=== PATIENT | female | born 1965 | race Caucasian/White ===

== ENCOUNTER 2017-06-17 23:26 | Emergency (ER) | payer MEDICARE, OTHER ==
[~2017-06-17] VITALS: Ht 170.2 cm; Wt 64.9 kg
[~2017-06-17 23:26] MED LIST: ACETAMINOPHEN325 M1 PO; AMITRIPTYLINE H25 MG PO; ARTIFICIAL TEAR15 ML OU; ASPIR 8181 MG PO; AZO CRANBERRY1 EACH PO; B12 IM; BENADRYL25 M1 PO; COLACE100 MG PO; FOLIC ACID1 MG PO; GAS-X80 MG PO; LACTULOSE20 GM/30 M PO; METROGEL60 GM TOP; MILK OF MA2400 MG/10 PO; NYSTATIN1 EAC1 TOP; PHENERGAN25 MG/1 ML PO; TEMAZEPAM15 MG PO; TYLENOL WITH C1 EACH PO; URISPAS PO; VESICARE5 MG PO; VITAMIN C500 MG PO; WELLBUTRIN100 MG PO; ZANAFLEX4 M1 PO; [UNRECOGNIZED DRUG - OTHER]; [UNRECOGNIZED DRUG - OTHER] SC
[2017-06-18 00:32] LABS: BILIRUBIN,URINE NEGATIVE (NEGATIVE); CLARITY,URINE CLOUDY (CLEAR); COLOR,URINE YELLOW (YELLOW); KETONES,URINE NEGATIVE (NEGATIVE); LEUKOCYTE ESTERASE ,URINE 2+ (NEGATIVE); NITRITE,URINE NEGATIVE (NEGATIVE); URINE UROBILINOGEN 0.2 mg/dL (0.2 - 1)
[2017-06-18 00:42] LABS: PROTEIN,URINE DIPSTICK 2+ (NEGATIVE)
[2017-06-18 00:47] LABS: BACTERIA,URINE MODERATE /HPF; EPITHELIAL CELLS,URINE FEW /LPF; RBC,URINE >50 /HPF (0-5); WBC,URINE (MAN) >50 /HPF (0-5)
[2017-06-18] MEDS ORDERED: LEVOFLOXACIN 500 MG TAB PO ONE (01:15)
[2017-06-18 01:27] VITALS: BP 140/97
== END 2017-06-18 02:23 | disposition home or self-care (01) ==
LOC: ER 23:26
DX: Z46.6 Encounter for fitting and adjustment of urinary device (principal); N30.91 Cystitis, unspecified with hematuria; I10 Essential (primary) hypertension; G35 Multiple sclerosis; F32.9 Major depressive disorder, single episode, unspecified; F41.9 Anxiety disorder, unspecified; E78.5 Hyperlipidemia, unspecified; Z95.810 Presence of automatic (implantable) cardiac defibrillator
CPT/HCPCS: 81001; 87086; 87186; 99283

== ENCOUNTER 2018-03-07 11:29 | Emergency (ER) | payer MEDICARE, MEDICAID ==
[~2018-03-07] VITALS: Ht 170.2 cm; Wt 64.9 kg
[2018-03-07 13:42] LABS: CLARITY,URINE CLOUDY (CLEAR); COLOR,URINE YELLOW (YELLOW); LEUKOCYTE ESTERASE ,URINE 2+ (NEGATIVE)
[2018-03-07 13:43] LABS: BILIRUBIN,URINE NEGATIVE (NEGATIVE); KETONES,URINE NEGATIVE (NEGATIVE); NITRITE,URINE NEGATIVE (NEGATIVE); PROTEIN,URINE DIPSTICK TRACE (NEGATIVE); URINE UROBILINOGEN 0.2 mg/dL (0.2 - 1); WBC,URINE (MAN) >50 /HPF (0-5)
[2018-03-07 13:44] LABS: BACTERIA,URINE MODERATE /HPF; EPITHELIAL CELLS,URINE MODERATE /LPF; RBC,URINE 21-50 /HPF (0-5); TRANSITIONAL EPI CELLS,URINE RARE
[2018-03-07] MEDS ORDERED: TOBREX3.5 GM IM (14:01)
[2018-03-07 16:48] VITALS: BP 96/69
== END 2018-03-07 16:52 | disposition home or self-care (01) ==
LOC: ER 11:29
DX: R30.0 Dysuria (principal); N10 Acute pyelonephritis; N12 Tubulo-interstitial nephritis, not specified as acute or chronic
CPT/HCPCS: 81001; 87086; 87186; 99284

== ENCOUNTER → 2018-03-13 | Outpatient (CLI) | payer MEDICARE, MEDICAID ==
[~2018-03-13] MED LIST changes: +TOBREX3.5 GM IM
--- NOTE | 2018-03-13 15:50 | Diagnostic Imaging Report ---
EXAMINATION: Renal ultrasound. CLINICAL HISTORY :Urinary calculi COMPARISON: <None available.> TECHNIQUE: Grayscale and color Doppler evaluation of the kidneys and bladder was performed in transverse and longitudinal planes. DISCUSSION: RIGHT KIDNEY: The right kidney measures 9.6 cm in length and shows normal echogenicity. No hydronephrosis, shadowing calculi or solid mass lesions. 1.2 cm simple cyst with septation. LEFT KIDNEY: The left kidney measures 9 cm in length and shows normal echogenicity. No hydronephrosis, shadowing calculi or solid mass lesions. BLADDER: Kelley catheter. Bladder decompressed. IMPRESSION: 1.2 cm left renal cyst, otherwise unremarkable. Signed by: Dr. Chicho Montilla M.D. on 03/13/2018 3:47 PM
--- NOTE | 2018-03-13 16:32 | Diagnostic Imaging Report ---
Exam: Abdominal film Clinical History: Urinary calculi Comparison: None. DISCUSSION: Frontal view of the abdomen shows a nonobstructive bowel gas pattern with mild amount of retained stool. No dilated, air-filled loops of bowel. No abnormal calcifications. No acute bone abnormality. IVC filter. IMPRESSION: 1. Nonobstructive bowel gas pattern. Signed by: Dr. Chicho Montilla M.D. on 03/13/2018 4:29 PM
== END ==
LOC: US 14:52
PROVIDERS: ATTEND Urology
DX: Z87.442 Personal history of urinary calculi (principal); N28.1 Cyst of kidney, acquired
CPT/HCPCS: 74018; 76770

== ENCOUNTER 2018-04-24 16:56 | Emergency (ER) | payer MEDICARE, OTHER ==
[~2018-04-24] VITALS: Ht 170.2 cm; Wt 64.9 kg
--- OUTSIDE RECORDS SUMMARY | 2018-04-24 17:00 | XMS REPORT ---
Author Author [facility] Address Unknown Phone Unavailable Care Team Providers Care Emergency Room Rn Name Role Phone VINNY KONG Unavailable Unavailable Problems This patient has no known problems. Allergies, Adverse Reactions, Alerts This patient has no known allergies or adverse reactions. Medications This patient has no known medications. Results Test Description Test Time Test Comments Text Results Atomic Results Result Comments ABDOMEN-1VIEW ([facility]) 2018-03-13 16:28:00 [facility] [address] [place] [address] Patient Name: SHEREEN SPENCER MR #: [id number] : 1965 Age/Sex: 52/F Req #: [id number] Adm Physician: Ordered by: VINNY KONG MD Report #: [id number] Location: US Room/Bed: Procedure: [id number] DX/ABDOMEN-1VIEW ([facility]) Exam Date: 03/13/18 Exam Time: 1540 REPORT STATUS: Signed Exam: Abdominal film Clinical History: Urinary calculi Comparison: None. DISCUSSION: Frontal view of the abdomen shows a nonobstructive bowel gas pattern with mild amount of retained stool. No dilated, air-filled loops of bowel. No abnormal calcifications. No acute bone abnormality. IVC filter. IMPRESSION: 1. Nonobstructive bowel gas pattern. Signed by: Dr. Dorota Perez M.D. on 03/13/2018 4:29 PM Dictated By: DOROTA PEREZ MD Transcribed By: JUAN DAVID on 03/13/181628 COPY TO: VINNY KONG MD RENAL RETROPERITONEAL COMP 2018-03-13 15:45:00 [place] [id number] Patient Name: SHEREEN SPENCER MR #: [id number] : 1965 Age/Sex: 52/F Req #: [id number] Adm Physician: Ordered by: VINNY KONG MD Report #: [id number] Location: Room/Bed: Procedure: [id number] US/US RENAL RETROPERITONEAL COMP Exam Date: 03/13/18 Exam Time: 1509 REPORT STATUS: Signed EXAMINATION: Renal ultrasound. CLINICAL HISTORY :Urinary calculi COMPARISON: <None available.> TECHNIQUE: Grayscale and color Doppler evaluation of the kidneys and bladder was performed in transverse and longitudinal planes. DISCUSSION: RIGHT KIDNEY: The right kidney measures 9.6 cm in length and shows normal echogenicity. No hydronephrosis, shadowing calculi or solid mass lesions. 1.2 cm simple cyst with septation. LEFT KIDNEY: The left kidney measures 9 cm in length and shows normal echogenicity. No hydronephrosis, shadowing calculi or solid mass lesions. BLADDER: Kelley catheter. Bladder decompressed. IMPRESSION: 1.2 cm left renal cyst, otherwise unremarkable. Signed by: Dr. Dorota Perez M.D. on 03/13/2018 3:47 PM Dictated By: DOROTA PEREZ MD [id number] Transcribed By: JUAN DAVID on 03/13/18 [id number] COPY TO: VINNY KONG MD
[2018-04-24 20:26] LABS: BILIRUBIN,URINE NEGATIVE (NEGATIVE); CLARITY,URINE SL CLOUDY (CLEAR); COLOR,URINE STRAW (YELLOW); KETONES,URINE NEGATIVE (NEGATIVE); LEUKOCYTE ESTERASE ,URINE 2+ (NEGATIVE); NITRITE,URINE NEGATIVE (NEGATIVE); PROTEIN,URINE DIPSTICK NEGATIVE (NEGATIVE); URINE UROBILINOGEN 0.2 mg/dL (0.2 - 1)
[2018-04-24 20:31] LABS: RBC,URINE >50 /HPF (0-5)
[2018-04-24 20:32] LABS: EPITHELIAL CELLS,URINE RARE /LPF
[2018-06-22] MEDS ORDERED: MACROBID 100 M100 MG PO (19:15)
== END 2018-04-24 20:23 ==
LOC: ER 16:56
DX: R33.9 Retention of urine, unspecified (principal); I10 Essential (primary) hypertension; Z95.810 Presence of automatic (implantable) cardiac defibrillator; F41.9 Anxiety disorder, unspecified; F32.9 Major depressive disorder, single episode, unspecified; Z85.828 Personal history of other malignant neoplasm of skin
CPT/HCPCS: 81001; 87086; 87186; 99284

== ENCOUNTER → 2018-07-06 | Day surgery (SDC) | payer MEDICARE, OTHER ==
[~2018-07-06] MED LIST changes: +BACLOFEN10 MG PO; +BELLADONNA/OPIUM 30 MG SUPP RC ONE; +BETASERON0.3 MG SQ; +BOTULINUM TOXIN TYPE A 100 UNIT VIAL IM ONE; +DESFLURANE 240 ML BTL INH ONE; +DEXAMETHASONE SOD PHOS INJ 4 MG/ML VIAL ONE; +DIGOXIN125 MCG PO; +DOCUSATE SODIU100 MG PO; +DOXEPIN HCL10 MG PO; +DULCOLAX SUPP10 MG RC; +EPHEDRINE SULFATE INJ 50 MG/10 ML SYR ONE; +GABAPENTIN100 MG PO; +IOPAMIDOL 610MG/1ML 300 MG/ML VIAL IV ONE; +LEVSIN0.125 MG PO; +LIDOCAINE HCL 2% LOCAL INJ 5 ML SDV VIAL INJ ONE; +LOPID600 MG PO; +MACROBID 100 M100 MG PO; +METOPROLOL SUCC25 MG PO; +MIRALAX17 GM PO; +ONDANSETRON HCL INJ 2MG/ML 2ML 2 MG/ML VIAL ONE; +OXYBUTYNIN CHLOR5 MG PO; +PIPER-TAZ 3.375 GM 50 ML ONE; +PRIMIDONE50 MG PO; +PROPOFOL IV EMULSION 10 MG/ML 20 ML VIAL ONE; +REQUIP1 MG PO; +TYLENOL325 MG PO; +VITAMIN B-121000 MCG PO; +VITAMIN C500 M1 PO
[2018-07-06 10:13] LABS: BASOPHILS # (AUTO) 0.1 (0.0-0.1); BASOPHILS % 1.1 % (0.0-1.0); EOSINOPHILS # (AUTO) 0.3 (0.0-0.4); HEMATOCRIT 36.1 % (34.2-44.1); LYMPHOCYTES # (AUTO) 1.3 (1.0-3.2); LYMPHOCYTES % 24.6 % (18.0-39.1); MEAN CORPUSCULAR HEMOGLOBIN 33.1 pg (28-32); MEAN CORPUSCULAR HGB CONC 33.2 g/dL (31-35); MEAN CORPUSCULAR VOLUME 99.7 fL (81-99); MONOCYTES # (AUTO) 0.5 (0.2-0.8); MONOCYTES % 8.6 % (4.4-11.3); NEUTROPHILS # (AUTO) 3.2 (2.1-6.9); NEUTROPHILS % 59.5 % (38.7-80.0); PLATELET COUNT 284 x10e3/uL (140-360); RED BLOOD COUNT 3.62 x10e6/uL (3.6-5.1); RED CELL DISTRIBUTION WIDTH 14.5 % (11.7-14.4)
[2018-07-06 10:31] LABS: ANION GAP 17.7 mmol/L (8-16); BLOOD UREA NITROGEN 19 mg/dL (7-26); BUN/CREATININE RATIO 22 (6-25); CALCIUM 10.2 mg/dL (8.4-10.2); CARBON DIOXIDE 25 mmol/L (22-29); CHLORIDE 100 mmol/L (98-107); CREATININE, SERUM 0.85 mg/dL (0.57-1.11); EST GLOMERULAR FILTRATION RATE > 60 ML/MIN (60-); GLUCOSE 95 mg/dL (74-118); POTASSIUM 3.7 mmol/L (3.5-5.1); SODIUM 139 mmol/L (136-145)
[2018-07-06 15:00] VITALS: BP 101/76
--- NOTE | 2018-08-13 10:37 | Operative Report ---
DATE OF PROCEDURE: 07/06/2018 SURGEON: Prabhjot Rosas MD PREOPERATIVE DIAGNOSES: 1. Suprapubic cystostomy. 2. Urinary tract infection. 3. Urinary retention. 4. Refractory urge incontinence. POSTOPERATIVE DIAGNOSES: 1. Suprapubic cystostomy. 2. Urinary tract infection. 3. Urinary retention. 4. Refractory urge incontinence. 5. Mild cystocele. 6. Atrophic vaginitis. OPERATION PERFORMED: 1. Change of cystostomy tube (separate procedure performed prior to the cystoscopic portion). 2. Cystourethroscopy with bilateral ureteral catheterization and retrograde ureteropyelography (separate procedure performed for the urinary tract infection). 3. Interpretation of retrograde ureteropyelography. 4. Cystourethroscopy with intravascular injection of Botox (separate procedure performed for refractory urge incontinence). 5. Pelvic examination under anesthesia. ANESTHESIA: General. COMPLICATIONS: None. CLINICAL SUMMARY: Paige Myers is a 52-year-old woman with chronic urinary retention, suprapubic cystostomy. She has urinary tract infections as well. She has refractory incontinence and elected to proceed with surgery as planned. She is aware of the risks of bleeding, infection, injury to adjacent structures, and need for additional procedures and elected to proceed. OPERATIVE PROCEDURE IN DETAIL: Informed consent was verified. Paige Myers was appropriately identified, taken to the operating room, and placed on the cystoscopy table in supine position. Anesthesia was uneventfully begun. Her suprapubic cystostomy was removed and she was carefully gently repositioned in dorsal lithotomy position with all pressure points well padded. Her abdomen and genitalia were prepared and draped in the usual sterile fashion. A 24-Tongan Kelley catheter with a 10 mL balloon was inserted into the patient's cystostomy site. It was carefully guided to where the bladder should be. It was then inflated with 10 mL of sterile water. It was irrigated to and fro to ensure it worked properly. The 22.5-Tongan cystoscope sheath with the obturator in place was atraumatically inserted into the patient's urethra. Panendoscopy revealed grade 2 trabeculations and no suspicious lesions. The suprapubic cystostomy was in the appropriate position. No suspicious lesions were identified. An 8-Tongan catheter was used to cannulate each ureter and retrograde ureteropyelograms were performed. Interpretation of Retrograde Ureteropyelography: Contrast was instilled in a retrograde fashion bilaterally. There were no tumors, no stones, and no diverticula. Unobstructed drainage was observed bilaterally fluoroscopically. Botox was prepared by taking 200 units of Botox and dissolving in 20 mL of sterile saline. It was then injected in 1 mL aliquots in an even distribution throughout the supratrigonal bladder. The patient's bladder was drained. The cystoscope was withdrawn. Pelvic examination under anesthesia revealed a grade 1 cystocele with atrophic (senile) vaginitis. No abnormal palpable pelvic masses could be appreciated. There were no obvious mucosal lesions. The patient was then uneventfully reversed from anesthesia and taken to the recovery room in stable condition. There were no complications during the procedure. The patient tolerated the procedure well. Estimated blood loss was minimal. Exclusive postoperative instructions were given. We will follow the patient up in the office. Prabhjot Rosas MD OH/MODL /[id number] cc: Radha Peña MD
== END | disposition home or self-care (01) ==
LOC: OR 09:34
PROVIDERS: ATTEND Urology
DX: N39.41 Urge incontinence (principal); Z43.5 Encounter for attention to cystostomy; N31.9 Neuromuscular dysfunction of bladder, unspecified; N39.0 Urinary tract infection, site not specified; N32.89 Other specified disorders of bladder; N21.0 Calculus in bladder; N81.10 Cystocele, unspecified; N95.2 Postmenopausal atrophic vaginitis; G35 Multiple sclerosis; M19.90 Unspecified osteoarthritis, unspecified site; I69.851 Hemiplegia and hemiparesis following other cerebrovascular disease affecting right dominant side; I10 Essential (primary) hypertension; I48.91 Unspecified atrial fibrillation; F32.9 Major depressive disorder, single episode, unspecified; Z88.1 Allergy status to other antibiotic agents; Z88.0 Allergy status to penicillin; Z79.82 Long term (current) use of aspirin; Z87.442 Personal history of urinary calculi; Z95.0 Presence of cardiac pacemaker; Z85.828 Personal history of other malignant neoplasm of skin
CPT/HCPCS: 36415; 51705; 52005; 52287; 74420; 80048; 85025; 93005; C1758; J0587; J1100; J2001; J2405; J2543; J2704; Q9967

== ENCOUNTER → 2018-11-09 | Day surgery (SDC) | payer MEDICARE ==
[~2018-11-09] MED LIST changes: +B&O 60MG R/S 60 MG SUPP PR ONE; -BELLADONNA/OPIUM 30 MG SUPP RC ONE; -DESFLURANE 240 ML BTL INH ONE; +FENOFIBRATE145 MG PO; +FENTANYL CITRATE/PF 100MCG/2 ML INJ ONE; -PIPER-TAZ 3.375 GM 50 ML ONE; +SEVOFLURANE INHAL SOLN 250 ML PEN BTL ONE; +TOBRAMYCIN 40 MG/ML 2ML VIAL ONE; +VANCOMYCIN 1GM/NS 250 ML 250 ML ONE; +linzess PO
[2018-11-09 14:18] VITALS: BP 113/76
--- NOTE | 2018-12-26 06:51 | Operative Report ---
DATE OF PROCEDURE: 11/09/2018 SURGEON: Prabhjot Rosas MD PREOPERATIVE DIAGNOSES: 1. Urinary tract infections. 2. Refractory urge incontinence. POSTOPERATIVE DIAGNOSES: 1. Urinary tract infections. 2. Refractory urge incontinence. 3. Atrophic (senile) vaginitis. 4. Mild cystocele. OPERATION PERFORMED: Note: These were all procedures completely done related to the patient's prior suprapubic tube change. 1. Cystourethroscopy with bilateral ureteral catheterization and retrograde ureteropyelography (separate procedure performed for the urinary tract infections). 2. Interpretation of retrograde ureteropyelography. 3. Cystourethroscopy with intravesical injection of Botox (separate procedure performed for the refractory incontinence). 4. Pelvic examination under anesthesia. ANESTHESIA: General. COMPLICATIONS: None. CLINICAL SUMMARY: Paige Myers is a 53-year-old woman with a suprapubic cystostomy, but she still has no overactive bladder and still has urge incontinence. She is brought for the above procedures. She is aware of the risks of bleeding, infection, injury to adjacent structures, need for additional procedures, and elected to proceed. OPERATIVE PROCEDURE IN DETAIL: Informed consent was verified. Paige Myers was properly identified, taken to the operating room, and placed on the cystoscopy table in supine position. Anesthesia was uneventfully begun. The patient was then carefully and gently repositioned in dorsal lithotomy position with all pressure points well padded. Her genitalia were prepared and draped in usual sterile fashion. A 22.5-St Helenian cystoscope sheath with obturator in place was atraumatically inserted into the patient's urethra and bladder was drained. Panendoscopy of the bladder revealed no suspicious mucosal lesions, no tumors, no stones, and no diverticula. Normally positioned and configured ureteral orifices were identified. The suprapubic cystostomy was seen within the bladder. The patient has been treated with culture specific antibiotics based on her most recent culture from her last suprapubic tube change. An 8-St Helenian catheter was used to cannulate each ureter and retrograde ureteropyelograms were performed. Interpretation of retrograde ureteropyelography: Contrast was instilled in retrograde fashion bilaterally. There were no tumors, no stones, and no diverticula. Unobstructed drainage was observed bilaterally fluoroscopically. A 200 units of Botox were dissolved in 20 mL of sterile saline, they were injected in 1 mL aliquots in an even distribution of supratrigonal bladder. The patient's bladder was drained. The cystoscope was withdrawn. Pelvic examination under anesthesia revealed a mild cystocele. There is a grade 1 in nature as well as atrophic (senile) vaginitis. No abnormal palpable pelvic masses could be appreciated. There were no obvious mucosal lesions. The patient was then uneventfully reversed from anesthesia and taken to the recovery room in stable condition. There were no complications to the procedure. She tolerated the procedure well. Explicit postoperative instructions were given. We will follow the patient up in the office for suprapubic tube change in several weeks. Prabhjot MD Alison OH/MODL /[id number] cc: Radha Peña MD
== END | disposition home or self-care (01) ==
LOC: OR 09:45
PROVIDERS: ATTEND Urology
DX: N39.41 Urge incontinence (principal); N39.0 Urinary tract infection, site not specified; N95.2 Postmenopausal atrophic vaginitis; N81.10 Cystocele, unspecified; Z93.50 Unspecified cystostomy status; G35 Multiple sclerosis; G82.20 Paraplegia, unspecified; I48.91 Unspecified atrial fibrillation; R03.0 Elevated blood-pressure reading, without diagnosis of hypertension; Z88.1 Allergy status to other antibiotic agents; Z88.0 Allergy status to penicillin; Z79.82 Long term (current) use of aspirin; Z95.0 Presence of cardiac pacemaker; Z87.891 Personal history of nicotine dependence
CPT/HCPCS: 52005; 52287; 74420; 93005; C1758; J0587; J1100; J2001; J2405; J2704; J3260; J3370; Q9967; J3010

== ENCOUNTER → 2019-03-15 | Day surgery (SDC) | payer MEDICARE ==
[~2019-03-15] MED LIST changes: -EPHEDRINE SULFATE INJ 50 MG/10 ML SYR ONE; -FENTANYL CITRATE/PF 100MCG/2 ML INJ ONE; +HYDROCORTISONE30 GM TOP; +IOPAMIDOL 300MG/ML 50ML INFUS..BTL IV ONE; -IOPAMIDOL 610MG/1ML 300 MG/ML VIAL IV ONE; +MELATONIN10 M1 PO; +METRONIDAZOLE GEL TOP; +SODIUM CHLORIDE 0.9% IV ONE; -TOBRAMYCIN 40 MG/ML 2ML VIAL ONE; +TOBRAMYCIN IV ONE; -VANCOMYCIN 1GM/NS 250 ML 250 ML ONE
[2019-03-15 09:00] LABS: BASOPHILS # (AUTO) 0.1 (0.0-0.1); BASOPHILS % 1.3 % (0.0-1.0); EOSINOPHILS # (AUTO) 0.3 (0.0-0.4); EOSINOPHILS % 6.6 % (0.0-6.0); HEMATOCRIT 32.8 % (34.2-44.1); HEMOGLOBIN 11.1 g/dL (12.0-16.0); LYMPHOCYTES # (AUTO) 1.4 (1.0-3.2); LYMPHOCYTES % 29.3 % (18.0-39.1); MEAN CORPUSCULAR HEMOGLOBIN 32.4 pg (28-32); MEAN CORPUSCULAR HGB CONC 33.8 g/dL (31-35); MEAN CORPUSCULAR VOLUME 95.6 fL (81-99); MONOCYTES # (AUTO) 0.6 (0.2-0.8); MONOCYTES % 13.5 % (4.4-11.3); NEUTROPHILS # (AUTO) 2.3 (2.1-6.9); NEUTROPHILS % 49.1 % (38.7-80.0); PLATELET COUNT 214 x10e3/uL (140-360); RED BLOOD COUNT 3.43 x10e6/uL (3.6-5.1); RED CELL DISTRIBUTION WIDTH 13.3 % (11.7-14.4)
[2019-03-15 12:55] VITALS: BP 122/85
--- NOTE | 2019-04-22 00:21 | Operative Report ---
DATE OF PROCEDURE: 03/15/2019 SURGEON: Prabhjot Rosas MD PREOPERATIVE DIAGNOSES: 1. Urge incontinence. 2. Urinary tract infections. 3. Suprapubic cystostomy. POSTOPERATIVE DIAGNOSES: 1. Urge incontinence. 2. Urinary tract infections. 3. Suprapubic cystostomy. 4. Bladder stone. 5. Atrophic vaginitis. 6. Minimal rectocele. OPERATION PERFORMED: 1. Change of cystostomy tube (separate procedure performed for the cystostomy tube presence). 2. Cystourethroscopy with cystolitholapaxy (separate procedure performed for the bladder stone). 3. Cystourethroscopy with bilateral ureteral catheterization and retrograde ureteropyelography (separate procedure performed for the urinary tract infections). 4. Interpretation of retrograde ureteropyelography. 5. Cystourethroscopy with intravesical injection of Botox (separate procedure performed for the refractory urge incontinence). ANESTHESIA: General. COMPLICATIONS: None. CLINICAL SUMMARY: Paige Myers is a debilitated 53-year-old woman with neurogenic bladder, suprapubic cystostomy, and urinary tract infection. She is brought for the planned Botox procedure. She is aware of the risks of bleeding, infection, injury to adjacent structures, need for additional procedures, and elected to proceed. She also understands that Botox is a temporary solution for her incontinence. OPERATIVE PROCEDURE IN DETAIL: Informed consent verified. Paige Myers was properly identified, taken to the operating room, and placed on the cystoscopy table in supine position. Anesthesia was uneventfully begun. The patient was then carefully and gently repositioned in dorsal lithotomy position with all pressure points well padded. The suprapubic cystostomy was removed and her abdomen and genitalia were prepared and draped in usual sterile fashion. A 24-Bermudian Kelley catheter with a 10 mL balloon was advanced into the suprapubic tract. Once resistance was encountered, presumed to be the posterior bladder wall, the balloon was inflated with 10 mL of sterile water. It was irrigated to and fro to ensure it worked properly. The 22.5-Bermudian cystoscope sheath with obturator in place was atraumatically inserted into the patient's urethra and the bladder was drained. Panendoscopy revealed no suspicious lesions, but there was large bladder stone and some smaller pieces sand present. The balloon of the suprapubic cystostomy could be seen in the bladder and was in good position. Grasping forceps were then utilized to crush the stone. Once we crushed the stone and evacuated all the debris, we proceed with our procedure as planned. Ureteral catheter was used to cannulate each ureter and retrograde ureteral pyelograms were performed. Interpretation of retrograde ureteropyelography contrast was instilled in retrograde fashion bilaterally. There were no tumors, no stones, and no diverticula. There is some right-sided delay in drainage, but the drainage could be visualized down the ureters. The patient's bladder was drained and re-examined. We then proceeded with taking 200 units of Botox were dissolved in 20 mL of sterile saline. We injected Botox into the bladder and 1 mL aliquots in an even distribution supratrigonally. The patient's bladder was drained and cystoscope was withdrawn. Pelvic examination revealed atrophic vaginitis with a minimal rectocele. No abnormal palpable pelvic masses could be appreciated. There were no obvious mucosal lesions. The patient was then uneventfully reversed from anesthesia and taken to recovery room in stable condition. There were no complications to the procedure and she tolerated the procedure well. Explicit postop instructions were given and we will follow the patient up in the office in approximately 3 weeks. At which point in time, we will plan on changing her cystostomy tube. Prabhjot Rosas MD [facility]/MARLENIL /[id number]
== END | disposition home or self-care (01) ==
LOC: OR 07:54
PROVIDERS: ATTEND Urology
DX: N21.0 Calculus in bladder (principal); N39.41 Urge incontinence; N39.0 Urinary tract infection, site not specified; N95.2 Postmenopausal atrophic vaginitis; N81.6 Rectocele; N31.9 Neuromuscular dysfunction of bladder, unspecified; Z93.50 Unspecified cystostomy status
CPT/HCPCS: 36415; 52005; 52287; 52318; 74420; 85025; 88300; C1758; J0587; J1100; J2001; J2405; J2704; J3260; J7050; Q9967

== ENCOUNTER → 2019-07-17 | Day surgery (SDC) | payer MEDICARE ==
[~2019-07-17] MED LIST changes: -DEXAMETHASONE SOD PHOS INJ 4 MG/ML VIAL ONE; +FENTANYL CITRATE/PF 100MCG/2 ML INJ ONE; +MEROPENEM 1GM 0 ML IV ONE; +MERREM1 GM IV; +MORPHINE SULFATE 2 MG/ML SYR 1ML ONE; -ONDANSETRON HCL INJ 2MG/ML 2ML 2 MG/ML VIAL ONE; -SODIUM CHLORIDE 0.9% IV ONE; -TOBRAMYCIN IV ONE
[2019-07-17 14:05] VITALS: BP 135/83
--- NOTE | 2019-08-21 04:40 | Operative Report ---
DATE OF PROCEDURE: 07/17/2019 SURGEON: Prahbjot Rosas MD PREOPERATIVE DIAGNOSES: 1. Urinary retention. 2. Suprapubic cystostomy. 3. Refractory urge incontinence. 4. Urinary tract infections. POSTOPERATIVE DIAGNOSES: 1. Urinary retention. 2. Suprapubic cystostomy. 3. Refractory urge incontinence. 4. Urinary tract infections. 5. Cystolithiasis. 6. Grade 1 cystocele. 7. Atrophic (senile) vaginitis. OPERATION PERFORMED: 1. Change of cystostomy tube (separate procedure performed from separate approach). 2. Cystourethroscopy with cystolitholapaxy (separate procedure performed for the cystolithiasis). 3. Cystourethroscopy for the intravesical injection of Botox (separate procedure performed for refractory urge incontinence). 4. Cystourethroscopy with bilateral ureteral catheterization and retrograde ureteropyelography (separate procedure performed for the urinary tract infections). 5. Interpretation of retrograde ureteropyelography. 6. Pelvic examination under anesthesia. ANESTHESIA: General. COMPLICATIONS: None. CLINICAL SUMMARY: Paige Myers is a 53-year-old woman with complex urological history and neurogenic bladder. She is brought for the above procedures. She is aware of the risks of bleeding, infection, injury to adjacent structures, need for additional procedures and elected to proceed. OPERATIVE PROCEDURE IN DETAIL: Informed consent was verified. Paige Myers was properly identified, taken to the operating room, placed on the cystoscopy table in supine position. Anesthesia was uneventfully begun. The patient was then carefully and gently repositioned in dorsal lithotomy position with all pressure points well padded. Her abdomen and genitalia were prepared and draped in usual sterile fashion. The suprapubic cystostomy tube was previously removed. A 24-Uzbek Kelley catheter was advanced and suprapubic cystostomy was advanced to delineate the bladder, inflated with 10 mL of sterile water, irrigated the catheter to and fro to ensure it work properly. The cystoscope sheath with obturator in place was atraumatically inserted into the patient's urethra and the bladder was drained. Panendoscopy revealed no suspicion mucosal lesions, no tumors, and no diverticula. There were stones noted. Cystolitholapaxy was then carried out. We utilized grasping forceps to crush and remove stone debris. An 8-Uzbek catheter was used to cannulate each ureter and retrograde ureteropyelography was performed. Interpretation of retrograde ureteropyelography contrast was instilled in retrograde fashion bilaterally. There were no tumors. There were no stones. There were no diverticula. Unobstructed drainage was observed bilaterally fluoroscopically. 200 units of Botox were dissolved into 200 mL of sterile saline. We then proceeded with injecting 20 mL of saline in 1 mL of aliquots in an even distribution throughout the supratrigonal bladder. The cystoscope was withdrawn was irrigated to and fro to ensure work properly. The patient was then uneventfully reversed from anesthesia and taken to recovery room in stable condition. There were no complications to the procedure. She tolerated the procedure well. Expressive postoperative instructions were given. We will follow the patient up in the office in several weeks to change her cystostomy tube. Pelvic examination under anesthesia revealed a grade 1 cystocele with atrophic vaginitis. No abnormal palpable pelvic masses could be appreciated. There were no obvious mucosal lesions. The patient was then uneventfully reversed from anesthesia and taken to recovery room in stable condition. There were no complications to the procedure. She tolerated the procedure well. Plans will be to follow the patient up in the office and change the cystostomy tube in several weeks. MD MIKE Coyne/STACI /[id number]
== END | disposition home or self-care (01) ==
LOC: OR 09:57
PROVIDERS: ATTEND Urology
DX: N39.41 Urge incontinence (principal); N31.9 Neuromuscular dysfunction of bladder, unspecified; N39.0 Urinary tract infection, site not specified; Z93.50 Unspecified cystostomy status; N21.0 Calculus in bladder; N81.10 Cystocele, unspecified; N95.2 Postmenopausal atrophic vaginitis; G35 Multiple sclerosis; I10 Essential (primary) hypertension; Z88.1 Allergy status to other antibiotic agents; Z88.0 Allergy status to penicillin; Z79.82 Long term (current) use of aspirin; Z95.0 Presence of cardiac pacemaker
CPT/HCPCS: 52005; 52287; 52317; 74420; 88300; C1758; C1769; J0587; J2001; J2270; J2704; J3010; Q9967

== ENCOUNTER 2019-09-24 07:11 | Emergency (ER) | payer MEDICARE, OTHER ==
[~2019-09-24] VITALS: Ht 170.2 cm; Wt 60.3 kg
[~2019-09-24 07:11] MED LIST changes: -B&O 60MG R/S 60 MG SUPP PR ONE; -BOTULINUM TOXIN TYPE A 100 UNIT VIAL IM ONE; -FENTANYL CITRATE/PF 100MCG/2 ML INJ ONE; -IOPAMIDOL 300MG/ML 50ML INFUS..BTL IV ONE; -LIDOCAINE HCL 2% LOCAL INJ 5 ML SDV VIAL INJ ONE; -MEROPENEM 1GM 0 ML IV ONE; -MORPHINE SULFATE 2 MG/ML SYR 1ML ONE; -PROPOFOL IV EMULSION 10 MG/ML 20 ML VIAL ONE; -SEVOFLURANE INHAL SOLN 250 ML PEN BTL ONE
[2019-09-24 10:13] VITALS: BP 136/88
== END 2019-09-24 10:54 | disposition home or self-care (01) ==
LOC: ER 07:14
DX: Z46.6 Encounter for fitting and adjustment of urinary device (principal); R30.0 Dysuria
CPT/HCPCS: 87086; 87186; 99284

== ENCOUNTER 2019-10-09 18:25 | Emergency (ER) | payer MEDICARE, OTHER ==
[~2019-10-09] VITALS: Ht 170.2 cm; Wt 60.3 kg
--- NOTE | 2019-10-09 19:05 | NUR ---
REPORT GIVEN TO LAURIE ESPINAL
[2019-10-09 19:54] VITALS: BP 151/97
== END 2019-10-09 20:06 ==
LOC: ER 18:25
DX: Z46.6 Encounter for fitting and adjustment of urinary device (principal); G35 Multiple sclerosis; I10 Essential (primary) hypertension; E78.5 Hyperlipidemia, unspecified; F41.9 Anxiety disorder, unspecified; Z95.0 Presence of cardiac pacemaker
CPT/HCPCS: 87086; 87186; 99283

== ENCOUNTER 2019-11-02 15:07 | Emergency (ER) | payer MEDICARE, OTHER ==
[~2019-11-02] VITALS: Ht 170.2 cm; Wt 60.3 kg
--- NOTE | 2019-11-02 15:10 | NUR ---
CLIENT IN NO APPARENT DISTRSS, HISTORY OF PARKINSONS AND DEMENTIA, CLIENT SATURATING OXYGEN AT 100% ON ROOM AIR.
--- OUTSIDE RECORDS SUMMARY | 2019-11-02 15:12 | XMS REPORT ---
Author Author [facility] t Organization [facility] t Address [address] [place] [address] Phone Unavailable Care Team Providers Care Immigration Case Worker Name Role Phone KRIS CADENA PCP [phone] KRIS CADENA Attphys Unavailab le LUANN, VINNY Attphys Unavailable KRIS CADENA Admphys Unavailab le Payers Payer Name Policy Type Policy Number Effective Date Expiration Date S garry [facility] StatSheet [facility] [id number] 2011 00:00 :00 [facility] Medicare A & B [id number] 2004 00:00:[address] [facility] [id number] 2011 00:00 :00 [facility] Medicare A & B [id number] 2004 00:00:00 [facility] [id number] 2019 00:00:00 [facility] Medicare A & B [id number] 2004 00:00:00 [facility] [id number] 2018 00:00:00 [facility] [id number] 2018 00:00 :00 [facility] Medicare A & B [id number] 2004 00:00:00 [facility] [id number] 2018 00:00:00 [facility] Medicaid Hmo Other [id number] 2016 00:00:00 [facility] Medicare A & B [id number] 2004 00:00:00 [facility] Problems Condition Name Condition Details Condition Category Status Onset Date Resolution Date Last Treatment Date Treating Clinician Comments Source Complicated urinary tract infection Complicated UTI (urinary tract infection) Problem Active [facility] Presence of suprapubic catheter Suprapubic catheter Problem Active [facility] Allergies, Adverse Reactions, Alerts Allergy Name Allergy Type Status Severity Reaction(s) Onset Date Inacti ve Date Treating Clinician Comments Source Penicillin Allergy to Substance Active Moderate SWELLING 2019-07-05 00: 00:00 [facility] Cephalexin Allergy to Substance Active Severe SWELLING 2019-07-05 00:0 0:00 [facility] Penicillins DA Active [place] 2017-09-20 00:00:00 [facility] penicillin V DA Active [place] 2017-09-20 00:00:00 [facility] cephalexin DA Active [place] 2017-09-20 00:00:00 [facility] penicillin G DA Active [place] 2017-09-20 00:00:00 [facility] Medications Ordered Medication Name Filled Medication Name Start Date Stop Da te Current Medication? Ordering Clinician Indication Dosage Frequency Signature (SIG) Comments Components Source Nitrofurantoin Monohyd/M-Cryst (Macrobid 100 Mg Capsule) 100 Mg Capsule, 1 Cap Oral Nitrofurantoin Monohyd/M-Cryst (Macrobid 100 Mg Capsule) 100 Mg Capsule, 1 Cap Oral 2018-06-22 00:00:00 2018-07-03 00:00:00 Tia Jeter Md 1 Twice A Day [facility] Tobramycin (Tobrex) 3.5 Gm Oint, 160 Gm Intramusc Tobr amycin (Tobrex) 3.5 Gm Oint, 160 Gm Intramusc 2018-03-07 00:00:00 2018-07-03 00:00:00 Tia Granados Do 160 Daily [facility] Acetaminophen With Codeine (Tylenol With Codeine #3 Ta blet) 1 Each Tablet Acetaminophen With Codeine (Tylenol With Codeine #3 Tablet) 1 Each Tablet Yes 300 Q4hprn [facility] Aspirin (Aspir 81) 81 Mg Tablet. Aspirin (Aspir 81) 81 Mg Tablet. Yes 81 Daily [facility] Baclofen 10 Mg Tablet Baclofen 10 Mg Tablet Yes 10 Twice A Day [facility] Bupropion Hcl (Wellbutrin) 100 Mg Tablet Bupropion Hcl (Wellbutrin) 100 Mg Tablet Yes 75 Twice A Day [facility] Cranberry/Vit C/L. Sporogenes (Azo Cranberry Tablet) 1 Each Tablet Cranberry/Vit C/L. Sporogenes (Azo Cranberry Tablet) 1 Each Tablet Yes 1 Daily [facility] Cyanocobalamin (Vitamin B-12) 1,000 Mcg Tab Cyanocobal rios (Vitamin B-12) 1,000 Mcg Tab Yes 1000 Daily [facility] Dextran 70/Hypromellose (Artificial Tears Eye Drops) 1 5 Ml Drops Dextran 70/Hypromellose (Artificial Tears Eye Drops) 15 Ml Drops Yes 1 Daily [facility] Docusate Sodium 100 Mg Capsule Docusate Sodium 100 Mg Capsule Yes 300 Daily [facility] Doxepin Hcl 10 Mg Capsule Doxepin Hcl 10 Mg Capsule Yes 10 Bedtime [facility] Fenofibrate Nanocrystallized (Fenofibrate) 145 Mg Tabl et Fenofibrate Nanocrystallized (Fenofibrate) 145 Mg Tablet Yes 1 Bedtime [facility] Folic Acid 1 Mg Tablet Folic Acid 1 Mg Tablet Yes 1 Daily [facility] Gabapentin 100 Mg Capsule Gabapentin 100 Mg Capsule Yes 300 Bedtime [facility] Linzess 290 Linzess 290 Yes 145 Daily [facility] Melatonin 10 Mg Tablet Melatonin 10 Mg Tablet Yes 10 Bedtime [facility] Meropenem (Merrem) 1 Gm Inj Meropenem (Merrem) 1 Gm Inj Yes 1 Twice A Day [facility] Metoprolol Succinate 25 Mg Tab.er.24h Metoprolol Succinate 25 Mg Ta b.er.24h Yes 25 Twice A Day [facility] Oxybutynin Chloride 5 Mg Tablet Oxybutynin Chloride 5 Mg Tablet Yes 5 Twice A Day [facility] Primidone 50 Mg Tablet Primidone 50 Mg Tablet Yes 50 Twice A Day [facility] Ropinirole Hcl (Requip) 1 Mg Tablet Ropinirole Hcl (Requip) 1 Mg Tabl et Yes 1 Bedtime [facility] Simethicone (Gas-X) 80 Mg Tab.chew Simethicone (Gas-X) 80 Mg Tab.chew Yes 160 Twice A Day [facility] Acetaminophen (Tylenol*) 325 Mg Tablet, 650 Mg Oral Ac etaminophen (Tylenol*) 325 Mg Tablet, 650 Mg Oral 2019-03-15 00:00:00 No 650 A s Needed [facility] Bisacodyl (Dulcolax Supp*) 10 Mg Supp, 10 Mg Rectal Bi sacodyl (Dulcolax Supp*) 10 Mg Supp, 10 Mg Rectal 2019-03-15 00:00:00 No 10 As Needed [facility] Docusate Sodium (Colace) 100 Mg Cap, 300 Mg Oral Docus ate Sodium (Colace) 100 Mg Cap, 300 Mg Oral 2019-03-15 00:00:00 No 300 Daily [facility] Hydrocortisone 30 Gm Cr, 2.5 Gm Topically Hydrocortiso ne 30 Gm Cr, 2.5 Gm Topically 2019-03-15 00:00:00 No 2.5 As Needed [facility] Hyoscyamine Sulfate (Levsin) 0.125 Mg Tablet, 0.125 Mg Oral Hyoscyamine Sulfate (Levsin) 0.125 Mg Tablet, 0.125 Mg Oral 2019-03-15 00:00:00 No .125 Q6hprn [facility] Interferon Beta-1B (Betaseron) 0.3 Mg Kit, 0.3 Mg Sub- Q Interferon Beta-1B (Betaseron) 0.3 Mg Kit, 0.3 Mg Sub-Q 2019-03-15 00:00:00 No .3 Every Other Day [facility] Lactulose 20 Gm/30 Ml Solution, 30 Ml Oral Lactulose 2 0 Gm/30 Ml Solution, 30 Ml Oral 2019-03-15 00:00:00 No 30 Qdprn [facility] Magnesium Hydroxide (Milk Of Magnesia) 2,400 Mg/10 Ml Oral.susp, 30 Ml Oral Magnesium Hydroxide (Milk Of Magnesia) 2,400 Mg/10 Ml Oral.susp, 30 Ml Oral 2019-03-15 00:00:00 No 30 Qdprn [facility] Metronidazole Gel , 0.75 % Topically Metronidazole Gel , 0.75 % Topically 2019-03-15 00:00:00 No .75 Daily [facility] Polyethylene Glycol 3350 (Miralax) 17 Gm Powd.pack, 17 Gm Oral Polyethylene Glycol 3350 (Miralax) 17 Gm Powd.pack, 17 Gm Oral 2019-03-15 00:00:00 No 17 As Needed [facility] Promethazine Hcl (Phenergan) 25 Mg/1 Ml Ampul, 12.5 Mg Oral Promethazine Hcl (Phenergan) 25 Mg/1 Ml Ampul, 12.5 Mg Oral 2019-03-14 00:00:00 No 12.5 Every 6 Hours as needed for Nausea And Vomiting [facility] Ascorbic Acid (Vitamin C) 500 Mg Tablet, 500 Mg Oral A scorbic Acid (Vitamin C) 500 Mg Tablet, 500 Mg Oral 2018-11-09 00:00:00 No 500 Daily [facility] Diphenhydramine Hcl (Benadryl) 25 Mg Capsule, 25 Mg Or al Diphenhydramine Hcl (Benadryl) 25 Mg Capsule, 25 Mg Oral 2018-11-09 00:00:00 No 25 Every 6 Hours as needed for Itching [facility] Gemfibrozil (Lopid) 600 Mg Tablet, 600 Mg Oral Gemfibr ozil (Lopid) 600 Mg Tablet, 600 Mg Oral 2018-11-09 00:00:00 No 600 Muna y [facility] Digoxin 125 Mcg Tablet, 0.125 Mg Oral Digoxin 125 Mcg Tablet, 0. 125 Mg Oral 2018-11-08 00:00:00 No .125 Daily [facility] Metronidazole (Metrogel) 60 Gm Gel, Topically Metron idazole (Metrogel) 60 Gm Gel, Topically 2018-11-08 00:00:00 No As Need ed [facility] Acetaminophen With Codeine (Tylenol With Codeine #3 Tablet) 1 Each Tablet, 300 Mg Oral Acetaminophen With Codeine (Tylenol With Codeine #3 Tablet) 1 Each Tablet, 300 Mg Oral 2018-07-03 00:00:00 No 300 Ever y 12 Hours [facility] Amitriptyline Hcl 25 Mg Tablet, 25 Mg Oral Amitriptyli ne Hcl 25 Mg Tablet, 25 Mg Oral 2018-07-03 00:00:00 No 25 Bedtime [facility] Ascorbic Acid (Vitamin C) 500 Mg Capsule.er, 500 Mg Or al Ascorbic Acid (Vitamin C) 500 Mg Capsule.er, 500 Mg Oral 2018-07-03 00:00:00 No 50 0 Daily [facility] B12 , 1 Mg Intramusc B12 , 1 Mg Intramusc 2018-07-03 00:00:00 No 1 [facility] Cranberry/Vit C/L. Sporogenes (Azo Cranberry Tablet) 1 Each Tablet, 1 Tab Oral Cranberry/Vit C/L. Sporogenes (Azo Cranberry Tablet) 1 Each Tablet, 1 Tab Oral 2018-07-03 00:00:00 No 1 Daily [facility] Interferon Beta-1B (Extavia) 0.3 Mg Kit, 0.3 Mg Subcut aneously Interferon Beta- 1B (Extavia) 0.3 Mg Kit, 0.3 Mg Subcutaneously 2018-07-03 00:00:00 No .3 [facility] Interferon Beta-1B (Extavia) 0.3 Mg Kit, Interferon Be ta-1B (Extavia) 0.3 Mg Kit, 2018-07-03 00:00:00 No [facility] Nystatin 1 Each Powder.ea., 1 Ea Topically Nystatin 1 Each Powder.ea., 1 Ea Topically 2018-07-03 00:00:00 No 1 Daily [facility] Solifenacin Succinate (Vesicare) 5 Mg Tablet, 10 Mg Or al Solifenacin Succinate (Vesicare) 5 Mg Tablet, 10 Mg Oral 2018-07-03 00:00:00 No 1 0 Daily [facility] Temazepam 15 Mg Capsule, 30 Mg Oral Temazepam 15 Mg Capsule, 30 Mg Oral 2018-07-03 00:00:00 No 30 Bedtime [facility] Tizanidine Hcl (Zanaflex) 4 Mg Capsule, 4 Mg Oral Tiza nidine Hcl (Zanaflex) 4 Mg Capsule, 4 Mg Oral 2018-07-03 00:00:00 No 4 Daily [facility] Urispas , 100 Mg Oral Urispas , 100 Mg Oral 2018-07-03 00:00:00 No 100 Three Times A Day [facility] Acetaminophen 325 Mg Tablet, 325 Mg Oral Acetaminophen 325 Mg Tablet, 325 Mg Oral 2015-10-30 00:00:00 No 325 Every 4 Hours as n eeded for Pain [facility] Magnesium Hydroxide (Milk Of Magnesia) 2,400 Mg/10 Ml Oral.susp, 30 Ml Oral Magnesium Hydroxide (Milk Of Magnesia) 2,400 Mg/10 Ml Oral.susp, 30 Ml Oral 2015-10-30 00:00:00 No 30 Daily as needed for Constipation [facility] Procedures Procedure Date / Time Performed Performing Clinician [facility] e INSERT TEMP BLADDER CATH 2019-09-24 00:00:00 ATTILA GRANADOS [facility] CYSTOSCOPY & URETER CATHETER 2019-07-17 00:00:00 [facility] CYSTOSCOPY CHEMODENERVATION 2019-07-17 00:00:00 [facility] REMOVE BLADDER STONE 2019-07-17 00:00:00 [facility] INSERTION OF INFUSION DEV INTO SUP VENA CAVA, PERC APPROACH 2019-07-08 00:00:00 SHELLI GARCIA [facility] CYSTOSCOPY & URETER CATHETER 2019-03-15 00:00:00 [facility] CYSTOSCOPY CHEMODENERVATION 2019-03-15 00:00:00 [facility] REMOVE BLADDER STONE 2019-03-15 00:00:00 [facility] Encounters Start Date/Time End Date/Time Encounter Type [facility] ID Source 2019-10-09 18:25:00 2019-10-09 20:06:[address] [facility] [id number] [facility] 2019-09-24 07:14:00 2019-09-24 10:54:[address] [facility] [id number] [facility] 2019-07-17 09:57:00 2019-07-17 09:57:00 Registered Surgical Day Care [facility] [id number] [facility] 2019-07-05 12:40:00 2019-07-09 11:04:00 Discharged Inpatient [address] [facility] [id number] [facility] kes - Patients [facility] 2019-03-15 07:54:00 2019-03-15 07:54:00 Registered Surgical Day Care [facility] [id number] [facility] kes - Patients [facility] 2018-11-09 09:45:00 2018-11-09 09:45:00 Registered Surgical Day Care [facility] [id number] [facility] kes - Patients [facility] 2018-06-22 15:23:00 2018-06-22 22:29:[address] [facility] [id number] [facility] - Patients [facility] 2018-04-24 16:56:00 2018-04-24 20:23:[address] [facility] [id number] [facility] - Patients [facility] 2018-03-13 14:52:00 2018-03-13 14:52:00 Registered Clinic 3 MEJIA MPEL, VINNY [facility] [id number] [facility] St[facility] kes - Patients [facility] 2018-03-07 11:29:00 2018-03-07 16:52:[address] [facility] [id number] [facility] - Patients [facility] 2017-06-17 23:26:00 2017-06-18 02:23:[address] [facility] [id number] [facility] Results Test Description Test Time Test Comments Results Result Comments Source Blood Culture 2019-07-10 13:41:00 Test Item Blood Culture (test code = 12838464) NO GROWTH AFTER 5 DAYS, FINAL REPORT [facility] [id number] 06:07:00* Test Item Value Reference Range Interpretation Comments Sodium Level (test code = 2951-2) 140 136-145 [facility]Potassium [id number] 06:07:00* Test Item Value Reference Range Interpretation Comments Potassium Level (test code = 2823-3) 3.9 3.5-5.1 [facility] CenterChloride [id number] 06:07:00* Test Item Value Reference Range Interpretation Comments Chloride Level (test code = 2075-0) 108 98-107 [facility] CenterCarbon Dioxide [id number] 06:07:00* Test Item Value Reference Range Interpretation Comments Carbon Dioxide Level (test code = 2028-9) 24 22-29 [facility] CenterAnion [id number] 06:07:00* Test Item Value Reference Range Interpretation Comments Anion Gap (test code = 44319-1) 11.9 8-16 [facility] CenterBlood Urea Cwrkenuq2496-20-54 06:07:00* Test Item Value Reference Range Interpretation Comments Blood Urea Nitrogen (test code = 3094-0) 9 7-26 [facility] CenterCreatinine2020-01-21 06:07:00* Test Item Value Reference Range Interpretation Comments Creatinine (test code = 2160-0) 0.56 0.57-1.11 [facility] CenterBUN/Creatinine Tbhkx5848-89-68 06:07:00* Test Item Value Reference Range Interpretation Comments BUN/Creatinine Ratio (test code = 3097-3) 16 6-25 [facility] CenterEstimat Glomerular Filtration Rate 2019-07-09 06:07:00* Test Item Value Reference Range Interpretation Comments Estimat Glomerular Filtration Rate (test code = 016277266) > 60 >60 Ranges were taken from the National Kidney Disease Education Program and the [facility] literature.Reference ranges:60 or greater: Ncibsd18-99 ( for 3 consecutive months): Chronic kidney disease 15 or less: Kidney failureLake Granbury Medical CenterGlucose Fschg2289-30-15 06:07:00* Test Item Value Reference Range Interpretation Comments Glucose Level (test code = XET6675) 95 74-118 [facility] CenterCalcium Vbnyf4993-33-22 06:07:00* Test Item Value Reference Range Interpretation Comments Calcium Level (test code = 52137-9) 9.4 8.4-10.2 [facility] CenterWhite Blood Dwhms8958-89-46 05:49:00* Test Item Value Reference Range Interpretation Comments White Blood Count (test code = 6690-2) 4.57 4.8-10.8 [facility] CenterRed Blood Cgtbr3817-78-38 05:49:00* Test Item Value Reference Range Interpretation Comments Red Blood Count (test code = 789-8) 3.18 3.6-5.1 [facility] CenterHemoglobin2020-01-21 05:49:00* Test Item Value Reference Range Interpretation Comments Hemoglobin (test code = 43574-8) 10.3 12.0-16.0 [facility] CenterHematocrit2020-01-21 05:49:00* Test Item Value Reference Range Interpretation Comments Hematocrit (test code = 4544-3) 30.5 34.2-44.1 [facility] CenterMean Corpuscular Ijkqyt0980-79-17 05:49:00* Test Item Value Reference Range Interpretation Comments Mean Corpuscular Volume (test code = 787-2) 95.9 81-99 [facility] CenterMean Corpuscular Tuabnhfewe6164-62-39 05:49:00* Test Item Value Reference Range Interpretation Comments Mean Corpuscular Hemoglobin (test code = 785-6) 32.4 28-32 [facility] Concent 2019-07-09 05:49:00* Test Item Value Reference Range Interpretation Comments Mean Corpuscular Hemoglobin Concent (test code = 786-4) 33.8 31-35 [facility] CenterRed Cell Distribution Wdjzc3175-06-78 05:49:00* Test Item Value Reference Range Interpretation Comments Red Cell Distribution Width (test code = 60770-4) 13.8 11.7 -14.4 [facility] CenterPlatelet Elxor3503-13-70 05:49:00* Test Item Value Reference Range Interpretation Comments Platelet Count (test code = 777-3) 228 140-360 [facility] CenterNeutrophils (%) (Auto)2019-07-09 05:49:00 * Test Item Value Reference Range Interpretation Comments Neutrophils (%) (Auto) (test code = 96143-5) 56.0 38.7-80.0 [facility] CenterLymphocytes (%) (Auto)2019-07-09 05:49:00 * Test Item Value Reference Range Interpretation Comments Lymphocytes (%) (Auto) (test code = 736-9) 23.9 18.0-39.1 [facility] CenterMonocytes (%) (Auto)2019-07-09 05:49:00* Test Item Value Reference Range Interpretation Comments Monocytes (%) (Auto) (test code = 5905-5) 11.6 4.4-11.3 [facility] CenterEosinophils (%) (Auto)2019-07-09 05:49:00 * Test Item Value Reference Range Interpretation Comments Eosinophils (%) (Auto) (test code = 713-8) 7.2 0.0-6.0 [facility] CenterBasophils (%) (Auto)2019-07-09 05:49:00* Test Item Value Reference Range Interpretation Comments Basophils (%) (Auto) (test code = 706-2) 1.1 0.0-1.0 [facility] CenterIM GRANULOCYTES %2019-07-09 05:49:00* Test Item Value Reference Range Interpretation Comments IM GRANULOCYTES % (test code = IM GRANULOCYTES %) 0.2 0.0- 1.0 [facility] CenterNeutrophils # (Auto)2019-07-09 05:49:00* Test Item Value Reference Range Interpretation Comments Neutrophils # (Auto) (test code = 751-8) 2.6 2.1-6.9 [facility] CenterLymphocytes # (Auto)2019-07-09 05:49:00* Test Item Value Reference Range Interpretation Comments Lymphocytes # (Auto) (test code = 60349-7) 1.1 1.0-3.2 [facility] CenterMonocytes # (Auto)2019-07-09 05:49:00* Test Item Value Reference Range Interpretation Comments Monocytes # (Auto) (test code = 742-7) 0.5 0.2-0.8 [facility] CenterEosinophils # (Auto)2019-07-09 05:49:00* Test Item Value Reference Range Interpretation Comments Eosinophils # (Auto) (test code = 711-2) 0.3 0.0-0.4 [facility] CenterBasophils # (Auto)2019-07-09 05:49:00* Test Item Value Reference Range Interpretation Comments Basophils # (Auto) (test code = 704-7) 0.1 0.0-0.1 [facility] CenterAbsolute Immature Granulocyte (auto 2019-07-09 05:49:00* Test Item Value Reference Range Interpretation Comments Absolute Immature Granulocyte (auto (raúl t code = Absolute Immature Granulocyte (auto) 0.01 0-0.1 [facility] CenterCHEST XRAY LINE [id number] 14:15:00 [place] [id number] Patient Name: SHEREEN SPENCER MR #: [id number] : 1965 Age/Sex: 53/F Req #: [id number] Adm Physician: KRIS CADENA Ordered by: VINNY KONG MD Report #: [id number] Location: [facility] Room/Bed: [facility] Procedure: [id number] DX/CHEST XRAY LINE PLACEMENT Exam Date: 07/08/19 Exam Time: 1330 REPORT STATUS: Si gned EXAMINATION: CHEST XRAY LINE PLACEMENT INDICATION: Line placem ent COMPARISON: None FINDINGS: LINES/TUBES:Right PICC line t erminates in the superior vena cava. Left chest pacer. LUNGS:The lungs ar e well-inflated. No focal consolidation or pulmonary edema. PLEURA:No pleur al effusion or pneumothorax. MEDIASTINUM:The cardiomediastinal silhouette a ppears normal in size and shape. BONES/SOFT TISSUES:No acute osseous injury . ABDOMEN:No free air under the diaphragm. IMPRESSION: Right PIC C line terminates in the superior vena cava. No focal pneumonia or pulmonar y edema. Signed by: Shelli Garcia MD on 07/08/2019 2:16 PM Dictated By: SHELLI GARCIA MD 15 Transc ribed By: JUAN DAVID on 07/08/191415 COPY TO: VINNY KONG MD Total [id number] 06:20:00* Test Item Value Reference Range Interpretation Comments Total Bilirubin (test code = 1975-2) 0.2 0.2-1.2 [facility] CenterAspartate Amino Transf (AST/SGOT) 2019-07-06 06:20:00* Test Item Value Reference Range Interpretation Comments Aspartate Amino Transf (AST/SGOT) (test code = Aspartate Amino Transf (AST/SGOT)) 13 5-34 [facility] CenterAlanine Aminotransferase (ALT/SGPT) 2019-07-06 06:20:00* Test Item Value Reference Range Interpretation Comments Alanine Aminotransferase (ALT/SGPT) (test code = 1742-6) 9 0-55 [facility] CenterTotal [id number] 06:20:00* Test Item Value Reference Range Interpretation Comments Total Protein (test code = 2885-2) 5.0 6.5-8.1 [facility] CenterAlbumin2020-01-18 06:20:00* Test Item Value Reference Range Interpretation Comments Albumin (test code = 1751-7) 3.0 3.5-5.0 [facility] CenterGlobulin2020-01-18 06:20:00* Test Item Value Reference Range Interpretation Comments Globulin (test code = 10629-7) 2.0 2.3-3.5 [facility] CenterAlbumin/Globulin [id number] 06:20:00 * Test Item Value Reference Range Interpretation Comments Albumin/Globulin Ratio (test code = 1759-0) 1.5 0.8-2.0 [facility] CenterAlkaline Tqckufcqmdl4156-64-59 06:20:00* Test Item Value Reference Range Interpretation Comments Alkaline Phosphatase (test code = 6768-6) 45 40-150 [facility] CenterCR M[facility]M BILATERAL CAD DIGITAL W/WXVNSZXFXJUX6741-30-95 13:56:52 - SCR MAMM BILATERAL CAD DIGITAL W/AUGMENTATIONBILATERAL DIGITAL SCREENING MAMMOGRAM WITH CAD WITH AUGMENTATION: 01/26/2019CLINICAL: Asymptomatic. Current mammographic images were evaluated by either a Resermap M-Vu or a [facility] ImageChecker CAD (computer aided detection system). Comparison is made to exams dated 05/10/2014 mammogram, 04/10/2014 mammogram - [facility], and 07/31/2003 mammogram - [facility]. There are scattered fibroglandular tissues in both breasts. There are benign calcifications in both breasts. No suspicious mass, architectural distortion, malignant type calcification, or lymph node abnormality detected. Breast architecture is stable compared to prior exams. Stable appearing collapsed implants. IMPRESSION: BENIGNThere is no mammographic evidence of malignancy. Resume annual screening mammography in one year. Darin Culver M.D. et/:01/28/2019 13:56:52 Attending Technologist: Savannah Curtis, [facility]FWImaging Technologist: Neeta LEDEZMA, [facility] Breast Imaging-FWletter sent: BIRADS 1-2 Normal Mammogram BI-RADS: 2 BenignABDOMEN-1VIEW (KUB)2018-03-13 16:28:00 [place] [address] Patient Name: SHEREEN SPENCER MR #: [id number] : 1965 Age/Sex: 52/F Req #: [id number] Adm Physician: Ordered by: VINNY KONG MD Report #: [id number] Location: US Room/Bed: Procedure: DX/ABDOMEN-1VIEW (KUB) Exam Date: 03/13/18 Exam Time: 1540 REPORT STATUS: Signed Exam: Abdominal film Clinical History: Urinary calculi Comparis on: None. DISCUSSION: Frontal view of the abdomen shows a nonobstructive carmelo wel gas pattern with mild amount of retained stool. No dilated, air-fille d loops of bowel. No abnormal calcifications. No acute bone abnormali ty. IVC filter. IMPRESSION: 1. Nonobstructive bowel gas pattern. Signed by: Dr. Dorota Perez M.D. on 03/13/2018 4:29 PM Dictated By: DOROTA PEREZ MD 28 Transcribed By: JUAN DAVID on 03/13/181628 COPY TO: VINNY KONG MD RENAL RETROPERITONEAL [id number] 15:45:00 [place] [address] Patient Name: SHEREEN SPENCER MR #: [id number] : Age/Sex: 52/F Req #: [id number] Adm Physician: Ordered by: VINNY KONG MD Report #: [id number] Location: US Room/Bed: Procedure: US/US RENAL RETROPERITONEAL COMP E xam Date: 03/13/18 Exam Time: 1509 REPORT STATU S: Signed EXAMINATION: Renal ultrasound. CLINICAL HISTORY :Urinary calcu li COMPARISON: <None available.> TECHNIQUE: Grayscale and color [...] 1547 Transcribed By: JUAN DAVID on 03/13/18 1547 COPY TO: VINNY KONG MD
--- NOTE | 2019-11-02 15:21 | NUR ---
CLIENT IN NO APPARENT DISTRESS, SATURATING OXYGEN AT 100% ON ROOM AIR. ADVISED DR. ESTRELLA OF FINDINGS.
--- OUTSIDE RECORDS SUMMARY | 2019-11-02 15:21 | XMS REPORT ---
Author Author [facility] t Organization [facility] t Address [address] [place] [address] Phone Unavailable Care Team Providers Care Dental Laboratory Technology Teacher Name Role Phone KRIS CADENA PCP [phone] KRIS CADENA Attphys Unavailab le LUANN, VINNY Attphys Unavailable KRIS CADENA Admphys Unavailab le Payers Payer Name Policy Type Policy Number Effective Date Expiration Date S garry [facility] Area [facility] [id number] 2011 00:00 :00 [facility] Medicare A & B [id number] 2004 00:00:[address] [facility] [id number] 2011 00:00 :00 [facility] Medicare A & B [id number] 2004 00:00:00 [facility] [id number] 2019 00:00:[address] [facility] Medicare A & B [id number] 2004 00:00:00 [facility] [id number] 2018 00:00:00 [facility] [id number] 2018 00:00 :00 [facility] Medicare A & B [id number] 2004 00:00:00 [facility] [id number] 2018 00:00:[address] [facility] Medicaid Hmo Other [id number] 2016 00:00:00 [facility] Medicare A & B [id number] 2004 00:00:00 [facility] Problems Condition Name Condition Details Condition Category Status Onset Date Resolution Date Last Treatment Date Treating Clinician Comments Source Complicated urinary tract infection Complicated UTI (urinary tract infection) Problem Active [facility] Presence of suprapubic catheter Suprapubic catheter Problem Active [facility] Allergies, Adverse Reactions, Alerts Allergy Name Allergy Type Status Severity Reaction(s) Onset Date Inacti ve Date Treating Clinician Comments Source Penicillin Allergy to Substance Active Moderate SWELLING 2019-07-05 00: 00:00 [facility] Cephalexin Allergy to Substance Active Severe SWELLING 2019-07-05 00:0 0:00 [facility] Penicillins DA Active MO 2017-09-20 00:00:00 [facility] penicillin V DA Active MO 2017-09-20 00:00:00 [facility] cephalexin DA Active MO 2017-09-20 00:00:00 [facility] penicillin G DA Active MO 2017-09-20 00:00:00 [facility] Medications Ordered Medication Name Filled Medication Name Start Date Stop Da te Current Medication? Ordering Clinician Indication Dosage Frequency Signature (SIG) Comments Components Source Nitrofurantoin Monohyd/M-Cryst (Macrobid 100 Mg Capsule) 100 Mg Capsule, 1 Cap Oral Nitrofurantoin Monohyd/M-Cryst (Macrobid 100 Mg Capsule) 100 Mg Capsule, 1 Cap Oral 2018-06-22 00:00:00 2018-07-03 00:00:00 Tia Jeter Md [address] [facility] Tobramycin (Tobrex) 3.5 Gm Oint, 160 Gm Intramusc Tobr amycin (Tobrex) 3.5 Gm Oint, 160 Gm Intramusc 2018-03-07 00:00:00 2018-07-03 00:00:00 Tia Granados Do [address] [facility] Acetaminophen With Codeine (Tylenol With Codeine #3 Ta blet) 1 Each Tablet Acetaminophen With Codeine (Tylenol With Codeine #3 Tablet) 1 Each Tablet Yes 300 Q4hprn [facility] Aspirin (Aspir 81) 81 Mg Tablet. Aspirin (Aspir 81) 81 Mg Tablet. Yes 81 Daily [facility] Baclofen 10 Mg Tablet Baclofen 10 Mg Tablet Yes 10 Twice A Day [facility] Bupropion Hcl (Wellbutrin) 100 Mg Tablet Bupropion Hcl (Wellbutrin) 100 Mg Tablet Yes 75 Twice A Day [facility] Cranberry/Vit C/L. Sporogenes (Azo Cranberry Tablet) 1 Each Tablet Cranberry/Vit C/L. Sporogenes (Azo Cranberry Tablet) 1 Each Tablet Yes 1 Daily [facility] Cyanocobalamin (Vitamin B-12) 1,000 Mcg Tab Cyanocobal rios (Vitamin B-12) 1,000 Mcg Tab Yes 1000 Daily [facility] Dextran 70/Hypromellose (Artificial Tears Eye Drops) 1 5 Ml Drops Dextran 70/Hypromellose (Artificial Tears Eye Drops) 15 Ml Drops Yes 1 Daily [facility] Docusate Sodium 100 Mg Capsule Docusate Sodium 100 Mg Capsule Yes [address] [facility] Doxepin Hcl 10 Mg Capsule Doxepin Hcl 10 Mg Capsule Yes 10 Bedtime [facility] Fenofibrate Nanocrystallized (Fenofibrate) 145 Mg Tabl et Fenofibrate Nanocrystallized (Fenofibrate) 145 Mg Tablet Yes 1 Bedtime [facility] Folic Acid 1 Mg Tablet Folic Acid 1 Mg Tablet Yes 1 Daily [facility] Gabapentin 100 Mg Capsule Gabapentin 100 Mg Capsule Yes 300 Bedtime [facility] Linzess 290 Linzess 290 Yes 145 Daily [facility] Melatonin 10 Mg Tablet Melatonin 10 Mg Tablet Yes 10 Bedtime [facility] Meropenem (Merrem) 1 Gm Inj Meropenem (Merrem) 1 Gm Inj Yes [address] [facility] Metoprolol Succinate 25 Mg Tab.er.24h Metoprolol Succinate 25 Mg Ta b.er.24h Yes 25 Twice A Day [facility] Oxybutynin Chloride 5 Mg Tablet Oxybutynin Chloride 5 Mg Tablet Yes [address] [facility] Primidone 50 Mg Tablet Primidone 50 Mg Tablet Yes 50 Twice A Day [facility] Ropinirole Hcl (Requip) 1 Mg Tablet Ropinirole Hcl (Requip) 1 Mg Tabl et Yes [address] [facility] Simethicone (Gas-X) 80 Mg Tab.chew Simethicone (Gas-X) 80 Mg Tab.chew Yes 160 Twice A Day [facility] Acetaminophen (Tylenol*) 325 Mg Tablet, 650 Mg Oral Ac etaminophen (Tylenol*) 325 Mg Tablet, 650 Mg Oral 2019-03-15 00:00:00 No 650 A s Needed [facility] Bisacodyl (Dulcolax Supp*) 10 Mg Supp, 10 Mg Rectal Bi sacodyl (Dulcolax Supp*) 10 Mg Supp, 10 Mg Rectal 2019-03-15 00:00:00 No 10 As Needed [facility] Docusate Sodium (Colace) 100 Mg Cap, 300 Mg Oral Docus ate Sodium (Colace) 100 Mg Cap, 300 Mg Oral 2019-03-15 00:00:00 No 300 Daily [facility] Hydrocortisone 30 Gm Cr, 2.5 Gm Topically Hydrocortiso ne 30 Gm Cr, 2.5 Gm Topically 2019-03-15 00:00:00 No 2.5 As Needed [facility] Hyoscyamine Sulfate (Levsin) 0.125 Mg Tablet, 0.125 Mg Oral Hyoscyamine Sulfate (Levsin) 0.125 Mg Tablet, 0.125 Mg Oral 2019-03-15 00:00:[address] [facility] Interferon Beta-1B (Betaseron) 0.3 Mg Kit, 0.3 Mg Sub- Q Interferon Beta-1B (Betaseron) 0.3 Mg Kit, 0.3 Mg Sub-Q 2019-03-15 00:00:00 No .[address] [facility] Lactulose 20 Gm/30 Ml Solution, 30 Ml Oral Lactulose 2 0 Gm/30 Ml Solution, 30 Ml Oral 2019-03-15 00:00:00 No 30 Qdprn [facility] Magnesium Hydroxide (Milk Of Magnesia) 2,400 Mg/10 Ml Oral.susp, 30 Ml Oral Magnesium Hydroxide (Milk Of Magnesia) 2,400 Mg/10 Ml Oral.susp, 30 Ml Oral 2019-03-15 00:00:00 No 30 Qdprn [facility] Metronidazole Gel , 0.75 % Topically Metronidazole Gel , 0.75 % Topically 2019-03-15 00:00:00 No .75 Daily [facility] Polyethylene Glycol 3350 (Miralax) 17 Gm Powd.pack, 17 Gm Oral Polyethylene Glycol 3350 (Miralax) 17 Gm Powd.pack, 17 Gm Oral 2019-03-15 00:00:00 No 17 As Needed [facility] Promethazine Hcl (Phenergan) 25 Mg/1 Ml Ampul, 12.5 Mg Oral Promethazine Hcl (Phenergan) 25 Mg/1 Ml Ampul, 12.5 Mg Oral 2019-03-14 00:00:00 No 12.5 Every 6 Hours as needed for Nausea And Vomiting [facility] Ascorbic Acid (Vitamin C) 500 Mg Tablet, 500 Mg Oral A scorbic Acid (Vitamin C) 500 Mg Tablet, 500 Mg Oral 2018-11-09 00:00:00 No 500 Daily [facility] Diphenhydramine Hcl (Benadryl) 25 Mg Capsule, 25 Mg Or al Diphenhydramine Hcl (Benadryl) 25 Mg Capsule, 25 Mg Oral 2018-11-09 00:00:00 No 25 Every 6 Hours as needed for Itching [facility] Gemfibrozil (Lopid) 600 Mg Tablet, 600 Mg Oral Gemfibr ozil (Lopid) 600 Mg Tablet, 600 Mg Oral 2018-11-09 00:00:00 No 600 Muna y [facility] Digoxin 125 Mcg Tablet, 0.125 Mg Oral Digoxin 125 Mcg Tablet, 0. 125 Mg Oral 2018-11-08 00:00:00 No .125 Daily [facility] Metronidazole (Metrogel) 60 Gm Gel, Topically Metron idazole (Metrogel) 60 Gm Gel, Topically 2018-11-08 00:00:00 No As Need ed [facility] Acetaminophen With Codeine (Tylenol With Codeine #3 Tablet) 1 Each Tablet, 300 Mg Oral Acetaminophen With Codeine (Tylenol With Codeine #3 Tablet) 1 Each Tablet, 300 Mg Oral 2018-07-03 00:00:00 No 300 Ever y 12 Hours [facility] Amitriptyline Hcl 25 Mg Tablet, 25 Mg Oral Amitriptyli ne Hcl 25 Mg Tablet, 25 Mg Oral 2018-07-03 00:00:00 No 25 Bedtime [facility] Ascorbic Acid (Vitamin C) 500 Mg Capsule.er, 500 Mg Or al Ascorbic Acid (Vitamin C) 500 Mg Capsule.er, 500 Mg Oral 2018-07-03 00:00:00 No 50 0 Daily [facility] B12 , 1 Mg Intramusc B12 , 1 Mg Intramusc 2018-07-03 00:00:00 No 1 [facility] Cranberry/Vit C/L. Sporogenes (Azo Cranberry Tablet) 1 Each Tablet, 1 Tab Oral Cranberry/Vit C/L. Sporogenes (Azo Cranberry Tablet) 1 Each Tablet, 1 Tab Oral 2018-07-03 00:00:00 No 1 Daily [facility] Interferon Beta-1B (Extavia) 0.3 Mg Kit, 0.3 Mg Subcut aneously Interferon Beta- 1B (Extavia) 0.3 Mg Kit, 0.3 Mg Subcutaneously 2018-07-03 00:00:00 No .3 [facility] Interferon Beta-1B (Extavia) 0.3 Mg Kit, Interferon Be ta-1B (Extavia) 0.3 Mg Kit, 2018-07-03 00:00:00 No [facility] Nystatin 1 Each Powder.ea., 1 Ea Topically Nystatin 1 Each Powder.ea., 1 Ea Topically 2018-07-03 00:00:00 No 1 Daily [facility] Solifenacin Succinate (Vesicare) 5 Mg Tablet, 10 Mg Or al Solifenacin Succinate (Vesicare) 5 Mg Tablet, 10 Mg Oral 2018-07-03 00:00:00 No 1 0 Daily [facility] Temazepam 15 Mg Capsule, 30 Mg Oral Temazepam 15 Mg Capsule, 30 Mg Oral 2018-07-03 00:00:00 No 30 Bedtime [facility] Tizanidine Hcl (Zanaflex) 4 Mg Capsule, 4 Mg Oral Tiza nidine Hcl (Zanaflex) 4 Mg Capsule, 4 Mg Oral 2018-07-03 00:00:00 No 4 Daily [facility] Urispas , 100 Mg Oral Urispas , 100 Mg Oral 2018-07-03 00:00:00 No [address] [facility] Acetaminophen 325 Mg Tablet, 325 Mg Oral Acetaminophen 325 Mg Tablet, 325 Mg Oral 2015-10-30 00:00:00 No 325 Every 4 Hours as n eeded for Pain [facility] Magnesium Hydroxide (Milk Of Magnesia) 2,400 Mg/10 Ml Oral.susp, 30 Ml Oral Magnesium Hydroxide (Milk Of Magnesia) 2,400 Mg/10 Ml Oral.susp, 30 Ml Oral 2015-10-30 00:00:00 No 30 Daily as needed for Constipation [facility] Procedures Procedure Date / Time Performed Performing Clinician [facility] INSERT TEMP BLADDER CATH 2019-09-24 00:00:00 ATTILA GRANADOS [facility] CYSTOSCOPY & URETER CATHETER 2019-07-17 00:00:00 [facility] CYSTOSCOPY CHEMODENERVATION 2019-07-17 00:00:00 [facility] REMOVE BLADDER STONE 2019-07-17 00:00:00 [facility] INSERTION OF INFUSION DEV INTO SUP VENA CAVA, PERC APPROACH 2019-07-08 00:00:00 SHELLI GARCIA [facility] CYSTOSCOPY & URETER CATHETER 2019-03-15 00:00:00 [facility] CYSTOSCOPY CHEMODENERVATION 2019-03-15 00:00:00 [facility] REMOVE BLADDER STONE 2019-03-15 00:00:00 [facility] Encounters Start Date/Time End Date/Time [facility] ID Source 2019-10-09 18:25:00 2019-10-09 20:06:00 Departed Emergency Room [facility] [id number] [facility] 2019-09-24 07:14:00 2019-09-24 10:54:00 Departed Emergency Room [facility] [id number] [facility] 2019-07-17 09:57:00 2019-07-17 09:57:00 Registered Surgical Day Care [facility] [id number] [facility] 2019-07-05 12:40:00 2019-07-09 11:04:00 Discharged Inpatient 1 KRIS CADENA [facility] [id number] [facility]. kes - Patients [facility] 2019-03-15 07:54:00 2019-03-15 07:54:00 Registered Surgical Day Care [facility] [id number] [facility]. kes - Patients [facility] 2018-11-09 09:45:00 2018-11-09 09:45:00 Registered Surgical Day Care [facility] [id number] [facility] kes - Patients [facility] 2018-06-22 15:23:00 2018-06-22 22:29:00 Departed Emergency Room [facility] [id number] [facility]. [facility] - Patients [facility] 2018-04-24 16:56:00 2018-04-24 20:23:00 Departed Emergency Room [facility] [id number] [facility]. [facility] - Patients [facility] 2018-03-13 14:52:00 2018-03-13 14:52:00 Registered Clinic 3 MEJIA MPEL, VINNY [facility] [id number] [facility] St[facility] kes - Patients [facility] 2018-03-07 11:29:00 2018-03-07 16:52:00 Departed Emergency Room [facility] [id number] [facility]. [facility] - Patients [facility] 2017-06-17 23:26:00 2017-06-18 02:23:00 Departed Emergency Room [facility] [id number] [facility]. [facility] Results Test Description Test Time Test Comments Results Result Comments Source Blood Culture 2019-07-10 13:41:00 Test Item Blood Culture (test code = 29912502) NO GROWTH AFTER 5 DAYS, FINAL REPORT [facility] [id number] 06:07:00* Test Item Value Reference Range Interpretation Comments Sodium Level (test code = 2951-2) 140 136-145 [facility] [id number] 06:07:00* Test Item Value Reference Range Interpretation Comments Potassium Level (test code = 2823-3) 3.9 3.5-5.1 [facility]loride [id number] 06:07:00* Test Item Value Reference Range Interpretation Comments Chloride Level (test code = 2075-0) 108 98-107 [facility] DallasCarbon Dioxide [id number] 06:07:00* Test Item Value Reference Range Interpretation Comments Carbon Dioxide Level (test code = 2028-9) 24 22-29 [facility] DallasAnion [id number] 06:07:00* Test Item Value Reference Range Interpretation Comments Anion Gap (test code = 62742-8) 11.9 8-16 [facility] Dallas[facility] Urea [id number] 06:07:00* Test Item Value Reference Range Interpretation Comments Blood Urea Nitrogen (test code = 3094-0) 9 7-26 [facility] DallasCreatinine2020-01-21 06:07:00* Test Item Value Reference Range Interpretation Comments Creatinine (test code = 2160-0) 0.56 0.57-1.11 [facility] DallasBUN/Creatinine Djsti2076-78-50 06:07:00* Test Item Value Reference Range Interpretation Comments BUN/Creatinine Ratio (test code = 3097-3) 16 6-25 [facility] Dallas[facility]at Glomerular Filtration Rate 2019-07-09 06:07:00* Test Item Value Reference Range Interpretation Comments Estimat Glomerular Filtration Rate (test code = 536402230) > 60 >60 Ranges were taken from the National Kidney Disease Education Program and the [facility] Foundation literature.Reference ranges:60 or greater: Bkfvmf61-58 ( for 3 consecutive months): Chronic kidney disease 15 or less: Kidney failureTexas Health Presbyterian DallasGlucose Bzkvt3828-83-69 06:07:00* Test Item Value Reference Range Interpretation Comments Glucose Level (test code = NOA4641) 95 74-118 [facility] DallasCalcium Chemk5497-38-61 06:07:00* Test Item Value Reference Range Interpretation Comments Calcium Level (test code = 85076-0) 9.4 8.4-10.2 [facility] DallasWhite Blood Iefsh7216-42-09 05:49:00* Test Item Value Reference Range Interpretation Comments White Blood Count (test code = 6690-2) 4.57 4.8-10.8 [facility] DallasRed Blood Genye6306-97-89 05:49:00* Test Item Value Reference Range Interpretation Comments Red Blood Count (test code = 789-8) 3.18 3.6-5.1 [facility] DallasHemoglobin2020-01-21 05:49:00* Test Item Value Reference Range Interpretation Comments Hemoglobin (test code = 95158-1) 10.3 12.0-16.0 [facility] DallasHematocrit2020-01-21 05:49:00* Test Item Value Reference Range Interpretation Comments Hematocrit (test code = 4544-3) 30.5 34.2-44.1 [facility] DallasMean Corpuscular Arevip4923-51-02 05:49:00* Test Item Value Reference Range Interpretation Comments Mean Corpuscular Volume (test code = 787-2) 95.9 81-99 [facility] DallasMean Corpuscular Ampwjkswjh1092-65-91 05:49:00* Test Item Value Reference Range Interpretation Comments Mean Corpuscular Hemoglobin (test code = 785-6) 32.4 28-32 [facility] Concent 2019-07-09 05:49:00* Test Item Value Reference Range Interpretation Comments Mean Corpuscular Hemoglobin Concent (test code = 786-4) 33.8 31-35 [facility] DallasRed Cell Distribution Oxacu4190-98-88 05:49:00* Test Item Value Reference Range Interpretation Comments Red Cell Distribution Width (test code = 87776-3) 13.8 11.7 -14.4 [facility] DallasPlatelet Awixd8493-36-74 05:49:00* Test Item Value Reference Range Interpretation Comments Platelet Count (test code = 777-3) 228 140-360 [facility] DallasNeutrophils (%) (Auto)2019-07-09 05:49:00 * Test Item Value Reference Range Interpretation Comments Neutrophils (%) (Auto) (test code = 57789-2) 56.0 38.7-80.0 [facility] DallasLymphocytes (%) (Auto)2019-07-09 05:49:00 * Test Item Value Reference Range Interpretation Comments Lymphocytes (%) (Auto) (test code = 736-9) 23.9 18.0-39.1 [facility] Dallas[facility]ocytes (%) (Auto)2019-07-09 05:49:00* Test Item Value Reference Range Interpretation Comments Monocytes (%) (Auto) (test code = 5905-5) 11.6 4.4-11.3 [facility] DallasEosinophils (%) (Auto)2019-07-09 05:49:00 * Test Item Value Reference Range Interpretation Comments Eosinophils (%) (Auto) (test code = 713-8) 7.2 0.0-6.0 [facility] Dallas[facility]ophils (%) (Auto)2019-07-09 05:49:00* Test Item Value Reference Range Interpretation Comments Basophils (%) (Auto) (test code = 706-2) 1.1 0.0-1.0 [facility] DallasIM GRANULOCYTES %2019-07-09 05:49:00* Test Item Value Reference Range Interpretation Comments IM GRANULOCYTES % (test code = IM GRANULOCYTES %) 0.2 0.0- 1.0 [facility] DallasNeutrophils # (Auto)2019-07-09 05:49:00* Test Item Value Reference Range Interpretation Comments Neutrophils # (Auto) (test code = 751-8) 2.6 2.1-6.9 [facility] DallasLymphocytes # (Auto)2019-07-09 05:49:00* Test Item Value Reference Range Interpretation Comments Lymphocytes # (Auto) (test code = 66726-3) 1.1 1.0-3.2 [facility] DallasMonocytes # (Auto)2019-07-09 05:49:00* Test Item Value Reference Range Interpretation Comments Monocytes # (Auto) (test code = 742-7) 0.5 0.2-0.8 [facility] DallasEosinophils # (Auto)2019-07-09 05:49:00* Test Item Value Reference Range Interpretation Comments Eosinophils # (Auto) (test code = 711-2) 0.3 0.0-0.4 [facility]ophils # (Auto)2019-07-09 05:49:00* Test Item Value Reference Range Interpretation Comments Basophils # (Auto) (test code = 704-7) 0.1 0.0-0.1 [facility] DallasAbsolute Immature Granulocyte (auto 2019-07-09 05:49:00* Test Item Value Reference Range Interpretation Comments Absolute Immature Granulocyte (auto (raúl t code = Absolute Immature Granulocyte (auto) 0.01 0-0.1 [facility] DallasCHEST XRAY LINE [id number] 14:15:00 [place] [address] Patient Name: SHEREEN SPENCER MR #: [id number] : 1965 Age/Sex: 53/F Req #: [id number] Adm Physician: KRIS CADENA Ordered by: VINNY KONG MD Report #: [id number] [facility] Room/Bed: [facility] Procedure: 0120- 0047 DX/CHEST XRAY LINE [...] 07/08/191415 COPY TO: VINNY KONG MD Total [id number] 06:20:00* Test Item Value Reference Range Interpretation Comments Total Bilirubin (test code = 1975-2) 0.2 0.2-1.2 [facility] DallasAspartate Amino Transf (AST/SGOT) 2019-07-06 06:20:00* Test Item Value Reference Range Interpretation Comments Aspartate Amino Transf (AST/SGOT) (test code = Aspartate Amino Transf (AST/SGOT)) 13 5-34 [facility] DallasAlanine Aminotransferase (ALT/SGPT) 2019-07-06 06:20:00* Test Item Value Reference Range Interpretation Comments Alanine Aminotransferase (ALT/SGPT) (test code = 1742-6) 9 0-55 [facility] DallasTotal Lzaevse5856-11-63 06:20:00* Test Item Value Reference Range Interpretation Comments Total Protein (test code = 2885-2) 5.0 6.5-8.1 [facility] DallasAlbumin2020-01-18 06:20:00* Test Item Value Reference Range Interpretation Comments Albumin (test code = 1751-7) 3.0 3.5-5.0 [facility] DallasGlobulin2020-01-18 06:20:00* Test Item Value Reference Range Interpretation Comments Globulin (test code = 42161-4) 2.0 2.3-3.5 [facility] DallasAlbumin/Globulin [id number] 06:20:00 * Test Item Value Reference Range Interpretation Comments Albumin/Globulin Ratio (test code = 1759-0) 1.5 0.8-2.0 [facility] DallasAlkaline Fvvgtpghbfm6635-24-86 06:20:00* Test Item Value Reference Range Interpretation Comments Alkaline Phosphatase (test code = 6768-6) 45 40-150 [facility] DIGITAL W/RHDJNXQULABS8107-33-40 13:56:52 - SCR MAMM BILATERAL CAD DIGITAL W/AUGMENTATIONBILATERAL DIGITAL SCREENING MAMMOGRAM WITH CAD WITH AUGMENTATION: 01/26/2019CLINICAL: Asymptomatic. Current mammographic images were evaluated by either a Parsely M-Vu or a VIAP ImageChecker CAD (computer aided detection system). Comparison is made to exams dated 05/10/2014 mammogram, 04/10/2014 mammogram - [facility], and 07/31/2003 mammogram - [facility]. There are scattered fibroglandular tissues in both [...] et/:01/28/2019 13:56:52 Attending Technologist: Savannah Curtis, [facility]FWImaging Technologist: Neeta LEDEZMA, [facility]letter sent: BIRADS 1-2 Normal Mammogram BI-RADS: 2 BenignABDOMEN-1VIEW (KUB)2018-03-13 16:28:00 [place] [address] Patient Name: SHEREEN SPENCER MR #: [id number] : 1965 Age/Sex: 52/F Req #: [id number] Adm Physician: Ordered by: VINNY KONG MD Report #: [id number] Location: [place] Room/Bed: Procedure: DX/ABDOMEN-1VIEW (KUB) Exam [...] COPY TO: VINNY KONG MD RENAL RETROPERITONEAL IMRW4979-01-08 15:45:00 [place] [address] Patient Name: SHEREEN SPENCER MR #: [id number] : Age/Sex: 52/F Req #: [id number] Adm Physician: Ordered by: VINNY KONG MD Report #: [id number] Location: US Room/Bed: Procedure: US/US RENAL RETROPERITONEAL [...]
--- NOTE | 2019-11-02 15:25 | Emergency Department Note ---
History of Present Illnes History of Present Illness Chief Complaint: General Medicine Complaints History of Present Illness This is a 54 year old female . c/o urinary retention - supra pubic cath not draining Historian: Patient Arrival Mode: ems Onset (how long ago): day(s) (on set sx last night) Severity: moderate Onset quality: gradual Timing of current episode: constant Progression: worsening Context: recent illness, recent surgery, recent immobilization, recent travel, trauma/injury, new medications, hx of DVT/PE, non-compliance w/ medications, other Relieving factors: none Exacerbating factors: none Associated symptoms: denies other symptoms Treatments prior to arrival: none Past Medical/Family History Physician Review I have reviewed the patient's past medical and family history. Any updates have been documented here. Past Medical History Recent Fever: No Clinical Suspicion of Infectio: No New/Unexplained Change in Ment: No Past Medical History: Hypertension, Cancer, Anxiety, Depression, Hyperlipedemia Other Medical History: MS RESTLESS LEG SYNDROME PEPTIC ULCER PULMONARY EMBOLISM BRAIN BLEED SKIN CANCER Past Surgical History: Hysterectomy, Pacer/AICD, Tubal Ligation Other Surgery: BRAIN SURGERY X2 SUPRA PUBIC CATH PACEMAKER Social History Smoking Cessation: Never Smoker Alcohol Use: None Any Illegal Drug Use: No TB Exposure/Symptoms: No Physically hurt or threatened: No Family History Family history of heart diseas: No Other Last Tetanus: UNK Review of Systems Review of Systems Constitutional: no symptoms, as per HPI, chills, diaphoresis, fever, malaise, weakness, other EENTM: no symptoms, as per HPI, eye pain, blurred vision, tearing, double vision, ear pain, ear discharge, nose pain, nose congestion, throat pain, throat swelling, mouth pain, mouth swelling, other Cardiovascular: no symptoms, as per HPI, chest pain, edema, palpitations, syncope, other Respiratory: no symptoms, as per HPI, change in phlegm color, chest congestion, cough, hemoptysis, excessive phlegm production, pain on inspiration, pain with cough, dyspnea, dyspnea on exertion, snoring, stridor, wheezing, other Gastrointestinal: other (c/o urniary retention supra pubic cath not draining ); no symptoms, as per HPI, abdominal pain, constipation, diarrhea, nausea, vomiting Genitourinary: no symptoms, as per HPI, discharge, dysuria, frequency, hematuria, pain, other Musculoskeletal: no symptoms, as per HPI, back pain, gout, joint pain, joint swelling, muscle pain, muscle stiffness, neck pain, other Neurological: no symptoms, as per HPI, headache, numbness, paresthesia, pre- existing deficit, seizure, tingling, tremors, weakness, other Psychological: no symptoms, as per HPI, anxiety, depressed, emotional problems, other Endocrine: no symptoms, as per HPI, excessive sweating, flushing, intolerance to cold, intolerance to heat, increased hunger, increased thirst, increased urination, unexplained weight gain, unexplained weight loss, other Hematological/Lymphatic: no symptoms, as per HPI, anemia, blood clots, easy bleeding, easy bruising, swollen glands, other Review of other systems All other systems reviewed and negative. Physical Exam Related Data Allergies: Coded Allergies: cephalexin (Verified Allergy, Severe, SWELLING, 07/05/19) Penicillins (Verified Allergy, Intermediate, SWELLING, 07/05/19) Vital signs reviewed: Yes Physical Exam CONSTITUTIONAL Constitutional: well-nourished HENT HENT: normocephalic, atraumatic HENT L/R: left ext ear normal, right ext ear normal EYES Eyes: conjunctivae normal, EOM normal NECK Neck: ROM normal PULMONARY Pulmonary: effort normal, breath sounds normal CARDIOVASCULAR Cardiovascular: regular rhythm, heart sounds normal, capillary refill normal, normal rate GASTROINTESTINAL Abdominal: soft, nontender, bowel sounds normal, other (noted bladder fulness) GENITOURINARY Genitourinary: exam deferred SKIN Skin: warm, dry MUSCULOSKELETAL Musculoskeletal: ROM normal NEUROLOGICAL Neurological: alert, oriented x 3, no gross motor or sensory deficits PSYCHOLOGICAL Psychological: mood/affect normal, judgement normal Procedures Catheter Insertion Date of Insertion: November 02, 2019 Time of insertion: 15:23 Reason for placing catheter: acute urinary retention Patient has the following: other (supra pubic cath) Bladder scan/us used before ca: Yes Estimated urine amount (mLs): 450 Catheter type/location: suprapubic Catheter balloon size (mL): 30 Results: successful - immediate flow Procedure performed: without complications Additional comments pt gentry well Critical Care Time Subsequent provider I assumed direction of critical care for this patient from another provider of my specialty. Assessment & Plan Assessment & Plan Problems: (1) Acute urinary retention (2) Suprapubic catheter dysfunction Assessment & Plan 54y f presented to ed c/o bladder fullness - suprapubic cath not draining - discussed plan of care w/ Dr Granados suprapubic cath changed using aseptic tech pt toll well 450cc cl yellow ua output noted to collection bag discussed plan of care and f/u instructions 1. follow up with your doctor in 2 days without fail 2. return to ed as needed Depart Disposition: HOME, SELF-correction Meds Reported Medications Meropenem (MERREM) 1 Gm Inj, 1 GM IV BID 07/17/19 Cranberry/Vit C/L. Sporogenes (AZO CRANBERRY TABLET) 1 Each Tablet, 1 TAB PO DAILY 03/15/19 Melatonin (MELATONIN) 10 Mg Tablet, 10 MG PO HS 03/14/19 Fenofibrate Nanocrystallized (FENOFIBRATE) 145 Mg Tablet, 1 TAB PO HS 11/09/18 [linzess] 290 No Conflict Check, 145 MCG PO DAILY 11/09/18 Doxepin Hcl (DOXEPIN HCL) 10 Mg Capsule, 10 MG PO HS 07/03/18 Gabapentin (GABAPENTIN) 100 Mg Capsule, 300 MG PO HS 07/03/18 Cyanocobalamin (VITAMIN B-12) 1,000 Mcg Tab, 1000 MCG PO DAILY, #30 TAB 07/03/18 Docusate Sodium (DOCUSATE SODIUM) 100 Mg Capsule, 300 MG PO DAILY, CAP 07/03/18 Oxybutynin Chloride (OXYBUTYNIN CHLORIDE) 5 Mg Tablet, 5 MG PO BID, #30 TAB 07/03/18 Metoprolol Succinate (METOPROLOL SUCCINATE) 25 Mg Tab.er.24h, 25 MG PO BID 07/03/18 Primidone (PRIMIDONE) 50 Mg Tablet, 50 MG PO BID 07/03/18 Ropinirole Hcl (REQUIP) 1 Mg Tablet, 1 MG PO HS 07/03/18 Baclofen (BACLOFEN) 10 Mg Tablet, 10 MG PO BID, #90 TAB 07/03/18 Acetaminophen With Codeine (TYLENOL WITH CODEINE #3 TABLET) 1 Each Tablet, 300 MG PO Q4HPRN, TAB 07/03/18 Dextran 70/Hypromellose (ARTIFICIAL TEARS EYE DROPS) 15 Ml Drops, 1 DROP OU DAILY, BOTTLE 10/30/15 Folic Acid (FOLIC ACID) 1 Mg Tablet, 1 MG PO DAILY, #30 TAB 10/30/15 Simethicone (GAS-X) 80 Mg Tab.chew, 160 MG PO BID 10/30/15 Aspirin (ASPIR 81) 81 Mg Tablet.dr, 81 MG PO DAILY 10/30/15 Bupropion Hcl (WELLBUTRIN) 100 Mg Tablet, 75 MG PO BID 10/30/15 HARRIET THOMAS NP November 02, 2019 15:25
--- NOTE | 2019-11-02 16:51 | NUR ---
called [facility] again for tx; approx. 20 mins eta
== END 2019-11-02 17:34 | disposition home or self-care (01) ==
LOC: ER 15:18
DX: T83.010A Breakdown (mechanical) of cystostomy catheter, initial encounter (principal); R33.9 Retention of urine, unspecified; I10 Essential (primary) hypertension; E78.5 Hyperlipidemia, unspecified; F41.9 Anxiety disorder, unspecified; Z85.828 Personal history of other malignant neoplasm of skin
CPT/HCPCS: 99283

== ENCOUNTER 2019-11-15 16:37 | Emergency (ER) | payer MEDICARE, OTHER ==
[~2019-11-15] VITALS: Ht 170.2 cm; Wt 60.3 kg
--- NOTE | 2019-11-15 17:32 | Emergency Department Note ---
History of Present Illnes History of Present Illness Chief Complaint: Genitourinary History of Present Illness This is a 54 year old female . suprapubic cath not draining Pt arrived via EMS from [place] with c/o suprapubic cathether clogged states noticed it today. States was supposed to have it flushed today but didnt. Historian: Patient Arrival Mode: [facility] Severity: mild Onset quality: gradual Duration (how long): day(s) (today) Timing of current episode: constant Progression: unchanged Context: recent illness, recent surgery, recent immobilization, recent travel, trauma/injury, new medications, hx of DVT/PE, non-compliance w/ medications, other Relieving factors: none Exacerbating factors: none Treatments prior to arrival: none (HARRIET THOMAS NP) Past Medical/Family History Physician Review I have reviewed the patient's past medical and family history. Any updates have been documented here. (HARRIET THOMAS NP) Past Medical History Recent Fever: No Clinical Suspicion of Infectio: No New/Unexplained Change in Ment: No Past Medical History: Hypertension, Cancer, Anxiety, Depression, Hyperlipedemia Other Medical History: MS RESTLESS LEG SYNDROME PEPTIC ULCER PULMONARY EMBOLISM BRAIN BLEED SKIN CANCER Past Surgical History: Hysterectomy, Pacer/AICD, Tubal Ligation Other Surgery: BRAIN SURGERY X2 SUPRA PUBIC CATH PACEMAKER (HARRIET THOMAS NP) Social History Smoking Cessation: Never Smoker Alcohol Use: None Any Illegal Drug Use: No TB Exposure/Symptoms: No Physically hurt or threatened: No (HARRIET THOMAS NP) Family History Family history of heart diseas: No (HARRIET THOMAS NP) Other Last Tetanus: UNK Any Pre-Existing Lines (PICC,: No (HARRIET THOMAS NP) Review of Systems Review of Systems Constitutional: no symptoms EENTM: no symptoms Cardiovascular: no symptoms Respiratory: no symptoms Gastrointestinal: no symptoms Genitourinary: other (c/o bladder fullness - supra pubic cath not draining ) Musculoskeletal: no symptoms Neurological: no symptoms Psychological: no symptoms Endocrine: no symptoms Hematological/Lymphatic: no symptoms Review of other systems All other systems reviewed and negative. (HARRIET THOMAS NP) Physical Exam Related Data Allergies: Coded Allergies: cephalexin (Verified Allergy, Severe, SWELLING, 07/05/19) Penicillins (Verified Allergy, Intermediate, SWELLING, 07/05/19) Triage Vital Signs Vital Signs Date Time Temp Pulse Resp B/P (MAP) Pulse Ox O2 Delivery O2 Flow Rate FiO2 11/15/19 17:01 97.7 63 16 120/80 99 Vital signs reviewed: Yes (HARRIET THOMAS NP) Physical Exam CONSTITUTIONAL Constitutional: well-developed, well-nourished HENT HENT: normocephalic, atraumatic, oropharynx clear/moist, nose normal HENT L/R: left ext ear normal, right ext ear normal EYES Eyes: PERRL, conjunctivae normal NECK Neck: ROM normal PULMONARY Pulmonary: effort normal, breath sounds normal CARDIOVASCULAR Cardiovascular: regular rhythm, heart sounds normal, capillary refill normal, normal rate GASTROINTESTINAL Abdominal: soft, nontender, bowel sounds normal GENITOURINARY Genitourinary: exam deferred, other (c/o bladder fullness - suprapubic cath not drianing ) SKIN Skin: warm, dry MUSCULOSKELETAL Musculoskeletal: ROM normal NEUROLOGICAL Neurological: alert, oriented x 3, no gross motor or sensory deficits PSYCHOLOGICAL Psychological: mood/affect normal, judgement normal (HARRIET THOMAS NP) Procedures Catheter Insertion Date of Insertion: November 15, 2019 Time of insertion: 18:31 Reason for placing catheter: acute urinary retention Bladder scan/us used before ca: No Catheter type/location: suprapubic Catheter balloon size (mL): other (24) Catheter balloon amount: 30 Results: successful - immediate flow Procedure performed: without complications Additional comments pt gentry kaminski - 500cc clr yellow put put noted (HARRIET THOMAS NP) Critical Care Time Subsequent provider I assumed direction of critical care for this patient from another provider of my specialty. (HARRIET THOMAS NP) Assessment & Plan Reassessment Reassessment time: 18:33 Reassessment 54y f presented to ed c/o bladder fullness and suprapubic cath not draining - discussed plan of care w/ Dr Edwards 24fr cath chg suprapubic using aseptic tech pt gentry kaminski (HARRIET THOMAS NP) Assessment & Plan Final Impression: (1) Suprapubic catheter dysfunction (2) Acute urinary retention Assessment & Plan plan 1. f/u w/ pcp Monday w/o fail 2. return to ed as needed 3. go cath care instructions (HARRIET THOMAS NP) Depart Disposition: HOME, SELF-CARE Last Vital Signs Date Time Temp Pulse Resp B/P (MAP) Pulse Ox O2 Delivery O2 Flow Rate FiO2 11/15/19 17:01 97.7 63 16 120/80 99 (HARRIET THOMAS RUNNER ON) Home Meds Reported Medications Meropenem (MERREM) 1 Gm Inj, 1 GM IV BID 07/17/19 Cranberry/Vit C/L. Sporogenes (AZO CRANBERRY TABLET) 1 Each Tablet, 1 TAB PO DAILY 03/15/19 Melatonin (MELATONIN) 10 Mg Tablet, 10 MG PO HS 03/14/19 Fenofibrate Nanocrystallized (FENOFIBRATE) 145 Mg Tablet, 1 TAB PO HS 11/09/18 [linzess] 290 No Conflict Check, 145 MCG PO DAILY 11/09/18 Doxepin Hcl (DOXEPIN HCL) 10 Mg Capsule, 10 MG PO HS 07/03/18 Gabapentin (GABAPENTIN) 100 Mg Capsule, 300 MG PO HS 07/03/18 Cyanocobalamin (VITAMIN B-12) 1,000 Mcg Tab, 1000 MCG PO DAILY, #30 TAB 07/03/18 Docusate Sodium (DOCUSATE SODIUM) 100 Mg Capsule, 300 MG PO DAILY, CAP 07/03/18 Oxybutynin Chloride (OXYBUTYNIN CHLORIDE) 5 Mg Tablet, 5 MG PO BID, #30 TAB 07/03/18 Metoprolol Succinate (METOPROLOL SUCCINATE) 25 Mg Tab.er.24h, 25 MG PO BID 07/03/18 Primidone (PRIMIDONE) 50 Mg Tablet, 50 MG PO BID 07/03/18 Ropinirole Hcl (REQUIP) 1 Mg Tablet, 1 MG PO HS 07/03/18 Baclofen (BACLOFEN) 10 Mg Tablet, 10 MG PO BID, #90 TAB 07/03/18 Acetaminophen With Codeine (TYLENOL WITH CODEINE #3 TABLET) 1 Each Tablet, 300 MG PO Q4HPRN, TAB 07/03/18 Dextran 70/Hypromellose (ARTIFICIAL TEARS EYE DROPS) 15 Ml Drops, 1 DROP OU DAILY, BOTTLE 10/30/15 Folic Acid (FOLIC ACID) 1 Mg Tablet, 1 MG PO DAILY, #30 TAB 10/30/15 Simethicone (GAS-X) 80 Mg Tab.chew, 160 MG PO BID 10/30/15 Aspirin (ASPIR 81) 81 Mg Tablet.dr, 81 MG PO DAILY 10/30/15 Bupropion Hcl (WELLBUTRIN) 100 Mg Tablet, 75 MG PO BID 10/30/15 Physician Attestation Provider Attestation The patient's history, exam findings, diagnostics, and a summary of any interventions or procedures was reviewed in detail with our MARIMAR. I personally interviewed and examined the patient, and I have reviewed and agree with the HPI andexam. My personal exam shows MILD BLADDER DISTENSION/DISCOMFORT SUPRAPUBIC WITHOUT R/G. I confirm the diagnosis as documented by the MARIMAR. I have reviewed and agree with the care plan articulated in the disposition section. ([facility] EDWARDS MD) HARRIET THOMAS NP November 15, 2019 17:32 [facility] EDWARDS MD November 15, 2019 18:53
[2019-11-15 21:08] VITALS: BP 130/80
== END 2019-11-15 21:13 ==
LOC: ER 16:37
DX: T83.89XA Other specified complication of genitourinary prosthetic devices, implants and grafts, initial encounter (principal); R33.9 Retention of urine, unspecified; I10 Essential (primary) hypertension; E78.5 Hyperlipidemia, unspecified; G35 Multiple sclerosis; F41.9 Anxiety disorder, unspecified; Z85.828 Personal history of other malignant neoplasm of skin; Z95.810 Presence of automatic (implantable) cardiac defibrillator
CPT/HCPCS: 99283

== ENCOUNTER 2019-11-25 12:01 | Inpatient (IN) | payer MEDICARE, OTHER ==
[~2019-11-25] VITALS: Ht 154.9 cm; Wt 60.3 kg
--- OUTSIDE RECORDS SUMMARY | 2019-11-25 12:06 | XMS REPORT | Continuity of Care Document ---
Author Author [facility] t Organization [facility] Address [address] [place] [address] Phone Unavailable Care Team Providers Care Floriculture Teacher Name Role Phone KRIS CADENA PCP KRIS CADENA Attphys Unavailab le HAMPEL, VINNY Attphys Unavailable KRIS CADENA Admphys Unavailab le Payers Payer Name Policy Type Policy Number Effective Date Expiration Date S jaspreethossein Medicare A & B NA 2019 00:00:00 [facility] NA 2011 00:00 :[address] [facility] [id number] 2019 00:00:00 [facility] Medicaid Hmo Other [id number] 2016 00:00:00 [facility] Problems Condition Name Condition Details Condition Category Status Onset Date Resolution Date Last Treatment Date Treating Clinician Comments Source Complicated urinary tract infection Complicated UTI (urinary tract infection) Problem Active [facility] Presence of suprapubic catheter Suprapubic catheter Problem Active [facility] Acute retention of urine Problem Active [facility] Suprapubic catheter dysfunction Problem Active [facility] Allergies, Adverse Reactions, Alerts Allergy Name Allergy Type Status Severity Reaction(s) Onset Date Inacti ve Date Treating Clinician Comments Source Cephalexin Allergy to substance Active Severe SWELLING 2019-07-05 00:0 0:00 [facility] Penicillin Allergy to substance Active Moderate SWELLING 2019-07-05 00: 00:00 [facility] Penicillins DA Active MO 2017-09-20 00:00:00 [facility] penicillin V DA Active MO 2017-09-20 00:00:00 [facility] cephalexin DA Active [place] 2017-09-20 00:00:00 [facility] penicillin G DA Active MO 2017-09-20 00:00:00 [facility] Social History Social Habit Start Date Stop Date Quantity Comments Source Sex Assigned At 1965 00:00:00 1965 00:00:00 Female [facility] Medications Ordered Medication Name Filled Medication Name Start Date Stop Da te Current Medication? Ordering Clinician Indication Dosage Frequency Signature (SIG) Comments Components Source Nitrofurantoin Monohyd/M-Cryst (Macrobid 100 Mg Capsul e) 100 Mg CAPSULE Nitrofurantoin Monohyd/M-Cryst (Macrobid 100 Mg Capsule) 100 Mg CAPSULE 2018-06-22 18:15:00 2018-07-03 00:00:00 No 1 Twice A Day [facility] Tobramycin (Tobrex) 3.5 Gm OINT Tobramycin (Tobrex) 3.5 Gm O INT 2018-03-07 14:01:00 2018-07-03 00:00:00 No 160 Daily [facility] Acetaminophen With Codeine (Tylenol With Codeine #3 Ta blet) 1 Each TABLET Acetaminophen With Codeine (Tylenol With Codeine #3 Tablet) 1 Each TABLET Yes 300 Q4hprn [facility] Aspirin (Aspir 81) 81 Mg TABLET. Aspirin (Aspir 81) 81 Mg TABLET. Yes 81 Daily [facility] Baclofen Baclofen Yes 10 Twice A Day [facility] Bupropion Hcl (Wellbutrin) 100 Mg TABLET Bupropion Hcl (Wellbutrin) 100 Mg TABLET Yes 75 Twice A Day [facility] Cranberry/Vit C/L. Sporogenes (Azo Cranberry Tablet) 1 Each TABLET Cranberry/Vit C/L. Sporogenes (Azo Cranberry Tablet) 1 Each TABLET Yes 1 Daily [facility] Cyanocobalamin (Vitamin B-12) 1,000 Mcg TAB Cyanocobal rios (Vitamin B-12) 1,000 Mcg TAB Yes 1000 Daily [facility] Dextran 70/Hypromellose (Artificial Tears Eye Drops) 1 5 Ml DROPS Dextran 70/Hypromellose (Artificial Tears Eye Drops) 15 Ml DROPS Yes 1 Daily [facility] Docusate Sodium Docusate Sodium Yes 300 Daily [facility] Doxepin Hcl Doxepin Hcl Yes 10 Bedtime [facility] Fenofibrate Nanocrystallized (Fenofibrate) 145 Mg TABL ET Fenofibrate Nanocrystallized (Fenofibrate) 145 Mg TABLET Yes 1 Bedtime [facility] Folic Acid Folic Acid Yes 1 Daily [facility] Gabapentin Gabapentin Yes 300 Bedtime [facility] Linzess Linzess Yes 145 Daily [facility] Melatonin Melatonin Yes 10 Bedtime [facility] Meropenem (Merrem) 1 Gm INJ Meropenem (Merrem) 1 Gm INJ Yes [address] [facility] Metoprolol Succinate Metoprolol Succinate Yes 25 Twice A Day [facility] Oxybutynin Chloride Oxybutynin Chloride Yes 5 Twice A Day [facility] Primidone Primidone Yes 50 Twice A Day [facility] Ropinirole Hcl (Requip) 1 Mg TABLET Ropinirole Hcl (Requip) 1 Mg TABL ET Yes 1 Bedtime [facility] Simethicone (Gas-X) 80 Mg TAB.CHEW Simethicone (Gas-X) 80 Mg TAB.CHEW Yes 160 Twice A Day [facility] Acetaminophen (Tylenol*) 325 Mg TABLET Acetaminophen (Tylenol*) 325 Mg TABLET 2019-03-15 00:00:00 No 650 As Needed [facility] Bisacodyl (Dulcolax Supp*) 10 Mg SUPP Bisacodyl (Dulcolax Supp*) 10 Mg SUPP 2019-03-15 00:00:00 No 10 As Needed [facility] Docusate Sodium (Colace) 100 Mg CAP Docusate Sodium (Colace) 100 Mg CAP 2019-03-15 00:00:00 No 300 Daily [facility] Hydrocortisone Hydrocortisone 2019-03-15 00:00:00 No 2.5 As Needed [facility] Hyoscyamine Sulfate (Levsin) 0.125 Mg TABLET Hyoscyami ne Sulfate (Levsin) 0.125 Mg TABLET 2019-03-15 00:00:00 No .125 Q6hprn [facility] Interferon Beta-1B (Betaseron) 0.3 Mg KIT Interferon B eta-1B (Betaseron) 0.3 Mg KIT 2019-03-15 00:00:00 No .3 Every Other Day [facility] Lactulose Lactulose 2019-03-15 00:00:00 No 30 Qdprn [facility] Magnesium Hydroxide (Milk Of Magnesia) 2,400 Mg/10 Ml ORAL.SUSP Magnesium Hydroxide (Milk Of Magnesia) 2,400 Mg/10 Ml ORAL.SUSP 2019-03-15 00:00:00 No 30 Qdprn [facility] Metronidazole Gel Metronidazole Gel 2019-03-15 00:00:00 No .75 Daily [facility] Polyethylene Glycol 3350 (Miralax) 17 Gm POWD.PACK Nahum yethylene Glycol 3350 (Miralax) 17 Gm POWD.PACK 2019-03-15 00:00:00 No 17 As Needed [facility] Promethazine Hcl (Phenergan) 25 Mg/1 Ml AMPUL Prometha zine Hcl (Phenergan) 25 Mg/1 Ml AMPUL 2019-03-14 00:00:00 No 12.5 Every 6 Hours as needed for Nausea And Vomiting [facility] Ascorbic Acid (Vitamin C) 500 Mg TABLET Ascorbic Acid (Vitam in C) 500 Mg TABLET 2018-11-09 00:00:00 No 500 Daily [facility] Diphenhydramine Hcl (Benadryl) 25 Mg CAPSULE Diphenhyd ramine Hcl (Benadryl) 25 Mg CAPSULE 2018-11-09 00:00:00 No 25 E very 6 Hours as needed for Itching [facility] Gemfibrozil (Lopid) 600 Mg TABLET Gemfibrozil (Lopid) 600 Mg TAB LET 2018-11-09 00:00:00 No 600 Daily [facility] Digoxin Digoxin 2018-11-08 00:00:00 No .125 Daily [facility] Metronidazole (Metrogel) 60 Gm GEL Metronidazole (Metrogel) 60 G m GEL 2018-11-08 00:00:00 No As Needed [facility] Acetaminophen With Codeine (Tylenol With Codeine #3 Ta blet) 1 Each TABLET Acetaminophen With Codeine (Tylenol With Codeine #3 Tablet) 1 Each TABLET 2018-07-03 00:00:00 No 300 Every 12 Hours [facility] Amitriptyline Hcl Amitriptyline Hcl 2018-07-03 00:00:00 No 25 Bedtime [facility] Ascorbic Acid (Vitamin C) 500 Mg CAPSULE.ER Ascorbic A keily (Vitamin C) 500 Mg CAPSULE.ER 2018-07-03 00:00:00 No 500 Daily [facility] B12 B12 2018-07-03 00:00:00 No 1 [facility] Cranberry/Vit C/L. Sporogenes (Azo Cranberry Tablet) 1 Each TABLET Cranberry/Vit C/L. Sporogenes (Azo Cranberry Tablet) 1 Each TABLET 2018-07-03 00: 00:00 No 1 Daily [facility] Interferon Beta-1B (Extavia) 0.3 Mg KIT Interferon Beta-1B ( Extavia) 0.3 Mg KIT 2018-07-03 00:00:00 No .3 [facility] Interferon Beta-1B (Extavia) 0.3 Mg KIT Interferon Beta-1B ( Extavia) 0.3 Mg KIT 2018-07-03 00:00:00 No [facility] Nystatin Nystatin 2018-07-03 00:00:00 No 1 Daily [facility] Solifenacin Succinate (Vesicare) 5 Mg TABLET Solifenac in Succinate (Vesicare) 5 Mg TABLET 2018-07-03 00:00:00 No 10 Daily [facility] Temazepam Temazepam 2018-07-03 00:00:00 No 30 Bedti me [facility] Tizanidine Hcl (Zanaflex) 4 Mg CAPSULE Tizanidine Hcl (Zanaflex) 4 Mg CAPSULE 2018-07-03 00:00:00 No 4 Daily [facility] Urispas Urispas 2018-07-03 00:00:00 No 100 Three [place] es A Day [facility] Acetaminophen Acetaminophen 2015-10-30 00:00:00 No 325 Every 4 Hours as needed for Pain [facility] Magnesium Hydroxide (Milk Of Magnesia) 2,400 Mg/10 Ml ORAL.SUSP Magnesium Hydroxide (Milk Of Magnesia) 2,400 Mg/10 Ml ORAL.SUSP 2015-10-30 00:00:00 No 30 Daily as needed for Constipation [facility] Vital Signs Vital Name Observation Time Observation Value Comments Source Body Temperature 2019-11-15 21:08:00 98.0 [degF] [facility] Weight 2019-11-15 17:01:00 133 [lb_av] [facility] BMI (Body Mass Index) 2019-11-15 17:01:00 20.8 kg/m2 [facility] Weight 2019-11-02 15:19:00 133 [lb_av] [facility] BMI (Body Mass Index) 2019-11-02 15:19:00 20.8 kg/m2 [facility] Body Temperature 2019-10-09 19:54:00 98.4 [degF] [facility] Procedures Procedure Date / Time Performed Performing Clinician Sour e CHANGE OF BLADDER TUBE 2019-11-02 00:00:00 [facility] CHANGE OF BLADDER TUBE 2019-10-09 00:00:00 [facility] INSERT TEMP BLADDER CATH 2019-09-24 00:00:00 [facility] CYSTOSCOPY & URETER CATHETER 2019-07-17 00:00:00 [facility] CYSTOSCOPY CHEMODENERVATION 2019-07-17 00:00:00 [facility] REMOVE BLADDER STONE 2019-07-17 00:00:00 [facility] INSERTION OF INFUSION DEV INTO SUP VENA CAVA, PERC APPROACH 2019-07-08 00:00:00 [facility] CYSTOSCOPY & URETER CATHETER 2019-03-15 00:00:00 [facility] CYSTOSCOPY CHEMODENERVATION 2019-03-15 00:00:00 [facility] REMOVE BLADDER STONE 2019-03-15 00:00:00 [facility] Plan of Care Planned Activity Planned Date Details Comments Source Instructions [facility] Encounters Start Date/Time End Date/Time Encounter Type Admission Type [facility] Facility Care Department Encounter ID Source 2019-11-15 16:37:00 2019-11-15 21:13:00 Departed Emergency Room [facility] [id number] [facility] 2019-11-02 15:18:00 2019-11-02 17:34:00 Departed Emergency Room [facility] [id number] [facility] 2019-10-09 18:25:00 2019-10-09 20:06:00 Departed Emergency Room [facility] [id number] [facility] 2019-09-24 07:14:00 2019-09-24 10:54:00 Departed Emergency Room [facility] [id number] [facility] 2019-07-17 08:57:00 2019-07-17 08:57:00 Registered Surgical Day Care [facility] [id number] [facility] 2019-07-05 11:40:00 2019-07-09 10:04:00 Discharged Inpatient 1 KRIS CADENA [facility] [id number] [facility] 2019-03-15 07:54:00 2019-03-15 07:54:00 Registered Surgical Day Care [facility] [id number] [facility] 2018-11-09 09:45:00 2018-11-09 09:45:00 Registered Surgical Day Care [facility] [id number] [facility] 2018-06-22 15:23:00 2018-06-22 22:29:00 Departed Emergency Room [facility] [id number] [facility] 2018-04-24 16:56:00 2018-04-24 20:23:00 Departed Emergency Room [facility] [id number] [facility] 2018-03-13 14:52:00 2018-03-13 14:52:00 Registered Clinic 3 ROBERTO PERALES, VINNY [facility] [id number] [facility] 2018-03-07 11:29:00 2018-03-07 16:52:00 Departed Emergency Room [facility] [id number] [facility] 2017-06-17 23:26:00 2017-06-18 02:23:00 Departed Emergency Room [facility] [id number] [facility] Results Test Description Test Time Test Comments Results Result Comments Source Bacterial urine culture 2019-10-09 19:35:00 Test Item Urine Culture (test code = 630-4) [facility] MIR[facility]IL[facility] [id number] 19:35:00* Test Item Value Reference Range Interpretation Comments Urine Culture (test code = 630-4) PROTEUS MIRABILIS [facility] [id number] 10:51:00* Test Item Value Reference Range Interpretation Comments Urine Culture (test code = 630-4) No Result Data Provided [facility] [id number] 10:51:00* Test Item Value Reference Range Interpretation Comments Urine Culture (test code = 630-4) No Result Data Provided [facility] [id number] 13:41:00* Test Item Value Reference Range Interpretation Comments Blood Culture (test code = 68009882) NO GROWTH AFTER 5 DAYS, FINAL REPORT [facility] [id number] 13:41:00* Test Item Value Reference Range Interpretation Comments Blood Culture (test code = 13554377) NO GROWTH AFTER 5 DAYS, FINAL REPORT [facility] [id number] 06:07:00* Test Item Value Reference Range Interpretation Comments Sodium Level (test code = 2951-2) 140 136-145 [facility] [id number] 06:07:00* Test Item Value Reference Range Interpretation Comments Potassium Level (test code = 2823-3) 3.9 3.5-5.1 [facility] HospitalChloride [id number] 06:07:00* Test Item Value Reference Range Interpretation Comments Chloride Level (test code = 2075-0) 108 98-107 H [facility] HospitalCarbon Dioxide [id number] 06:07:00* Test Item Value Reference Range Interpretation Comments Carbon Dioxide Level (test code = 2028-9) 24 22-29 [facility] HospitalAnion [id number] 06:07:00* Test Item Value Reference Range Interpretation Comments Anion Gap (test code = 85289-0) 11.9 8-16 [facility] Urea [id number] 06:07:00* Test Item Value Reference Range Interpretation Comments Blood Urea Nitrogen (test code = 3094-0) 9 7-26 [facility] HospitalCreatinine2020-01-21 06:07:00* Test Item Value Reference Range Interpretation Comments Creatinine (test code = 2160-0) 0.56 0.57-1.11 L [facility] HospitalBUN/Creatinine Fdqrx8115-01-10 06:07:00* Test Item Value Reference Range Interpretation Comments BUN/Creatinine Ratio (test code = 3097-3) 16 6-25 [facility] HospitalEstimat Glomerular Filtration Rate 2019-07-09 06:07:00* Test Item Value Reference Range Interpretation Comments Estimat Glomerular Filtration Rate (test code = 384499591) > 60 >60 Ranges were taken from the National Kidney Disease Education Program and the [facility] Kidney Foundation literature.Reference ranges:60 or greater: Uunpyf54-72 ( for 3 consecutive months): Chronic kidney disease 15 or less: Kidney failureKell West Regional HospitalGlucose Qeygm0351-32-41 06:07:00* Test Item Value Reference Range Interpretation Comments Glucose Level (test code = QVB8535) 95 74-118 [facility] HospitalCalcium [id number] 06:07:00* Test Item Value Reference Range Interpretation Comments Calcium Level (test code = 67342-9) 9.4 8.4-10.2 [facility] [id number] 06:07:00* Test Item Value Reference Range Interpretation Comments Sodium Level (test code = 2951-2) 140 136-145 [facility] HospitalPotassium [id number] 06:07:00* Test Item Value Reference Range Interpretation Comments Potassium Level (test code = 2823-3) 3.9 3.5-5.1 [facility] HospitalChloride [id number] 06:07:00* Test Item Value Reference Range Interpretation Comments Chloride Level (test code = 2075-0) 108 98-107 H [facility] HospitalCarbon Dioxide [id number] 06:07:00* Test Item Value Reference Range Interpretation Comments Carbon Dioxide Level (test code = 2028-9) 24 22-29 [facility] HospitalAnion [id number] 06:07:00* Test Item Value Reference Range Interpretation Comments Anion Gap (test code = 21233-8) 11.9 8-16 [facility]Blood Urea [id number] 06:07:00* Test Item Value Reference Range Interpretation Comments Blood Urea Nitrogen (test code = 3094-0) 9 7-26 [facility] HospitalCreatinine2020-01-21 06:07:00* Test Item Value Reference Range Interpretation Comments Creatinine (test code = 2160-0) 0.56 0.57-1.11 L [facility] HospitalBUN/Creatinine [id number] 06:07:00* Test Item Value Reference Range Interpretation Comments BUN/Creatinine Ratio (test code = 3097-3) 16 6-25 [facility] HospitalEstimat Glomerular Filtration Rate 2019-07-09 06:07:00* Test Item Value Reference Range Interpretation Comments Estimat Glomerular Filtration Rate (test code = 599359475) > 60 >60 Ranges were taken from the National Kidney Disease Education Program and the [facility] Kidney Foundation literature.Reference ranges:60 or greater: Kymsob29-98 ( for 3 consecutive months): Chronic kidney disease 15 or less: Kidney failureKell West Regional HospitalGlucose Omjsm8454-81-39 06:07:00* Test Item Value Reference Range Interpretation Comments Glucose Level (test code = UFI8421) 95 74-118 [facility] HospitalCalcium [id number] 06:07:00* Test Item Value Reference Range Interpretation Comments Calcium Level (test code = 81756-8) 9.4 8.4-10.2 [facility] [id number] 06:07:00* Test Item Value Reference Range Interpretation Comments Sodium Level (test code = 2951-2) 140 136-145 [facility] HospitalPotassium [id number] 06:07:00* Test Item Value Reference Range Interpretation Comments Potassium Level (test code = 2823-3) 3.9 3.5-5.1 [facility] HospitalChloride [id number] 06:07:00* Test Item Value Reference Range Interpretation Comments Chloride Level (test code = 2075-0) 108 98-107 H [facility] HospitalCarbon Dioxide [id number] 06:07:00* Test Item Value Reference Range Interpretation Comments Carbon Dioxide Level (test code = 2028-9) 24 22-29 [facility] HospitalAnion [id number] 06:07:00* Test Item Value Reference Range Interpretation Comments Anion Gap (test code = 07330-6) 11.9 8-16 [facility] HospitalBlood Urea [id number] 06:07:00* Test Item Value Reference Range Interpretation Comments Blood Urea Nitrogen (test code = 3094-0) 9 7-26 [facility] HospitalCreatinine2020-01-21 06:07:00* Test Item Value Reference Range Interpretation Comments Creatinine (test code = 2160-0) 0.56 0.57-1.11 L [facility] HospitalBUN/Creatinine [id number] 06:07:00* Test Item Value Reference Range Interpretation Comments BUN/Creatinine Ratio (test code = 3097-3) 16 6-25 [facility] HospitalEstimat Glomerular Filtration Rate 2019-07-09 06:07:00* Test Item Value Reference Range Interpretation Comments Estimat Glomerular Filtration Rate (test code = 260651875) > 60 >60 Ranges were taken from the National Kidney Disease Education Program and the [facility] Kid[facility] Foundation literature.Reference ranges:60 or greater: Oqemqj23-63 ( for 3 consecutive months): Chronic kidney disease 15 or less: Kidney failureKell West Regional HospitalGlucose Vmfdw7446-23-13 06:07:00* Test Item Value Reference Range Interpretation Comments Glucose Level (test code = XMP7945) 95 74-118 [facility] HospitalCalcium [id number] 06:07:00* Test Item Value Reference Range Interpretation Comments Calcium Level (test code = 13516-1) 9.4 8.4-10.2 [facility] HospitalWhite Blood Jaqxy8589-05-33 05:49:00* Test Item Value Reference Range Interpretation Comments White Blood Count (test code = 6690-2) 4.57 4.8-10.8 L [facility] HospitalRed Blood [id number] 05:49:00* Test Item Value Reference Range Interpretation Comments Red Blood Count (test code = 789-8) 3.18 3.6-5.1 L [facility] HospitalHemoglobin2020-01-21 05:49:00* Test Item Value Reference Range Interpretation Comments Hemoglobin (test code = 18315-4) 10.3 12.0-16.0 L [facility] HospitalHematocrit2020-01-21 05:49:00* Test Item Value Reference Range Interpretation Comments Hematocrit (test code = 4544-3) 30.5 34.2-44.1 L [facility] HospitalMean Corpuscular Kzsmau6445-09-89 05:49:00* Test Item Value Reference Range Interpretation Comments Mean Corpuscular Volume (test code = 787-2) 95.9 81-99 [facility] HospitalMean Corpuscular Qlmskapobt7695-17-05 05:49:00* Test Item Value Reference Range Interpretation Comments Mean Corpuscular Hemoglobin (test code = 785-6) 32.4 28-32 H [facility] HospitalMean Corpuscular Hemoglobin Concent 2019-07-09 05:49:00* Test Item Value Reference Range Interpretation Comments Mean Corpuscular Hemoglobin Concent (test code = 786-4) 33.8 31-35 [facility] HospitalRed Cell Distribution [id number] 05:49:00* Test Item Value Reference Range Interpretation Comments Red Cell Distribution Width (test code = 73397-5) 13.8 11.7 -14.4 [facility] HospitalPlatelet [id number] 05:49:00* Test Item Value Reference Range Interpretation Comments Platelet Count (test code = 777-3) 228 140-360 [facility] HospitalNeutrophils (%) (Auto)2019-07-09 05:49:00 * Test Item Value Reference Range Interpretation Comments Neutrophils (%) (Auto) (test code = 53371-0) 56.0 38.7-80.0 [facility] HospitalLymphocytes (%) (Auto)2019-07-09 05:49:00 * Test Item Value Reference Range Interpretation Comments Lymphocytes (%) (Auto) (test code = 736-9) 23.9 18.0-39.1 [facility] HospitalMonocytes (%) (Auto)2019-07-09 05:49:00* Test Item Value Reference Range Interpretation Comments Monocytes (%) (Auto) (test code = 5905-5) 11.6 4.4-11.3 H [facility] HospitalEosinophils (%) (Auto)2019-07-09 05:49:00 * Test Item Value Reference Range Interpretation Comments Eosinophils (%) (Auto) (test code = 713-8) 7.2 0.0-6.0 H [facility] HospitalBasophils (%) (Auto)2019-07-09 05:49:00* Test Item Value Reference Range Interpretation Comments Basophils (%) (Auto) (test code = 706-2) 1.1 0.0-1.0 H [facility] HospitalIM GRANULOCYTES %2019-07-09 05:49:00* Test Item Value Reference Range Interpretation Comments IM GRANULOCYTES % (test code = IM GRANULOCYTES %) 0.2 0.0- 1.0 [facility] HospitalNeutrophils # (Auto)2019-07-09 05:49:00* Test Item Value Reference Range Interpretation Comments Neutrophils # (Auto) (test code = 751-8) 2.6 2.1-6.9 [facility] HospitalLymphocytes # (Auto)2019-07-09 05:49:00* Test Item Value Reference Range Interpretation Comments Lymphocytes # (Auto) (test code = 73553-4) 1.1 1.0-3.2 [facility]Monocytes # (Auto)2019-07-09 05:49:00* Test Item Value Reference Range Interpretation Comments Monocytes # (Auto) (test code = 742-7) 0.5 0.2-0.8 [facility] HospitalEosinophils # (Auto)2019-07-09 05:49:00* Test Item Value Reference Range Interpretation Comments Eosinophils # (Auto) (test code = 711-2) 0.3 0.0-0.4 [facility] HospitalBasophils # (Auto)2019-07-09 05:49:00* Test Item Value Reference Range Interpretation Comments Basophils # (Auto) (test code = 704-7) 0.1 0.0-0.1 [facility] HospitalAbsolute Immature Granulocyte (auto 2019-07-09 05:49:00* Test Item Value Reference Range Interpretation Comments Absolute Immature Granulocyte (auto (raúl t code = Absolute Immature Granulocyte (auto) 0.01 0-0.1 [facility] HospitalWhite Blood Hlaof4170-84-91 05:49:00* Test Item Value Reference Range Interpretation Comments White Blood Count (test code = 6690-2) 4.57 4.8-10.8 L [facility] HospitalRed Blood Eilrc1502-59-51 05:49:00* Test Item Value Reference Range Interpretation Comments Red Blood Count (test code = 789-8) 3.18 3.6-5.1 L [facility] HospitalHemoglobin2020-01-21 05:49:00* Test Item Value Reference Range Interpretation Comments Hemoglobin (test code = 11591-0) 10.3 12.0-16.0 L [facility] HospitalHematocrit2020-01-21 05:49:00* Test Item Value Reference Range Interpretation Comments Hematocrit (test code = 4544-3) 30.5 34.2-44.1 L [facility] HospitalMean Corpuscular Rnvcuu0212-31-87 05:49:00* Test Item Value Reference Range Interpretation Comments Mean Corpuscular Volume (test code = 787-2) 95.9 81-99 [facility] HospitalMean Corpuscular Hcrbsbhudx3216-79-52 05:49:00* Test Item Value Reference Range Interpretation Comments Mean Corpuscular Hemoglobin (test code = 785-6) 32.4 28-32 H [facility] HospitalMean Corpuscular Hemoglobin Concent 2019-07-09 05:49:00* Test Item Value Reference Range Interpretation Comments Mean Corpuscular Hemoglobin Concent (test code = 786-4) 33.8 31-35 [facility] HospitalRed Cell Distribution Ghqog9272-12-90 05:49:00* Test Item Value Reference Range Interpretation Comments Red Cell Distribution Width (test code = 98277-5) 13.8 11.7 -14.4 [facility] HospitalPlatelet Byvlu2170-21-71 05:49:00* Test Item Value Reference Range Interpretation Comments Platelet Count (test code = 777-3) 228 140-360 [facility] HospitalNeutrophils (%) (Auto)2019-07-09 05:49:00 * Test Item Value Reference Range Interpretation Comments Neutrophils (%) (Auto) (test code = 99926-8) 56.0 38.7-80.0 [facility] HospitalLymphocytes (%) (Auto)2019-07-09 05:49:00 * Test Item Value Reference Range Interpretation Comments Lymphocytes (%) (Auto) (test code = 736-9) 23.9 18.0-39.1 [facility] HospitalMonocytes (%) (Auto)2019-07-09 05:49:00* Test Item Value Reference Range Interpretation Comments Monocytes (%) (Auto) (test code = 5905-5) 11.6 4.4-11.3 H [facility] HospitalEosinophils (%) (Auto)2019-07-09 05:49:00 * Test Item Value Reference Range Interpretation Comments Eosinophils (%) (Auto) (test code = 713-8) 7.2 0.0-6.0 H [facility] HospitalBasophils (%) (Auto)2019-07-09 05:49:00* Test Item Value Reference Range Interpretation Comments Basophils (%) (Auto) (test code = 706-2) 1.1 0.0-1.0 H [facility] HospitalIM GRANULOCYTES %2019-07-09 05:49:00* Test Item Value Reference Range Interpretation Comments IM GRANULOCYTES % (test code = IM GRANULOCYTES %) 0.2 0.0- 1.0 [facility] HospitalNeutrophils # (Auto)2019-07-09 05:49:00* Test Item Value Reference Range Interpretation Comments Neutrophils # (Auto) (test code = 751-8) 2.6 2.1-6.9 [facility] HospitalLymphocytes # (Auto)2019-07-09 05:49:00* Test Item Value Reference Range Interpretation Comments Lymphocytes # (Auto) (test code = 52641-5) 1.1 1.0-3.2 [facility] HospitalMonocytes # (Auto)2019-07-09 05:49:00* Test Item Value Reference Range Interpretation Comments Monocytes # (Auto) (test code = 742-7) 0.5 0.2-0.8 [facility] HospitalEosinophils # (Auto)2019-07-09 05:49:00* Test Item Value Reference Range Interpretation Comments Eosinophils # (Auto) (test code = 711-2) 0.3 0.0-0.4 [facility] HospitalBasophils # (Auto)2019-07-09 05:49:00* Test Item Value Reference Range Interpretation Comments Basophils # (Auto) (test code = 704-7) 0.1 0.0-0.1 [facility] HospitalAbsolute Immature Granulocyte (auto 2019-07-09 05:49:00* Test Item Value Reference Range Interpretation Comments Absolute Immature Granulocyte (auto (raúl t code = Absolute Immature Granulocyte (auto) 0.01 0-0.1 [facility] HospitalWhite Blood Bnovy7010-04-64 05:49:00* Test Item Value Reference Range Interpretation Comments White Blood Count (test code = 6690-2) 4.57 4.8-10.8 L [facility] HospitalRed Blood Ethpr5907-14-88 05:49:00* Test Item Value Reference Range Interpretation Comments Red Blood Count (test code = 789-8) 3.18 3.6-5.1 L [facility] HospitalHemoglobin2020-01-21 05:49:00* Test Item Value Reference Range Interpretation Comments Hemoglobin (test code = 36631-1) 10.3 12.0-16.0 L [facility] HospitalHematocrit2020-01-21 05:49:00* Test Item Value Reference Range Interpretation Comments Hematocrit (test code = 4544-3) 30.5 34.2-44.1 L [facility] HospitalMean Corpuscular Rbubma9229-94-58 05:49:00* Test Item Value Reference Range Interpretation Comments Mean Corpuscular Volume (test code = 787-2) 95.9 81-99 [facility] HospitalMean Corpuscular Unzpekmsil9214-54-64 05:49:00* Test Item Value Reference Range Interpretation Comments Mean Corpuscular Hemoglobin (test code = 785-6) 32.4 28-32 H [facility] HospitalMean Corpuscular Hemoglobin Concent 2019-07-09 05:49:00* Test Item Value Reference Range Interpretation Comments Mean Corpuscular Hemoglobin Concent (test code = 786-4) 33.8 31-35 [facility] HospitalRed Cell Distribution Hemjr2025-98-61 05:49:00* Test Item Value Reference Range Interpretation Comments Red Cell Distribution Width (test code = 36472-9) 13.8 11.7 -14.4 [facility] HospitalPlatelet Gvxsn7346-27-83 05:49:00* Test Item Value Reference Range Interpretation Comments Platelet Count (test code = 777-3) 228 140-360 [facility] HospitalNeutrophils (%) (Auto)2019-07-09 05:49:00 * Test Item Value Reference Range Interpretation Comments Neutrophils (%) (Auto) (test code = 33714-7) 56.0 38.7-80.0 [facility] HospitalLymphocytes (%) (Auto)2019-07-09 05:49:00 * Test Item Value Reference Range Interpretation Comments Lymphocytes (%) (Auto) (test code = 736-9) 23.9 18.0-39.1 [facility] HospitalMonocytes (%) (Auto)2019-07-09 05:49:00* Test Item Value Reference Range Interpretation Comments Monocytes (%) (Auto) (test code = 5905-5) 11.6 4.4-11.3 H [facility] HospitalEosinophils (%) (Auto)2019-07-09 05:49:00 * Test Item Value Reference Range Interpretation Comments Eosinophils (%) (Auto) (test code = 713-8) 7.2 0.0-6.0 H [facility] HospitalBasophils (%) (Auto)2019-07-09 05:49:00* Test Item Value Reference Range Interpretation Comments Basophils (%) (Auto) (test code = 706-2) 1.1 0.0-1.0 H [facility] HospitalIM GRANULOCYTES %2019-07-09 05:49:00* Test Item Value Reference Range Interpretation Comments IM GRANULOCYTES % (test code = IM GRANULOCYTES %) 0.2 0.0- 1.0 [facility] HospitalNeutrophils # (Auto)2019-07-09 05:49:00* Test Item Value Reference Range Interpretation Comments Neutrophils # (Auto) (test code = 751-8) 2.6 2.1-6.9 [facility] HospitalLymphocytes # (Auto)2019-07-09 05:49:00* Test Item Value Reference Range Interpretation Comments Lymphocytes # (Auto) (test code = 48570-9) 1.1 1.0-3.2 [facility] HospitalMonocytes # (Auto)2019-07-09 05:49:00* Test Item Value Reference Range Interpretation Comments Monocytes # (Auto) (test code = 742-7) 0.5 0.2-0.8 [facility] HospitalEosinophils # (Auto)2019-07-09 05:49:00* Test Item Value Reference Range Interpretation Comments Eosinophils # (Auto) (test code = 711-2) 0.3 0.0-0.4 [facility] HospitalBasophils # (Auto)2019-07-09 05:49:00* Test Item Value Reference Range Interpretation Comments Basophils # (Auto) (test code = 704-7) 0.1 0.0-0.1 [facility] HospitalAbsolute Immature Granulocyte (auto 2019-07-09 05:49:00* Test Item Value Reference Range Interpretation Comments Absolute Immature Granulocyte (auto (raúl t code = Absolute Immature Granulocyte (auto) 0.01 0-0.1 [facility] HospitalBllif[facility] leukocytes automated count (number/volume)2019-07-09 04:30:00* Test Item Value Reference Range Interpretation Comments White Blood Count (test code = 6690-2) 4.57 4.8-10.8 [facility] HospitalBlood erythrocytes automated count (number/volume)2019-07-09 04:30:00* Test Item Value Reference Range Interpretation Comments Red Blood Count (test code = 789-8) 3.18 3.6-5.1 [facility] HospitalBlood hemoglobin measurement (moles/volume)2019-07-09 04:30:00* Test Item Value Reference Range Interpretation Comments Hemoglobin (test code = 42815-1) 10.3 12.0-16.0 [facility] HospitalAutomated blood hematocrit (volume fraction)2019-07-09 04:30:00* Test Item Value Reference Range Interpretation Comments Hematocrit (test code = 4544-3) 30.5 34.2-44.1 [facility] HospitalAutomated erythrocyte mean corpuscular dwxmzu0775-76-41 04:30:00* Test Item Value Reference Range Interpretation Comments Mean Corpuscular Volume (test code = 787-2) 95.9 81-99 [facility] HospitalAutomated erythrocyte mean corpuscular hemoglobin (mass per erythrocyte)2019-07-09 04:30:00* Test Item Value Reference Range Interpretation Comments Mean Corpuscular Hemoglobin (test code = 785-6) 32.4 28-32 [facility] HospitalAutomated erythrocyte mean corpuscular hemoglobin concentration measurement (mass/volume)2019-07-09 04:30:00* Test Item Value Reference Range Interpretation Comments Mean Corpuscular Hemoglobin Concent (test code = 786-4) 33.8 31-35 [facility] HospitalRDW WpqOm-Plc7145-70-21 04:30:00* Test Item Value Reference Range Interpretation Comments Red Cell Distribution Width (test code = 05187-5) 13.8 11.7 -14.4 [facility] HospitalAutomated blood platelet count (count/volume)2019-07-09 04:30:00* Test Item Value Reference Range Interpretation Comments Platelet Count (test code = 777-3) 228 140-360 [facility] HospitalAutomated blood segmented neutrophil count as percentage of total ueeatrisxd0267-74-75 04:30:00* Test Item Value Reference Range Interpretation Comments Neutrophils (%) (Auto) (test code = 75402-2) 56.0 38.7-80.0 [facility] HospitalAutsloop memorial hospitaled blood lymphocyte count as percentage ot total hzsreoudib3295-74-45 04:30:00* Test Item Value Reference Range Interpretation Comments Lymphocytes (%) (Auto) (test code = 736-9) 23.9 18.0-39.1 [facility] HospitalAutomated blood monocyte count as percentage of total klpojstbuq3269-60-79 04:30:00* Test Item Value Reference Range Interpretation Comments Monocytes (%) (Auto) (test code = 5905-5) 11.6 4.4-11.3 [facility] HospitalAutomated blood eosinophil count as percentage of total shcrsmqeqt1826-04-16 04:30:00* Test Item Value Reference Range Interpretation Comments Eosinophils (%) (Auto) (test code = 713-8) 7.2 0.0-6.0 [facility] HospitalAutomated blood basophil count as percentage of total jbfnxxwium1068-10-16 04:30:00* Test Item Value Reference Range Interpretation Comments Basophils (%) (Auto) (test code = 706-2) 1.1 0.0-1.0 [facility] HospitalFluoroscopic procedure less than one hour jmmebqvs4134-79-10 04:30:00* Test Item Value Reference Range Interpretation Comments IM GRANULOCYTES % (test code = IM GRANULOCYTES %) 0.2 0.0- 1.0 [facility] HospitalAutomated blood neutrophil count 2019-07-09 04:30:00* Test Item Value Reference Range Interpretation Comments Neutrophils # (Auto) (test code = 751-8) 2.6 2.1-6.9 [facility] HospitalBlood lymphocytes count (number/volume) 2019-07-09 04:30:00* Test Item Value Reference Range Interpretation Comments Lymphocytes # (Auto) (test code = 29503-5) 1.1 1.0-3.2 [facility] HospitalBlood monocytes automated count (number/volume)2019-07-09 04:30:00* Test Item Value Reference Range Interpretation Comments Monocytes # (Auto) (test code = 742-7) 0.5 0.2-0.8 [facility] HospitalAutomated blood eosinophil count 2019-07-09 04:30:00* Test Item Value Reference Range Interpretation Comments Eosinophils # (Auto) (test code = 711-2) 0.3 0.0-0.4 [facility] HospitalAutomated blood basophil count (count/volume)2019-07-09 04:30:00* Test Item Value Reference Range Interpretation Comments Basophils # (Auto) (test code = 704-7) 0.1 0.0-0.1 [facility] HospitalFluoroscopic procedure less than one hour gsrzzaoe5173-75-61 04:30:00* Test Item Value Reference Range Interpretation Comments Absolute Immature Granulocyte (auto (raúl t code = Absolute Immature Granulocyte (auto) 0.01 0-0.1 [facility]ererum or plasma sodium measurement (moles/volume)2019-07-09 04:30:00* Test Item Value Reference Range Interpretation Comments Sodium Level (test code = 2951-2) 140 136-145 [facility] Centererum or plasma potassium measurement (moles/volume)2019-07-09 04:30:00* Test Item Value Reference Range Interpretation Comments Potassium Level (test code = 2823-3) 3.9 3.5-5.1 [facility] Centererum or plasma chloride measurement (moles/volume)2019-07-09 04:30:00* Test Item Value Reference Range Interpretation Comments Chloride Level (test code = 2075-0) 108 98-107 [facility] Centererum or plasma carbon dioxide, total measurement (moles/volume)2019-07-09 04:30:00* Test Item Value Reference Range Interpretation Comments Carbon Dioxide Level (test code = 2028-9) 24 22-29 [facility] Centererum or plasma anion rga7024-70-02 04:30:00* Test Item Value Reference Range Interpretation Comments Anion Gap (test code = 52609-2) 11.9 8-16 [facility]ererum or plasma urea nitrogen measurement (mass/volume)2019-07-09 04:30:00* Test Item Value Reference Range Interpretation Comments Blood Urea Nitrogen (test code = 3094-0) 9 7-26 [facility] Centererum or plasma creatinine measurement (mass/volume)2019-07-09 04:30:00* Test Item Value Reference Range Interpretation Comments Creatinine (test code = 2160-0) 0.56 0.57-1.11 [facility] Centererum or plasma urea nitrogen/creatinine mass msple3990-33-48 04:30:00* Test Item Value Reference Range Interpretation Comments BUN/Creatinine Ratio (test code = 3097-3) 16 6-25 [facility] HospitalEstimated glomerular filtration rate (GFR) secrpovsykhnz3769-24-84 04:30:00* Test Item Value Reference Range Interpretation Comments Estimat Glomerular Filtration Rate (test code = 443352656) > 60 >60 Ranges were taken from the National Kidney Disease Education Program and the [facility] literature.Reference ranges:60 or greater: Wehfdn04-39 ( for 3 consecutive months): Chronic kidney disease 15 or less: Kidney failureK[facility] HospitalGlucose lbddzzmexfx0872-08-46 04:30:00* Test Item Value Reference Range Interpretation Comments Glucose Level (test code = HSX3767) 95 74-118 [facility] Centererum or plasma calcium measurement (mass/volume)2019-07-09 04:30:00* Test Item Value Reference Range Interpretation Comments Calcium Level (test code = 73419-4) 9.4 8.4-10.2 [facility] HospitalBlood leukocytes automated count (number/volume)2019-07-09 04:30:00* Test Item Value Reference Range Interpretation Comments White Blood Count (test code = 6690-2) 4.57 4.8-10.8 [facility] HospitalBlood erythrocytes automated count (number/volume)2019-07-09 04:30:00* Test Item Value Reference Range Interpretation Comments Red Blood Count (test code = 789-8) 3.18 3.6-5.1 [facility] HospitalBlood hemoglobin measurement (moles/volume)2019-07-09 04:30:00* Test Item Value Reference Range Interpretation Comments Hemoglobin (test code = 38892-3) 10.3 12.0-16.0 [facility] HospitalAutomated blood hematocrit (volume fraction)2019-07-09 04:30:00* Test Item Value Reference Range Interpretation Comments Hematocrit (test code = 4544-3) 30.5 34.2-44.1 [facility] HospitalAutomated erythrocyte mean corpuscular lkitty7133-03-59 04:30:00* Test Item Value Reference Range Interpretation Comments Mean Corpuscular Volume (test code = 787-2) 95.9 81-99 [facility] HospitalAutomated erythrocyte mean corpuscular hemoglobin (mass per erythrocyte)2019-07-09 04:30:00* Test Item Value Reference Range Interpretation Comments Mean Corpuscular Hemoglobin (test code = 785-6) 32.4 28-32 [facility] HospitalAutomated erythrocyte mean corpuscular hemoglobin concentration measurement (mass/volume)2019-07-09 04:30:00* Test Item Value Reference Range Interpretation Comments Mean Corpuscular Hemoglobin Concent (test code = 786-4) 33.8 31-35 [facility] HospitalRDW SxvGe-Bfq4106-27-21 04:30:00* Test Item Value Reference Range Interpretation Comments Red Cell Distribution Width (test code = 25650-2) 13.8 11.7 -14.4 [facility] HospitalAutomated blood platelet count (count/volume)2019-07-09 04:30:00* Test Item Value Reference Range Interpretation Comments Platelet Count (test code = 777-3) 228 140-360 [facility] HospitalAutomated blood segmented neutrophil count as percentage of total enpursurdd9674-12-31 04:30:00* Test Item Value Reference Range Interpretation Comments Neutrophils (%) (Auto) (test code = 04834-3) 56.0 38.7-80.0 [facility] HospitalAutomated blood lymphocyte count as percentage ot total vvyqtoekho9900-28-41 04:30:00* Test Item Value Reference Range Interpretation Comments Lymphocytes (%) (Auto) (test code = 736-9) 23.9 18.0-39.1 [facility] HospitalAutomated blood monocyte count as percentage of total ymncoxnhfb2298-84-18 04:30:00* Test Item Value Reference Range Interpretation Comments Monocytes (%) (Auto) (test code = 5905-5) 11.6 4.4-11.3 [facility] HospitalAutomated blood eosinophil count as percentage of total gkhzshuupz6700-02-90 04:30:00* Test Item Value Reference Range Interpretation Comments Eosinophils (%) (Auto) (test code = 713-8) 7.2 0.0-6.0 [facility] HospitalAutomated blood basophil count as percentage of total lwwlkqwmre3601-47-72 04:30:00* Test Item Value Reference Range Interpretation Comments Basophils (%) (Auto) (test code = 706-2) 1.1 0.0-1.0 [facility] HospitalFluoroscopic procedure less than one hour pcpfaafl7761-65-18 04:30:00* Test Item Value Reference Range Interpretation Comments IM GRANULOCYTES % (test code = IM GRANULOCYTES %) 0.2 0.0- 1.0 [facility] HospitalAutomated blood neutrophil count 2019-07-09 04:30:00* Test Item Value Reference Range Interpretation Comments Neutrophils # (Auto) (test code = 751-8) 2.6 2.1-6.9 [facility] HospitalBlood lymphocytes count (number/volume) 2019-07-09 04:30:00* Test Item Value Reference Range Interpretation Comments Lymphocytes # (Auto) (test code = 91713-0) 1.1 1.0-3.2 [facility] HospitalBlood monocytes automated count (number/volume)2019-07-09 04:30:00* Test Item Value Reference Range Interpretation Comments Monocytes # (Auto) (test code = 742-7) 0.5 0.2-0.8 [facility] HospitalAutomated blood eosinophil count 2019-07-09 04:30:00* Test Item Value Reference Range Interpretation Comments Eosinophils # (Auto) (test code = 711-2) 0.3 0.0-0.4 [facility] HospitalAutomated blood basophil count (count/volume)2019-07-09 04:30:00* Test Item Value Reference Range Interpretation Comments Basophils # (Auto) (test code = 704-7) 0.1 0.0-0.1 [facility] HospitalFluoroscopic procedure less than one hour jkutuorf7737-52-55 04:30:00* Test Item Value Reference Range Interpretation Comments Absolute Immature Granulocyte (auto (raúl t code = Absolute Immature Granulocyte (auto) 0.01 0-0.1 [facility]ererum or plasma sodium measurement (moles/volume)2019-07-09 04:30:00* Test Item Value Reference Range Interpretation Comments Sodium Level (test code = 2951-2) 140 136-145 [facility]ererum or plasma potassium measurement (moles/volume)2019-07-09 04:30:00* Test Item Value Reference Range Interpretation Comments Potassium Level (test code = 2823-3) 3.9 3.5-5.1 [facility]ererum or plasma chloride measurement (moles/volume)2019-07-09 04:30:00* Test Item Value Reference Range Interpretation Comments Chloride Level (test code = 2075-0) 108 98-107 [facility] Centererum or plasma carbon dioxide, total measurement (moles/volume)2019-07-09 04:30:00* Test Item Value Reference Range Interpretation Comments Carbon Dioxide Level (test code = 2028-9) 24 22-29 [facility] Centererum or plasma anion imh0994-82-86 04:30:00* Test Item Value Reference Range Interpretation Comments Anion Gap (test code = 73113-8) 11.9 8-16 [facility]ererum or plasma urea nitrogen measurement (mass/volume)2019-07-09 04:30:00* Test Item Value Reference Range Interpretation Comments Blood Urea Nitrogen (test code = 3094-0) 9 7-26 [facility]ererum or plasma creatinine measurement (mass/volume)2019-07-09 04:30:00* Test Item Value Reference Range Interpretation Comments Creatinine (test code = 2160-0) 0.56 0.57-1.11 [facility] Centererum or plasma urea nitrogen/creatinine mass osseq3797-22-85 04:30:00* Test Item Value Reference Range Interpretation Comments BUN/Creatinine Ratio (test code = 3097-3) 16 6-25 [facility] HospitalEstimated glomerular filtration rate (GFR) kprysbwiqnibk0910-84-26 04:30:00* Test Item Value Reference Range Interpretation Comments Estimat Glomerular Filtration Rate (test code = 135024726) > 60 >60 Ranges were taken from the National Kidney Disease Education Program and the [facility] literature.Reference ranges:60 or greater: Hxovjd72-34 ( for 3 consecutive months): Chronic kidney disease 15 or less: Kidney failureKell [facility] HospitalGlucose cpsarmkqbvv4725-58-09 04:30:00* Test Item Value Reference Range Interpretation Comments Glucose Level (test code = GBN7398) 95 74-118 [facility]ererum or plasma calcium measurement (mass/volume)2019-07-09 04:30:00* Test Item Value Reference Range Interpretation Comments Calcium Level (test code = 54360-0) 9.4 8.4-10.2 [facility] HospitalCHEST XRAY LINE AOGPWSHBC8258-19-97 14:15:00 [facility] [address] [place] [address] Patient Name: SHEREEN SPENCER MR #: [id number] : 1965 Age/Sex: 53/F Req #: [id number] Adm Physician: KRIS CADENA Ordered by: VINNY KONG MD Report #: [id number] Location: MED/SURG3 Room/Bed: 289-1 Procedure: [id number] DX/CHEST XRAY LINE PLACEMENT [...] 2:16 PM Dictated By: SHELLI GARCIA MD 1416 Transc ribed By: JUAN DAVID on 07/08/19 1416 COPY TO: VINNY KONG MD Blood Knfcxko4178-62-95 13:41:00* Test Item Value Reference Range Interpretation Comments Blood Culture (test code = 65965800) NO GROWTH AFTER 72 HOURS [facility] HospitalUrine Iwaazsf0855-44-36 08:07:00* Test Item Value Reference Range Interpretation Comments Urine Culture (test code = 630-4) No Result Data Provided [facility] HospitalUrine Amipyuq7940-94-64 08:07:00* Test Item Value Reference Range Interpretation Comments Urine Culture (test code = 630-4) No Result Data Provided [facility] HospitalUrine Elhasnt8359-08-65 08:07:00* Test Item Value Reference Range Interpretation Comments Urine Culture (test code = 630-4) No Result Data Provided [facility] Jyazyqhsd7155-59-47 06:20:00* Test Item Value Reference Range Interpretation Comments Total Bilirubin (test code = 1974-2) 0.2 0.2-1.2 [facility] HospitalAspartate Amino Transf (AST/SGOT) 2019-07-06 06:20:00* Test Item Value Reference Range Interpretation Comments Aspartate Amino Transf (AST/SGOT) (test code = Aspartate Amino Transf (AST/SGOT)) 13 5-34 [facility] HospitalAlanine Aminotransferase (ALT/SGPT) 2019-07-06 06:20:00* Test Item Value Reference Range Interpretation Comments Alanine Aminotransferase (ALT/SGPT) (test code = 1742-6) 9 0-55 [facility] Wpurrge6178-93-80 06:20:00* Test Item Value Reference Range Interpretation Comments Total Protein (test code = 2885-2) 5.0 6.5-8.1 L [facility] HospitalAlbumin2020-01-18 06:20:00* Test Item Value Reference Range Interpretation Comments Albumin (test code = 1751-7) 3.0 3.5-5.0 L [facility]Globulin2020-01-18 06:20:00* Test Item Value Reference Range Interpretation Comments Globulin (test code = 42080-5) 2.0 2.3-3.5 L [facility] HospitalAlbumin/Globulin Ulles9026-51-02 06:20:00 * Test Item Value Reference Range Interpretation Comments Albumin/Globulin Ratio (test code = 1759-0) 1.5 0.8-2.0 [facility] HospitalAlkaline Iajiyfvtvip1100-33-50 06:20:00* Test Item Value Reference Range Interpretation Comments Alkaline Phosphatase (test code = 6768-6) 45 40-150 [facility] HospitalTotal Hadbfeqkf0132-11-39 06:20:00* Test Item Value Reference Range Interpretation Comments Total Bilirubin (test code = 1974-2) 0.2 0.2-1.2 [facility] HospitalAspartate Amino Transf (AST/SGOT) 2019-07-06 06:20:00* Test Item Value Reference Range Interpretation Comments Aspartate Amino Transf (AST/SGOT) (test code = Aspartate Amino Transf (AST/SGOT)) 13 [facility] HospitalAlanine Aminotransferase (ALT/SGPT) 2019-07-06 06:20:00* Test Item Value Reference Range Interpretation Comments Alanine Aminotransferase (ALT/SGPT) (test code = 1742-6) 9 0-55 [facility] HospitalTotal Jfxguho8876-28-63 06:20:00* Test Item Value Reference Range Interpretation Comments Total Protein (test code = 2885-2) 5.0 6.5-8.1 L [facility] HospitalAlbumin2020-01-18 06:20:00* Test Item Value Reference Range Interpretation Comments Albumin (test code = 1751-7) 3.0 3.5-5.0 L [facility] HospitalGlobulin2020-01-18 06:20:00* Test Item Value Reference Range Interpretation Comments Globulin (test code = 66849-9) 2.0 2.3-3.5 L [facility] HospitalAlbumin/Globulin Batli9844-13-44 06:20:00 * Test Item Value Reference Range Interpretation Comments Albumin/Globulin Ratio (test code = 1759-0) 1.5 0.8-2.0 [facility] HospitalAlkaline Uhhlazopsks1537-89-65 06:20:00* Test Item Value Reference Range Interpretation Comments Alkaline Phosphatase (test code = 6768-6) 45 40-150 [facility]Total Nabpnbssa2295-18-39 06:20:00* Test Item Value Reference Range Interpretation Comments Total Bilirubin (test code = 1974-2) 0.2 0.2-1.2 [facility] HospitalAspartate Amino Transf (AST/SGOT) 2019-07-06 06:20:00* Test Item Value Reference Range Interpretation Comments Aspartate Amino Transf (AST/SGOT) (test code = Aspartate Amino Transf (AST/SGOT)) 13 [facility] HospitalAlanine Aminotransferase (ALT/SGPT) 2019-07-06 06:20:00* Test Item Value Reference Range Interpretation Comments Alanine Aminotransferase (ALT/SGPT) (test code = 1742-6) 9 0-55 [facility]Total Amdewwg2942-16-88 06:20:00* Test Item Value Reference Range Interpretation Comments Total Protein (test code = 2885-2) 5.0 6.5-8.1 L [facility] HospitalAlbumin2020-01-18 06:20:00* Test Item Value Reference Range Interpretation Comments Albumin (test code = 1751-7) 3.0 3.5-5.0 L [facility] HospitalGlobulin2020-01-18 06:20:00* Test Item Value Reference Range Interpretation Comments Globulin (test code = 46368-2) 2.0 2.3-3.5 L [facility] HospitalAlbumin/Globulin Dnptn5002-00-71 06:20:00 * Test Item Value Reference Range Interpretation Comments Albumin/Globulin Ratio (test code = 1759-0) 1.5 0.8-2.0 [facility] HospitalAlkaline Vvpjgjfstmm2818-28-21 06:20:00* Test Item Value Reference Range Interpretation Comments Alkaline Phosphatase (test code = 6768-6) 45 40-150 [facility]ererum [facility] plasma total bilirubin measurement (mass/volume)2019-07-06 04:36:00* Test Item Value Reference Range Interpretation Comments Total Bilirubin (test code = 1975-2) 0.2 0.2-1.2 [facility] HospitalFluoroscopic procedure less than one hour mddtyevd7415-00-68 04:36:00* Test Item Value Reference Range Interpretation Comments Aspartate Amino Transf (AST/SGOT) (test code = Aspartate Amino Transf (AST/SGOT)) 13 [facility]ererum or plasma alanine aminotransferase measurement (enzymatic activity/volume)2019-07-06 04:36:00* Test Item Value Reference Range Interpretation Comments Alanine Aminotransferase (ALT/SGPT) (test code = 1742-6) 9 0-55 [facility]ererum [facility] plasma protein measurement (mass/volume)2019-07-06 04:36:00* Test Item Value Reference Range Interpretation Comments Total Protein (test code = 2885-2) 5.0 6.5-8.1 [facility]ererum or plasma albumin measurement (mass/volume)2019-07-06 04:36:00* Test Item Value Reference Range Interpretation Comments Albumin (test code = 1751-7) 3.0 3.5-5.0 [facility] HospitalPlasma globulin measurement (mass/volume) 2019-07-06 04:36:00* Test Item Value Reference Range Interpretation Comments Globulin (test code = 87374-6) 2.0 2.3-3.5 [facility]ererum or plasma albumin/globulin mass ttjhj7792-96-51 04:36:00* Test Item Value Reference Range Interpretation Comments Albumin/Globulin Ratio (test code = 1759-0) 1.5 0.8-2.0 [facility]ererum or plasma alkaline phosphatase measurement (enzymatic activity/volume)2019-07-06 04:36:00* Test Item Value Reference Range Interpretation Comments Alkaline Phosphatase (test code = 6768-6) 45 40-150 [facility]ererum or plasma total bilirubin measurement (mass/volume)2019-07-06 04:36:00* Test Item Value Reference Range Interpretation Comments Total Bilirubin (test code = 1975-2) 0.2 0.2-1.2 [facility] HospitalFluoroscopic procedure less than one hour vudwiymm8060-36-16 04:36:00* Test Item Value Reference Range Interpretation Comments Aspartate Amino Transf (AST/SGOT) (test code = Aspartate Amino Transf (AST/SGOT)) 13 5-34 [facility]ererum or plasma alanine aminotransferase measurement (enzymatic activity/volume)2019-07-06 04:36:00* Test Item Value Reference Range Interpretation Comments Alanine Aminotransferase (ALT/SGPT) (test code = 1742-6) 9 0-55 [facility]ererum or plasma protein measurement (mass/volume)2019-07-06 04:36:00* Test Item Value Reference Range Interpretation Comments Total Protein (test code = 2885-2) 5.0 6.5-8.1 [facility]ererum or plasma albumin measurement (mass/volume)2019-07-06 04:36:00* Test Item Value Reference Range Interpretation Comments Albumin (test code = 1751-7) 3.0 3.5-5.0 [facility] HospitalPlasma globulin measurement (mass/volume) 2019-07-06 04:36:00* Test Item Value Reference Range Interpretation Comments Globulin (test code = 04048-9) 2.0 2.3-3.5 [facility]ererum or plasma albumin/globulin mass irimo1977-91-99 04:36:00* Test Item Value Reference Range Interpretation Comments Albumin/Globulin Ratio (test code = 1759-0) 1.5 0.8-2.0 [facility]ererum or plasma alkaline phosphatase measurement (enzymatic activity/volume)2019-07-06 04:36:00* Test Item Value Reference Range Interpretation Comments Alkaline Phosphatase (test code = 6768-6) 45 40-150 [facility] HospitalBlood fwxkyzj1527-52-56 12:36:00* Test Item Value Reference Range Interpretation Comments Blood Culture (test code = 35247314) NO GROWTH AFTER 5 DAYS, FINAL REPORT [facility] HospitalBlood wntuetd3504-81-27 12:36:00* Test Item Value Reference Range Interpretation Comments Blood Culture (test code = 87412231) NO GROWTH AFTER 5 DAYS, FINAL REPORT [facility] HospitalBacterial urine fitjkkr4498-46-09 11:25:00* Test Item Value Reference Range Interpretation Comments Urine Culture (test code = 630-4) MORGANELLA MORGANII [facility] HospitalBacterial urine afmvemx4295-96-64 11:25:00* Test Item Value Reference Range Interpretation Comments Urine Culture (test code = 630-4) MORGANELLA MORGANII [facility] CenterCR [facility] B[facility] DIGITAL W/QQTHSIMPKYQW4705-55-26 13:56:52 - SCR MAMM BILATERAL CAD DIGITAL W/AUGMENTATIONBILATERAL DIGITAL SCREENING MAMMOGRAM WITH CAD WITH AUGMENTATION: 01/26/2019CLINICAL: Asymptomatic. Current mammographic images were evaluated by either a [employer] M-Vu or a [employer] ImageChecker CAD (computer aided detection system). Comparison is made to exams dated 05/10/2014 mammogram, 04/10/2014 mammogram - [facility]-, and 07/31/2003 mammogram - [facility]. There are scattered fibroglandular tissues in both [...] et/:01/28/2019 13:56:52 Attending Technologist: Savannah Curtis, [facility]-Imaging Technologist: Neeta LEDEZMA, [facility]-letter sent: BIRADS 1-2 Normal Mammogram BI-RADS: 2 BenignSodium Gqyzr4657-65-19 18:41:00* Test Item Value Reference Range Interpretation Comments Sodium Level (test code = 2951-2) 138 136-145 [facility] HospitalPotassium Xfpec0292-59-86 18:41:00* Test Item Value Reference Range Interpretation Comments Potassium Level (test code = 2823-3) 3.5 3.5-5.1 [facility] HospitalChloride Lvptl8481-60-74 18:41:00* Test Item Value Reference Range Interpretation Comments Chloride Level (test code = 2075-0) 103 98-107 [facility] HospitalCarbon Dioxide Ehjhn5718-08-27 18:41:00* Test Item Value Reference Range Interpretation Comments Carbon Dioxide Level (test code = 2028-9) 22 22-29 [facility] HospitalAnion Xlb5952-20-22 18:41:00* Test Item Value Reference Range Interpretation Comments Anion Gap (test code = 82933-5) 16.5 8-16 H [facility] HospitalBlood Urea Wvsdaawf9158-28-55 18:41:00* Test Item Value Reference Range Interpretation Comments Blood Urea Nitrogen (test code = 3094-0) 14 7-26 [facility] HospitalCreatinine2019-01-04 18:41:00* Test Item Value Reference Range Interpretation Comments Creatinine (test code = 2160-0) 0.76 0.57-1.11 [facility] HospitalBUN/Creatinine Ogacr9601-16-14 18:41:00* Test Item Value Reference Range Interpretation Comments BUN/Creatinine Ratio (test code = 3097-3) 18 12-11 [facility] HospitalEstimat Glomerular Filtration Rate 2018-06-22 18:41:00* Test Item Value Reference Range Interpretation Comments Estimat Glomerular Filtration Rate (test code = 929730918) > 60 >60 Ranges were taken from the National Kidney Disease Education Program and the [facility] literature.Reference ranges:60 or greater: Vmtoll85-40 ( for 3 consecutive months): Chronic kidney disease 15 or less: Kidney failureKell [facility] Regional HospitalGlucose Bihtz2600-41-30 18:41:00* Test Item Value Reference Range Interpretation Comments Glucose Level (test code = TYH6671) 101 74-118 [facility] HospitalCalcium Hvmzz0892-59-47 18:41:00* Test Item Value Reference Range Interpretation Comments Calcium Level (test code = 89762-6) 10.0 8.4-10.2 [facility] HospitalUrine VRY8762-07-30 18:28:00* Test Item Value Reference Range Interpretation Comments Urine WBC (test code = 5821-4) 11-20 0-5 H [facility] HospitalUrine FRS6252-16-78 18:28:00* Test Item Value Reference Range Interpretation Comments Urine RBC (test code = 83982-3) 6-10 0-5 H [facility] HospitalUrine Suitciep5984-71-96 18:28:00* Test Item Value Reference Range Interpretation Comments Urine Bacteria (test code = 80187-4) MANY NONE H [facility] HospitalUrine Epithelial Dvjvo1576-33-51 18:28:00 * Test Item Value Reference Range Interpretation Comments Urine Epithelial Cells (test code = 48964-8) NONE NONE [facility] HospitalUrine Amorphous Szaaphmw6988-73-06 18:28:00* Test Item Value Reference Range Interpretation Comments Urine Amorphous Sediment (test code = 8246-1) FEW FEW [facility] HospitalUrine Yauxm7211-29-08 18:16:00* Test Item Value Reference Range Interpretation Comments Urine Color (test code = 5778-6) COLORLESS YELLOW [facility] HospitalUrine Xbdfpsm8889-64-23 18:16:00* Test Item Value Reference Range Interpretation Comments Urine Clarity (test code = 17385-3) CLEAR CLEAR [facility] HospitalUrine Specific Utertlj6898-19-87 18:16:00 * Test Item Value Reference Range Interpretation Comments Urine Specific [place] (test code = 5811-5) 1.015 1.010-1.02 5 [facility] HospitalUrine xF9061-25-66 18:16:00* Test Item Value Reference Range Interpretation Comments Urine pH (test code = 89157-5) 8 5-7 H [facility] HospitalUrine Leukocyte Diqmnabf7639-54-78 18:16:00* Test Item Value Reference Range Interpretation Comments Urine Leukocyte Esterase (test code = 5799-2) 2+ NEGATIVE H [facility] HospitalUrine Txtknml4556-07-02 18:16:00* Test Item Value Reference Range Interpretation Comments Urine Nitrite (test code = 01581-7) POSITIVE NEGATIVE H [facility] HospitalUrine Iipcsys5612-65-70 18:16:00* Test Item Value Reference Range Interpretation Comments Urine Protein (test code = 5804-0) NEGATIVE NEGATIVE [facility] HospitalUrine Glucose (UA)2018-06-22 18:16:00* Test Item Value Reference Range Interpretation Comments Urine Glucose (UA) (test code = 2349-9) NEGATIVE NEGATIVE [facility] HospitalUrine Rehdnhr3402-97-69 18:16:00* Test Item Value Reference Range Interpretation Comments Urine Ketones (test code = 10131-6) NEGATIVE NEGATIVE [facility] HospitalUrine Gegkbmaenbff8144-29-60 18:16:00* Test Item Value Reference Range Interpretation Comments Urine Urobilinogen (test code = 36081-8) 0.2 0.2-1 [facility] HospitalUrine Ojhbmowtk5319-30-83 18:16:00* Test Item Value Reference Range Interpretation Comments Urine Bilirubin (test code = 1978-6) NEGATIVE NEGATIVE [facility] HospitalUrine Nwfrs5462-45-19 18:16:00* Test Item Value Reference Range Interpretation Comments Urine Blood (test code = 78932-7) 2+ NEGATIVE H [facility] HospitalUrine Epctotu4432-67-68 06:34:00* Test Item Value Reference Range Interpretation Comments Urine Culture (test code = 630-4) Organism: STAPHYLOCOCCUS AUREUS-M [facility] HospitalABDOMEN-1VIEW (KUB)2018-03-13 16:28:00 [facility] [address] [address] Patient Name: SHEREEN SPENCER MR #: [id number] : Age/Sex: 52/F Req #: [id number] Adm Physician: Ordered by: VINNY KONG MD Report #: [id number] Location: Room/Bed: Procedure: [id number] DX/ABDOMEN-1VIEW (KUB) Exam Date: 03/13/18 Exam Time: [...] COPY TO: VINNY KONG MD RENAL RETROPERITONEAL YEEL9600-09-29 15:45:00 [address] [address] Patient Name: SHEREEN SPENCER MR #: [id number] : Age/Sex: 52/F Req #: [id number] Adm Physician: Ordered by: VINNY KONG MD Report #: [id number] Location: Room/Bed: Procedure: [id number] US/US RENAL RETROPERITONEAL COMP E xam Date: [...] 3:47 PM Dictated By: DOROTA PEREZ MD 154 Transcribed By: JUAN DAVID on 03/13/181546 COPY TO: VINNY KONG MD Urine KHV4425-62-52 13:44:00* Test Item Value Reference Range Interpretation Comments Urine WBC (test code = 5821-4) 50- 0-5 H [facility] HospitalU[facility] TCC0569-19-91 13:44:00* Test Item Value Reference Range Interpretation Comments Urine RBC (test code = 85434-7) 21-50 0-5 H [facility] HospitalU[facility] Oicuwkbc0023-46-63 13:44:00* Test Item Value Reference Range Interpretation Comments Urine Bacteria (test code = 84788-4) MODERATE NONE [facility] Ep[facility]helial Obwnh8968-06-52 13:44:00 * Test Item Value Reference Range Interpretation Comments Urine Epithelial Cells (test code = 09916-1) MODERATE NONE [facility] HospitalU[facility] Transitional Epithelial Cells 2018-03-07 13:44:00* Test Item Value Reference Range Interpretation Comments Urine Transitional Epithelial Cells (test code = 8249-5) RARE NONE [facility] Transitional Epithelial Cells 2018-03-07 13:44:00* Test Item Value Reference Range Interpretation Comments Urine Transitional Epithelial Cells (test code = 8249-5) RARE NONE [facility] Uhjae5116-39-16 13:43:00* Test Item Value Reference Range Interpretation Comments Urine Color (test code = 5778-6) YELLOW YELLOW [facility] Vgyjjce6741-62-11 13:43:00* Test Item Value Reference Range Interpretation Comments Urine Clarity (test code = 96696-7) CLOUDY CLEAR H [facility] HospitalUrine Specific Iyylsnj4539-20-51 13:43:00 * Test Item Value Reference Range Interpretation Comments Urine Specific [place] (test code = 5811-5) 1.010 1.010-1.02 5 [facility] HospitalU[facility] jH1085-60-12 13:43:00* Test Item Value Reference Range Interpretation Comments Urine pH (test code = 66543-5) 7 5-7 [facility] Leukocyte Rvmwvgmv2822-54-75 13:43:00* Test Item Value Reference Range Interpretation Comments Urine Leukocyte Esterase (test code = 5799-2) 2+ NEGATIVE H [facility] HospitalU[facility] Hdvnptc9903-29-29 13:43:00* Test Item Value Reference Range Interpretation Comments Urine Nitrite (test code = 23348-7) NEGATIVE NEGATIVE [facility] Tqdlkkx2647-92-12 13:43:00* Test Item Value Reference Range Interpretation Comments Urine Protein (test code = 5804-0) TRACE NEGATIVE H [facility] HospitalUrine Glucose (UA)2018-03-07 13:43:00* Test Item Value Reference Range Interpretation Comments Urine Glucose (UA) (test code = 2349-9) NEGATIVE NEGATIVE [facility] HospitalU[facility] Mzfatwe1200-22-97 13:43:00* Test Item Value Reference Range Interpretation Comments Urine Ketones (test code = 53709-0) NEGATIVE NEGATIVE [facility] Wfiequvibgeg2005-37-11 13:43:00* Test Item Value Reference Range Interpretation Comments Urine Urobilinogen (test code = 58354-2) 0.2 0.2-1 [facility] Tbggxncrl2544-30-90 13:43:00* Test Item Value Reference Range Interpretation Comments Urine Bilirubin (test code = 1978-6) NEGATIVE NEGATIVE [facility] HospitalU[facility] Urseq1674-45-05 13:43:00* Test Item Value Reference Range Interpretation Comments Urine Blood (test code = 04601-2) 4+ NEGATIVE H [facility] HospitalU[facility] Auzvjnc3601-74-58 09:45:00* Test Item Value Reference Range Interpretation Comments Urine Culture (test code = 630-4) Organism: PROTEUS MIRABILIS [facility]
[2019-11-25] MEDS ORDERED: SODIUM CHLORIDE 0.9% 1000ML 1,000 ML IV STA (12:40)
[2019-11-25] MEDS ORDERED: LEVOFLOXACIN 500MG/D5W 100ML 100 ML IV STA (12:40)
--- NOTE | 2019-11-25 12:44 | Emergency Department Note ---
History of Present Illnes History of Present Illness Chief Complaint: Genitourinary History of Present Illness This is a 54 year old female .c/o clogged suprapubic cath - c/o fever not feeling well Chief Complaint Comment FROM [facility]. STATES SUPRAPUBIC CATHETER CLOGGED SINCE MONDAY AND GETTING STRAIGHT CATH INSTEAD. HERE FOR CLOG OF CATHETER. Historian: Patient Arrival Mode: SIGNA EMS EMS Treatment WEAVER DOBBY LOOM: See EMS Report Onset (how long ago): day(s) (3 days) Radiation: non-radiation, back, neck, extremity, abdomen, periumbilical, flank, proximal, distal, other Onset quality: gradual Duration (how long): day(s) (3 days) Progression: worsening Context: recent illness, recent surgery, recent immobilization, recent travel, trauma/injury, new medications, hx of DVT/PE, non-compliance w/ medications, other Relieving factors: none Exacerbating factors: immobilization Treatments prior to arrival: none Past Medical/Family History Physician Review I have reviewed the patient's past medical and family history. Any updates have been documented here. Past Medical History Recent Fever: No Clinical Suspicion of Infectio: No New/Unexplained Change in Ment: No Past Medical History: Hypertension, Cancer, Anxiety, Depression, Hyperlipedemia Other Medical History: MS RESTLESS LEG SYNDROME PEPTIC ULCER PULMONARY EMBOLISM BRAIN BLEED SKIN CANCER Past Surgical History: Hysterectomy, Pacer/AICD, Tubal Ligation Other Surgery: BRAIN SURGERY X2 SUPRA PUBIC CATH PACEMAKER Social History Smoking Cessation: Never Smoker Alcohol Use: None Any Illegal Drug Use: No TB Exposure/Symptoms: No Physically hurt or threatened: No Family History Family history of heart diseas: No Other Last Tetanus: UNK Any Pre-Existing Lines (PICC,: No Review of Systems Review of Systems Constitutional: no symptoms, fever EENTM: no symptoms Cardiovascular: no symptoms Respiratory: no symptoms Gastrointestinal: no symptoms Genitourinary: no symptoms, other (c/o clogged suprapubic cath ) Musculoskeletal: no symptoms Neurological: no symptoms Psychological: no symptoms Endocrine: no symptoms Hematological/Lymphatic: no symptoms Review of other systems All other systems reviewed and negative. Physical Exam Related Data Allergies: Coded Allergies: cephalexin (Verified Allergy, Severe, SWELLING, 07/05/19) Penicillins (Verified Allergy, Intermediate, SWELLING, 07/05/19) Triage Vital Signs Vital Signs Date Time Temp Pulse Resp B/P (MAP) Pulse Ox O2 Delivery O2 Flow Rate FiO2 11/25/19 12:12 97.2 72 16 91/63 97 Vital signs reviewed: Yes Physical Exam CONSTITUTIONAL Constitutional: well-developed, well-nourished HENT HENT: normocephalic, atraumatic, oropharynx clear/moist, nose normal HENT L/R: left ext ear normal, right ext ear normal EYES Eyes: PERRL, conjunctivae normal NECK Neck: ROM normal PULMONARY Pulmonary: effort normal, breath sounds normal CARDIOVASCULAR Cardiovascular: regular rhythm, heart sounds normal, capillary refill normal, normal rate GASTROINTESTINAL Abdominal: soft, nontender, bowel sounds normal GENITOURINARY Genitourinary: exam deferred, other (suprapubic site w/ redness s&s of infection / ua noted foul odor ) SKIN Skin: warm, dry MUSCULOSKELETAL Musculoskeletal: ROM normal NEUROLOGICAL Neurological: alert, oriented x 3, no gross motor or sensory deficits PSYCHOLOGICAL Psychological: mood/affect normal, judgement normal Results Laboratory Laboratory Laboratory Tests Test 11/25/19 12:55 11/25/19 12:50 Urine Color Yellow (YELLOW) Urine Clarity Cloudy (CLEAR) Urine pH 9 (5 - 7) Urine Specific [place] 1.010 (1.010-1.025) Urine Protein 2+ (NEGATIVE) Urine Glucose (UA) Negative (NEGATIVE) Urine Ketones Negative (NEGATIVE) Urine Blood Small (NEGATIVE) Urine Nitrite Positive (NEGATIVE) Urine Bilirubin Negative (NEGATIVE) Urine Urobilinogen 0.2 mg/dL (0.2 - 1) Urine Leukocyte Esterase Large (NEGATIVE) Urine RBC 6-10 /HPF (0-5) Urine WBC 21-50 /HPF (0-5) Urine Epithelial Cells Few /LPF (NONE) Urine Triple Phosphate Crystals Few (FEW) Urine Amorphous Sediment Moderate (FEW) Urine Bacteria Moderate /HPF (NONE) White Blood Count 6.53 x10e3/uL (4.8-10.8) Red Blood Count 3.14 x10e6/uL (3.6-5.1) Hemoglobin 9.8 g/dL (12.0-16.0) Hematocrit 30.5 % (34.2-44.1) Mean Corpuscular Volume 97.1 fL (81-99) Mean Corpuscular Hemoglobin 31.2 pg (28-32) Mean Corpuscular Hemoglobin Concent 32.1 g/dL (31-35) Red Cell Distribution Width 14.6 % (11.7-14.4) Platelet Count 221 x10e3/uL (140-360) Neutrophils (%) (Auto) 69.1 % (38.7-80.0) Lymphocytes (%) (Auto) 17.8 % (18.0-39.1) Monocytes (%) (Auto) 10.1 % (4.4-11.3) Eosinophils (%) (Auto) 2.0 % (0.0-6.0) Basophils (%) (Auto) 0.5 % (0.0-1.0) Neutrophils # (Auto) 4.5 (2.1-6.9) Lymphocytes # (Auto) 1.2 (1.0-3.2) Monocytes # (Auto) 0.7 (0.2-0.8) Eosinophils # (Auto) 0.1 (0.0-0.4) Basophils # (Auto) 0.0 (0.0-0.1) Absolute Immature Granulocyte (auto 0.03 x10e3/uL (0-0.1) Sodium Level 137 mmol/L (136-145) Potassium Level 4.1 mmol/L (3.5-5.1) Chloride Level 107 mmol/L (98-107) Carbon Dioxide Level 18 mmol/L (22-29) Anion Gap 16.1 mmol/L (8-16) Blood Urea Nitrogen 25 mg/dL (7-26) Creatinine 1.09 mg/dL (0.57-1.11) Estimat Glomerular Filtration Rate 52 ML/MIN (60-) BUN/Creatinine Ratio 23 (6-25) Glucose Level 100 mg/dL (74-118) Lactic Acid Level 1.3 mmol/L (0.5-2.0) Calcium Level 9.2 mg/dL (8.4-10.2) Magnesium Level 2.0 MG/DL (1.3-2.1) Total Bilirubin 0.3 mg/dL (0.2-1.2) Aspartate Amino Transf (AST/SGOT) 16 IU/L (5-34) Alanine Aminotransferase (ALT/SGPT) 9 IU/L (0-55) Alkaline Phosphatase 49 IU/L (40-150) Creatine Kinase 33 IU/L (29-168) Creatine Kinase MB 0.40 ng/mL (0-5.0) Troponin I 0.001 ng/mL (0-0.300) Total Protein 6.6 g/dL (6.5-8.1) Albumin 2.7 g/dL (3.5-5.0) Globulin 3.9 g/dL (2.3-3.5) Albumin/Globulin Ratio 0.7 (0.8-2.0) Lipase 10 U/L (8-78) Lab results reviewed: Yes Imaging Impressions IMPRESSION: No acute cardiopulmonary process identified. Signed by: Dr. Von Rodriguez MD on 11/25/2019 2:09 PM Dictated By: VON RODRIGUEZ MD 08 Transcribed By: JUAN DAVID on 11/25/191408 Procedures Catheter Insertion Date of Insertion: Nov 25, 2019 Time of insertion: 13:24 Reason for placing catheter: acute urinary retention Bladder scan/us used before ca: No Topical anesthesia used: No Catheter type/location: suprapubic Size (indonesian): 24 Catheter balloon size (mL): 30 Catheter balloon amount: 30 Results: successful - immediate flow Procedure performed: without complications Additional comments 400cc clr ua output Critical Care Time Subsequent provider I assumed direction of critical care for this patient from another provider of my specialty. Assessment & Plan Reassessment Reassessment time: 12:43 Reassessment 54y f presented to ed from [place] c/o malfunctioning suprapubic cath x 3 days - lab ordered Assessment & Plan Final Impression: (1) Suprapubic catheter dysfunction (2) Weakness (3) Abdominal pain (4) Cystitis (5) Suprapubic catheter Assessment & Plan supra pubic chg pt gentry well discussed lab rad results and plan of care w/ pt spoke w/ Dr House will admit Depart Disposition: ADMITTED Last Vital Signs Date Time Temp Pulse Resp B/P (MAP) Pulse Ox O2 Delivery O2 Flow Rate FiO2 11/25/19 12:12 97.2 72 16 91/63 97 Home Meds Reported Medications Meropenem (MERREM) 1 Gm Inj, 1 GM IV BID 07/17/19 Cranberry/Vit C/L. Sporogenes (AZO CRANBERRY TABLET) 1 Each Tablet, 1 TAB PO RG LY 03/15/19 Melatonin (MELATONIN) 10 Mg Tablet, 10 MG PO HS 03/14/19 Fenofibrate Nanocrystallized (FENOFIBRATE) 145 Mg Tablet, 1 TAB PO HS 11/09/18 [linzess] 290 No Conflict Check, 145 MCG PO DAILY 11/09/18 Doxepin Hcl (DOXEPIN HCL) 10 Mg Capsule, 10 MG PO HS 07/03/18 Gabapentin (GABAPENTIN) 100 Mg Capsule, 300 MG PO HS 07/03/18 Cyanocobalamin (VITAMIN B-12) 1,000 Mcg Tab, 1000 MCG PO DAILY, #30 TAB 07/03/18 Docusate Sodium (DOCUSATE SODIUM) 100 Mg Capsule, 300 MG PO DAILY, CAP 07/03/18 Oxybutynin Chloride (OXYBUTYNIN CHLORIDE) 5 Mg Tablet, 5 MG PO BID, #30 TAB 07/03/18 Metoprolol Succinate (METOPROLOL SUCCINATE) 25 Mg Tab.er.24h, 25 MG PO BID 07/03/18 Primidone (PRIMIDONE) 50 Mg Tablet, 50 MG PO BID 07/03/18 Ropinirole Hcl (REQUIP) 1 Mg Tablet, 1 MG PO HS 07/03/18 Baclofen (BACLOFEN) 10 Mg Tablet, 10 MG PO BID, #90 TAB 07/03/18 Acetaminophen With Codeine (TYLENOL WITH CODEINE #3 TABLET) 1 Each Tablet, 300 MG PO Q4HPRN, TAB 07/03/18 Dextran 70/Hypromellose (ARTIFICIAL TEARS EYE DROPS) 15 Ml Drops, 1 DROP OU DAILY, BOTTLE 10/30/15 Folic Acid (FOLIC ACID) 1 Mg Tablet, 1 MG PO DAILY, #30 TAB 10/30/15 Simethicone (GAS-X) 80 Mg Tab.chew, 160 MG PO BID 10/30/15 Aspirin (ASPIR 81) 81 Mg Tablet.dr, 81 MG PO DAILY 10/30/15 Bupropion Hcl (WELLBUTRIN) 100 Mg Tablet, 75 MG PO BID 10/30/15 JOELLEN BERG Nov 25, 2019 12:44
--- NOTE | 2019-11-25 13:15 | NUR ---
{lavinia, CALLED TO ED TO CONTACT SKILLED NURSING TO DETERMINE WHY THE PT CAME TO ED FOR 3RD TIME INSTEAD OF FOLLOW UP IN OFFICE. CALLED [facility] AND SPOKE WITH LIONEL, WHOM STATES THE PT HAD AN APPOINTMENT FOR SAME DAY BUT [facility] AND NEEDED TO GO TO THE ED INSTEAD. LIONEL STATES HER TEMP AT 6AM WAS 97.6, ED NURSE REPORTED NO FEVER. PT STATES WHEN SHE RUNS A FEVER SHE CANNOT OPERATE HER ELECTRIC CHAIR. ED DOC ADMITTING PT. }
[2019-11-25] MEDS ORDERED: TOBRAMYCIN 40 MG/ML 2ML VIAL IV ONE (13:30)
[2019-11-25 13:38] LABS: BASOPHILS % 0.5 % (0.0-1.0); EOSINOPHILS # (AUTO) 0.1 (0.0-0.4); HEMATOCRIT 30.5 % (34.2-44.1); HEMOGLOBIN 9.8 g/dL (12.0-16.0); LYMPHOCYTES # (AUTO) 1.2 (1.0-3.2); LYMPHOCYTES % 17.8 % (18.0-39.1); MEAN CORPUSCULAR HEMOGLOBIN 31.2 pg (28-32); MEAN CORPUSCULAR HGB CONC 32.1 g/dL (31-35); MEAN CORPUSCULAR VOLUME 97.1 fL (81-99); MONOCYTES # (AUTO) 0.7 (0.2-0.8); MONOCYTES % 10.1 % (4.4-11.3); NEUTROPHILS # (AUTO) 4.5 (2.1-6.9); NEUTROPHILS % 69.1 % (38.7-80.0); PLATELET COUNT 221 x10e3/uL (140-360); RED BLOOD COUNT 3.14 x10e6/uL (3.6-5.1); RED CELL DISTRIBUTION WIDTH 14.6 % (11.7-14.4)
[2019-11-25 13:41] LABS: CLARITY,URINE CLOUDY (CLEAR); COLOR,URINE YELLOW (YELLOW)
[2019-11-25 13:42] LABS: BILIRUBIN,URINE NEGATIVE (NEGATIVE); KETONES,URINE NEGATIVE (NEGATIVE); LEUKOCYTE ESTERASE ,URINE LARGE (NEGATIVE); NITRITE,URINE POSITIVE (NEGATIVE); PROTEIN,URINE DIPSTICK 2+ (NEGATIVE); URINE UROBILINOGEN 0.2 mg/dL (0.2 - 1)
[2019-11-25 14:00] LABS: BACTERIA,URINE MODERATE /HPF; EPITHELIAL CELLS,URINE FEW /LPF; WBC,URINE (MAN) 21-50 /HPF (0-5)
[2019-11-25] MEDS ORDERED: TOBRAMYCIN IV ONE (14:00)
[2019-11-25] MEDS ORDERED: SODIUM CHLORIDE 0.9% IV ONE (14:00)
[2019-11-25 14:01] LABS: AMORPHOUS SEDIMENT,URINE MODERATE (FEW); TRIPLE PHOSPHATE CRYSTAL,UR FEW (FEW)
[2019-11-25 14:05] LABS: ALBUMIN 2.7 g/dL (3.5-5.0); ALBUMIN/GLOBULIN RATIO 0.7 (0.8-2.0); ANION GAP 16.1 mmol/L (8-16); CALCIUM 9.2 mg/dL (8.4-10.2); CREATININE, SERUM 1.09 mg/dL (0.57-1.11); POTASSIUM 4.1 mmol/L (3.5-5.1)
[2019-11-25 14:12] LABS: CREATINE KINASE MB 0.4 ng/mL (0-5.0)
--- NOTE | 2019-11-25 14:12 | Diagnostic Imaging Report ---
EXAM: CHEST SINGLE (PORTABLE) DATE: 11/25/2019 1:54 PM INDICATION: Clogged catheter COMPARISON: 07/08/2019 FINDINGS: Left-sided pacing device identified in stable position. Right-sided PICC line is no longer present. The trachea is midline. The lungs are symmetrically expanded without evidence for large focal consolidation, pneumothorax, or significant pleural effusion. The cardiomediastinal silhouette is stable in appearance. The pulmonary vasculature is not engorged. No acute osseous abnormalities identified. The surrounding soft tissues are unremarkable. IMPRESSION: No acute cardiopulmonary process identified. Signed by: Dr. Von Craig MD on 11/25/2019 2:09 PM
[2019-11-25] MEDS ORDERED: ONDANSETRON HCL INJ 2MG/ML 2ML 2 MG/ML VIAL IV PRN (14:30)
[2019-11-25] MEDS ORDERED: LEVOFLOXACIN 500MG/D5W 100ML IV SCH (14:30)
[2019-11-25] MEDS ORDERED: MORPHINE SULFATE 2 MG/ML SYR 1ML IV PRN (14:30)
--- OUTSIDE RECORDS SUMMARY | 2019-11-25 14:41 | XMS REPORT | Continuity of Care Document ---
Author Author [facility] t Organization [facility] Address [address] [place] [address] Phone Unavailable Care Team Providers Care Assistant Auto Center Manager Name Role Phone KRIS CADENA PCP JOELLEN BERG MD Attphys Unavailable KRIS CADENA Attphys Unavailab le HAMPEL, VINNY Attphys Unavailable KRIS CADENA Admphys Unavailab le Payers Payer Name Policy Type Policy Number Effective Date Expiration Date S garry Medicare A & B NA 2019 00:00:00 [facility] NA 2011 00:00 :00 [facility] [id number] 2019 00:00:00 [facility] Medicaid Hmo Other [id number] 2016 00:00:00 [facility] Problems Condition Name Condition Details Condition Category Status Onset Date Resolution Date Last Treatment Date Treating Clinician Comments Source Complicated urinary tract infection Complicated UTI (urinary tract infection) Problem Active [facility] Presence of suprapubic catheter Suprapubic catheter Problem Active [facility] Acute retention of urine Problem Active [facility] Suprapubic catheter dysfunction Problem Active [facility] Allergies, Adverse Reactions, Alerts Allergy Name Allergy Type Status Severity Reaction(s) Onset Date Inacti ve Date Treating Clinician Comments Source Cephalexin Allergy to substance Active Severe SWELLING 2019-07-05 00:0 0:00 [facility] Penicillin Allergy to substance Active Moderate SWELLING 2019-07-05 00: 00:00 [facility] Penicillins DA Active [place] 2017-09-20 00:00:00 [facility] penicillin V DA Active MO 2017-09-20 00:00:00 [facility] cephalexin DA Active [place] 2017-09-20 00:00:00 [facility] penicillin G DA Active MO 2017-09-20 00:00:00 [facility] Social History Social Habit Start Date Stop Date Quantity Comments Source Sex Assigned At 1965 00:00:00 1965 00:00:00 Female [facility] Medications Ordered Medication Name Filled Medication Name Start Date Stop Da te Current Medication? Ordering Clinician Indication Dosage Frequency Signature (SIG) Comments Components Source Nitrofurantoin Monohyd/M-Cryst (Macrobid 100 Mg Capsul e) 100 Mg CAPSULE Nitrofurantoin Monohyd/M-Cryst (Macrobid 100 Mg Capsule) 100 Mg CAPSULE 2018-06-22 18:15:00 2018-07-03 00:00:00 No 1 Twice A Day [facility] Tobramycin (Tobrex) 3.5 Gm OINT Tobramycin (Tobrex) 3.5 Gm O INT 2018-03-07 14:01:00 2018-07-03 00:00:00 No 160 Daily [facility] Acetaminophen With Codeine (Tylenol With Codeine #3 Ta blet) 1 Each TABLET Acetaminophen With Codeine (Tylenol With Codeine #3 Tablet) 1 Each TABLET Yes 300 Q4hprn [facility] Aspirin (Aspir 81) 81 Mg TABLET. Aspirin (Aspir 81) 81 Mg TABLET. Yes 81 Daily [facility] Baclofen Baclofen Yes 10 Twice A Day [facility] Bupropion Hcl (Wellbutrin) 100 Mg TABLET Bupropion Hcl (Wellbutrin) 100 Mg TABLET Yes 75 Twice A Day [facility] Cranberry/Vit C/L. Sporogenes (Azo Cranberry Tablet) 1 Each TABLET Cranberry/Vit C/L. Sporogenes (Azo Cranberry Tablet) 1 Each TABLET Yes 1 Daily [facility] Cyanocobalamin (Vitamin B-12) 1,000 Mcg TAB Cyanocobal rios (Vitamin B-12) 1,000 Mcg TAB Yes 1000 Daily [facility] Dextran 70/Hypromellose (Artificial Tears Eye Drops) 1 5 Ml DROPS Dextran 70/Hypromellose (Artificial Tears Eye Drops) 15 Ml DROPS Yes 1 Daily [facility] Docusate Sodium Docusate Sodium Yes 300 Daily [facility] Doxepin Hcl Doxepin Hcl Yes 10 Bedtime [facility] Fenofibrate Nanocrystallized (Fenofibrate) 145 Mg TABL ET Fenofibrate Nanocrystallized (Fenofibrate) 145 Mg TABLET Yes 1 Bedtime [facility] Folic Acid Folic Acid Yes 1 Daily I [facility] Gabapentin Gabapentin Yes 300 Bedtime [facility] Linzess Linzess Yes 145 Daily [facility] Melatonin Melatonin Yes 10 Bedtime [facility] Meropenem (Merrem) 1 Gm INJ Meropenem (Merrem) 1 Gm INJ Yes 1 Twice A Day [facility] Metoprolol Succinate Metoprolol Succinate Yes 25 Twice A Day [facility] Oxybutynin Chloride Oxybutynin Chloride Yes 5 Twice A Day [facility] Primidone Primidone Yes 50 Twice A Day [facility] Ropinirole Hcl (Requip) 1 Mg TABLET Ropinirole Hcl (Requip) 1 Mg TABL ET Yes 1 Bedtime [facility] Simethicone (Gas-X) 80 Mg TAB.CHEW Simethicone (Gas-X) 80 Mg TAB.CHEW Yes 160 Twice A Day [facility] Acetaminophen (Tylenol*) 325 Mg TABLET Acetaminophen (Tylenol*) 325 Mg TABLET 2019-03-15 00:00:00 No 650 As Needed [facility] Bisacodyl (Dulcolax Supp*) 10 Mg SUPP Bisacodyl (Dulcolax Supp*) 10 Mg SUPP 2019-03-15 00:00:00 No 10 As Needed [facility] Docusate Sodium (Colace) 100 Mg CAP Docusate Sodium (Colace) 100 Mg CAP 2019-03-15 00:00:00 No 300 Daily [facility] Hydrocortisone Hydrocortisone 2019-03-15 00:00:00 No 2.5 As Needed [facility] Hyoscyamine Sulfate (Levsin) 0.125 Mg TABLET Hyoscyami ne Sulfate (Levsin) 0.125 Mg TABLET 2019-03-15 00:00:00 No .125 Q6hprn [facility] Interferon Beta-1B (Betaseron) 0.3 Mg KIT Interferon B eta-1B (Betaseron) 0.3 Mg KIT 2019-03-15 00:00:00 No .3 Every Other Day [facility] Lactulose Lactulose 2019-03-15 00:00:00 No 30 Qdprn [facility] Magnesium Hydroxide (Milk Of Magnesia) 2,400 Mg/10 Ml ORAL.SUSP Magnesium Hydroxide (Milk Of Magnesia) 2,400 Mg/10 Ml ORAL.SUSP 2019-03-15 00:00:00 No 30 Qdprn [facility] Metronidazole Gel Metronidazole Gel 2019-03-15 00:00:00 No .75 Daily [facility] Polyethylene Glycol 3350 (Miralax) 17 Gm POWD.PACK Nahum yethylene Glycol 3350 (Miralax) 17 Gm POWD.PACK 2019-03-15 00:00:00 No 17 As Needed [facility] Promethazine Hcl (Phenergan) 25 Mg/1 Ml AMPUL Prometha zine Hcl (Phenergan) 25 Mg/1 Ml AMPUL 2019-03-14 00:00:00 No 12.5 Every 6 Hours as needed for Nausea And Vomiting [facility] Ascorbic Acid (Vitamin C) 500 Mg TABLET Ascorbic Acid (Vitam in C) 500 Mg TABLET 2018-11-09 00:00:00 No 500 Daily [facility] Diphenhydramine Hcl (Benadryl) 25 Mg CAPSULE Diphenhyd ramine Hcl (Benadryl) 25 Mg CAPSULE 2018-11-09 00:00:00 No 25 E very 6 Hours as needed for Itching [facility] Gemfibrozil (Lopid) 600 Mg TABLET Gemfibrozil (Lopid) 600 Mg TAB LET 2018-11-09 00:00:00 No 600 Daily [facility] Digoxin Digoxin 2018-11-08 00:00:00 No .125 Daily [facility] Metronidazole (Metrogel) 60 Gm GEL Metronidazole (Metrogel) 60 G m GEL 2018-11-08 00:00:00 No As Needed [facility] Acetaminophen With Codeine (Tylenol With Codeine #3 Ta blet) 1 Each TABLET Acetaminophen With Codeine (Tylenol With Codeine #3 Tablet) 1 Each TABLET 2018-07-03 00:00:00 No 300 Every 12 Hours [facility] Amitriptyline Hcl Amitriptyline Hcl 2018-07-03 00:00:00 No 25 Bedtime [facility] Ascorbic Acid (Vitamin C) 500 Mg CAPSULE.ER Ascorbic A keily (Vitamin C) 500 Mg CAPSULE.ER 2018-07-03 00:00:00 No 500 Daily [facility] B12 B12 2018-07-03 00:00:00 No 1 [facility] Cranberry/Vit C/L. Sporogenes (Azo Cranberry Tablet) 1 Each TABLET Cranberry/Vit C/L. Sporogenes (Azo Cranberry Tablet) 1 Each TABLET 2018-07-03 00: 00:00 No 1 Daily [facility] Interferon Beta-1B (Extavia) 0.3 Mg KIT Interferon Beta-1B ( Extavia) 0.3 Mg KIT 2018-07-03 00:00:00 No .3 [facility] Interferon Beta-1B (Extavia) 0.3 Mg KIT Interferon Beta-1B ( Extavia) 0.3 Mg KIT 2018-07-03 00:00:00 No [facility] Nystatin Nystatin 2018-07-03 00:00:00 No 1 Daily [facility] Solifenacin Succinate (Vesicare) 5 Mg TABLET Solifenac in Succinate (Vesicare) 5 Mg TABLET 2018-07-03 00:00:00 No 10 Daily [facility] Temazepam Temazepam 2018-07-03 00:00:00 No 30 Bedti me [facility] Tizanidine Hcl (Zanaflex) 4 Mg CAPSULE Tizanidine Hcl (Zanaflex) 4 Mg CAPSULE 2018-07-03 00:00:00 No 4 Daily [facility] Urispas Urispas 2018-07-03 00:00:00 No 100 Three [place] es A Day [facility] Acetaminophen Acetaminophen 2015-10-30 00:00:00 No 325 Every 4 Hours as needed for Pain [facility] Magnesium Hydroxide (Milk Of Magnesia) 2,400 Mg/10 Ml ORAL.SUSP Magnesium Hydroxide (Milk Of Magnesia) 2,400 Mg/10 Ml ORAL.SUSP 2015-10-30 00:00:00 No 30 Daily as needed for Constipation [facility] Vital Signs Vital Name Observation Time Observation Value Comments Source Body Temperature 2019-11-15 21:08:00 98.0 [degF] [facility] Weight 2019-11-15 17:01:00 133 [lb_av] [facility] BMI (Body Mass Index) 2019-11-15 17:01:00 20.8 kg/m2 [facility] Weight 2019-11-02 15:19:00 133 [lb_av] [facility] BMI (Body Mass Index) 2019-11-02 15:19:00 20.8 kg/m2 [facility] Body Temperature 2019-10-09 19:54:00 98.4 [degF] [facility] Procedures Procedure Date / Time Performed Performing Clinician Sourc e CHANGE OF BLADDER TUBE 2019-11-02 00:00:00 [facility] CHANGE OF BLADDER TUBE 2019-10-09 00:00:00 [facility] INSERT TEMP BLADDER CATH 2019-09-24 00:00:00 [facility] CYSTOSCOPY & URETER CATHETER 2019-07-17 00:00:00 [facility] CYSTOSCOPY CHEMODENERVATION 2019-07-17 00:00:00 [facility] REMOVE BLADDER STONE 2019-07-17 00:00:00 [facility] INSERTION OF INFUSION DEV INTO SUP VENA CAVA, PERC APPROACH 2019-07-08 00:00:00 [facility] CYSTOSCOPY & URETER CATHETER 2019-03-15 00:00:00 [facility] CYSTOSCOPY CHEMODENERVATION 2019-03-15 00:00:00 [facility] REMOVE BLADDER STONE 2019-03-15 00:00:00 [facility] Plan of Care Planned Activity Planned Date Details Comments Source Instructions [facility] Encounters Start Date/Time End Date/Time Encounter Type Admission Type Attendi [facility] Facility Care Department Encounter ID Source 2019-11-15 16:37:00 2019-11-15 21:13:[address] [facility] [id number] [facility] 2019-11-02 15:18:00 2019-11-02 17:34:[address] [facility] [id number] [facility] 2019-10-09 18:25:00 2019-10-09 20:06:[address] [facility] [id number] [facility] 2019-09-24 07:14:00 2019-09-24 10:54:[address] [facility] [id number] [facility]. [facility] 2019-07-17 08:57:00 2019-07-17 08:57:00 Registered Surgical Day Care [facility] [id number] [facility]. [facility] - Patients [facility] 2019-07-05 11:40:00 2019-07-09 10:04:00 Discharged Inpatient [address] [facility] [id number] [facility] . [facility] - Patients [facility] 2019-03-15 07:54:00 2019-03-15 07:54:00 Registered Surgical Day Care [facility]'s Patients [facility] [id number] [facility]. [facility] - Patients [facility] 2018-11-09 09:45:00 2018-11-09 09:45:00 Registered Surgical Day Care [facility] [id number] [facility] 2018-06-22 15:23:00 2018-06-22 22:29:00 Departed Emergency Room [facility] [id number] [facility] 2018-04-24 16:56:00 2018-04-24 20:23:00 Departed Emergency Room [facility] [id number] [facility] 2018-03-13 14:52:00 2018-03-13 14:52:00 Registered Clinic 3 MEJIA ANGELLA, VINNY [facility] [id number] [facility] 2018-03-07 11:29:00 2018-03-07 16:52:00 Departed Emergency Room [facility] [id number] [facility] 2017-06-17 23:26:00 2017-06-18 02:23:00 Departed Emergency Room [facility] [id number] [facility] Results Test Description Test Time Test Comments Results Result Comments Source CHEST SINGLE (PORTABLE) 2019-11-25 14:08:00 [place] [address] Patient Name: SHEREEN SPENCER MR #: [id number] : 1965 Age/Sex: 54/F Req #: [id number] Adm Physician: Ordered by: JOELLEN BERG MD, MD Report #: [id number] Location: ER Room/Bed: Procedure: [id number] DX/CHEST SINGLE (PORTABLE) Exam Date: Exam Time: REPORT STATUS: Signed EXAM: CHEST SINGLE (PORTABLE) DATE: 11/25/2019 1:54 PM INDICATION: Clogged catheter COMPARISON: 07/08/2019 FINDINGS: Left-sided pacing device identified in stable position. Right- sided PICC line is no longer present. The trachea is midline. The lungs are symmetrically expanded without evidence for large focal consolidation, pneumothorax, or significant pleural effusion. The cardiomediastinal silhouette is stable in appearance. The pulmonary vasculature is not engorged. No acute osseous abnormalities identified. The surrounding soft tissues are unremarkable. IMPRESSION: No acute cardiopulmonary process identified. Signed by: Dr. Von Craig MD on 11/25/2019 2:09 PM Dictated By: VON CRAIG MD 08 Transcribed By: JUAN DAVID on 11/25/191408 COPY TO: JOELLEN BERG Bacterial urine culture 2019-10-09 19:35:00 Test Item Urine Culture (test code = 630-4) PROTEUS MIRABILIS [facility] urine [id number] 19:35:00* Test Item Value Reference Range Interpretation Comments Urine Culture (test code = 630-4) PROTE[facility] MIRABILIS [facility] [id number] 10:51:00* Test Item Value Reference Range Interpretation Comments Urine Culture (test code = 630-4) No Result Data Provided [facility] [id number] 10:51:00* Test Item Value Reference Range Interpretation Comments Urine Culture (test code = 630-4) No Result Data Provided [facility] Asmyqzh3793-24-73 13:41:00* Test Item Value Reference Range Interpretation Comments Blood Culture (test code = 58803729) NO GROWTH AFTER 5 DAYS, FINAL REPORT [facility] [id number] 13:41:00* Test Item Value Reference Range Interpretation Comments Blood Culture (test code = 90371371) NO GROWTH AFTER 5 DAYS, FINAL REPORT [facility] [id number] 06:07:00* Test Item Value Reference Range Interpretation Comments Sodium Level (test code = 2951-2) 140 136-145 [facility]Potassium [id number] 06:07:00* Test Item Value Reference Range Interpretation Comments Potassium Level (test code = 2823-3) 3.9 3.5-5.1 [facility] HospitalChloride [id number] 06:07:00* Test Item Value Reference Range Interpretation Comments Chloride Level (test code = 2075-0) 108 98-107 H [facility] HospitalCarbon Dioxide Wgdnz5825-10-02 06:07:00* Test Item Value Reference Range Interpretation Comments Carbon Dioxide Level (test code = 2028-9) 24 22-29 [facility] HospitalAnion [id number] 06:07:00* Test Item Value Reference Range Interpretation Comments Anion Gap (test code = 99340-1) 11.9 8-16 [facility]Blood Urea Eqypqsjp7966-00-24 06:07:00* Test Item Value Reference Range Interpretation Comments Blood Urea Nitrogen (test code = 3094-0) 9 7-26 [facility] HospitalCreatinine2020-01-21 06:07:00* Test Item Value Reference Range Interpretation Comments Creatinine (test code = 2160-0) 0.56 0.57-1.11 L [facility] HospitalBUN/Creatinine Kfzht2201-47-35 06:07:00* Test Item Value Reference Range Interpretation Comments BUN/Creatinine Ratio (test code = 3097-3) 16 6-25 [facility] HospitalEstimat Glomerular Filtration Rate 2019-07-09 06:07:00* Test Item Value Reference Range Interpretation Comments Estimat Glomerular Filtration Rate (test code = 700337291) > 60 >60 Ranges were taken from the National Kidney Disease Education Program and the [facility] Kidney Foundation literature.Reference ranges:60 or greater: Xrppyq57-17 ( for 3 consecutive months): Chronic kidney disease 15 or less: Kidney failureEl Campo Memorial HospitalGlucose Owlhs7761-97-19 06:07:00* Test Item Value Reference Range Interpretation Comments Glucose Level (test code = BFO7794) 95 74-118 [facility] HospitalCalcium Ytzdp6846-52-56 06:07:00* Test Item Value Reference Range Interpretation Comments Calcium Level (test code = 18364-4) 9.4 8.4-10.2 [facility] Dbdmv5843-51-12 06:07:00* Test Item Value Reference Range Interpretation Comments Sodium Level (test code = 2951-2) 140 136-145 [facility] HospitalPotassium Swlak5488-56-36 06:07:00* Test Item Value Reference Range Interpretation Comments Potassium Level (test code = 2823-3) 3.9 3.5-5.1 [facility] HospitalChloride Pfgdj4559-97-87 06:07:00* Test Item Value Reference Range Interpretation Comments Chloride Level (test code = 2075-0) 108 98-107 H [facility] HospitalCarbon Dioxide Bgear2101-69-89 06:07:00* Test Item Value Reference Range Interpretation Comments Carbon Dioxide Level (test code = 2028-9) 24 22-29 [facility] HospitalAnion [id number] 06:07:00* Test Item Value Reference Range Interpretation Comments Anion Gap (test code = 18208-6) 11.9 8-16 [facility] HospitalBlood Urea Joxdiwon1925-42-00 06:07:00* Test Item Value Reference Range Interpretation Comments Blood Urea Nitrogen (test code = 3094-0) 9 7-26 [facility] HospitalCreatinine2020-01-21 06:07:00* Test Item Value Reference Range Interpretation Comments Creatinine (test code = 2160-0) 0.56 0.57-1.11 L [facility] HospitalBUN/Creatinine Uxsdc4582-42-77 06:07:00* Test Item Value Reference Range Interpretation Comments BUN/Creatinine Ratio (test code = 3097-3) 16 6-25 [facility] HospitalEstimat Glomerular Filtration Rate 2019-07-09 06:07:00* Test Item Value Reference Range Interpretation Comments Estimat Glomerular Filtration Rate (test code = 939816114) > 60 >60 Ranges were taken from the National Kidney Disease Education Program and the [facility] Foundation literature.Reference ranges:60 or greater: Cadrcf18-25 ( for 3 consecutive months): Chronic kidney disease 15 or less: Kidney failureEl Campo Memorial HospitalGlucose Kzunx1856-54-14 06:07:00* Test Item Value Reference Range Interpretation Comments Glucose Level (test code = CXA1757) 95 74-118 [facility] HospitalCalcium Qbxyh6275-09-67 06:07:00* Test Item Value Reference Range Interpretation Comments Calcium Level (test code = 40992-4) 9.4 8.4-10.2 [facility] Futfr2747-46-79 06:07:00* Test Item Value Reference Range Interpretation Comments Sodium Level (test code = 2951-2) 140 136-145 [facility] HospitalPotassium Ofjad4798-27-02 06:07:00* Test Item Value Reference Range Interpretation Comments Potassium Level (test code = 2823-3) 3.9 3.5-5.1 [facility] HospitalChloride Ymzfu5155-02-12 06:07:00* Test Item Value Reference Range Interpretation Comments Chloride Level (test code = 2075-0) 108 98-107 H [facility] HospitalCarbon Dioxide Ppvjx7625-11-63 06:07:00* Test Item Value Reference Range Interpretation Comments Carbon Dioxide Level (test code = 2028-9) 24 22-29 [facility] HospitalAnion [id number] 06:07:00* Test Item Value Reference Range Interpretation Comments Anion Gap (test code = 51139-8) 11.9 8-16 [facility] HospitalBlood Urea Wjnvwwzz6035-20-93 06:07:00* Test Item Value Reference Range Interpretation Comments Blood Urea Nitrogen (test code = 3094-0) 9 7-26 [facility] HospitalCreatinine2020-01-21 06:07:00* Test Item Value Reference Range Interpretation Comments Creatinine (test code = 2160-0) 0.56 0.57-1.11 L [facility] HospitalBUN/Creatinine Swtzx7109-78-29 06:07:00* Test Item Value Reference Range Interpretation Comments BUN/Creatinine Ratio (test code = 3097-3) 16 6-25 [facility] HospitalEstimat Glomerular Filtration Rate 2019-07-09 06:07:00* Test Item Value Reference Range Interpretation Comments Estimat Glomerular Filtration Rate (test code = 700468434) > 60 >60 Ranges were taken from the National Kidney Disease Education Program and the [facility] Kidney Foundation literature.Reference ranges:60 or greater: Mbggxf47-92 ( for 3 consecutive months): Chronic kidney disease 15 or less: Kidney failureEl Campo Memorial HospitalGlucose Nzfym8393-08-18 06:07:00* Test Item Value Reference Range Interpretation Comments Glucose Level (test code = YTJ8108) 95 74-118 [facility] HospitalCalcium Mvlio3443-43-66 06:07:00* Test Item Value Reference Range Interpretation Comments Calcium Level (test code = 79389-1) 9.4 8.4-10.2 [facility] HospitalWhite Blood Bfphi7216-85-55 05:49:00* Test Item Value Reference Range Interpretation Comments White Blood Count (test code = 6690-2) 4.57 4.8-10.8 L [facility] HospitalRed Blood Wqpxe2870-61-53 05:49:00* Test Item Value Reference Range Interpretation Comments Red Blood Count (test code = 789-8) 3.18 3.6-5.1 L [facility] HospitalHemoglobin2020-01-21 05:49:00* Test Item Value Reference Range Interpretation Comments Hemoglobin (test code = 66216-7) 10.3 12.0-16.0 L [facility] HospitalHematocrit2020-01-21 05:49:00* Test Item Value Reference Range Interpretation Comments Hematocrit (test code = 4544-3) 30.5 34.2-44.1 L [facility] HospitalMean Corpuscular Wnhgzo8956-45-76 05:49:00* Test Item Value Reference Range Interpretation Comments Mean Corpuscular Volume (test code = 787-2) 95.9 81-99 [facility] HospitalMean Corpuscular Fzavrvrvby9959-69-60 05:49:00* Test Item Value Reference Range Interpretation Comments Mean Corpuscular Hemoglobin (test code = 785-6) 32.4 28-32 H [facility] HospitalMean Corpuscular Hemoglobin Concent 2019-07-09 05:49:00* Test Item Value Reference Range Interpretation Comments Mean Corpuscular Hemoglobin Concent (test code = 786-4) 33.8 31-35 [facility] HospitalRed Cell Distribution Tqywf4515-00-95 05:49:00* Test Item Value Reference Range Interpretation Comments Red Cell Distribution Width (test code = 89000-2) 13.8 11.7 -14.4 [facility] HospitalPlatelet Qjafe5290-69-20 05:49:00* Test Item Value Reference Range Interpretation Comments Platelet Count (test code = 777-3) 228 140-360 [facility] HospitalNeutrophils (%) (Auto)2019-07-09 05:49:00 * Test Item Value Reference Range Interpretation Comments Neutrophils (%) (Auto) (test code = 24584-5) 56.0 38.7-80.0 [facility]Lymphocytes (%) (Auto)2019-07-09 05:49:00 * Test Item Value Reference Range Interpretation Comments Lymphocytes (%) (Auto) (test code = 736-9) 23.9 18.0-39.1 [facility]Monocytes (%) (Auto)2019-07-09 05:49:00* Test Item Value Reference Range Interpretation Comments Monocytes (%) (Auto) (test code = 5905-5) 11.6 4.4-11.3 [facility] HospitalEosinophils (%) (Auto)2019-07-09 05:49:00 * Test Item Value Reference Range Interpretation Comments Eosinophils (%) (Auto) (test code = 713-8) 7.2 0.0-6.0 [facility] HospitalBasophils (%) (Auto)2019-07-09 05:49:00* Test Item Value Reference Range Interpretation Comments Basophils (%) (Auto) (test code = 706-2) 1.1 0.0-1.0 H [facility] HospitalIM GRANULOCYTES %2019-07-09 05:49:00* Test Item Value Reference Range Interpretation Comments IM GRANULOCYTES % (test code = IM GRANULOCYTES %) 0.2 0.0- 1.0 [facility] HospitalNeutrophils # (Auto)2019-07-09 05:49:00* Test Item Value Reference Range Interpretation Comments Neutrophils # (Auto) (test code = 751-8) 2.6 2.1-6.9 [facility] HospitalLymphocytes # (Auto)2019-07-09 05:49:00* Test Item Value Reference Range Interpretation Comments Lymphocytes # (Auto) (test code = 60674-9) 1.1 1.0-3.2 [facility] HospitalMonocytes # (Auto)2019-07-09 05:49:00* Test Item Value Reference Range Interpretation Comments Monocytes # (Auto) (test code = 742-7) 0.5 0.2-0.8 [facility] HospitalEosinophils # (Auto)2019-07-09 05:49:00* Test Item Value Reference Range Interpretation Comments Eosinophils # (Auto) (test code = 711-2) 0.3 0.0-0.4 [facility] HospitalBasophils # (Auto)2019-07-09 05:49:00* Test Item Value Reference Range Interpretation Comments Basophils # (Auto) (test code = 704-7) 0.1 0.0-0.1 [facility] HospitalAbsolute Immature Granulocyte (auto 2019-07-09 05:49:00* Test Item Value Reference Range Interpretation Comments Absolute Immature Granulocyte (auto (raúl t code = Absolute Immature Granulocyte (auto) 0.01 0-0.1 [facility] HospitalWhite Blood Ciheh3919-02-50 05:49:00* Test Item Value Reference Range Interpretation Comments White Blood Count (test code = 6690-2) 4.57 4.8-10.8 L [facility] HospitalRed Blood Qbvqp1267-88-66 05:49:00* Test Item Value Reference Range Interpretation Comments Red Blood Count (test code = 789-8) 3.18 3.6-5.1 L [facility] HospitalHemoglobin2020-01-21 05:49:00* Test Item Value Reference Range Interpretation Comments Hemoglobin (test code = 55404-5) 10.3 12.0-16.0 L [facility] HospitalHematocrit2020-01-21 05:49:00* Test Item Value Reference Range Interpretation Comments Hematocrit (test code = 4544-3) 30.5 34.2-44.1 L [facility] HospitalMean Corpuscular Jpbbed0998-87-39 05:49:00* Test Item Value Reference Range Interpretation Comments Mean Corpuscular Volume (test code = 787-2) 95.9 81-99 [facility] HospitalMean Corpuscular Ioqrwzwhaw0904-12-26 05:49:00* Test Item Value Reference Range Interpretation Comments Mean Corpuscular Hemoglobin (test code = 785-6) 32.4 28-32 H [facility] HospitalMean Corpuscular Hemoglobin Concent 2019-07-09 05:49:00* Test Item Value Reference Range Interpretation Comments Mean Corpuscular Hemoglobin Concent (test code = 786-4) 33.8 31-35 [facility] HospitalRed Cell Distribution Uirtt5667-99-04 05:49:00* Test Item Value Reference Range Interpretation Comments Red Cell Distribution Width (test code = 71769-8) 13.8 11.7 -14.4 [facility] HospitalPlatelet Ldaft5261-94-71 05:49:00* Test Item Value Reference Range Interpretation Comments Platelet Count (test code = 777-3) 228 140-360 [facility] HospitalNeutrophils (%) (Auto)2019-07-09 05:49:00 * Test Item Value Reference Range Interpretation Comments Neutrophils (%) (Auto) (test code = 97252-9) 56.0 38.7-80.0 [facility] HospitalLymphocytes (%) (Auto)2019-07-09 05:49:00 * Test Item Value Reference Range Interpretation Comments Lymphocytes (%) (Auto) (test code = 736-9) 23.9 18.0-39.1 [facility] HospitalMonocytes (%) (Auto)2019-07-09 05:49:00* Test Item Value Reference Range Interpretation Comments Monocytes (%) (Auto) (test code = 5905-5) 11.6 4.4-11.3 [facility] HospitalEosinophils (%) (Auto)2019-07-09 05:49:00 * Test Item Value Reference Range Interpretation Comments Eosinophils (%) (Auto) (test code = 713-8) 7.2 0.0-6.0 [facility] HospitalBasophils (%) (Auto)2019-07-09 05:49:00* Test Item Value Reference Range Interpretation Comments Basophils (%) (Auto) (test code = 706-2) 1.1 0.0-1.0 [facility] HospitalIM GRANULOCYTES %2019-07-09 05:49:00* Test Item Value Reference Range Interpretation Comments IM GRANULOCYTES % (test code = IM GRANULOCYTES %) 0.2 0.0- 1.0 [facility] HospitalNeutrophils # (Auto)2019-07-09 05:49:00* Test Item Value Reference Range Interpretation Comments Neutrophils # (Auto) (test code = 751-8) 2.6 2.1-6.9 [facility] HospitalLymphocytes # (Auto)2019-07-09 05:49:00* Test Item Value Reference Range Interpretation Comments Lymphocytes # (Auto) (test code = 00289-4) 1.1 1.0-3.2 [facility] HospitalMonocytes # (Auto)2019-07-09 05:49:00* Test Item Value Reference Range Interpretation Comments Monocytes # (Auto) (test code = 742-7) 0.5 0.2-0.8 [facility] HospitalEosinophils # (Auto)2019-07-09 05:49:00* Test Item Value Reference Range Interpretation Comments Eosinophils # (Auto) (test code = 711-2) 0.3 0.0-0.4 [facility] HospitalBasophils # (Auto)2019-07-09 05:49:00* Test Item Value Reference Range Interpretation Comments Basophils # (Auto) (test code = 704-7) 0.1 0.0-0.1 [facility] HospitalAbsolute Immature Granulocyte (auto 2019-07-09 05:49:00* Test Item Value Reference Range Interpretation Comments Absolute Immature Granulocyte (auto (raúl t code = Absolute Immature Granulocyte (auto) 0.01 0-0.1 [facility] HospitalWhite Blood Vvrlw8195-45-95 05:49:00* Test Item Value Reference Range Interpretation Comments White Blood Count (test code = 6690-2) 4.57 4.8-10.8 L [facility] HospitalRed Blood Xgirb4735-27-54 05:49:00* Test Item Value Reference Range Interpretation Comments Red Blood Count (test code = 789-8) 3.18 3.6-5.1 L [facility] HospitalHemoglobin2020-01-21 05:49:00* Test Item Value Reference Range Interpretation Comments Hemoglobin (test code = 85344-0) 10.3 12.0-16.0 L [facility] HospitalHematocrit2020-01-21 05:49:00* Test Item Value Reference Range Interpretation Comments Hematocrit (test code = 4544-3) 30.5 34.2-44.1 L [facility] HospitalMean Corpuscular Llenpf7343-55-53 05:49:00* Test Item Value Reference Range Interpretation Comments Mean Corpuscular Volume (test code = 787-2) 95.9 81-99 [facility] HospitalMean Corpuscular Zusbxgvevn5738-91-89 05:49:00* Test Item Value Reference Range Interpretation Comments Mean Corpuscular Hemoglobin (test code = 785-6) 32.4 28-32 H [facility] HospitalMean Corpuscular Hemoglobin Concent 2019-07-09 05:49:00* Test Item Value Reference Range Interpretation Comments Mean Corpuscular Hemoglobin Concent (test code = 786-4) 33.8 31-35 [facility] HospitalRed Cell Distribution Khsgj2061-99-00 05:49:00* Test Item Value Reference Range Interpretation Comments Red Cell Distribution Width (test code = 98964-8) 13.8 11.7 -14.4 [facility] HospitalPlatelet Mykbp1221-30-47 05:49:00* Test Item Value Reference Range Interpretation Comments Platelet Count (test code = 777-3) 228 140-360 [facility] HospitalNeutrophils (%) (Auto)2019-07-09 05:49:00 * Test Item Value Reference Range Interpretation Comments Neutrophils (%) (Auto) (test code = 70067-5) 56.0 38.7-80.0 [facility] HospitalLymphocytes (%) (Auto)2019-07-09 05:49:00 * Test Item Value Reference Range Interpretation Comments Lymphocytes (%) (Auto) (test code = 736-9) 23.9 18.0-39.1 [facility] HospitalMonocytes (%) (Auto)2019-07-09 05:49:00* Test Item Value Reference Range Interpretation Comments Monocytes (%) (Auto) (test code = 5905-5) 11.6 4.4-11.3 [facility] HospitalEosinophils (%) (Auto)2019-07-09 05:49:00 * Test Item Value Reference Range Interpretation Comments Eosinophils (%) (Auto) (test code = 713-8) 7.2 0.0-6.0 H [facility] HospitalBasophils (%) (Auto)2019-07-09 05:49:00* Test Item Value Reference Range Interpretation Comments Basophils (%) (Auto) (test code = 706-2) 1.1 0.0-1.0 H [facility] HospitalIM GRANULOCYTES %2019-07-09 05:49:00* Test Item Value Reference Range Interpretation Comments IM GRANULOCYTES % (test code = IM GRANULOCYTES %) 0.2 0.0- 1.0 [facility] HospitalNeutrophils # (Auto)2019-07-09 05:49:00* Test Item Value Reference Range Interpretation Comments Neutrophils # (Auto) (test code = 751-8) 2.6 2.1-6.9 [facility] HospitalLymphocytes # (Auto)2019-07-09 05:49:00* Test Item Value Reference Range Interpretation Comments Lymphocytes # (Auto) (test code = 85707-4) 1.1 1.0-3.2 [facility] HospitalMonocytes # (Auto)2019-07-09 05:49:00* Test Item Value Reference Range Interpretation Comments Monocytes # (Auto) (test code = 742-7) 0.5 0.2-0.8 [facility] HospitalEosinophils # (Auto)2019-07-09 05:49:00* Test Item Value Reference Range Interpretation Comments Eosinophils # (Auto) (test code = 711-2) 0.3 0.0-0.4 [facility] HospitalBasophils # (Auto)2019-07-09 05:49:00* Test Item Value Reference Range Interpretation Comments Basophils # (Auto) (test code = 704-7) 0.1 0.0-0.1 [facility] HospitalAbsolute Immature Granulocyte (auto 2019-07-09 05:49:00* Test Item Value Reference Range Interpretation Comments Absolute Immature Granulocyte (auto (raúl t code = Absolute Immature Granulocyte (auto) 0.01 0-0.1 [facility] HospitalBlood leukocytes automated count (number/volume)2019-07-09 04:30:00* Test Item Value Reference Range Interpretation Comments White Blood Count (test code = 6690-2) 4.57 4.8-10.8 [facility] HospitalBlphillips eye institute erythrocytes automated count (number/volume)2019-07-09 04:30:00* Test Item Value Reference Range Interpretation Comments Red Blood Count (test code = 789-8) 3.18 3.6-5.1 [facility] HospitalBlood hemoglobin measurement (moles/volume)2019-07-09 04:30:00* Test Item Value Reference Range Interpretation Comments Hemoglobin (test code = 87534-9) 10.3 12.0-16.0 [facility] HospitalAutomated blood hematocrit (volume fraction)2019-07-09 04:30:00* Test Item Value Reference Range Interpretation Comments Hematocrit (test code = 4544-3) 30.5 34.2-44.1 [facility] HospitalAutomated erythrocyte mean corpuscular oxssst0250-56-57 04:30:00* Test Item Value Reference Range Interpretation Comments Mean Corpuscular Volume (test code = 787-2) 95.9 81-99 [facility] HospitalAutomated erythrocyte mean corpuscular hemoglobin (mass per erythrocyte)2019-07-09 04:30:00* Test Item Value Reference Range Interpretation Comments Mean Corpuscular Hemoglobin (test code = 785-6) 32.4 28-32 [facility] HospitalAutomated erythrocyte mean corpuscular hemoglobin concentration measurement (mass/volume)2019-07-09 04:30:00* Test Item Value Reference Range Interpretation Comments Mean Corpuscular Hemoglobin Concent (test code = 786-4) 33.8 31-35 [facility] HospitalRDW XdlDh-Dnm9234-38-21 04:30:00* Test Item Value Reference Range Interpretation Comments Red Cell Distribution Width (test code = 90469-5) 13.8 11.7 -14.4 [facility] HospitalAutomated blood platelet count (count/volume)2019-07-09 04:30:00* Test Item Value Reference Range Interpretation Comments Platelet Count (test code = 777-3) 228 140-360 [facility] HospitalAutomated blood segmented neutrophil count as percentage of total fuimhwnnlz0788-43-40 04:30:00* Test Item Value Reference Range Interpretation Comments Neutrophils (%) (Auto) (test code = 98751-9) 56.0 38.7-80.0 [facility] HospitalAutomated blood lymphocyte count as percentage ot total ctbdeekfgs7136-09-91 04:30:00* Test Item Value Reference Range Interpretation Comments Lymphocytes (%) (Auto) (test code = 736-9) 23.9 18.0-39.1 [facility] HospitalAutomated blood monocyte count as percentage of total nbndaxdajf4029-78-06 04:30:00* Test Item Value Reference Range Interpretation Comments Monocytes (%) (Auto) (test code = 5905-5) 11.6 4.4-11.3 [facility] HospitalAutomated blood eosinophil count as percentage of total gnzlptcsps3676-13-04 04:30:00* Test Item Value Reference Range Interpretation Comments Eosinophils (%) (Auto) (test code = 713-8) 7.2 0.0-6.0 [facility] HospitalAutomated blood basophil count as percentage of total djwofxvdqu3065-89-01 04:30:00* Test Item Value Reference Range Interpretation Comments Basophils (%) (Auto) (test code = 706-2) 1.1 0.0-1.0 [facility] HospitalFluoroscopic procedure less than one hour tyoxvolp4069-87-26 04:30:00* Test Item Value Reference Range Interpretation Comments IM GRANULOCYTES % (test code = IM GRANULOCYTES %) 0.2 0.0- 1.0 [facility] HospitalAutomated blood neutrophil count 2019-07-09 04:30:00* Test Item Value Reference Range Interpretation Comments Neutrophils # (Auto) (test code = 751-8) 2.6 2.1-6.9 [facility] HospitalBlood lymphocytes count (number/volume) 2019-07-09 04:30:00* Test Item Value Reference Range Interpretation Comments Lymphocytes # (Auto) (test code = 03716-1) 1.1 1.0-3.2 [facility] HospitalBlood monocytes automated count (number/volume)2019-07-09 04:30:00* Test Item Value Reference Range Interpretation Comments Monocytes # (Auto) (test code = 742-7) 0.5 0.2-0.8 [facility] HospitalAutomated blood eosinophil count 2019-07-09 04:30:00* Test Item Value Reference Range Interpretation Comments Eosinophils # (Auto) (test code = 711-2) 0.3 0.0-0.4 [facility] HospitalAutomated blood basophil count (count/volume)2019-07-09 04:30:00* Test Item Value Reference Range Interpretation Comments Basophils # (Auto) (test code = 704-7) 0.1 0.0-0.1 [facility] HospitalFluoroscopic procedure less than one hour vvzizmpp8512-16-47 04:30:00* Test Item Value Reference Range Interpretation Comments Absolute Immature Granulocyte (auto (raúl t code = Absolute Immature Granulocyte (auto) 0.01 0-0.1 [facility]erum [facility] plasma sodium measurement (moles/volume)2019-07-09 04:30:00* Test Item Value Reference Range Interpretation Comments Sodium Level (test code = 2951-2) 140 136-145 [facility] Kingwooderum or plasma potassium measurement (moles/volume)2019-07-09 04:30:00* Test Item Value Reference Range Interpretation Comments Potassium Level (test code = 2823-3) 3.9 3.5-5.1 [facility]wooderum or plasma chloride measurement (moles/volume)2019-07-09 04:30:00* Test Item Value Reference Range Interpretation Comments Chloride Level (test code = 2075-0) 108 98-107 [facility]wooderum or plasma carbon dioxide, total measurement (moles/volume)2019-07-09 04:30:00* Test Item Value Reference Range Interpretation Comments Carbon Dioxide Level (test code = 2028-9) 24 22-29 [facility]wooderum or plasma anion pme7684-51-58 04:30:00* Test Item Value Reference Range Interpretation Comments Anion Gap (test code = 35909-2) 11.9 8-16 [facility]wooderum or plasma urea nitrogen measurement (mass/volume)2019-07-09 04:30:00* Test Item Value Reference Range Interpretation Comments Blood Urea Nitrogen (test code = 3094-0) 9 7-26 [facility]wooderum or plasma creatinine measurement (mass/volume)2019-07-09 04:30:00* Test Item Value Reference Range Interpretation Comments Creatinine (test code = 2160-0) 0.56 0.57-1.11 [facility]wooderum or plasma urea nitrogen/creatinine mass ggaie0892-20-01 04:30:00* Test Item Value Reference Range Interpretation Comments BUN/Creatinine Ratio (test code = 3097-3) 16 6-25 [facility] HospitalEstimated glomerular filtration rate (GFR) myoysrbrodbxs7768-55-10 04:30:00* Test Item Value Reference Range Interpretation Comments Estimat Glomerular Filtration Rate (test code = 790090904) > 60 >60 Ranges were taken from the National Kidney Disease Education Program and the [facility] literature.Reference ranges:60 or greater: Jkzelc92-55 ( for 3 consecutive months): Chronic kidney disease 15 or less: Kidney failureEl Campo Memorial HospitalGlucose pjzqkgqpdme4804-43-19 04:30:00* Test Item Value Reference Range Interpretation Comments Glucose Level (test code = KPG8159) 95 74-118 [facility]wooderum or plasma calcium measurement (mass/volume)2019-07-09 04:30:00* Test Item Value Reference Range Interpretation Comments Calcium Level (test code = 62997-3) 9.4 8.4-10.2 [facility] HospitalBlood leukocytes automated count (number/volume)2019-07-09 04:30:00* Test Item Value Reference Range Interpretation Comments White Blood Count (test code = 6690-2) 4.57 4.8-10.8 [facility] HospitalBlood erythrocytes automated count (number/volume)2019-07-09 04:30:00* Test Item Value Reference Range Interpretation Comments Red Blood Count (test code = 789-8) 3.18 3.6-5.1 [facility] HospitalBlood hemoglobin measurement (moles/volume)2019-07-09 04:30:00* Test Item Value Reference Range Interpretation Comments Hemoglobin (test code = 21065-1) 10.3 12.0-16.0 [facility] HospitalAutomated blood hematocrit (volume fraction)2019-07-09 04:30:00* Test Item Value Reference Range Interpretation Comments Hematocrit (test code = 4544-3) 30.5 34.2-44.1 [facility] HospitalAutomated erythrocyte mean corpuscular kyqfig5909-39-26 04:30:00* Test Item Value Reference Range Interpretation Comments Mean Corpuscular Volume (test code = 787-2) 95.9 81-99 [facility] HospitalAutomated erythrocyte mean corpuscular hemoglobin (mass per erythrocyte)2019-07-09 04:30:00* Test Item Value Reference Range Interpretation Comments Mean Corpuscular Hemoglobin (test code = 785-6) 32.4 28-32 [facility] HospitalAutomated erythrocyte mean corpuscular hemoglobin concentration measurement (mass/volume)2019-07-09 04:30:00* Test Item Value Reference Range Interpretation Comments Mean Corpuscular Hemoglobin Concent (test code = 786-4) 33.8 31-35 [facility] HospitalRDW EizQm-Mat0156-26-21 04:30:00* Test Item Value Reference Range Interpretation Comments Red Cell Distribution Width (test code = 88722-4) 13.8 11.7 -14.4 [facility] HospitalAutomated blood platelet count (count/volume)2019-07-09 04:30:00* Test Item Value Reference Range Interpretation Comments Platelet Count (test code = 777-3) 228 140-360 [facility] HospitalAutbetsy johnson regional hospitaled blood segmented neutrophil count as percentage of total ayljjvpxko9359-69-78 04:30:00* Test Item Value Reference Range Interpretation Comments Neutrophils (%) (Auto) (test code = 76746-6) 56.0 38.7-80.0 [facility] HospitalAutomated blood lymphocyte count as percentage ot total vnopkoewpt6351-24-18 04:30:00* Test Item Value Reference Range Interpretation Comments Lymphocytes (%) (Auto) (test code = 736-9) 23.9 18.0-39.1 [facility] HospitalAutomated blood monocyte count as percentage of total exmbbohjjx9245-11-67 04:30:00* Test Item Value Reference Range Interpretation Comments Monocytes (%) (Auto) (test code = 5905-5) 11.6 4.4-11.3 [facility] HospitalAutomated blood eosinophil count as percentage of total cxmxhslshx4189-71-20 04:30:00* Test Item Value Reference Range Interpretation Comments Eosinophils (%) (Auto) (test code = 713-8) 7.2 0.0-6.0 [facility] HospitalAutomated blood basophil count as percentage of total jgjbvfqsxl6543-74-12 04:30:00* Test Item Value Reference Range Interpretation Comments Basophils (%) (Auto) (test code = 706-2) 1.1 0.0-1.0 [facility] HospitalFluoroscopic procedure less than one hour jzhzencg8908-10-06 04:30:00* Test Item Value Reference Range Interpretation Comments IM GRANULOCYTES % (test code = IM GRANULOCYTES %) 0.2 0.0- 1.0 [facility] HospitalAutomated blood neutrophil count 2019-07-09 04:30:00* Test Item Value Reference Range Interpretation Comments Neutrophils # (Auto) (test code = 751-8) 2.6 2.1-6.9 [facility] HospitalBlood lymphocytes count (number/volume) 2019-07-09 04:30:00* Test Item Value Reference Range Interpretation Comments Lymphocytes # (Auto) (test code = 55301-2) 1.1 1.0-3.2 [facility] HospitalBlood monocytes automated count (number/volume)2019-07-09 04:30:00* Test Item Value Reference Range Interpretation Comments Monocytes # (Auto) (test code = 742-7) 0.5 0.2-0.8 [facility] HospitalAutomated blood eosinophil count 2019-07-09 04:30:00* Test Item Value Reference Range Interpretation Comments Eosinophils # (Auto) (test code = 711-2) 0.3 0.0-0.4 [facility] HospitalAutomated blood basophil count (count/volume)2019-07-09 04:30:00* Test Item Value Reference Range Interpretation Comments Basophils # (Auto) (test code = 704-7) 0.1 0.0-0.1 [facility] HospitalFluoroscopic procedure less than one hour pgmfqvoy4823-87-89 04:30:00* Test Item Value Reference Range Interpretation Comments Absolute Immature Granulocyte (auto (raúl t code = Absolute Immature Granulocyte (auto) 0.01 0-0.1 [facility]wooderum or plasma sodium measurement (moles/volume)2019-07-09 04:30:00* Test Item Value Reference Range Interpretation Comments Sodium Level (test code = 2951-2) 140 136-145 [facility]wooderum or plasma potassium measurement (moles/volume)2019-07-09 04:30:00* Test Item Value Reference Range Interpretation Comments Potassium Level (test code = 2823-3) 3.9 3.5-5.1 [facility]wooderum or plasma chloride measurement (moles/volume)2019-07-09 04:30:00* Test Item Value Reference Range Interpretation Comments Chloride Level (test code = 2075-0) 108 98-107 [facility]wooderum or plasma carbon dioxide, total measurement (moles/volume)2019-07-09 04:30:00* Test Item Value Reference Range Interpretation Comments Carbon Dioxide Level (test code = 2028-9) 24 22-29 [facility]wooderum or plasma anion nvu7499-18-31 04:30:00* Test Item Value Reference Range Interpretation Comments Anion Gap (test code = 77141-0) 11.9 8-16 [facility]wooderum or plasma urea nitrogen measurement (mass/volume)2019-07-09 04:30:00* Test Item Value Reference Range Interpretation Comments Blood Urea Nitrogen (test code = 3094-0) 9 7-26 [facility]wooderum or plasma creatinine measurement (mass/volume)2019-07-09 04:30:00* Test Item Value Reference Range Interpretation Comments Creatinine (test code = 2160-0) 0.56 0.57-1.11 [facility]wooderum or plasma urea nitrogen/creatinine mass akwjc6192-04-67 04:30:00* Test Item Value Reference Range Interpretation Comments BUN/Creatinine Ratio (test code = 3097-3) 16 6-25 [facility] HospitalEstimated glomerular filtration rate (GFR) ozemnmmjdsqyj6254-78-67 04:30:00* Test Item Value Reference Range Interpretation Comments Estimat Glomerular Filtration Rate (test code = 793270026) > 60 >60 Ranges were taken from the National Kidney Disease Education Program and the [facility] literature.Reference ranges:60 or greater: Imxtda58-38 ( for 3 consecutive months): Chronic kidney disease 15 or less: Kidney failureEl Campo Memorial HospitalGlucose pqxkeomevlw3891-75-75 04:30:00* Test Item Value Reference Range Interpretation Comments Glucose Level (test code = GIT0279) 95 74-118 [facility]wooder[facility] or plasma calcium measurement (mass/volume)2019-07-09 04:30:00* Test Item Value Reference Range Interpretation Comments Calcium Level (test code = 02550-2) 9.4 8.4-10.2 [facility] HospitalCHEST XRAY LINE HOTTVZEQN6455-53-17 14:15:00 [place] [address] Patient Name: SHEREEN SPENCER MR #: [id number] : 1965 Age/Sex: 53/F Req #: [id number] Adm Physician: KRIS CADENA Ordered by: VINNY KONG MD Report #: [id number] Location: [facility] [facility] Procedure: [id number] DX/CHEST XRAY LINE [...] 2:16 PM Dictated By: SHELLI GARCIA MD 141 Transc ribed By: JUAN DAVID on 07/08/19 141 COPY TO: VINNY KONG MD Blood Qfbqsto0622-48-87 13:41:00* Test Item Value Reference Range Interpretation Comments Blood Culture (test code = 00929575) NO GROWTH AFTER 72 HOURS [facility] Csgcoes4855-73-66 08:07:00* Test Item Value Reference Range Interpretation Comments Urine Culture (test code = 630-4) No Result Data Provided [facility] Emwrfsh6716-66-10 08:07:00* Test Item Value Reference Range Interpretation Comments Urine Culture (test code = 630-4) No Result Data Provided [facility] Axlixgb1044-44-10 08:07:00* Test Item Value Reference Range Interpretation Comments Urine Culture (test code = 630-4) No Result Data Provided [facility]Total Yqtgrziib9688-33-76 06:20:00* Test Item Value Reference Range Interpretation Comments Total Bilirubin (test code = 1974-) 0.2 0.2-1.2 [facility] HospitalAspartate Amino Transf (AST/SGOT) 2019-07-06 06:20:00* Test Item Value Reference Range Interpretation Comments Aspartate Amino Transf (AST/SGOT) (test code = Aspartate Amino Transf (AST/SGOT)) 13 5-34 [facility] HospitalAlanine Aminotransferase (ALT/SGPT) 2019-07-06 06:20:00* Test Item Value Reference Range Interpretation Comments Alanine Aminotransferase (ALT/SGPT) (test code = 1742-6) 9 0-55 [facility] Tujvpqe4417-72-41 06:20:00* Test Item Value Reference Range Interpretation Comments Total Protein (test code = 2885-2) 5.0 6.5-8.1 L [facility] HospitalAlbumin2020-01-18 06:20:00* Test Item Value Reference Range Interpretation Comments Albumin (test code = 1751-7) 3.0 3.5-5.0 L [facility] HospitalGlobulin2020-01-18 06:20:00* Test Item Value Reference Range Interpretation Comments Globulin (test code = 74415-3) 2.0 2.3-3.5 L [facility] HospitalAlbumin/Globulin Txpbq1230-89-47 06:20:00 * Test Item Value Reference Range Interpretation Comments Albumin/Globulin Ratio (test code = 1759-0) 1.5 0.8-2.0 [facility] HospitalAlkaline Oipdvtnaluc3680-77-82 06:20:00* Test Item Value Reference Range Interpretation Comments Alkaline Phosphatase (test code = 6768-6) 45 40-150 [facility] Zlsdumgjd6318-25-01 06:20:00* Test Item Value Reference Range Interpretation Comments Total Bilirubin (test code = 1974-) 0.2 0.2-1.2 [facility] HospitalAspartate Amino Transf (AST/SGOT) 2019-07-06 06:20:00* Test Item Value Reference Range Interpretation Comments Aspartate Amino Transf (AST/SGOT) (test code = Aspartate Amino Transf (AST/SGOT)) 13 [facility] HospitalAlanine Aminotransferase (ALT/SGPT) 2019-07-06 06:20:00* Test Item Value Reference Range Interpretation Comments Alanine Aminotransferase (ALT/SGPT) (test code = 1742-6) 9 0-55 [facility] Jcxkfji4322-95-43 06:20:00* Test Item Value Reference Range Interpretation Comments Total Protein (test code = 2885-2) 5.0 6.5-8.1 L [facility] HospitalAlbumin2020-01-18 06:20:00* Test Item Value Reference Range Interpretation Comments Albumin (test code = 1751-7) 3.0 3.5-5.0 L [facility] HospitalGlobulin2020-01-18 06:20:00* Test Item Value Reference Range Interpretation Comments Globulin (test code = 75245-5) 2.0 2.3-3.5 L [facility] HospitalAlbumin/Globulin Bnqmf6919-80-05 06:20:00 * Test Item Value Reference Range Interpretation Comments Albumin/Globulin Ratio (test code = 1759-0) 1.5 0.8-2.0 [facility] HospitalAlkaline Lpshfrtkvcl4218-16-56 06:20:00* Test Item Value Reference Range Interpretation Comments Alkaline Phosphatase (test code = 6768-6) 45 40-150 [facility] HospitalTotal Mgskolwes5865-02-69 06:20:00* Test Item Value Reference Range Interpretation Comments Total Bilirubin (test code = 1975-2) 0.2 0.2-1.2 [facility] HospitalAspartate Amino Transf (AST/SGOT) 2019-07-06 06:20:00* Test Item Value Reference Range Interpretation Comments Aspartate Amino Transf (AST/SGOT) (test code = Aspartate Amino Transf (AST/SGOT)) 13 [facility] HospitalAlanine Aminotransferase (ALT/SGPT) 2019-07-06 06:20:00* Test Item Value Reference Range Interpretation Comments Alanine Aminotransferase (ALT/SGPT) (test code = 1742-6) 9 0-55 [facility]Total Jzstaqa3940-95-17 06:20:00* Test Item Value Reference Range Interpretation Comments Total Protein (test code = 2885-2) 5.0 6.5-8.1 L [facility] HospitalAlbumin2020-01-18 06:20:00* Test Item Value Reference Range Interpretation Comments Albumin (test code = 1751-7) 3.0 3.5-5.0 L [facility] HospitalGlobulin2020-01-18 06:20:00* Test Item Value Reference Range Interpretation Comments Globulin (test code = 86830-9) 2.0 2.3-3.5 L [facility] HospitalAlbumin/Globulin Jpyfz3835-78-40 06:20:00 * Test Item Value Reference Range Interpretation Comments Albumin/Globulin Ratio (test code = 1759-0) 1.5 0.8-2.0 [facility] HospitalAlkaline Ujczseuybck8738-21-28 06:20:00* Test Item Value Reference Range Interpretation Comments Alkaline Phosphatase (test code = 6768-6) 45 40-150 [facility] total bilirubin measurement (mass/volume)2019-07-06 04:36:00* Test Item Value Reference Range Interpretation Comments Total Bilirubin (test code = 1975-2) 0.2 0.2-1.2 [facility] HospitalFluoroscopic procedure less than one hour krctsmkc3763-69-17 04:36:00* Test Item Value Reference Range Interpretation Comments Aspartate Amino Transf (AST/SGOT) (test code = Aspartate Amino Transf (AST/SGOT)) 13 5-34 [facility]wooderum or plasma alanine aminotransferase measurement (enzymatic activity/volume)2019-07-06 04:36:00* Test Item Value Reference Range Interpretation Comments Alanine Aminotransferase (ALT/SGPT) (test code = 1742-6) 9 0-55 [facility]wooderum or plasma protein measurement (mass/volume)2019-07-06 04:36:00* Test Item Value Reference Range Interpretation Comments Total Protein (test code = 2885-2) 5.0 6.5-8.1 [facility]wood[facility]um or plasma albumin measurement (mass/volume)2019-07-06 04:36:00* Test Item Value Reference Range Interpretation Comments Albumin (test code = 1751-7) 3.0 3.5-5.0 [facility] HospitalPlasma globulin measurement (mass/volume) 2019-07-06 04:36:00* Test Item Value Reference Range Interpretation Comments Globulin (test code = 65619-0) 2.0 2.3-3.5 [facility]wooderum or plasma albumin/globulin mass butmn8603-07-20 04:36:00* Test Item Value Reference Range Interpretation Comments Albumin/Globulin Ratio (test code = 1759-0) 1.5 0.8-2.0 [facility] or plasma alkaline phosphatase measurement (enzymatic activity/volume)2019-07-06 04:36:00* Test Item Value Reference Range Interpretation Comments Alkaline Phosphatase (test code = 6768-6) 45 40-150 [facility]wooderum or plasma total bilirubin measurement (mass/volume)2019-07-06 04:36:00* Test Item Value Reference Range Interpretation Comments Total Bilirubin (test code = 1975-2) 0.2 0.2-1.2 [facility] HospitalFluoroscopic procedure less than one hour xmlwgjdl3224-10-12 04:36:00* Test Item Value Reference Range Interpretation Comments Aspartate Amino Transf (AST/SGOT) (test code = Aspartate Amino Transf (AST/SGOT)) 13 5-34 [facility]wooderum or plasma alanine aminotransferase measurement (enzymatic activity/volume)2019-07-06 04:36:00* Test Item Value Reference Range Interpretation Comments Alanine Aminotransferase (ALT/SGPT) (test code = 1742-6) 9 0-55 [facility]erum or plasma protein measurement (mass/volume)2019-07-06 04:36:00* Test Item Value Reference Range Interpretation Comments Total Protein (test code = 2885-2) 5.0 6.5-8.1 [facility]um or plasma albumin measurement (mass/volume)2019-07-06 04:36:00* Test Item Value Reference Range Interpretation Comments Albumin (test code = 1751-7) 3.0 3.5-5.0 [facility] HospitalPlasma globulin measurement (mass/volume) 2019-07-06 04:36:00* Test Item Value Reference Range Interpretation Comments Globulin (test code = 13770-9) 2.0 2.3-3.5 [facility]wooderum or plasma albumin/globulin mass uasoh8648-67-92 04:36:00* Test Item Value Reference Range Interpretation Comments Albumin/Globulin Ratio (test code = 1759-0) 1.5 0.8-2.0 [facility]erum or plasma alkaline phosphatase measurement (enzymatic activity/volume)2019-07-06 04:36:00* Test Item Value Reference Range Interpretation Comments Alkaline Phosphatase (test code = 6768-6) 45 40-150 [facility] HospitalBlood ovntqla4476-77-89 12:36:00* Test Item Value Reference Range Interpretation Comments Blood Culture (test code = 81376100) NO GROWTH AFTER 5 DAYS, [facility] ofiuwcd0398-78-64 12:36:00* Test Item Value Reference Range Interpretation Comments Blood Culture (test code = 78404467) NO GROWTH AFTER 5 DAYS, FINAL REPORT [facility] HospitalBacterial urine wsvjcxx0713-52-54 11:25:00* Test Item Value Reference Range Interpretation Comments Urine Culture (test code = 630-4) MORGANELLA MORGANII [facility] HospitalBacterial urine chuhwln0715-73-57 11:25:00* Test Item Value Reference Range Interpretation Comments Urine Culture (test code = 630-4) MORGANELLA MORGANII [facility]woodCR MAMM BILATERAL CAD DIGITAL W/UWZVWZJPSFKU2468-18-62 13:56:52 - SCR MAMM BILATERAL CAD DIGITAL W/AUGMENTATIONBILATERAL DIGITAL SCREENING MAMMOGRAM WITH CAD WITH AUGMENTATION: 01/26/2019CLINICAL: Asymptomatic. Current mammographic images were evaluated by either a [employer] M-Vu or a [employer] Image[employer]er CAD (computer aided detection system). Comparison is made to exams dated 05/10/2014 mammogram, 04/10/2014 mammogram - [facility], and 07/31/2003 mammogram - [facility]. There are scattered fibroglandular tissues in both [...] et/:01/28/2019 13:56:52 Attending Technologist: Savannah Curtis, [facility]FWImaging Technologist: Neeta LEDEZMA, [facility]letter sent: BIRADS 1-2 Normal Mammogram BI-RADS: 2 BenignSodium Rftmz8342-13-82 18:41:00* Test Item Value Reference Range Interpretation Comments Sodium Level (test code = 2951-2) 138 136-145 [facility] HospitalPotassium Fhshc3428-70-32 18:41:00* Test Item Value Reference Range Interpretation Comments Potassium Level (test code = 2823-3) 3.5 3.5-5.1 [facility] HospitalChloride Eyuyw7120-19-79 18:41:00* Test Item Value Reference Range Interpretation Comments Chloride Level (test code = 2075-0) 103 98-107 [facility] HospitalCarbon Dioxide Dqwtn0333-99-83 18:41:00* Test Item Value Reference Range Interpretation Comments Carbon Dioxide Level (test code = 2028-9) 22 22-29 [facility] HospitalAnion Cjw9873-62-66 18:41:00* Test Item Value Reference Range Interpretation Comments Anion Gap (test code = 47957-3) 16.5 8-16 H [facility] HospitalBlood Urea Iyqnmedt3905-28-42 18:41:00* Test Item Value Reference Range Interpretation Comments Blood Urea Nitrogen (test code = 3094-0) 14 7-26 [facility] HospitalCreatinine2019-01-04 18:41:00* Test Item Value Reference Range Interpretation Comments Creatinine (test code = 2160-0) 0.76 0.57-1.11 [facility] HospitalBUN/Creatinine Nhvrr5137-25-74 18:41:00* Test Item Value Reference Range Interpretation Comments BUN/Creatinine Ratio (test code = 3097-3) 18 6-25 [facility] HospitalEstimat Glomerular Filtration Rate 2018-06-22 18:41:00* Test Item Value Reference Range Interpretation Comments Estimat Glomerular Filtration Rate (test code = 918576348) > 60 >60 Ranges were taken from the National Kidney Disease Education Program and the [facility] Kidney Foundation literature.Reference ranges:60 or greater: Qqxcll70-37 ( for 3 consecutive months): Chronic kidney disease 15 or less: Kidney failureEl [facility]o [facility] HospitalGlucose Pepjs7721-07-05 18:41:00* Test Item Value Reference Range Interpretation Comments Glucose Level (test code = LBE0812) 101 74-118 [facility] HospitalCalcium Wxxqd3574-07-01 18:41:00* Test Item Value Reference Range Interpretation Comments Calcium Level (test code = 15566-1) 10.0 8.4-10.2 [facility] HospitalUrine AKE9888-46-94 18:28:00* Test Item Value Reference Range Interpretation Comments Urine WBC (test code = 5821-4) 11-20 0-5 H [facility] HospitalUrine QTB2084-74-56 18:28:00* Test Item Value Reference Range Interpretation Comments Urine RBC (test code = 14644-9) 6-10 0-5 H [facility] HospitalUrine Qlyyouck1621-93-39 18:28:00* Test Item Value Reference Range Interpretation Comments Urine Bacteria (test code = 01102-0) MANY NONE H [facility] HospitalUrine Epithelial Hnadp2742-99-35 18:28:00 * Test Item Value Reference Range Interpretation Comments Urine Epithelial Cells (test code = 08282-3) NONE NONE [facility] HospitalUrine Amorphous Cwetjrbu4816-06-17 18:28:00* Test Item Value Reference Range Interpretation Comments Urine Amorphous Sediment (test code = 8246-1) FEW FEW [facility] HospitalUrine Oaexg6163-16-19 18:16:00* Test Item Value Reference Range Interpretation Comments Urine Color (test code = 5778-6) COLORLESS YELLOW [facility] HospitalUrine Nupwvjv4532-18-60 18:16:00* Test Item Value Reference Range Interpretation Comments Urine Clarity (test code = 21465-9) CLEAR CLEAR [facility] Specific Antccii9283-99-73 18:16:00 * Test Item Value Reference Range Interpretation Comments Urine Specific [place] (test code = 5811-5) 1.015 1.010-1.02 5 [facility] HospitalUrine dK7479-34-77 18:16:00* Test Item Value Reference Range Interpretation Comments Urine pH (test code = 97991-0) 8 5-7 H [facility] Leukocyte Uookuhdz8866-64-40 18:16:00* Test Item Value Reference Range Interpretation Comments Urine Leukocyte Esterase (test code = 5799-2) 2+ NEGATIVE H [facility] Uxbvbrt6449-61-48 18:16:00* Test Item Value Reference Range Interpretation Comments Urine Nitrite (test code = 75366-7) POSITIVE NEGATIVE H [facility] Gedscrf9131-31-72 18:16:00* Test Item Value Reference Range Interpretation Comments Urine Protein (test code = 5804-0) NEGATIVE NEGATIVE [facility] HospitalU[facility] Glucose (UA)2018-06-22 18:16:00* Test Item Value Reference Range Interpretation Comments Urine Glucose (UA) (test code = 2349-9) NEGATIVE NEGATIVE [facility] Ltqpysr3263-95-25 18:16:00* Test Item Value Reference Range Interpretation Comments Urine Ketones (test code = 60581-6) NEGATIVE NEGATIVE [facility] Mcdcnheomqto1393-85-88 18:16:00* Test Item Value Reference Range Interpretation Comments Urine Urobilinogen (test code = 05993-1) 0.2 0.2-1 [facility] HospitalU[facility] Raqpyicjd6525-73-60 18:16:00* Test Item Value Reference Range Interpretation Comments Urine Bilirubin (test code = 1978-6) NEGATIVE NEGATIVE [facility] HospitalUrine Qerwb1537-38-09 18:16:00* Test Item Value Reference Range Interpretation Comments Urine Blood (test code = 06195-3) 2+ NEGATIVE H [facility] Ngqaraw7319-78-46 06:34:00* Test Item Value Reference Range Interpretation Comments Urine Culture (test code = 630-4) Organism: STAPHYLOCOCCUS AUREUS-M RSA [facility] (KUB)2018-03-13 16:28:00 [facility] [address] [address] Patient Name: SHEREEN SPENCER MR #: [id number] : Age/Sex: 52/F Req #: [id number] Adm Physician: Ordered by: VINNY KONG MD Report #: [id number] Location: Room/Bed: Procedure: [id number] DX/ABDOMEN-1VIEW (KUB) Exam Date: 03/13/18 Exam Time: [...] COPY TO: VINNY KONG MD RENAL RETROPERITONEAL TDRX5680-54-22 15:45:00 [facility] [address] [address] Patient Name: SHEREEN SPENCER MR #: [id number] : Age/Sex: 52/F Req #: [id number] Adm Physician: Ordered by: VINNY KONG MD Report #: [id number] Location: Room/Bed: Procedure: [id number] US/US RENAL RETROPERITONEAL COMP E xam Date: [...] 3:47 PM Dictated By: DOROTA PEREZ MD 899 Transcribed By: JUAN DAVID on 03/13/181546 COPY TO: VINNY KONG MD Urine YPU2203-26-52 13:44:00* Test Item Value Reference Range Interpretation Comments Urine WBC (test code = 5821-4) 50- 0-5 H [facility] UOZ5228-59-96 13:44:00* Test Item Value Reference Range Interpretation Comments Urine RBC (test code = 57641-0) 21-50 0-5 H [facility] Yndunnbt1002-43-88 13:44:00* Test Item Value Reference Range Interpretation Comments Urine Bacteria (test code = 63430-3) MODERATE NONE H [facility] Epithelial Vlbor7414-08-08 13:44:00 * Test Item Value Reference Range Interpretation Comments Urine Epithelial Cells (test code = 19536-4) MODERATE NONE [facility] Transitional Epithelial Cells 2018-03-07 13:44:00* Test Item Value Reference Range Interpretation Comments Urine Transitional Epithelial Cells (test code = 8249-5) [facility]ARE NONE [facility] 2018-03-07 13:44:00* Test Item Value Reference Range Interpretation Comments Urine Transitional Epithelial Cells (test code = 8249-5) RARE NONE H [facility] HospitalU[facility] Drqto5633-79-58 13:43:00* Test Item Value Reference Range Interpretation Comments Urine Color (test code = 5778-6) YELLOW YELLOW [facility] Bdxarlp3161-01-13 13:43:00* Test Item Value Reference Range Interpretation Comments Urine Clarity (test code = 11927-4) CLOUDY CLEAR H [facility] Specific Zdjooto7814-20-18 13:43:00 * Test Item Value Reference Range Interpretation Comments Urine Specific [place] (test code = 5811-5) 1.010 1.010-1.02 5 [facility] lP5462-28-22 13:43:00* Test Item Value Reference Range Interpretation Comments Urine pH (test code = 08197-2) 7 5-7 [facility] Leukocyte Wtutzyww4769-40-09 13:43:00* Test Item Value Reference Range Interpretation Comments Urine Leukocyte Esterase (test code = 5799-2) 2+ NEGATIVE H [facility] HospitalU[facility] Fsmscxg9314-17-44 13:43:00* Test Item Value Reference Range Interpretation Comments Urine Nitrite (test code = 21438-4) NEGATIVE NEGATIVE [facility] Jnxxzbk4355-07-11 13:43:00* Test Item Value Reference Range Interpretation Comments Urine Protein (test code = 5804-0) TRACE NEGATIVE H [facility] Glucose (UA)2018-03-07 13:43:00* Test Item Value Reference Range Interpretation Comments Urine Glucose (UA) (test code = 2349-9) NEGATIVE NEGATIVE [facility] Bzwfmud2837-21-16 13:43:00* Test Item Value Reference Range Interpretation Comments Urine Ketones (test code = 94476-9) NEGATIVE NEGATIVE [facility] Xbvoqnolthfm0208-99-52 13:43:00* Test Item Value Reference Range Interpretation Comments Urine Urobilinogen (test code = 25941-0) 0.2 0.2-1 [facility] Yypotjety4656-44-38 13:43:00* Test Item Value Reference Range Interpretation Comments Urine Bilirubin (test code = 1978-6) NEGATIVE NEGATIVE [facility] Kbquy6430-25-82 13:43:00* Test Item Value Reference Range Interpretation Comments Urine Blood (test code = 30303-9) 4+ NEGATIVE H [facility] Wqzgumg9722-22-41 09:45:00* Test Item Value Reference Range Interpretation Comments Urine Culture (test code = 630-4) Organism: PROTEUS MIRABILIS [facility]
[2019-11-25] MEDS ORDERED: VANCOMYCIN 1GM/NS 250 ML 250 ML IV ONE ×2 (15:00→17:00)
--- NOTE | 2019-11-25 15:00 | NUR ---
{null, incontinence care provided for patient. }
--- NOTE | 2019-11-25 16:12 | NUR ---
{null, chelsea called report }
--- NOTE | 2019-11-25 16:30 | NUR ---
{null, RCD PT FROM ER BY BED PT IS ALERT AND ORIENTED VITALS CHECKED PT RESTING ON BED ,ADMISSION ASSESSMENT AND HISTORY DONE IV PATIENT BY SALINE FLUSH STARTED NS 125 ML /HR PT ON SUPRAPUBIC CATHETER BLOODY URINE, SHE IS HAVING MS LOWER EXTREMITY WEAKNESS NO SKIN PROBLEM INSTRUCTED THE PT REGARDING HOSPITAL POLICY AND ROUTINE INCLUDING VISITOR POLICY BED LOW AND LOCKED CALL LIGHT IN REACH }
[2019-11-25 16:33] VITALS: BP 92/69
--- NOTE | 2019-11-25 16:47 | Diagnostic Imaging Report ---
CT of the abdomen and pelvis, without contrast. History: Malfunctioning suprapubic catheter. Comparison: None available. Technique: Multidetector CT scanning of the abdomen and pelvis was performed from the level of the lung bases to the inferior pubic rami without the use of contrast material. Coronal and sagittal multiplanar reformations were obtained. RADIATION DOSE: Total DLP: 366.07 mGy*cm Dose modulation, iterative reconstruction, and/or weight based adjustment of the mA/kV was utilized to reduce the radiation dose to as low as reasonably achievable. FINDINGS: Right basilar atelectasis noted. The visualized lungs are otherwise unremarkable. Partially visualized small pericardial effusion noted. The liver is normal in size and attenuation on this noncontrast enhanced examination. A suspected contracted gallbladder is noted. There is no biliary ductal dilatation. The stomach, spleen, pancreas, and bilateral adrenal glands demonstrate unremarkable noncontrast appearance. The kidneys are normal in size and location. A punctate nonobstructing stone is identified within the interpolar region of the right kidney. There is dilatation of the right renal pelvis and ureter with mild associated adjacent inflammatory change. No radiopaque obstructive urinary stone is appreciated. The left ureter is normal in course and caliber. A suprapubic catheter is identified with retention balloon noted within the lumen of the urinary bladder. The bladder is collapsed around the suprapubic catheter and demonstrates circumferential wall thickening and small amount of intraluminal air The uterus is not visualized and likely surgically absent. No abnormal adnexal masses are identified. The abdominal aorta is normal course and caliber. An IVC filter is identified in place. Please note evaluation the bowel is limited without the use of enteric contrast material. The visualized loops of small and large bowel demonstrate no evidence of obstruction or inflammation. There is no ascites or intraperitoneal free air. No abnormally enlarged lymph nodes are identified within the abdomen or pelvis. No acute osseous abnormality is identified. Soft tissue calcifications noted along the abdominal wall and bilateral gluteal regions which may reflect sequela from prior injection sites. The extraperitoneal soft tissues are otherwise unremarkable. IMPRESSION: 1. Suprapubic catheter noted within the lumen of the urinary bladder. Circumferential wall thickening and small amount of intraluminal air noted within the urinary bladder which may be secondary to under distention and/or recent catheterization. A urinary tract infection could have a similar appearance. 2. Dilatation of the right renal pelvis and ureter with surrounding adjacent inflammatory change. No radiopaque obstructing urinary stone identified. Findings may reflect sequela of recently passed stone. Alternatively, an ascending urinary tract infection could have a similar appearance. 3. Punctate nonobstructive stone noted within the interpolar region the right kidney. 4. Partially visualized small pericardial effusion. Signed by: Dr. Von Craig MD on 11/25/2019 4:44 PM
[2019-11-25] MEDS: SODIUM CHLORIDE 0.9% 1000ML 1,000 ML IV SCH (17:00)
[2019-11-25 17:09] VITALS: BP 92/69
[2019-11-25 17:20] VITALS: BP 94/69
--- NOTE | 2019-11-25 18:00 | NUR ---
{null, CHANGED BATES BAG }
--- NOTE | 2019-11-25 18:54 | NUR ---
{null, PT RESTING ON BED BED SIDE REPORT GIVEN TO ONCOMING NURSE }
--- NOTE | 2019-11-25 19:15 | NUR ---
{null, Patient received awake, alert, lying quietly in bed. no c/o pain noted. ivf continue to infuse without difficulty. pm assessment complete. patient instructed to call for assistance when needed. }
[2019-11-25 20:00] VITALS: BP 120/84
[2019-11-25] MEDS: GABAPENTIN 300 MG CAP PO SCH (21:00)
[2019-11-25] MEDS: DOXEPIN HCL 10 MG CAP PO SCH (21:00)
[2019-11-25] MEDS: ROPINIROLE HCL 1 MG TAB PO SCH (21:00)
[2019-11-25] MEDS: ACETAMINOPHEN/CODEINE 300MG - 30MG TAB PO PRN (21:27)
[2019-11-25] MEDS: TOBRAMYCIN IV SCH (21:27)
[2019-11-25] MEDS: SODIUM CHLORIDE 0.9% IV SCH (21:27)
[2019-11-25 21:31] VITALS: BP 120/84
[2019-11-25] MEDS ORDERED: TOBRAMYCIN 40 MG/ML 2ML VIAL IV SCH (22:00)
[2019-11-26] VITALS (8 sets, daily range): BP systolic 110–128; BP diastolic 71–88
[2019-11-26] MEDS: TOBRAMYCIN IV SCH ×2 (05:35→14:50)
[2019-11-26] MEDS: SODIUM CHLORIDE 0.9% IV SCH ×2 (05:35→14:50)
[2019-11-26 05:36] LABS: BASOPHILS % 0.5 % (0.0-1.0); EOSINOPHILS # (AUTO) 0.2 (0.0-0.4); EOSINOPHILS % 4.9 % (0.0-6.0); HEMATOCRIT 24.5 % (34.2-44.1); LYMPHOCYTES # (AUTO) 0.9 (1.0-3.2); LYMPHOCYTES % 24.3 % (18.0-39.1); MEAN CORPUSCULAR HEMOGLOBIN 31.2 pg (28-32); MEAN CORPUSCULAR HGB CONC 32.2 g/dL (31-35); MEAN CORPUSCULAR VOLUME 96.8 fL (81-99); MONOCYTES # (AUTO) 0.4 (0.2-0.8); MONOCYTES % 10.6 % (4.4-11.3); NEUTROPHILS # (AUTO) 2.2 (2.1-6.9); NEUTROPHILS % 59.4 % (38.7-80.0); PLATELET COUNT 200 x10e3/uL (140-360); RED BLOOD COUNT 2.53 x10e6/uL (3.6-5.1); RED CELL DISTRIBUTION WIDTH 14.6 % (11.7-14.4)
[2019-11-26 05:39] LABS: HEMOGLOBIN 7.9 g/dL (12.0-16.0)
[2019-11-26 05:57] LABS: ALANINE AMINOTRANSFERASE 7 IU/L (0-55); ALBUMIN 2.2 g/dL (3.5-5.0); ALBUMIN/GLOBULIN RATIO 0.7 (0.8-2.0); ALKALINE PHOSPHATASE 37 IU/L (40-150); ANION GAP 11.5 mmol/L (8-16); BLOOD UREA NITROGEN 13 mg/dL (7-26); BUN/CREATININE RATIO 22 (6-25); CALCIUM 8.4 mg/dL (8.4-10.2); CARBON DIOXIDE 17 mmol/L (22-29); CHLORIDE 112 mmol/L (98-107); EST GLOMERULAR FILTRATION RATE > 60 ML/MIN (60-); GLUCOSE 93 mg/dL (74-118); POTASSIUM 3.5 mmol/L (3.5-5.1); SODIUM 137 mmol/L (136-145)
--- NOTE | 2019-11-26 07:20 | NUR ---
{null, PATIENT IN BED RESTING WITH NO S/S OF DISTRESS. IV FLUID INFUSING ORDERED. BED IN LOWER POSITION, CALL LIGHT AT REACH. }
[2019-11-26] MEDS: SODIUM CHLORIDE 0.9% 1000ML 1,000 ML IV SCH (08:00)
[2019-11-26] MEDS: ACETAMINOPHEN/CODEINE 300MG - 30MG TAB PO PRN ×2 (09:10→16:05)
[2019-11-26] MEDS: DOCUSATE SODIUM 100 MG CAP PO SCH (09:14)
[2019-11-26] MEDS: ASPIRIN 81 MG CHEW TAB PO SCH (09:14)
[2019-11-26] MEDS: BUPROPION HCL 75 MG TAB PO SCH ×2 (09:15→17:21)
[2019-11-26] MEDS: OXYBUTYNIN CHLORIDE 5 MG TAB PO SCH ×2 (09:15→17:20)
[2019-11-26] MEDS: SIMETHICONE 80 MG CHEW PO SCH ×2 (09:15→17:20)
[2019-11-26] MEDS: LINACLOTIDE 145 MCG CAPSULE PO SCH (09:15)
[2019-11-26] MEDS: FOLIC ACID 1 MG TAB PO SCH (09:15)
[2019-11-26] MEDS: PRIMIDONE 50 MG TAB PO SCH ×2 (09:15→17:20)
[2019-11-26] MEDS: BACLOFEN 10 MG TAB PO SCH ×2 (09:15→17:20)
[2019-11-26] MEDS: METOPROLOL SUCCINATE 25 MG TAB XL PO SCH ×2 (09:15→17:21)
[2019-11-26] MEDS: CYANOCOBALAMIN 1,000 MCG TAB PO SCH (09:15)
[2019-11-26] MEDS ORDERED: LEVOFLOXACIN 500MG/D5W 100ML 100 ML IV SCH (10:00)
--- NOTE | 2019-11-26 11:08 | NUR ---
{null, PATIENT IV LEAKING, REMOVED WITH TIP INTACT. NEW IV 20 GAUGE INSERTED TO RIGHT FOREARM, PATIENT TOLERATED PROCEDURE WELL. IV FLUID INFUSING ORDERED. }
[2019-11-26] MEDS ORDERED: ONDANSETRON HCL 4 MG ORAL DISINTEGRATING TAB SL PRN (11:30)
--- NOTE | 2019-11-26 15:53 | NUR ---
{null, PATIENT ASSISTED WITH BED BATH, REPOSITIONED IN BED. CALL LIGHT AT REACH. }
--- NOTE | 2019-11-26 16:24 | History and Physical ---
CHIEF COMPLAINT: Blockage of the suprapubic catheter and spasm pain. HISTORY OF PRESENT ILLNESS: A 54-year-old female patient with longstanding history of multiple sclerosis, chronically bed-bound, contracted, bladder dysfunction has suprapubic catheter, which got clogged and has passed some and she was sent to the hospital. The patient is growing gram-negative bacilli, admitted for complicated urinary tract infection. She feels better than yesterday after changing the catheter. PAST MEDICAL HISTORY: Multiple sclerosis, bladder dysfunction, restless legs syndrome, hypertension, constipation, and history of head injury, had a craniotomy. Had a recent surgery when she had a plate that was removed from the cranium. SURGICAL HISTORY: Pacemaker placement 2006, suprapubic catheter, breast implants, craniotomy for head trauma. MEDICATIONS: Wellbutrin 75 mg daily, Tylenol No. 3 one tab q.8 hourly, melatonin tab 10 mg daily, Linzess 290 mg daily, fenofibrate 145 mg daily, gabapentin 300 mg one at bedtime Levsin 0.125 mg q.6 hourly, Requip 1 mg at bedtime, primidone 50 mg twice a day, Betaseron 0.3 mg subcutaneously once one time a day every other day for multiple sclerosis, Colace 100 mg daily, Metrogel 0.75% apply to the face for rosacea, metoprolol ER 25 mg one tab twice a day, doxepin 10 mg at night, Dulcolax, milk of magnesia. PERSONAL HISTORY: Smokes occasionally. ALLERGIES: PENICILLIN. PHYSICAL EXAMINATION: VITAL SIGNS: Blood pressure 110/71, pulse of 91, temperature 98.6. HEENT: Normal. NECK: No JVD. LUNGS: Clear. CVS: Normal. ABDOMEN: Soft. Suprapubic catheter in place. EXTREMITIES: Lower extremities contracted. SKIN: Normal. LABORATORY DATA: CBC; white blood count 3.67, hemoglobin 9.8, dropped to 7.9. Urinalysis abnormal. Urine culture growing gram-negative bacilli. ASSESSMENT: Complicated urinary tract infection from gram-negative bacteria, suprapubic catheter malfunction, multiple sclerosis, anemia. PLAN: Keep on antibiotics. Culture sensitivity. Urology consultation. Infectious Disease consultation. Radha Peña MD TG/MARLENIL /[id number]
--- NOTE | 2019-11-26 16:35 | NUR ---
{null, consult [facility] MEDICAL HISTORY: Multiple sclerosis, bladder dysfunction, restless legs syndrome, hypertension, constipation, and history of head injury, had a craniotomy. Had a recent surgery when she had a plate that was removed from the cranium. SURGICAL HISTORY: Pacemaker placement 2006, suprapubic catheter, breast implants, craniotomy for head trauma. MEDICATIONS: Wellbutrin 75 mg daily, Tylenol No. 3 one tab q.8 hourly, melatonin tab 10 mg daily, Linzess 290 mg daily, fenofibrate 145 mg daily, gabapentin 300 mg one at bedtime Levsin 0.125 mg q.6 hourly, Requip 1 mg at bedtime, primidone 50 mg twice a day, Betaseron 0.3 mg subcutaneously once one time a day every other day for multiple sclerosis, Colace 100 mg daily, Metrogel 0.75% apply to the face for rosacea, metoprolol ER 25 mg one tab twice a day, doxepin 10 mg at night, Dulcolax, milk of magnesia. PERSONAL HISTORY: Smokes occasionally. ALLERGIES: PENICILLIN. [id number] }
--- NOTE | 2019-11-26 19:10 | NUR ---
{null, patient received awake, alert, lying quietly in bed. no c/o pain noted. ivf continue to infuse without difficulty. pm assessment complete. call lindsey placed within reach. patient instructed to call for assistance when needed. }
[2019-11-26] MEDS: MEROPENEM 500MG/ NS 50ML 50 ML IV SCH (20:00)
[2019-11-26] MEDS: GABAPENTIN 300 MG CAP PO SCH (21:00)
[2019-11-26] MEDS: ROPINIROLE HCL 1 MG TAB PO SCH (21:00)
[2019-11-26] MEDS: DOXEPIN HCL 10 MG CAP PO SCH (21:00)
[2019-11-26] MEDS: MELATONIN 5 MG TABLET PO SCH (21:00)
--- NOTE | 2019-11-26 21:11 | Consultation ---
DATE OF CONSULTATION: REASON FOR CONSULTATION: UTI. HISTORY OF PRESENT ILLNESS: This patient is well known to me from before. She is a very pleasant 54-year-old white female, who has history of severe multiple sclerosis, debilitated, bed-bound, contracted bladder, dysfunctional bladder, she has suprapubic catheter, acute recurrent UTI, although she is taking Hiprex as a prophylactic. She is coming with 1-day history of not feeling well, feeling really bad. The patient was admitted and started on antibiotic. Today, she is feeling better. PAST MEDICAL HISTORY: The patient has history of multiple sclerosis, bladder dysfunction, hypertension, and chronic constipation. PAST SURGICAL HISTORY: Pacemaker. ALLERGIES: PENICILLIN, BUT SHE DID WELL WITH CEPHALOSPORIN. SOCIAL HISTORY: She is from a correction. FAMILY HISTORY: Otherwise, noncontributory. REVIEW OF SYSTEMS: Since she came here, she says she is feeling better. When she first came, she says she is feeling really bad with fever and chills and feeling really bad over her urine culture has gram-negative rods. Her white count is 6.3 on admission, today is 3.6; hemoglobin 7.9. COVID-19 was negative. Sodium 137, potassium 3.5 with creatinine 0.65. MEDICATIONS LIST: She is currently on: 1. Metoprolol. 2. Wellbutrin. 3. Ditropan. 4. She is on acetaminophen. 5. She received one dose of tobramycin . 6. She is also on levofloxacin. I do not have cultures now so far. PHYSICAL EXAMINATION: GENERAL: She is currently alert, oriented, does not seem to be in no acute distress. VITAL SIGNS: Stable, currently afebrile. HEENT: She in not icteric. NECK: Supple. CHEST: Clear. HEART: No murmur. ABDOMEN: Soft. IMPRESSION AND PLAN: Sepsis on admission in a patient who is colonized with multidrug resistant. I would recommend to hold the tobramycin because of the side effects of on renal injury. We will await cultures. We will put her on meropenem clinically seems to be stable, discontinue Levaquin also. We will discuss with Dr. House. The patient is known to have: 1. Multidrug-resistant pathogen. 2. Multiple sclerosis. 3. Bladders dysfunction. 4. We will follow. MD ANNETTE Schwartz/STACI /[id number]
[2019-11-27] VITALS (8 sets, daily range): BP systolic 96–136; BP diastolic 68–86
[2019-11-27] MEDS: SODIUM CHLORIDE 0.9% 1000ML 1,000 ML IV SCH ×3 (03:00→14:30)
[2019-11-27] MEDS: MEROPENEM 500MG/ NS 50ML 50 ML IV SCH ×3 (04:00→20:00)
--- NOTE | 2019-11-27 07:30 | NUR ---
{null, RECD PT IN BED SLEEPING,NO DISTRESS NOTED,NO S/S DISCOMFORT }
[2019-11-27] MEDS: ACETAMINOPHEN/CODEINE 300MG - 30MG TAB PO PRN (08:45)
[2019-11-27] MEDS ORDERED: LEVOFLOXACIN 500 MG TAB PO SCH (09:00)
[2019-11-27] MEDS: ASPIRIN 81 MG CHEW TAB PO SCH (09:20)
[2019-11-27] MEDS: DOCUSATE SODIUM 100 MG CAP PO SCH (09:20)
[2019-11-27] MEDS: FOLIC ACID 1 MG TAB PO SCH (09:21)
[2019-11-27] MEDS: LINACLOTIDE 145 MCG CAPSULE PO SCH (09:21)
[2019-11-27] MEDS: OXYBUTYNIN CHLORIDE 5 MG TAB PO SCH ×2 (09:21→17:00)
[2019-11-27] MEDS: BACLOFEN 10 MG TAB PO SCH ×2 (09:21→17:00)
[2019-11-27] MEDS: SIMETHICONE 80 MG CHEW PO SCH ×2 (09:22→17:00)
[2019-11-27] MEDS: BUPROPION HCL 75 MG TAB PO SCH ×2 (09:22→17:00)
[2019-11-27] MEDS: CYANOCOBALAMIN 1,000 MCG TAB PO SCH (09:22)
[2019-11-27] MEDS: PRIMIDONE 50 MG TAB PO SCH ×2 (09:22→17:00)
[2019-11-27] MEDS: METOPROLOL SUCCINATE 25 MG TAB XL PO SCH ×2 (09:22→17:00)
--- NOTE | 2019-11-27 12:18 | Progress Note ---
DATE: SUBJECTIVE: The patient is seen and evaluated. Available labs and notes reviewed. Discussed with Dr. Martínez. Discussed with the nurse. REVIEW OF SYSTEMS: No nausea, vomiting, fever, chills, chest pain, shortness of breath, headache, rash, or dysuria. The patient states that she is paraplegic and she wants to eat regular food. Overall, very pleasant. PHYSICAL EXAMINATION: VITAL SIGNS: Temperature is 98.4, pulse is 73, respirations 16, and blood pressure 117/70. The patient remains afebrile since admission on 11/25/2019. GENERAL: Alert and oriented x3, very pleasant, very good conversation. Paige is a 54-year-old lady with a history of multiple sclerosis and she is paraplegic, but she is able to move in the bed. She has been in custodial for 13 years. CV: S1 and S2. CHEST: Equal expansion. Clear to auscultation. No acute distress. ABDOMEN: Soft, obese, and nontender. HEENT: Moist. No pallor. No JVD. EXTREMITIES: As mentioned above, she is paraplegic. Moves upper extremities. She is able to move in the bed. No acute finding. : The patient remains with suprapubic cath. The site noted. No significant erythema or drainage noted. MEDICATIONS: Medication list reviewed and from Infectious Disease point of view, the patient is on Merrem. LABORATORY STUDIES: White count of 3.67, hemoglobin 7.9, and platelet 200. Sodium 137, potassium 3.5, and creatinine 0.6. Serology; coronavirus PCR 11/25/2019, not detected. MICROBIOLOGY: Blood culture negative from 11/25/2019, for 24 hours. Urine culture, gram-negative bacilli from 11/25/2019, with identification and sensitivity pending. RADIOLOGY STUDIES: CT of abdomen and pelvis showed suprapubic cath, dilation of the right renal pelvis and ureter with surrounding and adjacent inflammatory changes. Also, punctate nonobstructive stone noted within the interpolar region of the right kidney. Also, partially visualized small pericardial effusion. ASSESSMENT AND PLAN: 1. Sepsis, on admission and colonization with MDR organism. Urine culture as mentioned above with gram-negative bacilli, pending identification and sensitivity. The patient is currently on meropenem. We will continue with antibiotics and follow up with the urine culture results. The patient also has a suprapubic that is scheduled or going to be replaced per Urology note. 2. Multiple sclerosis. 3. Bladder dysfunction. 4. Paraplegic. 5. Insomnia. 6. Peripheral neuropathy. 7. Chronic pain syndrome. 8. Continue with antibiotics. Continue with PT/OT. Monitor the patient clinically and follow up with urine culture. Further management of this patient is based on laboratory and physical examination. Discussed with Dr. Martínez in details. Please refer to chart for more information. Dictated by Lenny Pugh) CELESTE Shoemaker Rodriguez Martínez MD /MODL /[id number]
--- NOTE | 2019-11-27 18:20 | NUR ---
{null, CHANGED AND REPOSITIONED PATIENT,DENIES PAIN,NO DISTRESS NTOED. }
--- NOTE | 2019-11-27 19:00 | NUR ---
{null, Patient received awake, alert, lying quietly in bed. no c/o pain noted. ivf continue to infuse without difficulty. pm assessment complete. call lindsey placed within reach. patient instructed to call for assistance when needed. }
[2019-11-27] MEDS: MELATONIN 5 MG TABLET PO SCH (20:52)
[2019-11-27] MEDS: GABAPENTIN 300 MG CAP PO SCH (20:52)
[2019-11-27] MEDS: DOXEPIN HCL 10 MG CAP PO SCH (20:52)
[2019-11-27] MEDS: ROPINIROLE HCL 1 MG TAB PO SCH (20:52)
[2019-11-28] VITALS (8 sets, daily range): BP systolic 107–159; BP diastolic 69–94
[2019-11-28] MEDS: MEROPENEM 500MG/ NS 50ML 50 ML IV SCH ×3 (03:25→21:49)
[2019-11-28] MEDS: SODIUM CHLORIDE 0.9% 1000ML 1,000 ML IV SCH ×3 (03:55→22:30)
[2019-11-28] MEDS: ACETAMINOPHEN/CODEINE 300MG - 30MG TAB PO PRN ×2 (03:55→22:07)
--- NOTE | 2019-11-28 07:25 | NUR ---
{null, PT IN BED SLEEPING,NO S/S DISCOMFORT. }
[2019-11-28] MEDS: ASPIRIN 81 MG CHEW TAB PO SCH (08:16)
[2019-11-28] MEDS: DOCUSATE SODIUM 100 MG CAP PO SCH (08:16)
[2019-11-28] MEDS: OXYBUTYNIN CHLORIDE 5 MG TAB PO SCH ×2 (08:17→16:44)
[2019-11-28] MEDS: PRIMIDONE 50 MG TAB PO SCH ×2 (08:17→16:44)
[2019-11-28] MEDS: BACLOFEN 10 MG TAB PO SCH ×2 (08:17→16:44)
[2019-11-28] MEDS: SIMETHICONE 80 MG CHEW PO SCH ×2 (08:17→16:44)
[2019-11-28] MEDS: CYANOCOBALAMIN 1,000 MCG TAB PO SCH (08:17)
[2019-11-28] MEDS: LINACLOTIDE 145 MCG CAPSULE PO SCH (08:17)
[2019-11-28] MEDS: METOPROLOL SUCCINATE 25 MG TAB XL PO SCH ×2 (08:17→17:00)
[2019-11-28] MEDS: FOLIC ACID 1 MG TAB PO SCH (08:17)
[2019-11-28] MEDS: BUPROPION HCL 75 MG TAB PO SCH ×2 (08:18→16:44)
[2019-11-28] MEDS ORDERED: SODIUM CHLORIDE 0.9% 250ML 250 ML IV NR (09:00)
--- NOTE | 2019-11-28 09:15 | NUR ---
{null, DR KONG HERE CHANGED PUBIC CATHETER TO 26 FR.,TOLERATED WELL. }
[2019-11-28 09:39] LABS: BASOPHILS % 0.6 % (0.0-1.0); EOSINOPHILS # (AUTO) 0.3 (0.0-0.4); EOSINOPHILS % 5.2 % (0.0-6.0); HEMATOCRIT 24.9 % (34.2-44.1); LYMPHOCYTES # (AUTO) 0.8 (1.0-3.2); MEAN CORPUSCULAR HEMOGLOBIN 31.1 pg (28-32); MEAN CORPUSCULAR HGB CONC 32.1 g/dL (31-35); MEAN CORPUSCULAR VOLUME 96.9 fL (81-99); MONOCYTES # (AUTO) 0.6 (0.2-0.8); MONOCYTES % 11.8 % (4.4-11.3); NEUTROPHILS # (AUTO) 3.1 (2.1-6.9); NEUTROPHILS % 64.8 % (38.7-80.0); PLATELET COUNT 317 x10e3/uL (140-360); RED BLOOD COUNT 2.57 x10e6/uL (3.6-5.1); RED CELL DISTRIBUTION WIDTH 14.7 % (11.7-14.4)
[2019-11-28] MEDS ORDERED: BISACODYL 5 MG TAB EC PO SCH (10:00)
[2019-11-28] MEDS ORDERED: CITRATE OF MAGNESIA 300ML BOTTLE PO SCH (10:00)
[2019-11-28] MEDS ORDERED: PEG (High)/E-LYTE SOLN 4,000 ML BTL PO SCH (10:00)
--- NOTE | 2019-11-28 11:07 | Progress Note ---
DATE: SUBJECTIVE: The patient is seen and evaluated. Available labs and notes reviewed. Discussed with the nurse. REVIEW OF SYSTEMS: Feels better. No nausea, vomiting, fever, chills, chest pain, shortness of breath, headache, rash, dysuria. PHYSICAL EXAMINATION: VITAL SIGNS: Temperature is 98.6, pulse 72, respirations 16, blood pressure 119/72. MEDICATIONS: Medication list reviewed. From Infectious Disease point of view, the patient is on meropenem. LABORATORY STUDIES: White count of 4.82, hemoglobin 8, platelets 317. No new BMP available. Creatinine on 11/26/2019 was 0.6. SEROLOGY: Coronavirus PCR 11/25/2019, not reactive. MICROBIOLOGY: Blood culture 11/24 negative. Urine culture 11/24 Proteus mirabilis ESBL, it is sensitive to Merrem, tobramycin, amikacin, Zosyn, gentamicin, Invanz, Unasyn and Bactrim. RADIOLOGY STUDIES: No new Radiology studies available. ASSESSMENT AND PLAN: Sepsis on admission, urine culture and ESBL Proteus as mentioned above, however, sensitive to Merrem, the patient remains on meropenem. The patient with suprapubic catheter, which was exchanged today by Urology. Continue to monitor. 1. Multiple sclerosis. 2. Anemia-Heme/Oncology on case. Pack red blood cells ordered. Plan for EGD and colonoscopy tomorrow. 3. Bladder dysfunction-with suprapubic catheter. 4. Paraplegic. 5. Insomnia. 6. Peripheral neuropathy. 7. Chronic pain syndrome. 8. Continue meropenem, follow up with EGD and colonoscopy tomorrow. The patient is status post suprapubic catheter exchange. Urine culture as above. Continue to monitor patient clinically. Follow with the labs. Further management of this patient based on daily findings on laboratory and physical examination. Discussed with Dr. Martínez in details. Please refer to chart for more information. Dictated by Lenny Shoemaker PA-C (Al) Rodriguez Martínez MD /MODL /[id number]
--- NOTE | 2019-11-28 12:00 | NUR ---
{null, PREP STARTED FOR COLONSOCOPY }
[2019-11-28 15:52] LABS: CLARITY,URINE TURBID (CLEAR); COLOR,URINE RED (YELLOW)
[2019-11-28 15:53] LABS: BILIRUBIN,URINE NEGATIVE (NEGATIVE); KETONES,URINE NEGATIVE (NEGATIVE); LEUKOCYTE ESTERASE ,URINE MODERATE (NEGATIVE); NITRITE,URINE NEGATIVE (NEGATIVE); PROTEIN,URINE DIPSTICK TRACE (NEGATIVE); URINE UROBILINOGEN 0.2 mg/dL (0.2 - 1)
[2019-11-28 16:23] LABS: BACTERIA,URINE RARE /HPF
[2019-11-28 16:24] LABS: EPITHELIAL CELLS,URINE RARE /LPF; RBC,URINE >50 /HPF (0-5)
--- NOTE | 2019-11-28 19:00 | NUR ---
{null, Received patient awake, not in distress, call light within reach, advised to call anytime for assistance. Will continue to monitor }
[2019-11-28] MEDS: GABAPENTIN 300 MG CAP PO SCH (21:49)
[2019-11-28] MEDS: MELATONIN 5 MG TABLET PO SCH (21:49)
[2019-11-28] MEDS: DOXEPIN HCL 10 MG CAP PO SCH (21:49)
[2019-11-28] MEDS: ROPINIROLE HCL 1 MG TAB PO SCH (21:49)
[2019-11-29] VITALS (7 sets, daily range): BP systolic 135–147; BP diastolic 78–93
--- NOTE | 2019-11-29 00:40 | Consultation ---
DATE OF CONSULTATION: 11/28/2019 HISTORY OF PRESENT ILLNESS: This is a 54-year-old, who has a history of multiple sclerosis, chronically bed-bound, contracted with bladder dysfunction, has suprapubic catheter, was admitted to the hospital because of Gram-negative bacilli and urosepsis. The patient, however, was also found to have anemia with hemoglobin as low as 7.9. She denies any abdominal pain. She denies any nausea or vomiting. She never have any colonoscopy in the past. She did have a CAT scan of the abdomen and pelvis, which shows suprapubic catheter with circumferential wall thickening and small amount of intraluminal air in the urinary bladder, and also otherwise unremarkable. PAST MEDICAL PROBLEM: Significant for history of multiple sclerosis. History of bladder dysfunction before. History of hypertension and chronic constipation. History of restless legs syndrome, previous head injury and craniotomy. Status post pacemaker placement, suprapubic catheter, breast implants, and craniotomy. MEDICATIONS: At home including; Wellbutrin, Tylenol No. 3, melatonin, Linzess, fenofibrate, gabapentin, Requip, Betaseron, Colace, and Metrogel. SOCIAL HISTORY: The patient smokes occasionally. ALLERGIES: PENICILLIN. REVIEW OF SYSTEMS: Denies any chest pain or shortness of breath. Denies any dysphagia or odynophagia. Denies any dysuria or hematuria, or any kind of syncopal episode. PHYSICAL EXAMINATION: GENERAL: The patient is awake and alert, appears to be stable, in no acute distress at this point. VITAL SIGNS: Afebrile currently with stable vital signs. HEAD, EYES, EARS, NOSE AND THROAT: Normocephalic and atraumatic. Sclerae are anicteric. NECK: Supple. HEART: Regular. LUNGS: Clear. ABDOMEN: Soft. There is no distention at this point, it is nontender. EXTREMITIES: No clearance. LABORATORY DATA: Significant for today WBC 4.8, hemoglobin 8, hematocrit 24.9, and BUN 13, creatinine of 0.6. CAT scan as mentioned before. ASSESSMENT: 1. Anemia. Etiology is unclear at this point. There are no signs of active bleeding at this point. 2. History of multiple sclerosis. 3. History of hypertension. RECOMMENDATIONS: Continue on current care at this point with antibiotic. We will proceed with EGD and colonoscopy for further evaluation tomorrow. Follow labs and clinically. MD DANNI Hernandez/MODL /[id number] cc: MD Vicky Bernal MD
[2019-11-29] MEDS: MEROPENEM 500MG/ NS 50ML 50 ML IV SCH ×3 (03:10→21:18)
[2019-11-29] MEDS: ACETAMINOPHEN/CODEINE 300MG - 30MG TAB PO PRN ×3 (05:15→21:17)
[2019-11-29] MEDS: SODIUM CHLORIDE 0.9% 1000ML 1,000 ML IV SCH ×3 (06:30→12:33)
--- NOTE | 2019-11-29 06:58 | NUR ---
{null, Received patient lying in bed with eyes open. Respiration even and unlabored without SOB. Call light in reach. }
--- NOTE | 2019-11-29 07:22 | NUR ---
{null, walking rounds done with misti RN, call light within easy reach. Check VS s/p transfusion at 0740, communicated with misti RN }
[2019-11-29 08:04] LABS: BASOPHILS % 0.6 % (0.0-1.0); EOSINOPHILS # (AUTO) 0.3 (0.0-0.4); EOSINOPHILS % 4.5 % (0.0-6.0); MEAN CORPUSCULAR HGB CONC 33.3 g/dL (31-35); MONOCYTES # (AUTO) 0.7 (0.2-0.8); MONOCYTES % 10.8 % (4.4-11.3); NEUTROPHILS # (AUTO) 4.4 (2.1-6.9); NEUTROPHILS % 68.5 % (38.7-80.0); PLATELET COUNT 330 x10e3/uL (140-360); RED BLOOD COUNT 3.55 x10e6/uL (3.6-5.1); RED CELL DISTRIBUTION WIDTH 14.9 % (11.7-14.4)
[2019-11-29] MEDS: ASPIRIN 81 MG CHEW TAB PO SCH (09:00)
[2019-11-29] MEDS: OXYBUTYNIN CHLORIDE 5 MG TAB PO SCH ×2 (09:00→15:35)
[2019-11-29] MEDS: FOLIC ACID 1 MG TAB PO SCH (09:00)
[2019-11-29] MEDS: CYANOCOBALAMIN 1,000 MCG TAB PO SCH (09:00)
[2019-11-29] MEDS: PRIMIDONE 50 MG TAB PO SCH ×2 (09:00→15:35)
[2019-11-29] MEDS: BUPROPION HCL 75 MG TAB PO SCH ×2 (09:00→15:37)
[2019-11-29] MEDS: BACLOFEN 10 MG TAB PO SCH ×2 (09:00→15:35)
[2019-11-29] MEDS: SIMETHICONE 80 MG CHEW PO SCH ×2 (09:00→15:35)
[2019-11-29] MEDS: DOCUSATE SODIUM 100 MG CAP PO SCH (09:00)
[2019-11-29] MEDS: METOPROLOL SUCCINATE 25 MG TAB XL PO SCH ×2 (09:00→15:36)
[2019-11-29] MEDS: LINACLOTIDE 145 MCG CAPSULE PO SCH (09:00)
--- NOTE | 2019-11-29 11:10 | NUR ---
{null, PT DISCUSSED IN MDR. PT RECOMMENDED SNF LOC TO CONTINUE PT. 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 CALL TO DR MA TO REQUEST SNF ORDER WHEN DC. }
--- NOTE | 2019-11-29 12:38 | Progress Note ---
DATE: SUBJECTIVE: The patient is seen and evaluated. Available labs and notes reviewed. REVIEW OF SYSTEMS: No nausea, vomiting, fever, chills, chest pain, shortness of breath, headache, rash, dysuria, or polyuria. PHYSICAL EXAMINATION: VITAL SIGNS: Temperature 97.8, pulse 63, respirations 18, and blood pressure 145/87. GENERAL: Alert and oriented, in no acute distress, very pleasant. CV: S1, S2. CHEST: Equal expansion. Clear to auscultation. No acute distress. ABDOMEN: Soft. Nontender. No distention. HEENT: Moist. No pallor. No JVD. EXTREMITIES: Weak. MEDICATIONS: From Infectious Disease point of view, the patient is on meropenem. LABORATORY STUDIES: White count is 6.41, hemoglobin 11, platelet 330. Sodium 137, potassium 3.5, creatinine 0.6: Coronavirus PCR 11/25/2019, negative. Urine culture, ESBL Proteus mirabilis. Blood culture negative on 11/24. RADIOLOGY: No new radiology study is available. ASSESSMENT AND PLAN: 1. Sepsis on admission with ESBL Proteus in the urine culture. Continue with meropenem, status post exchange of suprapubic catheter. 2. Multiple sclerosis. 3. Bladder dysfunction with suprapubic catheter. 4. Paraplegic. 5. Insomnia. 6. Peripheral neuropathy. 7. Anemia. Packed red blood cells per others, patient could get EGD and colonoscopy today. 8. Continue with antibiotic. Monitor the patient clinically. Follow with the labs and follow with the GI scope results. This case is discussed with Dr. Martínez in detail. Please refer to chart for more information. Dictated by Lenny Shoemaker PA-C (Al) Rodriguez Martínez MD /MODL /[id number]
--- NOTE | 2019-11-29 13:10 | NUR ---
{null, Patient is transported to OR at this time for procedure. }
--- NOTE | 2019-11-29 13:25 | NUR ---
{lavinia, SPOKE WITH PT WHOM STATES DUE TO HER CONDITION SHE CANNOT SIGN, SHE STATES SHE IS [facility] AND WANTS TO RETURN THERE, EDUCTED ABOUT IMM AND LET HER KNOW IF SHE HAS ANY QUESTIONS I WILL ASSIST HER IN ANY WAY I CAN. SHE STATES NOT GOING TO APPEAL. FAXED CLINICALS TO FACILITY. WAITING ON MOT, WILL COMPLETE RTF AND PUT WITH PACKET AT NURSES STATION. }
[2019-11-29] MEDS ORDERED: PROPOFOL IV EMULSION 10 MG/ML 20 ML VIAL ONE (14:09)
[2019-11-29] MEDS ORDERED: LIDOCAINE HCL 2% LOCAL INJ 5 ML SDV VIAL INJ ONE (14:09)
--- NOTE | 2019-11-29 15:54 | NUR ---
{null, [facility] FACILITY DISCHARGE INFORMATION PATIENT HAS BEEN ACCEPTED TO: NAME: [facility] ADDRESS: [id number] ACCEPTING CLEANER AND PREPARER: RODGER ROB ACCEPTING MD: DR SALES ROOM: 22[address] NURSE CALL REPORT TO: [phone] IMM SIGNED AND OBTAINED (if applicable): THE FOLLOWING DOCUMENTS MUST ACCOMPANY PATIENT FOR TRANSFER: COPIED CHART: }
--- NOTE | 2019-11-29 17:25 | NUR ---
{null, Report given to TEDDY Moore from [facility]. }
--- NOTE | 2019-11-29 19:56 | NUR ---
{null, RECEIVED REPORT FROM [facility] NURSE TOLD PT IS READY TO TRANSFER TO [facility] .PT RESTING NO ACUTE DISTRESS NOTED WAITING FOR THE AMBULANCE TO TRANSFER }
[2019-11-29] MEDS: DOXEPIN HCL 10 MG CAP PO SCH (21:18)
[2019-11-29] MEDS: ROPINIROLE HCL 1 MG TAB PO SCH (21:18)
[2019-11-29] MEDS: MELATONIN 5 MG TABLET PO SCH (21:18)
[2019-11-29] MEDS: GABAPENTIN 300 MG CAP PO SCH (21:18)
== END 2019-11-29 21:53 | disposition home or self-care (01) | DRG 698 ==
LOC: ER 12:01 → ERHOLD 14:17 → MED/SURG3 16:21
PROVIDERS: ADMIT Internal Medicine; ATTEND Internal Medicine
PROC: 0DBK8ZX Excision of Ascending Colon, Via Natural or Artificial Opening Endoscopic, Diagnostic (ICD-10-PCS; principal; 2019-11-29 13:30)
PROC: 0DBL8ZX Excision of Transverse Colon, Via Natural or Artificial Opening Endoscopic, Diagnostic (ICD-10-PCS; 2019-11-29 13:30)
PROC: 30233N1 Transfusion of Nonautologous Red Blood Cells into Peripheral Vein, Percutaneous Approach (ICD-10-PCS; 2019-11-29 13:30)
DX: T83.510A Infection and inflammatory reaction due to cystostomy catheter, initial encounter (principal); A41.9 Sepsis, unspecified organism; N13.2 Hydronephrosis with renal and ureteral calculous obstruction; Z16.12 Extended spectrum beta lactamase (ESBL) resistance; G82.20 Paraplegia, unspecified; T83.090A Other mechanical complication of cystostomy catheter, initial encounter; I10 Essential (primary) hypertension; E78.5 Hyperlipidemia, unspecified; G35 Multiple sclerosis; Z86.711 Personal history of pulmonary embolism; Z95.810 Presence of automatic (implantable) cardiac defibrillator; Z88.1 Allergy status to other antibiotic agents; Z88.0 Allergy status to penicillin; R53.1 Weakness; Z74.01 Bed confinement status; N30.90 Cystitis, unspecified without hematuria; B96.89 Other specified bacterial agents as the cause of diseases classified elsewhere; D64.9 Anemia, unspecified; Z87.820 Personal history of traumatic brain injury; N31.9 Neuromuscular dysfunction of bladder, unspecified; K63.5 Polyp of colon; K57.30 Diverticulosis of large intestine without perforation or abscess without bleeding; K64.8 Other hemorrhoids; D63.8 Anemia in other chronic diseases classified elsewhere; G25.81 Restless legs syndrome; Z87.442 Personal history of urinary calculi; N32.81 Overactive bladder; B96.4 Proteus (mirabilis) (morganii) as the cause of diseases classified elsewhere; N39.498 Other specified urinary incontinence; G62.9 Polyneuropathy, unspecified; G89.4 Chronic pain syndrome
CPT/HCPCS: 36415; 43239; 45378; 45385; 71045; 74176; 80053; 81001; 82550; 82553; 83605; 83690; 83735; 84443; 84484; 85025; 86850; 86900; 86920; 87040; 87086; 87186; 87635; 88305; 88312; 93005; 97139; 99284; J1956; J2001; J3260; J3370; J7030; J7050; P9016

== ENCOUNTER → 2020-05-01 | Day surgery (SDC) | payer MEDICARE ==
[2020-04-29 14:49] LABS: BASOPHILS % 0.9 % (0.0-1.0); EOSINOPHILS # (AUTO) 0.2 (0.0-0.4); EOSINOPHILS % 4.8 % (0.0-6.0); HEMATOCRIT 33.2 % (34.2-44.1); HEMOGLOBIN 10.7 g/dL (12.0-16.0); LYMPHOCYTES # (AUTO) 1.4 (1.0-3.2); MEAN CORPUSCULAR HEMOGLOBIN 31.6 pg (28-32); MEAN CORPUSCULAR HGB CONC 32.2 g/dL (31-35); MEAN CORPUSCULAR VOLUME 97.9 fL (81-99); MONOCYTES # (AUTO) 0.3 (0.2-0.8); MONOCYTES % 6.9 % (4.4-11.3); NEUTROPHILS # (AUTO) 2.4 (2.1-6.9); NEUTROPHILS % 55.2 % (38.7-80.0); PLATELET COUNT 278 x10e3/uL (140-360); RED BLOOD COUNT 3.39 x10e6/uL (3.6-5.1); RED CELL DISTRIBUTION WIDTH 13.6 % (11.7-14.4)
[2020-04-29 15:02] LABS: BLOOD UREA NITROGEN 20 mg/dL (7-26); BUN/CREATININE RATIO 29 (6-25); CALCIUM 8.9 mg/dL (8.4-10.2); CARBON DIOXIDE 22 mmol/L (22-29); CHLORIDE 109 mmol/L (98-107); EST GLOMERULAR FILTRATION RATE > 60 ML/MIN (60-); GLUCOSE 98 mg/dL (74-118); SODIUM 139 mmol/L (136-145)
[~2020-05-01] MED LIST changes: +B&O 60MG R/S 60 MG SUPP PR ONE; +BETASERON0.3 M1 SC; +BISACODYL5 MG PO; +BOTULINUM TOXIN TYPE A 100 UNIT VIAL IM ONE; +FENTANYL CITRATE/PF 100MCG/2 ML INJ ONE; +GENTAMICIN 80MG/NS 100 ML 200 ML IV ONE; +IOPAMIDOL 300MG/ML 50ML INFUS..BTL IV ONE; +LORATADINE10 MG PO; +ONDANSETRON2 MG/1 ML PO; +TOPROL XL25 MG PO; +TYLENOL EXTRA500 MG PO; +VITAMIN D3 COM1 EACH PO; +VITAMIN D3125 MCG PO
[2020-05-01 14:15] VITALS: BP 145/91
--- NOTE | 2020-05-02 17:12 | Operative Report ---
DATE OF PROCEDURE: 05/01/2020 SURGEON: Prabhjot Rosas MD PREOPERATIVE DIAGNOSES: 1. Chronic urinary retention. 2. Suprapubic cystoscope. 3. Urinary tract infection. 4. Refractory urge incontinence. 5. Atrophic (senile) vaginitis. POSTOPERATIVE DIAGNOSES: 1. Chronic urinary retention. 2. Suprapubic cystoscope. 3. Urinary tract infection. 4. Refractory urge incontinence. 5. Atrophic (senile) vaginitis. OPERATIONS PERFORMED: 1. Complicated change of cystostomy tube (separate procedure performed for the retention and cystoscopy status). 2. Cystourethroscopy with bilateral ureteral catheterization and retrograde ureteropyelography (separate procedure performed for urinary tract infection). 3. Interpretation of retrograde pyelography, no radiologist present. 4. Cystourethroscopy with intravesical injection of Botox (separate procedure performed for the refractory urge incontinence). 5. Pelvic examination under anesthesia. ANESTHESIA: General. COMPLICATIONS: None. CLINICAL SUMMARY: Paige Myers is an unfortunate 54-year-old woman, who chronic suprapubic tube. She has had a history of bladder stones and she has chronic urinary tract infection. The patient is supposed to be having daily suprapubic tube irrigation at the [facility]. She has recurrent problem with plugging of suprapubic cystostomy. She also has refractory urge incontinence and now has been successfully managed with Botox injections. She is aware of the risks of bleeding, infection, injury to adjacent structures elected to proceed. PROCEDURE IN DETAIL: Informed consent was verified. Paige Myers was appropriately identified and taken to the operating room, placed on the cystoscopy table in supine position. Anesthesia was uneventfully begun. The suprapubic tube was removed and her abdomen and genitalia were prepared and draped in usual sterile fashion. A 24-Vietnamese Kelley catheter was then inserted into the patient's suprapubic tract and once it was in the appropriate position the balloon inflated with 10 mL sterile water. Catheter was irrigated to and fro to ensure it drained properly. The cystoscope sheath with obturator in place was atraumatically inserted into the patient's urethra. Panendoscopy of the bladder revealed copious amount of debris within the bladder, we irrigated out this debris, which did not include any stones. The normally positioned and configured ureteral orifices were identified. There were no suspicious lesion. Chronic inflammation was identified. We identified the suprapubic cystostomy anteriorly. An 8-Vietnamese catheter was used to cannulate each ureter and retrograde ureteropyelography was performed. INTERPRETATION OF RETROGRADE URETEROPYELOGRAPHY: Contrast was instilled in a retrograde fashion bilaterally. There were no tumor, no stones, and no diverticula. Unobstructed drainage was observed bilaterally. 200 units of Botox were dissolved in 20 mL of sterile saline. We then injected 1 mL aliquots in an even distribution throughout the supratrigonal bladder. The patient's bladder was then drained. Cystoscope was withdrawn. Pelvic examination under anesthesia revealed atrophic (senile) vaginitis. No abnormal palpable pelvic masses could be appreciated. There were no obvious mucosal lesions. The patient was then uneventfully reversed from anesthesia and taken to recovery room in stable condition. There were no complications to the procedure. She tolerated the procedure well. Plans will be to see the patient in the office approximately three weeks to change her cystostomy tube. I wrote orders postoperatively for daily irrigation was to, hopefully these orders will be executed and catheter plugging will be minimized. Prabhjot Rosas MD [place]/MODL /[id number] cc: Radha Peña MD
== END | disposition home or self-care (01) ==
LOC: OR 10:42
PROVIDERS: ATTEND Urology
DX: N39.0 Urinary tract infection, site not specified (principal); N39.41 Urge incontinence; N95.2 Postmenopausal atrophic vaginitis; Z43.5 Encounter for attention to cystostomy; N32.89 Other specified disorders of bladder; N31.9 Neuromuscular dysfunction of bladder, unspecified; N81.89 Other female genital prolapse; Z87.442 Personal history of urinary calculi; I10 Essential (primary) hypertension; F32.9 Major depressive disorder, single episode, unspecified; F17.200 Nicotine dependence, unspecified, uncomplicated; Z88.1 Allergy status to other antibiotic agents; Z88.0 Allergy status to penicillin; Z01.810 Encounter for preprocedural cardiovascular examination; Z01.812 Encounter for preprocedural laboratory examination; Z20.828 Contact with and (suspected) exposure to other viral communicable diseases; Z79.82 Long term (current) use of aspirin
CPT/HCPCS: 36415; 51710; 52005; 52287; 74420; 80048; 85025; 93005; C1758; J0587; J1580; J3010; Q9967; U0002

== ENCOUNTER → 2020-10-02 | Day surgery (SDC) | payer MEDICARE ==
[~2020-10-02] MED LIST changes: +AUGMENTIN 500-1 EACH PO; +DESFLURANE 240 ML BTL INH ONE; +DEXAMETHASONE SOD PHOS INJ 4 MG/ML VIAL ONE; +EPHEDRINE SULFATE INJ 50 MG/ML VIAL ONE; -FENTANYL CITRATE/PF 100MCG/2 ML INJ ONE; +LEVOFLOXACIN 500MG/D5W 100ML 100 ML IV ONE; +LIDOCAINE HCL 2% LOCAL INJ 5 ML SDV VIAL INJ ONE; +ONDANSETRON HCL INJ 2MG/ML 2ML 2 MG/ML VIAL ONE; +PROPOFOL IV EMULSION 10 MG/ML 20 ML VIAL ONE
[2020-10-02 07:30] LABS: BASOPHILS % 1.1 % (0.0-1.0); EOSINOPHILS # (AUTO) 0.2 (0.0-0.4); EOSINOPHILS % 6.3 % (0.0-6.0); HEMATOCRIT 36.9 % (34.2-44.1); HEMOGLOBIN 11.8 g/dL (12.0-16.0); LYMPHOCYTES # (AUTO) 1.6 (1.0-3.2); LYMPHOCYTES % 41.1 % (18.0-39.1); MEAN CORPUSCULAR HEMOGLOBIN 32.1 pg (28-32); MEAN CORPUSCULAR VOLUME 100.3 fL (81-99); MONOCYTES # (AUTO) 0.5 (0.2-0.8); MONOCYTES % 12.4 % (4.4-11.3); NEUTROPHILS # (AUTO) 1.5 (2.1-6.9); NEUTROPHILS % 38.8 % (38.7-80.0); PLATELET COUNT 271 x10e3/uL (140-360); RED BLOOD COUNT 3.68 x10e6/uL (3.6-5.1)
[2020-10-02 07:49] LABS: ANION GAP 14.4 mmol/L (8-16); BLOOD UREA NITROGEN 16 mg/dL (7-26); BUN/CREATININE RATIO 24 (6-25); CARBON DIOXIDE 25 mmol/L (22-29); CHLORIDE 109 mmol/L (98-107); CREATININE, SERUM 0.68 mg/dL (0.57-1.11); EST GLOMERULAR FILTRATION RATE > 60 ML/MIN (60-); GLUCOSE 94 mg/dL (74-118); POTASSIUM 4.4 mmol/L (3.5-5.1); SODIUM 144 mmol/L (136-145)
[2020-10-02 11:15] VITALS: BP 126/80
== END | disposition home or self-care (01) ==
LOC: OR 06:31
PROVIDERS: ATTEND Urology
DX: N39.41 Urge incontinence (principal); N21.0 Calculus in bladder; Z43.5 Encounter for attention to cystostomy; N39.0 Urinary tract infection, site not specified; N13.30 Unspecified hydronephrosis; N13.8 Other obstructive and reflux uropathy; N81.10 Cystocele, unspecified; N95.2 Postmenopausal atrophic vaginitis; G35 Multiple sclerosis; I10 Essential (primary) hypertension; Z88.1 Allergy status to other antibiotic agents; Z88.0 Allergy status to penicillin; Z20.822 Contact with and (suspected) exposure to COVID-19; Z79.82 Long term (current) use of aspirin; Z86.73 Personal history of transient ischemic attack (TIA), and cerebral infarction without residual deficits; Z95.0 Presence of cardiac pacemaker
CPT/HCPCS: 36415; 51705; 52005; 52287; 52317; 74420; 80048; 85025; 88300; 93005; C1758; J0587; J1580; J1956; U0002

== ENCOUNTER → 2021-06-16 | Day surgery (SDC) | payer MEDICARE ==
[~2021-06-16] MED LIST changes: -B&O 60MG R/S 60 MG SUPP PR ONE; +BACTRIM DS TAB1 EACH PO; +BELLADONNA/OPIUM 30 MG SUPP RC ONE; +CLARITIN10 M2 PO; -DESFLURANE 240 ML BTL INH ONE; +DEXAMETHASONE SOD PHOS INJ 4 MG/ML SDV ONE; -DEXAMETHASONE SOD PHOS INJ 4 MG/ML VIAL ONE; -EPHEDRINE SULFATE INJ 50 MG/ML VIAL ONE; +FENTANYL CITRATE/PF 100MCG/2 ML INJ ONE; +GABAPENTIN600 MG PO; -GENTAMICIN 80MG/NS 100 ML 200 ML IV ONE; +KETOROLAC TROMETHAMINE 30 MG/ML VIAL ONE; -LEVOFLOXACIN 500MG/D5W 100ML 100 ML IV ONE; +LINZESS290 MCG PO; +MEROPENEM 1 GM VIAL ONE; +MIDAZOLAM HCL 2 MG/2 ML VIAL ONE; +OCUSOFT LID SC1 EACH OU; +OMEPRAZOLE40 MG PO; +PHENAZOPYRIDINE HCL 100 MG TAB ONE; +POVIDONE IODINE 0.05% 0.05 % ML PO ONE; +RESTASIS1 EACH OU; +SODIUM CHLORIDE 0.9% 50ML 50 ML ONE
[2021-06-16 10:15] LABS: BASOPHILS % 1.1 % (0.0-1.0); EOSINOPHILS # (AUTO) 0.7 (0.0-0.4); EOSINOPHILS % 18.1 % (0.0-6.0); HEMOGLOBIN 11.1 g/dL (12.0-16.0); LYMPHOCYTES % 26.4 % (18.0-39.1); MEAN CORPUSCULAR HEMOGLOBIN 31.5 pg (28-32); MEAN CORPUSCULAR VOLUME 105.1 fL (81-99); MONOCYTES # (AUTO) 0.5 (0.2-0.8); MONOCYTES % 12.5 % (4.4-11.3); NEUTROPHILS # (AUTO) 1.5 (2.1-6.9); NEUTROPHILS % 41.3 % (38.7-80.0); PLATELET COUNT 204 x10e3/uL (140-360); RED BLOOD COUNT 3.52 x10e6/uL (3.6-5.1); RED CELL DISTRIBUTION WIDTH 14.5 % (11.7-14.4)
[2021-06-16 10:25] LABS: ANION GAP 13.4 mmol/L (8-16); CALCIUM 9.5 mg/dL (8.4-10.2); CREATININE, SERUM 0.72 mg/dL (0.57-1.11); POTASSIUM 4.4 mmol/L (3.5-5.1)
[2021-06-16 13:10] VITALS: BP 112/72
== END | disposition home or self-care (01) ==
LOC: OR 09:26
PROVIDERS: ATTEND Urology
DX: N39.41 Urge incontinence (principal); N21.0 Calculus in bladder; N39.0 Urinary tract infection, site not specified; N81.10 Cystocele, unspecified; N95.2 Postmenopausal atrophic vaginitis; N31.9 Neuromuscular dysfunction of bladder, unspecified; N81.89 Other female genital prolapse; Z43.5 Encounter for attention to cystostomy; G35 Multiple sclerosis; I10 Essential (primary) hypertension; Z79.82 Long term (current) use of aspirin; Z79.899 Other long term (current) drug therapy; Z99.3 Dependence on wheelchair; Z95.0 Presence of cardiac pacemaker; Z86.16 Personal history of COVID-19
CPT/HCPCS: 36415; 51705; 52005; 52287; 52318; 74420; 80048; 85025; 88300; 93005; C1758; C1769; J0587; J1100; J1885; J2001; J2185; J2250; J2405; J2704; J3010; Q9967; U0002

== ENCOUNTER → 2021-11-12 | Day surgery (SDC) | payer MEDICARE ==
[~2021-11-12] MED LIST changes: +ACETAMINOPHEN 1000 MG/100 ML 100 ML IV ONE; +AMLODIPINE BESY10 MG PO; +ASPIRIN81 MG PO; +B&O 60MG R/S 60 MG SUPP PR ONE; -BELLADONNA/OPIUM 30 MG SUPP RC ONE; +CLARITIN10 MG PO; -FENTANYL CITRATE/PF 100MCG/2 ML INJ ONE; +GENTAMICIN 80MG/NS 100 ML 200 ML IV ONE; -IOPAMIDOL 300MG/ML 50ML INFUS..BTL IV ONE; +IOPAMIDOL 610MG/1ML 300 MG/ML VIAL IV ONE; -KETOROLAC TROMETHAMINE 30 MG/ML VIAL ONE; +MECLIZINE HCL12.5 MG PO; +NEURONTIN300 MG PO; +OCUSOFT LID SC1 EACH TOP; -PHENAZOPYRIDINE HCL 100 MG TAB ONE; +SEVOFLURANE INHAL SOLN 250 ML PEN BTL ONE; -SODIUM CHLORIDE 0.9% 50ML 50 ML ONE; +TYLENOL #3 PO
[2021-11-12 09:35] LABS: EOSINOPHILS # (AUTO) 0.2 (0.0-0.4); EOSINOPHILS % 7.1 % (0.0-6.0); HEMATOCRIT 33.5 % (34.2-44.1); HEMOGLOBIN 10.6 g/dL (12.0-16.0); LYMPHOCYTES # (AUTO) 1.3 (1.0-3.2); LYMPHOCYTES % 40.5 % (18.0-39.1); MEAN CORPUSCULAR HEMOGLOBIN 31.2 pg (28-32); MEAN CORPUSCULAR HGB CONC 31.6 g/dL (31-35); MEAN CORPUSCULAR VOLUME 98.5 fL (81-99); MONOCYTES # (AUTO) 0.5 (0.2-0.8); MONOCYTES % 15.1 % (4.4-11.3); NEUTROPHILS # (AUTO) 1.1 (2.1-6.9); PLATELET COUNT 187 x10e3/uL (140-360); RED CELL DISTRIBUTION WIDTH 13.9 % (11.7-14.4)
[2021-11-12 10:06] LABS: ANION GAP 11.5 mmol/L (8-16); CALCIUM 8.4 mg/dL (8.4-10.2); CREATININE, SERUM 0.54 mg/dL (0.57-1.11); POTASSIUM 3.5 mmol/L (3.5-5.1)
[2021-11-12 12:02] LABS: EOSINOPHILS % (MANUAL) 3 % (0-7); LYMPHOCYTES % (MANUAL) 51 % (19-48); MONOCYTES % (MANUAL) 12 % (3.4-9.0); NEUTROPHILS % (MANUAL) 34 % (40-74); PLATELET ESTIMATE ADEQUATE
[2021-11-12 12:03] LABS: PLATELET MORPHOLOGY COMMENT NORMAL; RBC MORPHOLOGY COMMENT NORMAL
[2021-11-12 14:30] VITALS: BP 124/75
== END | disposition home or self-care (01) ==
LOC: OR 08:39
PROVIDERS: ATTEND Urology
DX: N39.41 Urge incontinence (principal); N31.9 Neuromuscular dysfunction of bladder, unspecified; N32.89 Other specified disorders of bladder; N28.89 Other specified disorders of kidney and ureter; Z43.5 Encounter for attention to cystostomy; N39.0 Urinary tract infection, site not specified; N81.10 Cystocele, unspecified; N95.2 Postmenopausal atrophic vaginitis; G35 Multiple sclerosis; I10 Essential (primary) hypertension; Z20.822 Contact with and (suspected) exposure to COVID-19; Z88.1 Allergy status to other antibiotic agents; Z88.0 Allergy status to penicillin; Z99.3 Dependence on wheelchair; Z79.82 Long term (current) use of aspirin; Z79.899 Other long term (current) drug therapy; Z95.0 Presence of cardiac pacemaker
CPT/HCPCS: 36415; 51705; 52005; 52287; 71046; 74420; 80048; 85025; 93005; C1758; J0131; J0587; J1100; J1580; J2001; J2185; J2250; J2405; J2704; Q9967; U0002

== ENCOUNTER → 2021-12-14 | Outpatient (CLI) | payer MEDICARE ==
[~2021-12-14] MED LIST changes: -ACETAMINOPHEN 1000 MG/100 ML 100 ML IV ONE; -B&O 60MG R/S 60 MG SUPP PR ONE; -BOTULINUM TOXIN TYPE A 100 UNIT VIAL IM ONE; -DEXAMETHASONE SOD PHOS INJ 4 MG/ML SDV ONE; -GENTAMICIN 80MG/NS 100 ML 200 ML IV ONE; -IOPAMIDOL 610MG/1ML 300 MG/ML VIAL IV ONE; -LIDOCAINE HCL 2% LOCAL INJ 5 ML SDV VIAL INJ ONE; -MEROPENEM 1 GM VIAL ONE; -MIDAZOLAM HCL 2 MG/2 ML VIAL ONE; -ONDANSETRON HCL INJ 2MG/ML 2ML 2 MG/ML VIAL ONE; -POVIDONE IODINE 0.05% 0.05 % ML PO ONE; -PROPOFOL IV EMULSION 10 MG/ML 20 ML VIAL ONE; -SEVOFLURANE INHAL SOLN 250 ML PEN BTL ONE
== END ==
LOC: CT 13:22
PROVIDERS: ATTEND Urology
DX: N21.0 Calculus in bladder (principal); Z87.442 Personal history of urinary calculi
CPT/HCPCS: 74176

== ENCOUNTER → 2021-12-31 | Outpatient (CLI) | payer MEDICARE | LOC: NM 14:16 | PROVIDERS: ATTEND Urology | DX: N20.0 Calculus of kidney (principal) | CPT/HCPCS: 78707; A9562 ==

== ENCOUNTER → 2022-04-01 | Day surgery (SDC) | payer MEDICARE ==
[~2022-04-01] MED LIST changes: +AZO CRANBERRY1 EACH PEG; +AZO CRANBERRY250 MG; +BELLADONNA/OPIUM 30 MG SUPP RC ONE; +CEFTRIAXONE1 GM IM; +COLACE PO; +DEXAMETHASONE SOD PHOS INJ 4 MG/ML SDV IV ONE; +EPHEDRINE SULFATE INJ 50 MG/ML VIAL IV ONE; +FENTANYL CITRATE/PF 100MCG/2 ML INJ ONE; +GAS X PO; +GENTAMICIN 80MG/NS 100 ML 200 ML IV ONE; +IOPAMIDOL 610MG/1ML 300 MG/ML VIAL IV ONE; +LIDOCAINE HCL 2% LOCAL INJ 5 ML SDV VIAL INJ ONE; +MEROPENEM 1 GM VIAL ONE; +MIDAZOLAM HCL 2 MG/2 ML VIAL ONE; +MIRALAX; +ONDANSETRON HCL INJ 2MG/ML 2ML 2 MG/ML VIAL IV ONE; +POVIDONE IODINE 0.05% 0.05 % ML PO ONE; +PROPOFOL IV EMULSION 10 MG/ML 20 ML VIAL IV ONE; +VITAMIN C PO; +WELLBUTRIN SR100 MG PO; +[UNRECOGNIZED DRUG - OTHER] SQ
[2022-04-01 08:12] LABS: BASOPHILS # (AUTO) 0.1 (0.0-0.1); EOSINOPHILS # (AUTO) 0.2 (0.0-0.4); EOSINOPHILS % 4.5 % (0.0-6.0); HEMATOCRIT 33.1 % (34.2-44.1); LYMPHOCYTES # (AUTO) 1.4 (1.0-3.2); LYMPHOCYTES % 28.3 % (18.0-39.1); MEAN CORPUSCULAR HEMOGLOBIN 31.8 pg (28-32); MEAN CORPUSCULAR HGB CONC 30.2 g/dL (31-35); MEAN CORPUSCULAR VOLUME 105.4 fL (81-99); MONOCYTES # (AUTO) 0.6 (0.2-0.8); MONOCYTES % 12.4 % (4.4-11.3); NEUTROPHILS # (AUTO) 2.6 (2.1-6.9); NEUTROPHILS % 53.6 % (38.7-80.0); PLATELET COUNT 245 x10e3/uL (140-360); RED BLOOD COUNT 3.14 x10e6/uL (3.6-5.1); RED CELL DISTRIBUTION WIDTH 14.2 % (11.7-14.4)
[2022-04-01 08:23] LABS: ANION GAP 14.5 mmol/L (8-16); CALCIUM 9.4 mg/dL (8.4-10.2); CREATININE, SERUM 0.54 mg/dL (0.57-1.11); POTASSIUM 3.5 mmol/L (3.5-5.1)
[2022-04-01 11:20] VITALS: BP 133/89
== END | disposition home or self-care (01) ==
LOC: OR 07:04
PROVIDERS: ATTEND Urology
DX: N20.0 Calculus of kidney (principal); N13.30 Unspecified hydronephrosis; Z43.5 Encounter for attention to cystostomy; R33.9 Retention of urine, unspecified; N39.0 Urinary tract infection, site not specified; N81.10 Cystocele, unspecified; N95.2 Postmenopausal atrophic vaginitis; N32.89 Other specified disorders of bladder; G35 Multiple sclerosis; I10 Essential (primary) hypertension; E78.5 Hyperlipidemia, unspecified; E66.9 Obesity, unspecified; K21.9 Gastro-esophageal reflux disease without esophagitis; F32.A Depression, unspecified; Z88.1 Allergy status to other antibiotic agents; Z88.0 Allergy status to penicillin; Z79.82 Long term (current) use of aspirin; Z79.899 Other long term (current) drug therapy; Z95.0 Presence of cardiac pacemaker; Z86.16 Personal history of COVID-19; Z91.81 History of falling
CPT/HCPCS: 36415; 50590; 51705; 52332; 74018; 80048; 85025; 87086; 93005; C1758; C1769; C2617; J1100; J1580; J2001; J2185; J2250; J2405; J2704; J3010; Q9967

== ENCOUNTER → 2022-05-20 | Day surgery (SDC) | payer MEDICARE ==
[~2022-05-20] MED LIST changes: -BELLADONNA/OPIUM 30 MG SUPP RC ONE; -DEXAMETHASONE SOD PHOS INJ 4 MG/ML SDV IV ONE; +DEXAMETHASONE SOD PHOS INJ 4 MG/ML SDV ONE; -EPHEDRINE SULFATE INJ 50 MG/ML VIAL IV ONE; -FENTANYL CITRATE/PF 100MCG/2 ML INJ ONE; +GENTAMICIN 80MG/NS 100 ML 0 ML IV ONE; -IOPAMIDOL 610MG/1ML 300 MG/ML VIAL IV ONE; -MEROPENEM 1 GM VIAL ONE; -MIDAZOLAM HCL 2 MG/2 ML VIAL ONE; -ONDANSETRON HCL INJ 2MG/ML 2ML 2 MG/ML VIAL IV ONE; +ONDANSETRON HCL INJ 2MG/ML 2ML 2 MG/ML VIAL ONE; +ONDANSETRON HCL4 MG PO; -PROPOFOL IV EMULSION 10 MG/ML 20 ML VIAL IV ONE; +PROPOFOL IV EMULSION 10 MG/ML 20 ML VIAL ONE; +SEVOFLURANE INHAL SOLN 250 ML PEN BTL ONE
[2022-05-20 07:52] LABS: BASOPHILS % 1.3 % (0.0-1.0); EOSINOPHILS # (AUTO) 0.2 (0.0-0.4); EOSINOPHILS % 6.7 % (0.0-6.0); HEMATOCRIT 34.2 % (34.2-44.1); HEMOGLOBIN 10.4 g/dL (12.0-16.0); LYMPHOCYTES # (AUTO) 0.9 (1.0-3.2); LYMPHOCYTES % 28.7 % (18.0-39.1); MEAN CORPUSCULAR HGB CONC 30.4 g/dL (31-35); MEAN CORPUSCULAR VOLUME 105.2 fL (81-99); MONOCYTES # (AUTO) 0.5 (0.2-0.8); MONOCYTES % 15.6 % (4.4-11.3); NEUTROPHILS # (AUTO) 1.5 (2.1-6.9); NEUTROPHILS % 47.4 % (38.7-80.0); PLATELET COUNT 237 x10e3/uL (140-360); RED BLOOD COUNT 3.25 x10e6/uL (3.6-5.1); RED CELL DISTRIBUTION WIDTH 14.5 % (11.7-14.4)
[2022-05-20 08:26] LABS: ANION GAP 13.7 mmol/L (8-16); CALCIUM 9.3 mg/dL (8.4-10.2); CREATININE, SERUM 0.58 mg/dL (0.57-1.11); POTASSIUM 3.7 mmol/L (3.5-5.1)
[2022-05-20 13:20] VITALS: BP 136/90
== END | disposition home or self-care (01) ==
LOC: OR 07:16
PROVIDERS: ATTEND Urology
DX: N20.0 Calculus of kidney (principal); R33.9 Retention of urine, unspecified; Z43.5 Encounter for attention to cystostomy; N31.9 Neuromuscular dysfunction of bladder, unspecified; G35 Multiple sclerosis; R53.1 Weakness; E11.9 Type 2 diabetes mellitus without complications; I10 Essential (primary) hypertension; E78.5 Hyperlipidemia, unspecified; K21.9 Gastro-esophageal reflux disease without esophagitis; Z88.1 Allergy status to other antibiotic agents; Z88.0 Allergy status to penicillin; Z79.82 Long term (current) use of aspirin; Z79.899 Other long term (current) drug therapy
CPT/HCPCS: 36415; 50590; 51705; 74018; 80048; 82948; 84550; 85025; 87086; 87186; J1100; J1580; J2001; J2405; J2704

== ENCOUNTER → 2022-06-24 | Day surgery (SDC) | payer MEDICARE ==
[~2022-06-24] MED LIST changes: -GENTAMICIN 80MG/NS 100 ML 0 ML IV ONE; +IOPAMIDOL 300MG/ML 50ML INFUS..BTL IV ONE; +MEROPENEM 1 GM VIAL ONE
[2022-06-24 10:55] LABS: EOSINOPHILS # (AUTO) 0.2 (0.0-0.4); EOSINOPHILS % 5.8 % (0.0-6.0); HEMATOCRIT 36.6 % (34.2-44.1); HEMOGLOBIN 10.7 g/dL (12.0-16.0); LYMPHOCYTES # (AUTO) 1.3 (1.0-3.2); LYMPHOCYTES % 31.6 % (18.0-39.1); MEAN CORPUSCULAR HEMOGLOBIN 32.1 pg (28-32); MEAN CORPUSCULAR HGB CONC 29.2 g/dL (31-35); MEAN CORPUSCULAR VOLUME 109.9 fL (81-99); MONOCYTES # (AUTO) 0.6 (0.2-0.8); MONOCYTES % 14.5 % (4.4-11.3); NEUTROPHILS # (AUTO) 1.9 (2.1-6.9); NEUTROPHILS % 46.9 % (38.7-80.0); PLATELET COUNT 194 x10e3/uL (140-360); RED BLOOD COUNT 3.33 x10e6/uL (3.6-5.1); RED CELL DISTRIBUTION WIDTH 13.4 % (11.7-14.4)
[2022-06-24 11:14] LABS: ANION GAP 19.2 mmol/L (8-16); CALCIUM 9.1 mg/dL (8.4-10.2); CREATININE, SERUM 0.61 mg/dL (0.57-1.11); POTASSIUM 4.2 mmol/L (3.5-5.1)
[2022-06-24 13:15] VITALS: BP 116/85
== END | disposition home or self-care (01) ==
LOC: OR 10:24
PROVIDERS: ATTEND Urology
DX: N20.0 Calculus of kidney (principal); Z46.6 Encounter for fitting and adjustment of urinary device; N30.20 Other chronic cystitis without hematuria; R33.9 Retention of urine, unspecified; Z43.5 Encounter for attention to cystostomy; N81.10 Cystocele, unspecified; N95.2 Postmenopausal atrophic vaginitis; I10 Essential (primary) hypertension; E78.5 Hyperlipidemia, unspecified; K21.9 Gastro-esophageal reflux disease without esophagitis; F17.200 Nicotine dependence, unspecified, uncomplicated; F32.A Depression, unspecified; Z88.1 Allergy status to other antibiotic agents; Z88.0 Allergy status to penicillin; Z79.82 Long term (current) use of aspirin; Z79.899 Other long term (current) drug therapy; Z95.0 Presence of cardiac pacemaker; Z87.11 Personal history of peptic ulcer disease
CPT/HCPCS: 36415; 51705; 52356; 74420; 80048; 85025; 87086; 87186; C1769; C2617; J1100; J1580; J2001; J2185; J2405; J2704; Q9967

== ENCOUNTER 2022-08-19 09:50 | Inpatient (IN) | payer MEDICARE, OTHER ==
[~2022-08-19 09:50] MED LIST changes: -DEXAMETHASONE SOD PHOS INJ 4 MG/ML SDV ONE; +GAS-X125 M1 PO; -GENTAMICIN 80MG/NS 100 ML 200 ML IV ONE; -IOPAMIDOL 300MG/ML 50ML INFUS..BTL IV ONE; -LIDOCAINE HCL 2% LOCAL INJ 5 ML SDV VIAL INJ ONE; -MEROPENEM 1 GM VIAL ONE; +NALOXONE H0.4 MG/1 M; -ONDANSETRON HCL INJ 2MG/ML 2ML 2 MG/ML VIAL ONE; -POVIDONE IODINE 0.05% 0.05 % ML PO ONE; -PROPOFOL IV EMULSION 10 MG/ML 20 ML VIAL ONE; -SEVOFLURANE INHAL SOLN 250 ML PEN BTL ONE
[2022-08-19] MEDS ORDERED: MEROPENEM 1 GM VIAL ONE (10:27)
[2022-08-19] MEDS ORDERED: GENTAMICIN 80MG/NS 100 ML 200 ML IV ONE (10:27)
[2022-08-19] MEDS ORDERED: POVIDONE IODINE 0.05% 0.05 % ML PO ONE (10:48)
[2022-08-19] MEDS ORDERED: PROPOFOL IV EMULSION 10 MG/ML 20 ML VIAL ONE (10:48)
[2022-08-19] MEDS ORDERED: ETOMIDATE 2 MG/ML 10 ML INJ IV ONE (10:48)
[2022-08-19] MEDS ORDERED: SEVOFLURANE INHAL SOLN 250 ML PEN BTL ONE (10:48)
[2022-08-19] MEDS ORDERED: ONDANSETRON HCL INJ 2MG/ML 2ML 2 MG/ML VIAL ONE (10:48)
[2022-08-19] MEDS ORDERED: LIDOCAINE HCL 2% LOCAL INJ 5 ML SDV VIAL INJ ONE (10:48)
[2022-08-19] MEDS ORDERED: DEXAMETHASONE SOD PHOS INJ 4 MG/ML SDV ONE (10:48)
[2022-08-19 11:05] LABS: BASOPHILS % 0.8 % (0.0-1.0); EOSINOPHILS # (AUTO) 0.3 (0.0-0.4); EOSINOPHILS % 6.9 % (0.0-6.0); HEMATOCRIT 30.8 % (34.2-44.1); LYMPHOCYTES # (AUTO) 1.1 (1.0-3.2); LYMPHOCYTES % 28.1 % (18.0-39.1); MEAN CORPUSCULAR HEMOGLOBIN 31.4 pg (28-32); MEAN CORPUSCULAR HGB CONC 32.5 g/dL (31-35); MEAN CORPUSCULAR VOLUME 96.9 fL (81-99); MONOCYTES # (AUTO) 0.4 (0.2-0.8); MONOCYTES % 10.2 % (4.4-11.3); NEUTROPHILS # (AUTO) 2.1 (2.1-6.9); NEUTROPHILS % 53.7 % (38.7-80.0); PLATELET COUNT 224 x10e3/uL (140-360); RED BLOOD COUNT 3.18 x10e6/uL (3.6-5.1); RED CELL DISTRIBUTION WIDTH 14.3 % (11.7-14.4)
[2022-08-19 11:50] LABS: ANION GAP 11.5 mmol/L (8-16)
[2022-08-19 11:53] LABS: POTASSIUM 4.5 mmol/L (3.5-5.1)
[2022-08-19 11:54] LABS: CREATININE, SERUM 0.8 mg/dL (0.57-1.11)
[2022-08-19 11:55] LABS: CALCIUM 9.4 mg/dL (8.4-10.2)
[2022-08-19] MEDS ORDERED: FENTANYL CITRATE/PF 100MCG/2 ML INJ ONE (13:33)
[2022-08-19] MEDS ORDERED: PHENAZOPYRIDINE HCL 100 MG TAB PO PRN (15:45)
[2022-08-19] MEDS ORDERED: DIPHENHYDRAMINE HCL 25 MG CAP PO PRN (15:45)
[2022-08-19] MEDS ORDERED: ACETAMINOPHEN 1000 MG/100 ML IV PRN (15:45)
[2022-08-19] MEDS ORDERED: ONDANSETRON HCL INJ 2MG/ML 2ML 2 MG/ML VIAL IV PRN (15:45)
[2022-08-19 20:00] VITALS: BP 125/83
[2022-08-19] MEDS: DOCUSATE SODIUM 100 MG CAP PO SCH (21:20)
[2022-08-19 21:21] VITALS: BP 155/92
[2022-08-19] MEDS: SODIUM CHLORIDE 0.9% 1000ML 1,000 ML IV SCH (21:21)
[2022-08-19] MEDS: ACETAMINOPHEN/CODEINE 300MG - 30MG TAB PO PRN (23:17)
[2022-08-20] VITALS (9 sets, daily range): BP systolic 122–169; BP diastolic 76–94
[2022-08-20] MEDS: MEROPENEM 1 GM in SODIUM CHLORIDE 0.9% 100 ML IV SCH ×2 (02:00→14:09)
[2022-08-20 05:00] LABS: BASOPHILS % 0.7 % (0.0-1.0); EOSINOPHILS # (AUTO) 0.1 (0.0-0.4); EOSINOPHILS % 2.9 % (0.0-6.0); HEMATOCRIT 30.1 % (34.2-44.1); HEMOGLOBIN 9.5 g/dL (12.0-16.0); LYMPHOCYTES # (AUTO) 1.3 (1.0-3.2); LYMPHOCYTES % 32.1 % (18.0-39.1); MEAN CORPUSCULAR HEMOGLOBIN 31.6 pg (28-32); MEAN CORPUSCULAR HGB CONC 31.6 g/dL (31-35); MONOCYTES # (AUTO) 0.4 (0.2-0.8); MONOCYTES % 10.5 % (4.4-11.3); NEUTROPHILS # (AUTO) 2.2 (2.1-6.9); NEUTROPHILS % 53.6 % (38.7-80.0); PLATELET COUNT 200 x10e3/uL (140-360); RED BLOOD COUNT 3.01 x10e6/uL (3.6-5.1); RED CELL DISTRIBUTION WIDTH 14.2 % (11.7-14.4)
[2022-08-20 05:23] LABS: ANION GAP 10.6 mmol/L (8-16); CALCIUM 8.7 mg/dL (8.4-10.2); CREATININE, SERUM 0.55 mg/dL (0.57-1.11); POTASSIUM 3.6 mmol/L (3.5-5.1)
[2022-08-20] MEDS: SODIUM CHLORIDE 0.9% 1000ML 1,000 ML IV SCH ×2 (06:20→14:19)
[2022-08-20] MEDS: DOCUSATE SODIUM 100 MG CAP PO SCH ×2 (09:35→17:38)
[2022-08-20] MEDS: ACETAMINOPHEN/CODEINE 300MG - 30MG TAB PO PRN ×4 (09:35→22:10)
[2022-08-20] MEDS ORDERED: MIRALAX17 GM PO (15:20)
[2022-08-20] MEDS ORDERED: OMEPRAZOLE40 MG PO (15:20)
[2022-08-20] MEDS ORDERED: MELATONIN3 MG PO (15:20)
[2022-08-20] MEDS ORDERED: NALOXONE H0.4 MG/1 M IV (15:20)
[2022-08-20] MEDS ORDERED: BACLOFEN10 MG PO ×2 (15:20)
[2022-08-20] MEDS ORDERED: ONDANSETRON ODT8 MG PO (15:20)
[2022-08-20] MEDS ORDERED: MILK OF MA2400 MG/10 PO (15:20)
[2022-08-20] MEDS ORDERED: METOPROLOL SUCC50 MG PO (15:20)
[2022-08-20] MEDS ORDERED: LINZESS290 MCG PO (15:20)
[2022-08-20] MEDS ORDERED: ROPINIROLE HCL2 MG (15:20)
[2022-08-20] MEDS ORDERED: OXYBUTYNIN CHLOR5 MG PO (15:20)
[2022-08-20] MEDS ORDERED: LORATADINE10 MG PO (15:20)
[2022-08-20] MEDS ORDERED: SIMETHICONE80 MG PO (15:20)
[2022-08-20] MEDS ORDERED: MYSOLINE50 MG PO (15:20)
[2022-08-20] MEDS ORDERED: AMLODIPINE BESY10 MG PO (15:20)
[2022-08-20] MEDS ORDERED: ASPIRIN81 MG PO (15:20)
[2022-08-20] MEDS ORDERED: BUPROPION HCL75 MG PO (15:21)
[2022-08-20] MEDS ORDERED: DOCUSATE SODIU100 MG PO (15:31)
[2022-08-20] MEDS ORDERED: BISACODYL5 MG PO (15:31)
[2022-08-20] MEDS ORDERED: VITAMIN D3125 MCG PO (15:31)
[2022-08-20] MEDS ORDERED: SIMETHICONE 80 MG CHEW PO PRN (21:45)
[2022-08-20] MEDS ORDERED: AMLODIPINE BESYLATE 10 MG TAB PO ONE (22:00)
[2022-08-20] MEDS: FENOFIBRATE 145 MG TAB PO SCH (22:09)
[2022-08-20] MEDS: MELATONIN 5 MG TABLET PO SCH (22:09)
[2022-08-20] MEDS: DOXEPIN HCL 10 MG CAP PO SCH (22:10)
[2022-08-21] VITALS (8 sets, daily range): BP systolic 140–166; BP diastolic 82–95
[2022-08-21] MEDS: MEROPENEM 1 GM in SODIUM CHLORIDE 0.9% 100 ML IV SCH ×2 (02:09→13:47)
[2022-08-21] MEDS: ACETAMINOPHEN/CODEINE 300MG - 30MG TAB PO PRN ×5 (05:12→22:03)
[2022-08-21] MEDS: SODIUM CHLORIDE 0.9% 1000ML 1,000 ML IV SCH ×2 (05:12→19:36)
[2022-08-21 05:52] LABS: BASOPHILS % 0.5 % (0.0-1.0); EOSINOPHILS # (AUTO) 0.3 (0.0-0.4); HEMATOCRIT 29.4 % (34.2-44.1); HEMOGLOBIN 9.4 g/dL (12.0-16.0); LYMPHOCYTES # (AUTO) 1.3 (1.0-3.2); MONOCYTES # (AUTO) 0.5 (0.2-0.8); MONOCYTES % 11.9 % (4.4-11.3); NEUTROPHILS # (AUTO) 2.2 (2.1-6.9); NEUTROPHILS % 51.4 % (38.7-80.0); PLATELET COUNT 213 x10e3/uL (140-360); RED BLOOD COUNT 3.03 x10e6/uL (3.6-5.1); RED CELL DISTRIBUTION WIDTH 14.2 % (11.7-14.4)
[2022-08-21 06:13] LABS: ANION GAP 10.9 mmol/L (8-16); CALCIUM 9.2 mg/dL (8.4-10.2); CREATININE, SERUM 0.5 mg/dL (0.57-1.11)
[2022-08-21 06:34] LABS: POTASSIUM 2.9 mmol/L (3.5-5.1)
[2022-08-21] MEDS ORDERED: POTASSIUM CHLORIDE 20 MEQ TAB CR PO STA (06:54)
[2022-08-21] MEDS: PANTOPRAZOLE SOD 40 MG TABEC PO SCH (08:03)
[2022-08-21] MEDS: BACLOFEN 10 MG TAB PO SCH ×2 (08:03→17:58)
[2022-08-21] MEDS: OXYBUTYNIN CHLORIDE 5 MG TAB PO SCH ×2 (08:03→17:58)
[2022-08-21] MEDS: DOCUSATE SODIUM 100 MG CAP PO SCH ×2 (08:03→17:58)
[2022-08-21] MEDS: ASPIRIN 81 MG CHEW TAB PO SCH (08:03)
[2022-08-21] MEDS: FOLIC ACID 1 MG TAB PO SCH (08:04)
[2022-08-21] MEDS: CYANOCOBALAMIN 1,000 MCG TAB PO SCH (08:04)
[2022-08-21] MEDS: METOPROLOL SUCCINATE 25 MG TAB XL PO SCH (08:04)
[2022-08-21] MEDS: BUPROPION HCL 75 MG TAB PO SCH ×2 (08:05→17:58)
[2022-08-21] MEDS: AMLODIPINE BESYLATE 10 MG TAB PO SCH (08:05)
[2022-08-21] MEDS: PRIMIDONE 50 MG TAB PO SCH ×2 (09:19→17:58)
[2022-08-21] MEDS ORDERED: POTASSIUM CHLORIDE 20 MEQ TAB CR PO ONE ×2 (11:00→11:45)
[2022-08-21] MEDS ORDERED: LORATADINE 10 MG TAB PO SCH (21:00)
[2022-08-21] MEDS ORDERED: ROPINIROLE HCL 1 MG TAB PO SCH (21:00)
[2022-08-21] MEDS ORDERED: BACLOFEN 10 MG TAB PO SCH (21:00)
[2022-08-21] MEDS ORDERED: BISACODYL 5 MG TAB EC PO SCH (21:00)
[2022-08-21] MEDS: FENOFIBRATE 145 MG TAB PO SCH (22:02)
[2022-08-21] MEDS: DOXEPIN HCL 10 MG CAP PO SCH (22:02)
[2022-08-21] MEDS: MELATONIN 5 MG TABLET PO SCH (22:03)
[2022-08-22] VITALS: BP 147/98
[2022-08-22] MEDS: MEROPENEM 1 GM in SODIUM CHLORIDE 0.9% 100 ML IV SCH ×2 (02:43→13:56)
[2022-08-22] MEDS: ACETAMINOPHEN/CODEINE 300MG - 30MG TAB PO PRN ×4 (02:47→18:00)
[2022-08-22 04:00] VITALS: BP 162/92
[2022-08-22 05:14] LABS: BASOPHILS % 0.9 % (0.0-1.0); EOSINOPHILS # (AUTO) 0.3 (0.0-0.4); EOSINOPHILS % 8.4 % (0.0-6.0); HEMATOCRIT 28.2 % (34.2-44.1); HEMOGLOBIN 9.1 g/dL (12.0-16.0); LYMPHOCYTES # (AUTO) 1.1 (1.0-3.2); LYMPHOCYTES % 34.6 % (18.0-39.1); MEAN CORPUSCULAR HEMOGLOBIN 31.6 pg (28-32); MEAN CORPUSCULAR HGB CONC 32.3 g/dL (31-35); MEAN CORPUSCULAR VOLUME 97.9 fL (81-99); MONOCYTES # (AUTO) 0.5 (0.2-0.8); MONOCYTES % 14.6 % (4.4-11.3); NEUTROPHILS # (AUTO) 1.3 (2.1-6.9); NEUTROPHILS % 41.2 % (38.7-80.0); PLATELET COUNT 209 x10e3/uL (140-360); RED BLOOD COUNT 2.88 x10e6/uL (3.6-5.1); RED CELL DISTRIBUTION WIDTH 14.3 % (11.7-14.4)
[2022-08-22 05:30] LABS: ANION GAP 10.8 mmol/L (8-16); CALCIUM 8.7 mg/dL (8.4-10.2); CREATININE, SERUM 0.51 mg/dL (0.57-1.11); POTASSIUM 3.8 mmol/L (3.5-5.1)
[2022-08-22 07:21] LABS: EOSINOPHILS % (MANUAL) 12 % (0-7); LYMPHOCYTES % (MANUAL) 35 % (19-48); MONOCYTES % (MANUAL) 9 % (3.4-9.0); NEUTROPHILS % (MANUAL) 44 % (40-74); PLATELET ESTIMATE ADEQUATE; PLATELET MORPHOLOGY COMMENT NORMAL; RBC MORPHOLOGY COMMENT NORMAL
[2022-08-22] MEDS: SODIUM CHLORIDE 0.9% 1000ML 1,000 ML IV SCH (09:09)
[2022-08-22] MEDS: DOCUSATE SODIUM 100 MG CAP PO SCH ×2 (09:10→17:18)
[2022-08-22] MEDS: FOLIC ACID 1 MG TAB PO SCH (09:10)
[2022-08-22] MEDS: ASPIRIN 81 MG CHEW TAB PO SCH (09:10)
[2022-08-22] MEDS: OXYBUTYNIN CHLORIDE 5 MG TAB PO SCH ×2 (09:10→17:18)
[2022-08-22] MEDS: BACLOFEN 10 MG TAB PO SCH ×2 (09:11→17:00)
[2022-08-22] MEDS: PANTOPRAZOLE SOD 40 MG TABEC PO SCH (09:11)
[2022-08-22] MEDS: PRIMIDONE 50 MG TAB PO SCH ×2 (09:11→17:18)
[2022-08-22] MEDS: AMLODIPINE BESYLATE 10 MG TAB PO SCH (09:11)
[2022-08-22] MEDS: BUPROPION HCL 75 MG TAB PO SCH ×2 (09:12→17:18)
[2022-08-22] MEDS: CYANOCOBALAMIN 1,000 MCG TAB PO SCH (09:12)
[2022-08-22] MEDS: METOPROLOL SUCCINATE 25 MG TAB XL PO SCH (09:12)
[2022-08-22 10:07] VITALS: BP 161/87
[2022-08-22 10:30] VITALS: BP 161/87
[2022-08-22 12:36] VITALS: BP 165/92
[2022-08-22] MEDS ORDERED: ONDANSETRON HCL 4 MG ORAL DISINTEGRATING TAB PO PRN (12:45)
[2022-08-22 16:35] VITALS: BP 159/85
== END 2022-08-22 18:13 | DRG 660 ==
LOC: OR 09:50 → MED/SURG 16:50
PROVIDERS: ADMIT Internal Medicine; ATTEND Internal Medicine
PROC: 0TC68ZZ Extirpation of Matter from Right Ureter, Via Natural or Artificial Opening Endoscopic (ICD-10-PCS; 2022-08-19)
PROC: 0T9B80Z Drainage of Bladder with Drainage Device, Via Natural or Artificial Opening Endoscopic (ICD-10-PCS; 2022-08-19)
PROC: BT1D1ZZ Fluoroscopy of Right Kidney, Ureter and Bladder using Low Osmolar Contrast (ICD-10-PCS; 2022-08-19)
PROC: 0TP98DZ Removal of Intraluminal Device from Ureter, Via Natural or Artificial Opening Endoscopic (ICD-10-PCS; principal; 2022-08-19 14:32)
PROC: 0T768DZ Dilation of Right Ureter with Intraluminal Device, Via Natural or Artificial Opening Endoscopic (ICD-10-PCS; 2022-08-19 14:32)
DX: T83.510A Infection and inflammatory reaction due to cystostomy catheter, initial encounter (principal); N13.6 Pyonephrosis; N39.0 Urinary tract infection, site not specified; N32.1 Vesicointestinal fistula; N31.9 Neuromuscular dysfunction of bladder, unspecified; N39.41 Urge incontinence; N81.10 Cystocele, unspecified; N95.2 Postmenopausal atrophic vaginitis; G35 Multiple sclerosis; Z74.01 Bed confinement status; Z96.0 Presence of urogenital implants; Z95.0 Presence of cardiac pacemaker; Z85.828 Personal history of other malignant neoplasm of skin; Z86.16 Personal history of COVID-19; Z93.51 Cutaneous-vesicostomy status; N81.89 Other female genital prolapse; R31.0 Gross hematuria
CPT/HCPCS: 36415; 74018; 74420; 80048; 85025; 87086; 87186; 93005; 94799; C1766; C1769; C2617; J1100; J1580; J2001; J2185; J2405; J7030; J7050

== ENCOUNTER 2022-09-26 10:05 | Inpatient (IN) | payer MEDICARE, OTHER ==
[~2022-09-26] VITALS: Ht 167.6 cm; Wt 59.0 kg
[~2022-09-26 10:05] MED LIST changes: +BUPROPION HCL75 MG PO; +MELATONIN3 MG PO; +METOPROLOL SUCC50 MG PO; +MYSOLINE50 MG PO; +NALOXONE H0.4 MG/1 M IV; +ONDANSETRON ODT8 MG PO; +ROPINIROLE HCL2 MG; +SIMETHICONE80 MG PO
[2022-09-26] MEDS ORDERED: MEROPENEM 1 GM VIAL ONE (10:48)
[2022-09-26 10:52] LABS: BASOPHILS % 0.8 % (0.0-1.0); EOSINOPHILS # (AUTO) 0.2 (0.0-0.4); EOSINOPHILS % 4.2 % (0.0-6.0); HEMATOCRIT 32.4 % (34.2-44.1); HEMOGLOBIN 10.3 g/dL (12.0-16.0); LYMPHOCYTES # (AUTO) 1.4 (1.0-3.2); LYMPHOCYTES % 38.2 % (18.0-39.1); MEAN CORPUSCULAR HEMOGLOBIN 31.7 pg (28-32); MEAN CORPUSCULAR HGB CONC 31.8 g/dL (31-35); MEAN CORPUSCULAR VOLUME 99.7 fL (81-99); MONOCYTES # (AUTO) 0.5 (0.2-0.8); MONOCYTES % 13.3 % (4.4-11.3); NEUTROPHILS # (AUTO) 1.6 (2.1-6.9); PLATELET COUNT 227 x10e3/uL (140-360); RED BLOOD COUNT 3.25 x10e6/uL (3.6-5.1); RED CELL DISTRIBUTION WIDTH 13.9 % (11.7-14.4)
[2022-09-26 11:04] LABS: INR 0.9; PROTHROMBIN TIME 12.6 seconds (11.9-14.5)
[2022-09-26 11:05] LABS: PARTIAL THROMBOPLASTIN TIME 33.4 seconds (23.8-35.5)
[2022-09-26 11:13] LABS: ALBUMIN 3.3 g/dL (3.5-5.0); ALBUMIN/GLOBULIN RATIO 1.1 (0.8-2.0); ANION GAP 13.6 mmol/L (8-16); CALCIUM 9.3 mg/dL (8.4-10.2); CREATININE, SERUM 0.64 mg/dL (0.57-1.11); POTASSIUM 3.6 mmol/L (3.5-5.1)
[2022-09-26 11:53] LABS: EOSINOPHILS % (MANUAL) 1 % (0-7); LYMPHOCYTES % (MANUAL) 43 % (19-48); MONOCYTES % (MANUAL) 10 % (3.4-9.0); MYELOCYTES % (MANUAL) 1 % (0-0); NEUTROPHILS % (MANUAL) 43 % (40-74); PLATELET ESTIMATE ADEQUATE; PLATELET MORPHOLOGY COMMENT NORMAL; RBC MORPHOLOGY COMMENT NORMAL
[2022-09-26] MEDS ORDERED: MIDAZOLAM HCL 2 MG/2 ML VIAL ONE (12:21)
[2022-09-26] MEDS ORDERED: FENTANYL CITRATE/PF 100MCG/2 ML INJ ONE (12:21)
[2022-09-26] MEDS ORDERED: POVIDONE IODINE 0.05% 0.05 % ML PO ONE (12:32)
[2022-09-26] MEDS ORDERED: EPHEDRINE SULFATE INJ 50 MG/ML VIAL ONE (12:32)
[2022-09-26] MEDS ORDERED: LIDOCAINE HCL 2% LOCAL INJ 5 ML SDV VIAL INJ ONE (12:32)
[2022-09-26] MEDS ORDERED: LIDOCAINE/PRILOCAINE 2.5-2.5% KIT ONE (12:32)
[2022-09-26] MEDS ORDERED: PROPOFOL IV EMULSION 10 MG/ML 20 ML VIAL ONE (12:32)
[2022-09-26] MEDS ORDERED: SUGAMMADEX SODIUM 200 MG/2 ML VIAL IV ONE ×2 (12:32→13:19)
[2022-09-26] MEDS ORDERED: DEXAMETHASONE SOD PHOS INJ 4 MG/ML SDV ONE (12:32)
[2022-09-26] MEDS ORDERED: ONDANSETRON HCL INJ 2MG/ML 2ML 2 MG/ML VIAL ONE (12:32)
[2022-09-26] MEDS ORDERED: SEVOFLURANE INHAL SOLN 250 ML PEN BTL ONE (12:32)
[2022-09-26] MEDS ORDERED: IOPAMIDOL 610MG/1ML 300 MG/ML VIAL IV ONE (13:17)
[2022-09-26] MEDS ORDERED: ACETAMINOPHEN 1000 MG/100 ML 100 ML IV ONE (13:19)
[2022-09-26] MEDS ORDERED: Morphine 2mg Syringe 2 MG/ML SYR IV PRN (15:45)
[2022-09-26] MEDS ORDERED: DIPHENHYDRAMINE HCL 25 MG CAP PO PRN (15:45)
[2022-09-26] MEDS ORDERED: SODIUM CHLORIDE 0.9% 1000ML 1,000 ML IV SCH (15:45)
[2022-09-26] MEDS ORDERED: PHENAZOPYRIDINE HCL 100 MG TAB PO PRN (15:45)
[2022-09-26] MEDS ORDERED: ONDANSETRON HCL INJ 2MG/ML 2ML 2 MG/ML VIAL IV PRN (15:45)
[2022-09-26] MEDS ORDERED: MEROPENEM 1 GM in SODIUM CHLORIDE 0.9% 100 ML IV SCH (15:45)
[2022-09-26] MEDS: FENTANYL CITRATE/PF 100MCG/2 ML INJ ONE ×2 (16:33→16:46)
[2022-09-26 16:45] LABS: HEMATOCRIT 31.7 % (34.2-44.1); HEMOGLOBIN 10.2 g/dL (12.0-16.0); MEAN CORPUSCULAR HEMOGLOBIN 31.7 pg (28-32); MEAN CORPUSCULAR HGB CONC 32.2 g/dL (31-35); MEAN CORPUSCULAR VOLUME 98.4 fL (81-99); PLATELET COUNT 211 x10e3/uL (140-360); RED BLOOD COUNT 3.22 x10e6/uL (3.6-5.1)
[2022-09-26 16:46] LABS: BASOPHILS % 0.5 % (0.0-1.0); EOSINOPHILS # (AUTO) 0.1 (0.0-0.4); EOSINOPHILS % 1.4 % (0.0-6.0); LYMPHOCYTES # (AUTO) 0.4 (1.0-3.2); NEUTROPHILS # (AUTO) 3.7 (2.1-6.9); NEUTROPHILS % 87.6 % (38.7-80.0)
[2022-09-26 17:20] LABS: ANION GAP 15.1 mmol/L (8-16); CALCIUM 8.9 mg/dL (8.4-10.2); CREATININE, SERUM 0.64 mg/dL (0.57-1.11); POTASSIUM 3.1 mmol/L (3.5-5.1)
[2022-09-26] MEDS: DOCUSATE SODIUM 100 MG CAP PO SCH (17:50)
[2022-09-26 17:52] VITALS: BP 123/84
[2022-09-26] MEDS: D5.45%NS/KCL 20MEQ 1,000 ML IV SCH (18:09)
[2022-09-26 18:12] VITALS: BP 123/84
[2022-09-26 18:23] VITALS: BP 123/84
[2022-09-26] MEDS: HYDROCODONE/APAP 10MG-325MG TAB PO PRN (19:45)
[2022-09-26] MEDS ORDERED: BACLOFEN10 MG PO (19:46)
[2022-09-26 20:00] VITALS: BP 126/78
[2022-09-26 21:00] VITALS: BP 126/78
[2022-09-27] VITALS (9 sets, daily range): BP systolic 120–160; BP diastolic 72–97
[2022-09-27] MEDS: D5.45%NS/KCL 20MEQ 1,000 ML IV SCH ×3 (00:04→16:34)
[2022-09-27] MEDS: MEROPENEM 1 GM in SODIUM CHLORIDE 0.9% 100 ML IV SCH ×3 (00:04→19:55)
[2022-09-27] MEDS: HYDROCODONE/APAP 10MG-325MG TAB PO PRN ×4 (00:05→19:54)
[2022-09-27] MEDS: ACETAMINOPHEN 1000 MG/100 ML IV PRN ×2 (01:23→08:05)
[2022-09-27 06:13] LABS: BASOPHILS % 0.5 % (0.0-1.0); EOSINOPHILS % 0.5 % (0.0-6.0); HEMOGLOBIN 8.6 g/dL (12.0-16.0); LYMPHOCYTES # (AUTO) 0.4 (1.0-3.2); LYMPHOCYTES % 7.8 % (18.0-39.1); MEAN CORPUSCULAR HEMOGLOBIN 31.6 pg (28-32); MEAN CORPUSCULAR HGB CONC 31.9 g/dL (31-35); MEAN CORPUSCULAR VOLUME 99.3 fL (81-99); MONOCYTES # (AUTO) 0.4 (0.2-0.8); MONOCYTES % 7.3 % (4.4-11.3); NEUTROPHILS # (AUTO) 4.6 (2.1-6.9); NEUTROPHILS % 82.3 % (38.7-80.0); PLATELET COUNT 158 x10e3/uL (140-360); RED BLOOD COUNT 2.72 x10e6/uL (3.6-5.1); RED CELL DISTRIBUTION WIDTH 14.1 % (11.7-14.4)
[2022-09-27 06:40] LABS: ANION GAP 12.6 mmol/L (8-16); CALCIUM 8.4 mg/dL (8.4-10.2); CREATININE, SERUM 0.62 mg/dL (0.57-1.11); POTASSIUM 3.6 mmol/L (3.5-5.1)
[2022-09-27] MEDS: DOCUSATE SODIUM 100 MG CAP PO SCH ×2 (08:04→16:30)
[2022-09-27] MEDS ORDERED: MAGNESIUM HYDROXIDE 30 ML UDC PO PRN (10:30)
[2022-09-27] MEDS ORDERED: DIPHENHYDRAMINE HCL 25 MG CAP PO PRN (10:30)
[2022-09-27] MEDS ORDERED: ONDANSETRON HCL 4 MG ORAL DISINTEGRATING TAB PO PRN (11:00)
[2022-09-27] MEDS: OXYBUTYNIN CHLORIDE 5 MG TAB PO SCH (16:30)
[2022-09-27] MEDS: BUPROPION HCL 100 MG TAB PO SCH (16:30)
[2022-09-27] MEDS: PRIMIDONE 50 MG TAB PO SCH (16:31)
[2022-09-27] MEDS: BACLOFEN 10 MG TAB PO SCH ×2 (16:35→21:05)
[2022-09-27] MEDS: FENOFIBRATE 200 MG TAB PO SCH (21:00)
[2022-09-27] MEDS ORDERED: NON-FORMULARY MEDICATION (Melatonin 10 MG) PO SCH (21:00)
[2022-09-27] MEDS: ROPINIROLE HCL 1 MG TAB PO SCH (21:04)
[2022-09-27] MEDS: LORATADINE 10 MG TAB PO SCH (21:05)
[2022-09-27] MEDS: MELATONIN 5 MG TABLET PO SCH (21:05)
[2022-09-27] MEDS: BISACODYL 5 MG TAB EC PO SCH (21:05)
[2022-09-27] MEDS: DOXEPIN HCL 10 MG CAP PO SCH (21:05)
[2022-09-28] VITALS (8 sets, daily range): BP systolic 126–149; BP diastolic 78–99
[2022-09-28] MEDS: HYDROCODONE/APAP 10MG-325MG TAB PO PRN ×3 (00:28→17:25)
[2022-09-28] MEDS: D5.45%NS/KCL 20MEQ 1,000 ML IV SCH ×4 (00:28→23:24)
[2022-09-28] MEDS: ACETAMINOPHEN 325 MG TAB PO PRN (00:29)
[2022-09-28] MEDS: MEROPENEM 1 GM in SODIUM CHLORIDE 0.9% 100 ML IV SCH ×3 (04:21→20:31)
[2022-09-28 06:01] LABS: BASOPHILS % 0.2 % (0.0-1.0); HEMATOCRIT 25.2 % (34.2-44.1); HEMOGLOBIN 7.8 g/dL (12.0-16.0); LYMPHOCYTES # (AUTO) 0.8 (1.0-3.2); LYMPHOCYTES % 20.4 % (18.0-39.1); MEAN CORPUSCULAR HEMOGLOBIN 31.8 pg (28-32); MONOCYTES # (AUTO) 0.6 (0.2-0.8); MONOCYTES % 14.2 % (4.4-11.3); NEUTROPHILS # (AUTO) 2.6 (2.1-6.9); NEUTROPHILS % 63.7 % (38.7-80.0); PLATELET COUNT 150 x10e3/uL (140-360); RED BLOOD COUNT 2.45 x10e6/uL (3.6-5.1); RED CELL DISTRIBUTION WIDTH 14.5 % (11.7-14.4)
[2022-09-28 06:09] LABS: MEAN CORPUSCULAR VOLUME 102.9 fL (81-99)
[2022-09-28 06:25] LABS: ANION GAP 9.6 mmol/L (8-16); CALCIUM 8.2 mg/dL (8.4-10.2); CREATININE, SERUM 0.5 mg/dL (0.57-1.11); POTASSIUM 3.6 mmol/L (3.5-5.1)
[2022-09-28] MEDS: POLYETHYLENE GLYCOL 3350 17 GM PACK PO SCH (09:00)
[2022-09-28] MEDS: BUPROPION HCL 100 MG TAB PO SCH ×2 (09:40→17:22)
[2022-09-28] MEDS: METOPROLOL SUCCINATE 50 MG TAB XL PO SCH (09:41)
[2022-09-28] MEDS: AMLODIPINE BESYLATE 10 MG TAB PO SCH (09:41)
[2022-09-28] MEDS: BACLOFEN 10 MG TAB PO SCH ×3 (09:41→21:05)
[2022-09-28] MEDS: DOCUSATE SODIUM 100 MG CAP PO SCH ×2 (09:41→17:21)
[2022-09-28] MEDS: ASPIRIN 81 MG CHEW TAB PO SCH (09:41)
[2022-09-28] MEDS: CYANOCOBALAMIN 1,000 MCG TAB PO SCH (09:41)
[2022-09-28] MEDS: OXYBUTYNIN CHLORIDE 5 MG TAB PO SCH ×2 (09:41→17:21)
[2022-09-28] MEDS: PRIMIDONE 50 MG TAB PO SCH ×2 (09:41→17:21)
[2022-09-28] MEDS: FOLIC ACID 1 MG TAB PO SCH (09:41)
[2022-09-28] MEDS: PANTOPRAZOLE SOD 40 MG TABEC PO SCH (09:41)
[2022-09-28] MEDS: FENOFIBRATE 200 MG TAB PO SCH (21:00)
[2022-09-28] MEDS: LORATADINE 10 MG TAB PO SCH (21:03)
[2022-09-28] MEDS: DOXEPIN HCL 10 MG CAP PO SCH (21:03)
[2022-09-28] MEDS: MELATONIN 5 MG TABLET PO SCH (21:03)
[2022-09-28] MEDS: ROPINIROLE HCL 1 MG TAB PO SCH (21:04)
[2022-09-28] MEDS: BISACODYL 5 MG TAB EC PO SCH (21:05)
[2022-09-29] VITALS (8 sets, daily range): BP systolic 132–157; BP diastolic 81–94
[2022-09-29] MEDS: ACETAMINOPHEN 325 MG TAB PO PRN (01:44)
[2022-09-29 06:09] LABS: BASOPHILS % 0.3 % (0.0-1.0); EOSINOPHILS # (AUTO) 0.1 (0.0-0.4); EOSINOPHILS % 3.4 % (0.0-6.0); HEMATOCRIT 23.7 % (34.2-44.1); HEMOGLOBIN 7.8 g/dL (12.0-16.0); LYMPHOCYTES # (AUTO) 1.1 (1.0-3.2); LYMPHOCYTES % 28.1 % (18.0-39.1); MEAN CORPUSCULAR HEMOGLOBIN 31.7 pg (28-32); MEAN CORPUSCULAR HGB CONC 32.9 g/dL (31-35); MEAN CORPUSCULAR VOLUME 96.3 fL (81-99); MONOCYTES # (AUTO) 0.4 (0.2-0.8); MONOCYTES % 11.7 % (4.4-11.3); NEUTROPHILS # (AUTO) 2.1 (2.1-6.9); PLATELET COUNT 156 x10e3/uL (140-360); RED BLOOD COUNT 2.46 x10e6/uL (3.6-5.1)
[2022-09-29 06:36] LABS: ANION GAP 9.5 mmol/L (8-16); CALCIUM 8.4 mg/dL (8.4-10.2); CREATININE, SERUM 0.47 mg/dL (0.57-1.11); POTASSIUM 3.5 mmol/L (3.5-5.1)
[2022-09-29] MEDS: D5.45%NS/KCL 20MEQ 1,000 ML IV SCH ×2 (07:45→16:02)
[2022-09-29] MEDS: POLYETHYLENE GLYCOL 3350 17 GM PACK PO SCH (09:00)
[2022-09-29] MEDS: DOCUSATE SODIUM 100 MG CAP PO SCH ×2 (09:00→16:02)
[2022-09-29] MEDS: CYANOCOBALAMIN 1,000 MCG TAB PO SCH (09:28)
[2022-09-29] MEDS: PRIMIDONE 50 MG TAB PO SCH ×2 (09:28→16:12)
[2022-09-29] MEDS: BUPROPION HCL 100 MG TAB PO SCH ×2 (09:29→16:02)
[2022-09-29] MEDS: AMLODIPINE BESYLATE 10 MG TAB PO SCH (09:29)
[2022-09-29] MEDS: HYDROCODONE/APAP 10MG-325MG TAB PO PRN ×2 (09:29→16:36)
[2022-09-29] MEDS: FOLIC ACID 1 MG TAB PO SCH (09:29)
[2022-09-29] MEDS: ASPIRIN 81 MG CHEW TAB PO SCH (09:29)
[2022-09-29] MEDS: OXYBUTYNIN CHLORIDE 5 MG TAB PO SCH ×2 (09:29→16:12)
[2022-09-29] MEDS: METOPROLOL SUCCINATE 50 MG TAB XL PO SCH (09:29)
[2022-09-29] MEDS: PANTOPRAZOLE SOD 40 MG TABEC PO SCH (09:30)
[2022-09-29] MEDS: BACLOFEN 10 MG TAB PO SCH ×3 (09:30→20:36)
[2022-09-29] MEDS: CEFTRIAXONE 2 GM in SODIUM CHLORIDE 0.9% 100 ML IV SCH (16:01)
[2022-09-29] MEDS: LORATADINE 10 MG TAB PO SCH (20:35)
[2022-09-29] MEDS: DOXEPIN HCL 10 MG CAP PO SCH (20:35)
[2022-09-29] MEDS: ROPINIROLE HCL 1 MG TAB PO SCH (20:35)
[2022-09-29] MEDS: MELATONIN 5 MG TABLET PO SCH (20:35)
[2022-09-29] MEDS: FENOFIBRATE 200 MG TAB PO SCH (21:00)
[2022-09-29] MEDS: BISACODYL 5 MG TAB EC PO SCH (21:00)
[2022-09-30] VITALS (8 sets, daily range): BP systolic 129–153; BP diastolic 78–101
[2022-09-30] MEDS: D5.45%NS/KCL 20MEQ 1,000 ML IV SCH ×4 (02:26→23:45)
[2022-09-30] MEDS: HYDROCODONE/APAP 10MG-325MG TAB PO PRN ×3 (04:13→19:27)
[2022-09-30 06:37] LABS: BASOPHILS % 0.5 % (0.0-1.0); EOSINOPHILS # (AUTO) 0.1 (0.0-0.4); EOSINOPHILS % 3.5 % (0.0-6.0); HEMATOCRIT 23.8 % (34.2-44.1); HEMOGLOBIN 7.9 g/dL (12.0-16.0); LYMPHOCYTES # (AUTO) 0.9 (1.0-3.2); LYMPHOCYTES % 23.3 % (18.0-39.1); MEAN CORPUSCULAR HEMOGLOBIN 31.5 pg (28-32); MEAN CORPUSCULAR HGB CONC 33.2 g/dL (31-35); MEAN CORPUSCULAR VOLUME 94.8 fL (81-99); MONOCYTES # (AUTO) 0.4 (0.2-0.8); MONOCYTES % 10.9 % (4.4-11.3); NEUTROPHILS # (AUTO) 2.4 (2.1-6.9); NEUTROPHILS % 61.5 % (38.7-80.0); PLATELET COUNT 188 x10e3/uL (140-360); RED BLOOD COUNT 2.51 x10e6/uL (3.6-5.1); RED CELL DISTRIBUTION WIDTH 13.6 % (11.7-14.4)
[2022-09-30 07:15] LABS: ANION GAP 10.8 mmol/L (8-16); CALCIUM 8.6 mg/dL (8.4-10.2); CREATININE, SERUM 0.49 mg/dL (0.57-1.11); POTASSIUM 3.8 mmol/L (3.5-5.1)
[2022-09-30] MEDS: POLYETHYLENE GLYCOL 3350 17 GM PACK PO SCH (09:00)
[2022-09-30 09:09] LABS: EOSINOPHILS % (MANUAL) 3 % (0-7); LYMPHOCYTES % (MANUAL) 25 % (19-48); MONOCYTES % (MANUAL) 8 % (3.4-9.0); NEUTROPHILS % (MANUAL) 63 % (40-74); PLATELET ESTIMATE ADEQUATE; PLATELET MORPHOLOGY COMMENT NORMAL; RBC MORPHOLOGY COMMENT NORMAL
[2022-09-30] MEDS: BACLOFEN 10 MG TAB PO SCH ×3 (09:38→22:13)
[2022-09-30] MEDS: CYANOCOBALAMIN 1,000 MCG TAB PO SCH (09:38)
[2022-09-30] MEDS: DOCUSATE SODIUM 100 MG CAP PO SCH ×2 (09:38→19:26)
[2022-09-30] MEDS: METOPROLOL SUCCINATE 50 MG TAB XL PO SCH (09:39)
[2022-09-30] MEDS: PANTOPRAZOLE SOD 40 MG TABEC PO SCH (09:39)
[2022-09-30] MEDS: FOLIC ACID 1 MG TAB PO SCH (09:39)
[2022-09-30] MEDS: PRIMIDONE 50 MG TAB PO SCH ×2 (09:39→19:26)
[2022-09-30] MEDS: OXYBUTYNIN CHLORIDE 5 MG TAB PO SCH ×2 (09:40→19:26)
[2022-09-30] MEDS: BUPROPION HCL 100 MG TAB PO SCH ×2 (09:40→19:26)
[2022-09-30] MEDS: AMLODIPINE BESYLATE 10 MG TAB PO SCH (09:41)
[2022-09-30] MEDS ORDERED: MIDAZOLAM HCL 2 MG/2 ML VIAL ONE (13:02)
[2022-09-30] MEDS ORDERED: FENTANYL CITRATE/PF 100MCG/2 ML INJ ONE (13:02)
[2022-09-30] MEDS: CEFTRIAXONE 2 GM in SODIUM CHLORIDE 0.9% 100 ML IV SCH (16:00)
[2022-09-30] MEDS ORDERED: IOPAMIDOL 610MG/1ML 300 MG/ML VIAL IV ONE (16:22)
[2022-09-30] MEDS ORDERED: TRANEXAMIC ACID 10 ML ONE (17:24)
[2022-09-30] MEDS: SODIUM CHLORIDE 0.9% 1000ML 1,000 ML IV SCH (18:15)
[2022-09-30 18:30] LABS: BASOPHILS % 0.3 % (0.0-1.0); EOSINOPHILS # (AUTO) 0.1 (0.0-0.4); EOSINOPHILS % 1.8 % (0.0-6.0); HEMATOCRIT 24.7 % (34.2-44.1); HEMOGLOBIN 7.7 g/dL (12.0-16.0); LYMPHOCYTES # (AUTO) 1.1 (1.0-3.2); LYMPHOCYTES % 16.2 % (18.0-39.1); MEAN CORPUSCULAR HEMOGLOBIN 30.8 pg (28-32); MEAN CORPUSCULAR HGB CONC 31.2 g/dL (31-35); MEAN CORPUSCULAR VOLUME 98.8 fL (81-99); MONOCYTES # (AUTO) 0.3 (0.2-0.8); MONOCYTES % 4.5 % (4.4-11.3); NEUTROPHILS # (AUTO) 5.1 (2.1-6.9); NEUTROPHILS % 76.6 % (38.7-80.0); PLATELET COUNT 202 x10e3/uL (140-360)
[2022-09-30 18:47] LABS: ANION GAP 13.1 mmol/L (8-16); CALCIUM 8.2 mg/dL (8.4-10.2); CREATININE, SERUM 0.47 mg/dL (0.57-1.11); POTASSIUM 4.1 mmol/L (3.5-5.1)
[2022-09-30] MEDS: DOXEPIN HCL 10 MG CAP PO SCH (20:32)
[2022-09-30] MEDS: LORATADINE 10 MG TAB PO SCH (20:32)
[2022-09-30] MEDS: ROPINIROLE HCL 1 MG TAB PO SCH (20:33)
[2022-09-30] MEDS: MELATONIN 5 MG TABLET PO SCH (20:33)
[2022-09-30] MEDS: FENOFIBRATE 200 MG TAB PO SCH (21:00)
[2022-09-30] MEDS: BISACODYL 5 MG TAB EC PO SCH (21:00)
[2022-10-01] VITALS (7 sets, daily range): BP systolic 108–145; BP diastolic 69–89
[2022-10-01] MEDS: HYDROCODONE/APAP 10MG-325MG TAB PO PRN ×3 (04:15→17:25)
[2022-10-01] MEDS: SODIUM CHLORIDE 0.9% 1000ML 1,000 ML IV SCH (04:15)
[2022-10-01 06:00] LABS: BASOPHILS % 0.5 % (0.0-1.0); EOSINOPHILS # (AUTO) 0.1 (0.0-0.4); EOSINOPHILS % 1.2 % (0.0-6.0); HEMOGLOBIN 6.9 g/dL (12.0-16.0); LYMPHOCYTES # (AUTO) 1.5 (1.0-3.2); LYMPHOCYTES % 25.2 % (18.0-39.1); MEAN CORPUSCULAR HEMOGLOBIN 31.4 pg (28-32); MEAN CORPUSCULAR HGB CONC 31.2 g/dL (31-35); MEAN CORPUSCULAR VOLUME 100.5 fL (81-99); MONOCYTES # (AUTO) 0.7 (0.2-0.8); MONOCYTES % 11.3 % (4.4-11.3); NEUTROPHILS # (AUTO) 3.6 (2.1-6.9); NEUTROPHILS % 61.5 % (38.7-80.0); PLATELET COUNT 217 x10e3/uL (140-360); RED CELL DISTRIBUTION WIDTH 13.8 % (11.7-14.4)
[2022-10-01 06:15] LABS: HEMATOCRIT 22.1 % (34.2-44.1)
[2022-10-01 06:20] LABS: CALCIUM 8.5 mg/dL (8.4-10.2); CARBON DIOXIDE 17 mmol/L (22-29); CHLORIDE 113 mmol/L (98-107); CREATININE, SERUM 0.54 mg/dL (0.57-1.11); GLUCOSE 89 mg/dL (74-118); SODIUM 137 mmol/L (136-145)
[2022-10-01 06:29] LABS: BLOOD UREA NITROGEN < 5 mg/dL (7-26); BUN/CREATININE RATIO 9 (6-25)
[2022-10-01] MEDS ORDERED: SODIUM CHLORIDE 0.9% 250ML 250 ML IV ONE (07:00)
[2022-10-01] MEDS: POLYETHYLENE GLYCOL 3350 17 GM PACK PO SCH (09:00)
[2022-10-01] MEDS: CYANOCOBALAMIN 1,000 MCG TAB PO SCH (09:29)
[2022-10-01] MEDS: AMLODIPINE BESYLATE 10 MG TAB PO SCH (09:29)
[2022-10-01] MEDS: DOCUSATE SODIUM 100 MG CAP PO SCH ×2 (09:29→17:21)
[2022-10-01] MEDS: PRIMIDONE 50 MG TAB PO SCH ×2 (09:29→17:21)
[2022-10-01] MEDS: FOLIC ACID 1 MG TAB PO SCH (09:30)
[2022-10-01] MEDS: BUPROPION HCL 100 MG TAB PO SCH ×2 (09:30→17:21)
[2022-10-01] MEDS: BACLOFEN 10 MG TAB PO SCH ×3 (09:30→21:00)
[2022-10-01] MEDS: OXYBUTYNIN CHLORIDE 5 MG TAB PO SCH ×2 (09:30→17:21)
[2022-10-01] MEDS: METOPROLOL SUCCINATE 50 MG TAB XL PO SCH (09:30)
[2022-10-01] MEDS: PANTOPRAZOLE SOD 40 MG TABEC PO SCH (09:30)
[2022-10-01] MEDS: D5.45%NS/KCL 20MEQ 1,000 ML IV SCH (09:31)
[2022-10-01 10:52] LABS: LYMPHOCYTES % (MANUAL) 25 % (19-48); MONOCYTES % (MANUAL) 4 % (3.4-9.0); NEUTROPHILS % (MANUAL) 67 % (40-74)
[2022-10-01] MEDS ORDERED: SODIUM CHLORIDE 0.9% 250ML 250 ML ONE (10:53)
[2022-10-01 10:57] LABS: PLATELET ESTIMATE ADEQUATE; PLATELET MORPHOLOGY COMMENT NORMAL
[2022-10-01] MEDS: ACETAMINOPHEN 325 MG TAB PO PRN (11:05)
[2022-10-01] MEDS: CEFTRIAXONE 2 GM in SODIUM CHLORIDE 0.9% 100 ML IV SCH (17:22)
[2022-10-01] MEDS: FENOFIBRATE 200 MG TAB PO SCH (19:27)
[2022-10-01] MEDS: DOXEPIN HCL 10 MG CAP PO SCH (21:01)
[2022-10-01] MEDS: ROPINIROLE HCL 1 MG TAB PO SCH (21:01)
[2022-10-01] MEDS: BISACODYL 5 MG TAB EC PO SCH (21:01)
[2022-10-01] MEDS: MELATONIN 5 MG TABLET PO SCH (21:02)
[2022-10-01] MEDS: LORATADINE 10 MG TAB PO SCH (21:02)
[2022-10-02] VITALS (8 sets, daily range): BP systolic 127–138; BP diastolic 79–94
[2022-10-02 06:48] LABS: BASOPHILS # (AUTO) 0.1 (0.0-0.1); BASOPHILS % 0.8 % (0.0-1.0); EOSINOPHILS # (AUTO) 0.1 (0.0-0.4); EOSINOPHILS % 1.8 % (0.0-6.0); HEMATOCRIT 23.3 % (34.2-44.1); HEMOGLOBIN 7.7 g/dL (12.0-16.0); LYMPHOCYTES # (AUTO) 1.7 (1.0-3.2); LYMPHOCYTES % 27.2 % (18.0-39.1); MEAN CORPUSCULAR HEMOGLOBIN 30.6 pg (28-32); MEAN CORPUSCULAR VOLUME 92.5 fL (81-99); MONOCYTES # (AUTO) 0.7 (0.2-0.8); MONOCYTES % 11.4 % (4.4-11.3); NEUTROPHILS # (AUTO) 3.6 (2.1-6.9); NEUTROPHILS % 58.2 % (38.7-80.0); PLATELET COUNT 234 x10e3/uL (140-360); RED BLOOD COUNT 2.52 x10e6/uL (3.6-5.1); RED CELL DISTRIBUTION WIDTH 15.6 % (11.7-14.4)
[2022-10-02 07:05] LABS: ANION GAP 12.6 mmol/L (8-16); CALCIUM 8.6 mg/dL (8.4-10.2); CREATININE, SERUM 0.52 mg/dL (0.57-1.11); POTASSIUM 3.6 mmol/L (3.5-5.1)
[2022-10-02] MEDS: POLYETHYLENE GLYCOL 3350 17 GM PACK PO SCH (09:00)
[2022-10-02] MEDS: PANTOPRAZOLE SOD 40 MG TABEC PO SCH (09:17)
[2022-10-02] MEDS: CYANOCOBALAMIN 1,000 MCG TAB PO SCH (09:17)
[2022-10-02] MEDS: OXYBUTYNIN CHLORIDE 5 MG TAB PO SCH ×2 (09:17→16:31)
[2022-10-02] MEDS: METOPROLOL SUCCINATE 50 MG TAB XL PO SCH (09:17)
[2022-10-02] MEDS: PRIMIDONE 50 MG TAB PO SCH ×2 (09:17→16:31)
[2022-10-02] MEDS: BUPROPION HCL 100 MG TAB PO SCH ×2 (09:17→16:31)
[2022-10-02] MEDS: AMLODIPINE BESYLATE 10 MG TAB PO SCH (09:18)
[2022-10-02] MEDS: BACLOFEN 10 MG TAB PO SCH ×3 (09:21→20:45)
[2022-10-02] MEDS: DOCUSATE SODIUM 100 MG CAP PO SCH ×2 (09:21→16:32)
[2022-10-02] MEDS: FOLIC ACID 1 MG TAB PO SCH (09:21)
[2022-10-02] MEDS: HYDROCODONE/APAP 10MG-325MG TAB PO PRN ×3 (09:22→20:46)
[2022-10-02] MEDS: IRON SUCROSE 100 MG in SODIUM CHLORIDE 0.9% 100 ML IV SCH (12:54)
[2022-10-02] MEDS: CEFTRIAXONE 2 GM in SODIUM CHLORIDE 0.9% 100 ML IV SCH (16:32)
[2022-10-02] MEDS: ROPINIROLE HCL 1 MG TAB PO SCH (20:43)
[2022-10-02] MEDS: BISACODYL 5 MG TAB EC PO SCH (20:44)
[2022-10-02] MEDS: MELATONIN 5 MG TABLET PO SCH (20:44)
[2022-10-02] MEDS: LORATADINE 10 MG TAB PO SCH (20:46)
[2022-10-02] MEDS: DOXEPIN HCL 10 MG CAP PO SCH (20:47)
[2022-10-02] MEDS: FENOFIBRATE 200 MG TAB PO SCH (20:50)
[2022-10-03] VITALS (7 sets, daily range): BP systolic 119–162; BP diastolic 77–90
[2022-10-03] MEDS: HYDROCODONE/APAP 10MG-325MG TAB PO PRN ×4 (04:41→22:14)
[2022-10-03 05:57] LABS: BASOPHILS % 0.6 % (0.0-1.0); EOSINOPHILS # (AUTO) 0.2 (0.0-0.4); EOSINOPHILS % 4.3 % (0.0-6.0); HEMATOCRIT 24.1 % (34.2-44.1); HEMOGLOBIN 7.8 g/dL (12.0-16.0); LYMPHOCYTES # (AUTO) 1.6 (1.0-3.2); LYMPHOCYTES % 33.9 % (18.0-39.1); MEAN CORPUSCULAR HEMOGLOBIN 30.6 pg (28-32); MEAN CORPUSCULAR HGB CONC 32.4 g/dL (31-35); MEAN CORPUSCULAR VOLUME 94.5 fL (81-99); MONOCYTES # (AUTO) 0.6 (0.2-0.8); MONOCYTES % 12.3 % (4.4-11.3); NEUTROPHILS # (AUTO) 2.2 (2.1-6.9); NEUTROPHILS % 47.8 % (38.7-80.0); PLATELET COUNT 262 x10e3/uL (140-360); RED BLOOD COUNT 2.55 x10e6/uL (3.6-5.1); RED CELL DISTRIBUTION WIDTH 15.8 % (11.7-14.4)
[2022-10-03 06:29] LABS: ANION GAP 9.5 mmol/L (8-16); CALCIUM 8.7 mg/dL (8.4-10.2); CREATININE, SERUM 0.52 mg/dL (0.57-1.11); POTASSIUM 3.5 mmol/L (3.5-5.1)
[2022-10-03 08:17] LABS: LYMPHOCYTES % (MANUAL) 39 % (19-48); MONOCYTES % (MANUAL) 8 % (3.4-9.0); NEUTROPHILS % (MANUAL) 51 % (40-74)
[2022-10-03 08:18] LABS: PLATELET ESTIMATE ADEQUATE; PLATELET MORPHOLOGY COMMENT NORMAL; RBC MORPHOLOGY COMMENT NORMAL
[2022-10-03] MEDS: OXYBUTYNIN CHLORIDE 5 MG TAB PO SCH ×2 (09:00→17:41)
[2022-10-03] MEDS: PANTOPRAZOLE SOD 40 MG TABEC PO SCH (09:00)
[2022-10-03] MEDS: POLYETHYLENE GLYCOL 3350 17 GM PACK PO SCH (09:00)
[2022-10-03] MEDS: DOCUSATE SODIUM 100 MG CAP PO SCH ×2 (09:00→17:41)
[2022-10-03] MEDS: CYANOCOBALAMIN 1,000 MCG TAB PO SCH (09:00)
[2022-10-03] MEDS: FOLIC ACID 1 MG TAB PO SCH (09:00)
[2022-10-03] MEDS: PRIMIDONE 50 MG TAB PO SCH ×2 (09:00→17:41)
[2022-10-03] MEDS: BACLOFEN 10 MG TAB PO SCH ×3 (09:00→21:06)
[2022-10-03] MEDS: BUPROPION HCL 100 MG TAB PO SCH ×2 (09:00→17:41)
[2022-10-03] MEDS: AMLODIPINE BESYLATE 10 MG TAB PO SCH (10:07)
[2022-10-03] MEDS: METOPROLOL SUCCINATE 50 MG TAB XL PO SCH (10:08)
[2022-10-03] MEDS: IRON SUCROSE 100 MG in SODIUM CHLORIDE 0.9% 100 ML IV SCH (10:15)
[2022-10-03 10:20] LABS: INR 0.97; PROTHROMBIN TIME 13.4 seconds (11.9-14.5)
[2022-10-03] MEDS: CEFTRIAXONE 2 GM in SODIUM CHLORIDE 0.9% 100 ML IV SCH (17:48)
[2022-10-03] MEDS: FENOFIBRATE 200 MG TAB PO SCH (21:00)
[2022-10-03] MEDS: MELATONIN 5 MG TABLET PO SCH (21:05)
[2022-10-03] MEDS: BISACODYL 5 MG TAB EC PO SCH (21:05)
[2022-10-03] MEDS: DOXEPIN HCL 10 MG CAP PO SCH (21:06)
[2022-10-03] MEDS: ROPINIROLE HCL 1 MG TAB PO SCH (21:06)
[2022-10-03] MEDS: LORATADINE 10 MG TAB PO SCH (21:06)
[2022-10-04 00:46] VITALS: BP 141/87
[2022-10-04 05:24] VITALS: BP 142/85
[2022-10-04 05:56] LABS: BASOPHILS # (AUTO) 0.1 (0.0-0.1); BASOPHILS % 1.4 % (0.0-1.0); EOSINOPHILS # (AUTO) 0.2 (0.0-0.4); EOSINOPHILS % 4.5 % (0.0-6.0); HEMATOCRIT 25.6 % (34.2-44.1); HEMOGLOBIN 8.2 g/dL (12.0-16.0); LYMPHOCYTES # (AUTO) 1.5 (1.0-3.2); LYMPHOCYTES % 31.3 % (18.0-39.1); MEAN CORPUSCULAR HEMOGLOBIN 30.6 pg (28-32); MEAN CORPUSCULAR VOLUME 95.5 fL (81-99); MONOCYTES # (AUTO) 0.5 (0.2-0.8); NEUTROPHILS # (AUTO) 2.5 (2.1-6.9); PLATELET COUNT 335 x10e3/uL (140-360); RED BLOOD COUNT 2.68 x10e6/uL (3.6-5.1); RED CELL DISTRIBUTION WIDTH 15.4 % (11.7-14.4)
[2022-10-04 06:23] LABS: ANION GAP 12.7 mmol/L (8-16); CALCIUM 9.2 mg/dL (8.4-10.2); CREATININE, SERUM 0.54 mg/dL (0.57-1.11); POTASSIUM 3.7 mmol/L (3.5-5.1)
[2022-10-04 06:32] VITALS: BP 142/85
[2022-10-04] MEDS: HYDROCODONE/APAP 10MG-325MG TAB PO PRN (06:41)
[2022-10-04 07:56] LABS: LYMPHOCYTES % (MANUAL) 29 % (19-48); MONOCYTES % (MANUAL) 7 % (3.4-9.0); NEUTROPHILS % (MANUAL) 59 % (40-74); PLATELET ESTIMATE ADEQUATE; PLATELET MORPHOLOGY COMMENT NORMAL; RBC MORPHOLOGY COMMENT NORMAL
[2022-10-04 08:20] VITALS: BP 128/91
[2022-10-04 08:22] VITALS: BP 128/91
[2022-10-04] MEDS: PRIMIDONE 50 MG TAB PO SCH (09:00)
[2022-10-04] MEDS: FOLIC ACID 1 MG TAB PO SCH (09:00)
[2022-10-04] MEDS: BACLOFEN 10 MG TAB PO SCH (09:00)
[2022-10-04] MEDS: DOCUSATE SODIUM 100 MG CAP PO SCH (09:00)
[2022-10-04] MEDS: POLYETHYLENE GLYCOL 3350 17 GM PACK PO SCH (09:00)
[2022-10-04] MEDS: METOPROLOL SUCCINATE 50 MG TAB XL PO SCH (09:00)
[2022-10-04] MEDS: AMLODIPINE BESYLATE 10 MG TAB PO SCH (09:00)
[2022-10-04] MEDS: OXYBUTYNIN CHLORIDE 5 MG TAB PO SCH (09:00)
[2022-10-04] MEDS ORDERED: LIDOCAINE HCL 1% LOCAL INJ 20 ML VIAL ONE (09:21)
[2022-10-04] MEDS ORDERED: IOPAMIDOL 300 MG/ML 15ML VIAL IT ONE (09:22)
[2022-10-04] MEDS ORDERED: SODIUM CHLORIDE 0.9% 250ML 250 ML ONE (09:22)
[2022-10-04] MEDS ORDERED: IOPAMIDOL 370 MG/ML 100 ML INFUS..BTL INJ ONE (09:22)
[2022-10-04 11:51] VITALS: BP 152/92
[2022-10-04] MEDS: PANTOPRAZOLE SOD 40 MG TABEC PO SCH (12:05)
[2022-10-04] MEDS: IRON SUCROSE 100 MG in SODIUM CHLORIDE 0.9% 100 ML IV SCH (12:05)
[2022-10-04] MEDS: BUPROPION HCL 100 MG TAB PO SCH (12:05)
[2022-10-04] MEDS: CYANOCOBALAMIN 1,000 MCG TAB PO SCH (12:05)
== END 2022-10-04 15:15 | DRG 698 ==
LOC: OR 10:05 → PACU V 15:40 → MED/SURG3 17:17
PROVIDERS: ADMIT Internal Medicine; ATTEND Internal Medicine
PROC: 0T9330Z Drainage of Right Kidney Pelvis with Drainage Device, Percutaneous Approach (ICD-10-PCS; principal; 2022-09-26 13:41)
PROC: 0T9330Z Drainage of Right Kidney Pelvis with Drainage Device, Percutaneous Approach (ICD-10-PCS; 2022-10-03)
DX: T83.592A Infection and inflammatory reaction due to indwelling ureteral stent, initial encounter (principal); A41.9 Sepsis, unspecified organism; Z16.11 Resistance to penicillins; G35 Multiple sclerosis; N30.90 Cystitis, unspecified without hematuria; Z96.0 Presence of urogenital implants; G25.81 Restless legs syndrome; Z95.0 Presence of cardiac pacemaker; Z88.0 Allergy status to penicillin; N31.9 Neuromuscular dysfunction of bladder, unspecified; N39.498 Other specified urinary incontinence; N81.10 Cystocele, unspecified; B96.4 Proteus (mirabilis) (morganii) as the cause of diseases classified elsewhere; Z20.822 Contact with and (suspected) exposure to COVID-19; Z74.01 Bed confinement status; D50.0 Iron deficiency anemia secondary to blood loss (chronic)
CPT/HCPCS: 36415; 50430; 50433; 71045; 74018; 74420; 74425; 74470; 76942; 80048; 80053; 83735; 85025; 85610; 85730; 86850; 86900; 86920; 87040; 87086; 87186; 88300; 94799; 96361; C1758; C1769; C2625; J0696; J1100; J1756; J2001; J2185; J2250; J2405; J7050; P9016; Q9967

== ENCOUNTER → 2022-10-28 | Day surgery (SDC) | payer MEDICARE, OTHER ==
[~2022-10-28] MED LIST changes: +EPHEDRINE SULFATE INJ 50 MG/ML VIAL ONE; +ETOMIDATE 2 MG/ML 10 ML INJ IV ONE; +FENTANYL CITRATE/PF 100MCG/2 ML INJ ONE; +GENTAMICIN 80MG/NS 100 ML 200 ML IV ONE; +IOPAMIDOL 610MG/1ML 300 MG/ML VIAL IV ONE; +LACTATED RINGER'S 1,000 ML ONE; +LIDOCAINE HCL 2% LOCAL INJ 5 ML SDV VIAL INJ ONE; +MEROPENEM 1 GM VIAL ONE; +MIDAZOLAM HCL 2 MG/2 ML VIAL ONE; +ONDANSETRON HCL INJ 2MG/ML 2ML 2 MG/ML VIAL ONE; +PHENAZOPYRIDINE HCL 100 MG TAB ONE; +POVIDONE IODINE 0.05% 0.05 % ML PO ONE; +SEVOFLURANE INHAL SOLN 250 ML PEN BTL ONE
[2022-10-28 09:31] LABS: BASOPHILS # (AUTO) 0.1 (0.0-0.1); BASOPHILS % 1.8 % (0.0-1.0); EOSINOPHILS # (AUTO) 0.1 (0.0-0.4); EOSINOPHILS % 4.8 % (0.0-6.0); HEMATOCRIT 33.7 % (34.2-44.1); HEMOGLOBIN 10.5 g/dL (12.0-16.0); LYMPHOCYTES # (AUTO) 1.1 (1.0-3.2); LYMPHOCYTES % 40.1 % (18.0-39.1); MEAN CORPUSCULAR HEMOGLOBIN 31.3 pg (28-32); MEAN CORPUSCULAR HGB CONC 31.2 g/dL (31-35); MEAN CORPUSCULAR VOLUME 100.6 fL (81-99); MONOCYTES # (AUTO) 0.3 (0.2-0.8); MONOCYTES % 12.5 % (4.4-11.3); NEUTROPHILS # (AUTO) 1.1 (2.1-6.9); NEUTROPHILS % 40.4 % (38.7-80.0); PLATELET COUNT 172 x10e3/uL (140-360); RED BLOOD COUNT 3.35 x10e6/uL (3.6-5.1); RED CELL DISTRIBUTION WIDTH 16.2 % (11.7-14.4)
[2022-10-28 09:39] LABS: CALCIUM 9.2 mg/dL (8.4-10.2); CREATININE, SERUM 0.56 mg/dL (0.57-1.11)
[2022-10-28 15:20] VITALS: BP 136/97; PULSE 71; RESP 18; O2SAT 98
== END | disposition home or self-care (01) ==
LOC: OR 08:41
PROVIDERS: ATTEND Urology
DX: N20.0 Calculus of kidney (principal); N21.0 Calculus in bladder; Z46.6 Encounter for fitting and adjustment of urinary device; Z43.5 Encounter for attention to cystostomy; Z43.6 Encounter for attention to other artificial openings of urinary tract; N31.9 Neuromuscular dysfunction of bladder, unspecified; N28.89 Other specified disorders of kidney and ureter; N81.10 Cystocele, unspecified; N95.2 Postmenopausal atrophic vaginitis; G82.50 Quadriplegia, unspecified; R53.81 Other malaise; Z79.82 Long term (current) use of aspirin; Z79.899 Other long term (current) drug therapy
CPT/HCPCS: 36415; 50389; 51705; 52317; 52356; 74018; 74420; 80048; 84550; 85025; 87086; 87186; 88300; C1766; C1769; C1874; J1580; J2001; J2185; J2250; J2405; J3010; J7121; Q9967

== ENCOUNTER → 2023-10-06 | Day surgery (SDC) | payer MEDICARE, OTHER ==
[~2023-10-06] MED LIST changes: +ACETAMINOPHEN/CODEINE 300MG - 30MG TAB ONE; +BETASERON0.3 M1; +BOTULINUM TOXIN TYPE A 100 UNIT VIAL IM ONE; +DEXAMETHASONE SOD PHOS INJ 4 MG/ML SDV ONE; +LYRICA50 MG PO; -MEROPENEM 1 GM VIAL ONE; -MIDAZOLAM HCL 2 MG/2 ML VIAL ONE; -PHENAZOPYRIDINE HCL 100 MG TAB ONE; +PIPERACILLIN/TAZOBACTAM 3.375 GM VIAL ONE; -POVIDONE IODINE 0.05% 0.05 % ML PO ONE; +PROPOFOL IV EMULSION 10 MG/ML 20 ML VIAL ONE; -SEVOFLURANE INHAL SOLN 250 ML PEN BTL ONE; +TRAZODONE HCL50 MG PO
[2023-10-06 08:18] LABS: BASOPHILS % 1.3 % (0.0-1.0); EOSINOPHILS # (AUTO) 0.2 (0.0-0.4); EOSINOPHILS % 5.5 % (0.0-6.0); HEMATOCRIT 28.3 % (34.2-44.1); HEMOGLOBIN 9.5 g/dL (12.0-16.0); LYMPHOCYTES # (AUTO) 1.3 (1.0-3.2); LYMPHOCYTES % 42.2 % (18.0-39.1); MEAN CORPUSCULAR HEMOGLOBIN 32.3 pg (28-32); MEAN CORPUSCULAR HGB CONC 33.6 g/dL (31-35); MEAN CORPUSCULAR VOLUME 96.3 fL (81-99); MONOCYTES # (AUTO) 0.4 (0.2-0.8); NEUTROPHILS # (AUTO) 1.1 (2.1-6.9); NEUTROPHILS % 36.7 % (38.7-80.0); PLATELET COUNT 234 x10e3/uL (140-360); RED BLOOD COUNT 2.94 x10e6/uL (3.6-5.1); RED CELL DISTRIBUTION WIDTH 13.9 % (11.7-14.4); WHITE BLOOD COUNT 3.08 x10e3/uL (4.8-10.8)
[2023-10-06 08:44] LABS: ALBUMIN 3.3 g/dL (3.5-5.0); ALBUMIN/GLOBULIN RATIO 1.3 (0.8-2.0); BILIRUBIN,TOTAL 0.2 mg/dL (0.2-1.2); CALCIUM 9.3 mg/dL (8.4-10.2); CREATININE, SERUM 0.55 mg/dL (0.57-1.11); TOTAL PROTEIN 5.9 g/dL (6.5-8.1)
[2023-10-06] MEDS: FENTANYL CITRATE/PF 100MCG/2 ML INJ IV ONE ×4 (14:36→14:51)
[2023-10-06] MEDS: ACETAMINOPHEN/CODEINE 300MG - 30MG TAB PO ONE (14:58)
[2023-10-06 16:35] VITALS: BP 150/88; PULSE 88; RESP 18; TEMP 97.9; O2SAT 97
== END | disposition home or self-care (01) ==
LOC: OR 07:26
PROVIDERS: ATTEND Urology
DX: N20.0 Calculus of kidney (principal); N13.30 Unspecified hydronephrosis; N39.41 Urge incontinence; N21.0 Calculus in bladder; Z43.5 Encounter for attention to cystostomy; N95.2 Postmenopausal atrophic vaginitis; N81.10 Cystocele, unspecified; N32.81 Overactive bladder; N39.0 Urinary tract infection, site not specified; G35 Multiple sclerosis; K21.9 Gastro-esophageal reflux disease without esophagitis; Z88.1 Allergy status to other antibiotic agents; Z88.0 Allergy status to penicillin; Z79.82 Long term (current) use of aspirin; Z79.899 Other long term (current) drug therapy
CPT/HCPCS: 36415; 50590; 51705; 52317; 52332; 74018; 80053; 83970; 84550; 85025; 87086; 87186; 93005; C1758; C2617; J0587; J1100; J1580; J2001; J2405; J2543; J2704; J3010; J7121; Q9967

== ENCOUNTER 2024-01-26 07:42 | Inpatient (IN) | payer MEDICARE, OTHER ==
[~2024-01-26] VITALS: Ht 170.2 cm; Wt 60.8 kg
[2024-01-26] VITALS (7 sets, daily range): BP systolic 131–143; BP diastolic 88–90; PULSE 67–74; RESP 16–18; TEMP 97.7–98.1; O2SAT 96–99
[~2024-01-26 07:42] MED LIST changes: -ACETAMINOPHEN/CODEINE 300MG - 30MG TAB ONE; -BOTULINUM TOXIN TYPE A 100 UNIT VIAL IM ONE; -DEXAMETHASONE SOD PHOS INJ 4 MG/ML SDV ONE; -EPHEDRINE SULFATE INJ 50 MG/ML VIAL ONE; -ETOMIDATE 2 MG/ML 10 ML INJ IV ONE; -FENTANYL CITRATE/PF 100MCG/2 ML INJ ONE; -GENTAMICIN 80MG/NS 100 ML 200 ML IV ONE; -IOPAMIDOL 610MG/1ML 300 MG/ML VIAL IV ONE; -LACTATED RINGER'S 1,000 ML ONE; -LIDOCAINE HCL 2% LOCAL INJ 5 ML SDV VIAL INJ ONE; +MUSCLE RUB TOP; -ONDANSETRON HCL INJ 2MG/ML 2ML 2 MG/ML VIAL ONE; +PHENAZOPYRIDIN100 MG PO; -PIPERACILLIN/TAZOBACTAM 3.375 GM VIAL ONE; -PROPOFOL IV EMULSION 10 MG/ML 20 ML VIAL ONE
[2024-01-26] MEDS: LACTATED RINGER'S 1,000 ML ONE (08:37)
[2024-01-26 08:44] LABS: BASOPHILS % 1.3 % (0.0-1.0); EOSINOPHILS # (AUTO) 0.1 (0.0-0.4); EOSINOPHILS % 4.1 % (0.0-6.0); HEMATOCRIT 26.4 % (34.2-44.1); HEMOGLOBIN 8.5 g/dL (12.0-16.0); LYMPHOCYTES % 31.9 % (18.0-39.1); MEAN CORPUSCULAR HEMOGLOBIN 31.5 pg (28-32); MEAN CORPUSCULAR HGB CONC 32.2 g/dL (31-35); MEAN CORPUSCULAR VOLUME 97.8 fL (81-99); MONOCYTES # (AUTO) 0.4 (0.2-0.8); MONOCYTES % 12.9 % (4.4-11.3); NEUTROPHILS # (AUTO) 1.6 (2.1-6.9); NEUTROPHILS % 49.5 % (38.7-80.0); PLATELET COUNT 261 x10e3/uL (140-360); RED CELL DISTRIBUTION WIDTH 14.4 % (11.7-14.4); WHITE BLOOD COUNT 3.17 x10e3/uL (4.8-10.8)
[2024-01-26] MEDS: GENTAMICIN 80MG/NS 100 ML 200 ML IV ONE (08:45)
[2024-01-26 10:09] LABS: ANION GAP 12.8 mmol/L (8-16); CALCIUM 9.1 mg/dL (8.4-10.2); CREATININE, SERUM 0.57 mg/dL (0.57-1.11); POTASSIUM 3.8 mmol/L (3.5-5.1); URIC ACID 4.2 mg/dL (2.6-8.0)
[2024-01-26] MEDS ORDERED: BOTULINUM TOXIN TYPE A 100 UNIT VIAL IM ONE (11:00)
[2024-01-26] MEDS ORDERED: IOPAMIDOL 610MG/1ML 300 MG/ML VIAL IV ONE (11:08)
[2024-01-26] MEDS ORDERED: PHENAZOPYRIDINE HCL 100 MG TAB PO PRN (13:30)
[2024-01-26] MEDS ORDERED: ACETAMINOPHEN/CODEINE 300MG - 30MG TAB PO PRN (13:30)
[2024-01-26] MEDS ORDERED: ONDANSETRON HCL INJ 2MG/ML 2ML 2 MG/ML VIAL IV PRN (13:30)
[2024-01-26] MEDS ORDERED: DIPHENHYDRAMINE HCL 25 MG CAP PO PRN ×2 (13:30→15:00)
[2024-01-26] MEDS ORDERED: ACETAMINOPHEN 1000 MG/100 ML IV PRN (13:30)
[2024-01-26] MEDS ORDERED: ONDANSETRON HCL INJ 2MG/ML 2ML 2 MG/ML VIAL ONE (14:14)
[2024-01-26] MEDS ORDERED: LIDOCAINE HCL 2% LOCAL INJ 5 ML SDV VIAL INJ ONE (14:14)
[2024-01-26] MEDS ORDERED: SEVOFLURANE INHAL SOLN 250 ML PEN BTL ONE (14:14)
[2024-01-26] MEDS ORDERED: PROPOFOL IV EMULSION 10 MG/ML 20 ML VIAL ONE (14:14)
[2024-01-26] MEDS ORDERED: MIDAZOLAM HCL 2 MG/2 ML VIAL ONE (15:00)
[2024-01-26] MEDS ORDERED: FENTANYL CITRATE/PF 100MCG/2 ML INJ ONE (15:00)
[2024-01-26] MEDS: SODIUM CHLORIDE 0.9% 1000ML 1,000 ML IV SCH (15:29)
[2024-01-26] MEDS: MEROPENEM 1 GM in SODIUM CHLORIDE 0.9% 100 ML IV SCH (15:29)
[2024-01-26] MEDS: OXYBUTYNIN CHLORIDE 5 MG TAB PO SCH (15:30)
[2024-01-26] MEDS: SENNA-S TABLET PO SCH (15:30)
[2024-01-26] MEDS: PRIMIDONE 50 MG TAB PO SCH (15:31)
[2024-01-26] MEDS: BACLOFEN 10 MG TAB PO SCH (15:32)
[2024-01-26] MEDS ORDERED: BISACODYL 5 MG TAB EC PO PRN (18:00)
[2024-01-26] MEDS: FENOFIBRATE 145 MG TAB PO SCH (20:42)
[2024-01-26] MEDS: LORATADINE 10 MG TAB PO SCH (20:42)
[2024-01-26] MEDS: ROPINIROLE HCL 1 MG TAB PO SCH (20:42)
[2024-01-26] MEDS: DOXEPIN HCL 10 MG CAP PO SCH (20:42)
[2024-01-26] MEDS: PREGABALIN 50 MG CAP PO SCH (20:42)
[2024-01-26] MEDS: ACETAMINOPHEN/CODEINE 300MG - 30MG TAB PO SCH (20:43)
[2024-01-26] MEDS: TRAZODONE HCL 50 MG TAB PO PRN (20:50)
[2024-01-26] MEDS ORDERED: DOXEPIN 6 MG PO SCH (21:00)
[2024-01-26] MEDS ORDERED: BISACODYL 5 MG TAB EC PO SCH (21:00)
[2024-01-26] MEDS ORDERED: FENOFIBRATE 200MG PO SCH (21:00)
[2024-01-27] VITALS (8 sets, daily range): BP systolic 112–148; BP diastolic 69–84; PULSE 65–84; RESP 16–20; TEMP 97.5–99.3; O2SAT 98–100
[2024-01-27 08:07] LABS: BASOPHILS % 0.7 % (0.0-1.0); EOSINOPHILS # (AUTO) 0.1 (0.0-0.4); EOSINOPHILS % 4.1 % (0.0-6.0); HEMATOCRIT 24.8 % (34.2-44.1); HEMOGLOBIN 7.8 g/dL (12.0-16.0); LYMPHOCYTES # (AUTO) 0.7 (1.0-3.2); LYMPHOCYTES % 22.8 % (18.0-39.1); MEAN CORPUSCULAR HEMOGLOBIN 31.1 pg (28-32); MEAN CORPUSCULAR HGB CONC 31.5 g/dL (31-35); MEAN CORPUSCULAR VOLUME 98.8 fL (81-99); MONOCYTES # (AUTO) 0.3 (0.2-0.8); MONOCYTES % 10.5 % (4.4-11.3); NEUTROPHILS # (AUTO) 1.8 (2.1-6.9); NEUTROPHILS % 61.2 % (38.7-80.0); PLATELET COUNT 253 x10e3/uL (140-360); RED BLOOD COUNT 2.51 x10e6/uL (3.6-5.1); RED CELL DISTRIBUTION WIDTH 14.3 % (11.7-14.4); WHITE BLOOD COUNT 2.94 x10e3/uL (4.8-10.8)
[2024-01-27 08:29] LABS: ANION GAP 10.7 mmol/L (8-16); CALCIUM 8.6 mg/dL (8.4-10.2); CREATININE, SERUM 0.59 mg/dL (0.57-1.11); MAGNESIUM 1.7 MG/DL (1.3-2.1); POTASSIUM 3.7 mmol/L (3.5-5.1)
[2024-01-27] MEDS ORDERED: DOCUSATE SODIUM 100 MG CAP PO PRN (09:00)
[2024-01-27] MEDS ORDERED: FENOFIBRATE 145 MG TAB PO SCH (09:00)
[2024-01-27] MEDS ORDERED: DOCUSATE SODIUM 100 MG CAP PO SCH (09:00)
[2024-01-27] MEDS: BUPROPION HCL 150 MG TABCR PO SCH (09:31)
[2024-01-27] MEDS: ASPIRIN 81 MG CHEW TAB PO SCH (09:32)
[2024-01-27] MEDS: FOLIC ACID 1 MG TAB PO SCH (09:32)
[2024-01-27] MEDS: PANTOPRAZOLE SOD 40 MG TABEC PO SCH (09:32)
[2024-01-27] MEDS: CYANOCOBALAMIN 1,000 MCG TAB PO SCH (09:32)
[2024-01-27] MEDS: MAGNESIUM HYDROXIDE 30 ML UDC PO PRN (21:16)
[2024-01-28] VITALS (8 sets, daily range): BP systolic 134–164; BP diastolic 82–99; PULSE 64–80; RESP 15–19; TEMP 97.6–98; O2SAT 97–100
[2024-01-28 07:49] LABS: BASOPHILS % 0.8 % (0.0-1.0); EOSINOPHILS # (AUTO) 0.2 (0.0-0.4); EOSINOPHILS % 6.5 % (0.0-6.0); HEMATOCRIT 25.3 % (34.2-44.1); LYMPHOCYTES # (AUTO) 0.7 (1.0-3.2); LYMPHOCYTES % 26.3 % (18.0-39.1); MEAN CORPUSCULAR HEMOGLOBIN 31.4 pg (28-32); MEAN CORPUSCULAR HGB CONC 31.6 g/dL (31-35); MEAN CORPUSCULAR VOLUME 99.2 fL (81-99); MONOCYTES # (AUTO) 0.3 (0.2-0.8); MONOCYTES % 11.7 % (4.4-11.3); NEUTROPHILS # (AUTO) 1.3 (2.1-6.9); NEUTROPHILS % 54.3 % (38.7-80.0); PLATELET COUNT 238 x10e3/uL (140-360); RED BLOOD COUNT 2.55 x10e6/uL (3.6-5.1); RED CELL DISTRIBUTION WIDTH 14.1 % (11.7-14.4); WHITE BLOOD COUNT 2.47 x10e3/uL (4.8-10.8)
[2024-01-28 08:11] LABS: ANION GAP 10.5 mmol/L (8-16); CALCIUM 8.6 mg/dL (8.4-10.2); CREATININE, SERUM 0.47 mg/dL (0.57-1.11); POTASSIUM 3.5 mmol/L (3.5-5.1)
[2024-01-28] MEDS: Vancomycin IV 500 MG in SODIUM CHLORIDE 0.9% 100 ML IV STA (10:00)
[2024-01-29] VITALS: BP 139/87; PULSE 84; RESP 18; TEMP 98.6; O2SAT 95
[2024-01-29 04:00] VITALS: BP 152/95; PULSE 80; RESP 18; TEMP 98.6; O2SAT 99
[2024-01-29 05:35] LABS: BASOPHILS % 0.4 % (0.0-1.0); EOSINOPHILS # (AUTO) 0.2 (0.0-0.4); EOSINOPHILS % 7.8 % (0.0-6.0); HEMATOCRIT 24.1 % (34.2-44.1); LYMPHOCYTES # (AUTO) 0.5 (1.0-3.2); LYMPHOCYTES % 19.5 % (18.0-39.1); MEAN CORPUSCULAR HEMOGLOBIN 31.6 pg (28-32); MEAN CORPUSCULAR VOLUME 98.8 fL (81-99); MONOCYTES # (AUTO) 0.3 (0.2-0.8); MONOCYTES % 12.5 % (4.4-11.3); NEUTROPHILS # (AUTO) 1.5 (2.1-6.9); NEUTROPHILS % 59.4 % (38.7-80.0); PLATELET COUNT 209 x10e3/uL (140-360); RED BLOOD COUNT 2.44 x10e6/uL (3.6-5.1); RED CELL DISTRIBUTION WIDTH 14.3 % (11.7-14.4); WHITE BLOOD COUNT 2.57 x10e3/uL (4.8-10.8)
[2024-01-29 05:44] LABS: HEMOGLOBIN 7.7 g/dL (12.0-16.0)
[2024-01-29 06:07] LABS: ANION GAP 9.5 mmol/L (8-16); CALCIUM 8.5 mg/dL (8.4-10.2); CREATININE, SERUM 0.45 mg/dL (0.57-1.11); POTASSIUM 3.5 mmol/L (3.5-5.1)
[2024-01-29 08:00] VITALS: BP 134/85; PULSE 72; RESP 16; TEMP 97.9; O2SAT 96
[2024-01-29 11:15] VITALS: PULSE 80; RESP 18; O2SAT 100
[2024-01-29] MEDS ORDERED: ONDANSETRON HCL 4 MG ORAL DISINTEGRATING TAB PO PRN (11:15)
[2024-01-29 12:00] VITALS: BP 147/96; PULSE 73; RESP 16; TEMP 97.7; O2SAT 96
[2024-01-29 16:00] VITALS: BP 147/97; PULSE 74; RESP 16; TEMP 98.1; O2SAT 95
== END 2024-01-29 18:39 | DRG 660 ==
LOC: OR 07:42 → PACU V 13:43 → MED/SURG2 14:24
PROVIDERS: ADMIT Internal Medicine; ATTEND Internal Medicine
PROC: 0TP98DZ Removal of Intraluminal Device from Ureter, Via Natural or Artificial Opening Endoscopic (ICD-10-PCS; 2024-01-26)
PROC: 0TC68ZZ Extirpation of Matter from Right Ureter, Via Natural or Artificial Opening Endoscopic (ICD-10-PCS; 2024-01-26)
PROC: 0UJH7ZZ Inspection of Vagina and Cul-de-sac, Via Natural or Artificial Opening (ICD-10-PCS; 2024-01-26)
PROC: 0T9B70Z Drainage of Bladder with Drainage Device, Via Natural or Artificial Opening (ICD-10-PCS; 2024-01-26)
PROC: 3E0K8GC Introduction of Other Therapeutic Substance into Genitourinary Tract, Via Natural or Artificial Opening Endoscopic (ICD-10-PCS; 2024-01-26)
PROC: 0T768DZ Dilation of Right Ureter with Intraluminal Device, Via Natural or Artificial Opening Endoscopic (ICD-10-PCS; 2024-01-26 11:32)
PROC: 02HV33Z Insertion of Infusion Device into Superior Vena Cava, Percutaneous Approach (ICD-10-PCS; principal; 2024-01-28)
DX: N20.2 Calculus of kidney with calculus of ureter (principal); T83.511A Infection and inflammatory reaction due to indwelling urethral catheter, initial encounter; B96.5 Pseudomonas (aeruginosa) (mallei) (pseudomallei) as the cause of diseases classified elsewhere; B95.62 Methicillin resistant Staphylococcus aureus infection as the cause of diseases classified elsewhere; N31.9 Neuromuscular dysfunction of bladder, unspecified; R31.9 Hematuria, unspecified; K21.9 Gastro-esophageal reflux disease without esophagitis; D64.9 Anemia, unspecified; G35 Multiple sclerosis; M62.461 Contracture of muscle, right lower leg; M62.462 Contracture of muscle, left lower leg; G25.81 Restless legs syndrome; Z86.16 Personal history of COVID-19; N30.20 Other chronic cystitis without hematuria; Y84.6 Urinary catheterization as the cause of abnormal reaction of the patient, or of later complication, without mention of misadventure at the time of the procedure; Z74.01 Bed confinement status; Z87.440 Personal history of urinary (tract) infections; Z85.828 Personal history of other malignant neoplasm of skin; Z88.0 Allergy status to penicillin; F17.210 Nicotine dependence, cigarettes, uncomplicated
CPT/HCPCS: 36415; 36569; 51700; 71045; 74018; 74420; 80048; 83735; 84550; 85025; 87086; 87186; 88300; 93005; 94799; C1766; C1769; C2617; J0587; J1580; J2001; J2185; J2250; J2405; J3370; J7030; J7050

== ENCOUNTER 2024-03-29 06:33 | Inpatient (IN) | payer MEDICARE ==
[2024-03-29] VITALS (7 sets, daily range): BP systolic 122–144; BP diastolic 81–98; PULSE 70–105; RESP 17–21; TEMP 97.2–98.7; O2SAT 92–100
[~2024-03-29] VITALS: Ht 170.2 cm; Wt 59.9 kg
[2024-03-29] MEDS: LACTATED RINGER'S 1,000 ML ONE (07:19)
[2024-03-29] MEDS: GENTAMICIN 80MG/NS 100 ML 200 ML IV ONE (07:31)
[2024-03-29 07:35] LABS: BASOPHILS % 1.4 % (0.0-1.0); EOSINOPHILS # (AUTO) 0.1 (0.0-0.4); EOSINOPHILS % 3.1 % (0.0-6.0); HEMATOCRIT 33.4 % (34.2-44.1); HEMOGLOBIN 9.5 g/dL (12.0-16.0); LYMPHOCYTES # (AUTO) 0.9 (1.0-3.2); LYMPHOCYTES % 30.4 % (18.0-39.1); MEAN CORPUSCULAR HEMOGLOBIN 31.4 pg (28-32); MEAN CORPUSCULAR HGB CONC 28.4 g/dL (31-35); MEAN CORPUSCULAR VOLUME 110.2 fL (81-99); MONOCYTES # (AUTO) 0.4 (0.2-0.8); MONOCYTES % 14.5 % (4.4-11.3); NEUTROPHILS # (AUTO) 1.5 (2.1-6.9); NEUTROPHILS % 50.6 % (38.7-80.0); PLATELET COUNT 242 x10e3/uL (140-360); RED BLOOD COUNT 3.03 x10e6/uL (3.6-5.1); RED CELL DISTRIBUTION WIDTH 14.3 % (11.7-14.4); WHITE BLOOD COUNT 2.89 x10e3/uL (4.8-10.8)
[2024-03-29 08:26] LABS: ANION GAP 11.6 mmol/L (8-16); CALCIUM 9.4 mg/dL (8.4-10.2); CREATININE, SERUM 0.61 mg/dL (0.57-1.11); POTASSIUM 3.6 mmol/L (3.5-5.1); URIC ACID 3.6 mg/dL (2.6-8.0)
[2024-03-29] MEDS ORDERED: IOPAMIDOL 610MG/1ML 300 MG/ML VIAL IV ONE (09:59)
[2024-03-29] MEDS ORDERED: ONDANSETRON HCL INJ 2MG/ML 2ML 2 MG/ML VIAL IV PRN (11:45)
[2024-03-29] MEDS ORDERED: PHENAZOPYRIDINE HCL 100 MG TAB PO PRN (11:45)
[2024-03-29] MEDS ORDERED: LIDOCAINE HCL 2% LOCAL INJ 5 ML SDV VIAL INJ ONE (12:06)
[2024-03-29] MEDS ORDERED: SEVOFLURANE INHAL SOLN 250 ML PEN BTL ONE (12:06)
[2024-03-29] MEDS ORDERED: DEXAMETHASONE SOD PHOS INJ 4 MG/ML SDV ONE (12:06)
[2024-03-29] MEDS ORDERED: ONDANSETRON HCL INJ 2MG/ML 2ML 2 MG/ML VIAL ONE (12:06)
[2024-03-29] MEDS ORDERED: PROPOFOL IV EMULSION 10 MG/ML 20 ML VIAL ONE (12:06)
[2024-03-29] MEDS: MEROPENEM 1 GM VIAL ONE (13:30)
[2024-03-29] MEDS: ACETAMINOPHEN/CODEINE 300MG - 30MG TAB PO PRN (15:10)
[2024-03-29] MEDS: SODIUM CHLORIDE 0.9% 1000ML 1,000 ML IV SCH (15:11)
[2024-03-29] MEDS: Vancomycin IV 1 GM in SODIUM CHLORIDE 0.9% 250ML 250 ML IV SCH (15:11)
[2024-03-29] MEDS: FLUCONAZOLE 100 MG/NS 50 ML 50 ML IV SCH (15:11)
[2024-03-29] MEDS ORDERED: BISACODYL 5 MG TAB EC PO PRN (15:30)
[2024-03-29] MEDS ORDERED: DIPHENHYDRAMINE HCL 25 MG CAP PO PRN (15:30)
[2024-03-29] MEDS: OXYBUTYNIN CHLORIDE 5 MG TAB PO SCH (18:43)
[2024-03-29] MEDS: PRIMIDONE 50 MG TAB PO SCH (18:43)
[2024-03-29] MEDS: DOXEPIN 6 MG PO SCH (21:00)
[2024-03-29] MEDS ORDERED: ACETAMINOPHEN/CODEINE 300MG - 30MG TAB PO SCH (22:00)
[2024-03-29] MEDS: BACLOFEN 10 MG TAB PO SCH (23:41)
[2024-03-29] MEDS: LORATADINE 10 MG TAB PO SCH (23:41)
[2024-03-29] MEDS: MEROPENEM 1 GM in SODIUM CHLORIDE 0.9% 100 ML IV SCH (23:41)
[2024-03-29] MEDS: ACETAMINOPHEN 1000 MG/100 ML IV PRN (23:41)
[2024-03-29] MEDS: PREGABALIN 50 MG CAP PO SCH (23:41)
[2024-03-29] MEDS: ROPINIROLE HCL 1 MG TAB PO SCH (23:46)
[2024-03-29] MEDS: TRAZODONE HCL 50 MG TAB PO PRN (23:54)
[2024-03-30] VITALS (10 sets, daily range): BP systolic 90–137; BP diastolic 63–97; PULSE 71–115; RESP 16–18; TEMP 97.7–100.5; O2SAT 95–100
[2024-03-30 06:58] LABS: ANION GAP 10.3 mmol/L (8-16); CALCIUM 8.3 mg/dL (8.4-10.2); CREATININE, SERUM 0.52 mg/dL (0.57-1.11)
[2024-03-30 07:10] LABS: POTASSIUM 3.3 mmol/L (3.5-5.1)
[2024-03-30 07:37] LABS: BASOPHILS % 0.8 % (0.0-1.0); EOSINOPHILS # (AUTO) 0.1 (0.0-0.4); EOSINOPHILS % 4.2 % (0.0-6.0); HEMATOCRIT 24.8 % (34.2-44.1); LYMPHOCYTES # (AUTO) 0.7 (1.0-3.2); LYMPHOCYTES % 26.1 % (18.0-39.1); MEAN CORPUSCULAR HEMOGLOBIN 31.7 pg (28-32); MEAN CORPUSCULAR VOLUME 102.1 fL (81-99); MONOCYTES # (AUTO) 0.2 (0.2-0.8); MONOCYTES % 8.7 % (4.4-11.3); NEUTROPHILS # (AUTO) 1.6 (2.1-6.9); NEUTROPHILS % 59.8 % (38.7-80.0); PLATELET COUNT 209 x10e3/uL (140-360); RED BLOOD COUNT 2.43 x10e6/uL (3.6-5.1); RED CELL DISTRIBUTION WIDTH 14.2 % (11.7-14.4); WHITE BLOOD COUNT 2.64 x10e3/uL (4.8-10.8)
[2024-03-30 07:45] LABS: HEMOGLOBIN 7.7 g/dL (12.0-16.0)
[2024-03-30] MEDS: BUPROPION HCL 150 MG TABCR PO SCH (08:41)
[2024-03-30] MEDS: CYANOCOBALAMIN 1,000 MCG TAB PO SCH (08:42)
[2024-03-30] MEDS: FOLIC ACID 1 MG TAB PO SCH (08:42)
[2024-03-30] MEDS: ASPIRIN 81 MG CHEW TAB PO SCH (08:42)
[2024-03-30] MEDS: DOCUSATE SODIUM 100 MG CAP PO SCH (08:42)
[2024-03-30] MEDS: PANTOPRAZOLE SOD 40 MG TABEC PO SCH (08:42)
[2024-03-30 10:25] LABS: CALCIUM 8.7 mg/dL (8.7-10.2)
[2024-03-30] MEDS: POTASSIUM CHLORIDE 20 MEQ TAB CR PO ONE (10:34)
[2024-03-31] VITALS (10 sets, daily range): BP systolic 137–158; BP diastolic 83–98; PULSE 69–77; RESP 16–20; TEMP 97.7–98.1; O2SAT 96–100
[2024-03-31 05:27] LABS: EOSINOPHILS # (AUTO) 0.2 (0.0-0.4); EOSINOPHILS % 10.3 % (0.0-6.0); HEMATOCRIT 24.6 % (34.2-44.1); HEMOGLOBIN 7.7 g/dL (12.0-16.0); LYMPHOCYTES # (AUTO) 0.7 (1.0-3.2); LYMPHOCYTES % 33.5 % (18.0-39.1); MEAN CORPUSCULAR HEMOGLOBIN 31.7 pg (28-32); MEAN CORPUSCULAR HGB CONC 31.3 g/dL (31-35); MEAN CORPUSCULAR VOLUME 101.2 fL (81-99); MONOCYTES # (AUTO) 0.2 (0.2-0.8); MONOCYTES % 11.3 % (4.4-11.3); NEUTROPHILS # (AUTO) 0.9 (2.1-6.9); NEUTROPHILS % 43.9 % (38.7-80.0); PLATELET COUNT 203 x10e3/uL (140-360); RED BLOOD COUNT 2.43 x10e6/uL (3.6-5.1); RED CELL DISTRIBUTION WIDTH 14.1 % (11.7-14.4); WHITE BLOOD COUNT 2.03 x10e3/uL (4.8-10.8)
[2024-03-31 05:49] LABS: ANION GAP 11.7 mmol/L (8-16); CALCIUM 8.7 mg/dL (8.4-10.2); CREATININE, SERUM 0.49 mg/dL (0.57-1.11); POTASSIUM 3.7 mmol/L (3.5-5.1)
[2024-03-31] MEDS: MAGNESIUM HYDROXIDE 30 ML UDC PO PRN (22:17)
[2024-03-31] MEDS: DIPHENHYDRAMINE HCL 25 MG CAP PO PRN (22:21)
[2024-04-01] VITALS (7 sets, daily range): BP systolic 124–169; BP diastolic 59–94; PULSE 69–105; RESP 16–20; TEMP 97.9–98.2; O2SAT 97–100
[2024-04-01 05:06] LABS: BASOPHILS % 1.4 % (0.0-1.0); EOSINOPHILS # (AUTO) 0.3 (0.0-0.4); EOSINOPHILS % 11.9 % (0.0-6.0); HEMATOCRIT 24.8 % (34.2-44.1); HEMOGLOBIN 7.8 g/dL (12.0-16.0); LYMPHOCYTES # (AUTO) 0.9 (1.0-3.2); LYMPHOCYTES % 40.6 % (18.0-39.1); MEAN CORPUSCULAR HEMOGLOBIN 31.3 pg (28-32); MEAN CORPUSCULAR HGB CONC 31.5 g/dL (31-35); MEAN CORPUSCULAR VOLUME 99.6 fL (81-99); MONOCYTES # (AUTO) 0.3 (0.2-0.8); MONOCYTES % 14.2 % (4.4-11.3); NEUTROPHILS # (AUTO) 0.7 (2.1-6.9); NEUTROPHILS % 31.4 % (38.7-80.0); PLATELET COUNT 245 x10e3/uL (140-360); RED BLOOD COUNT 2.49 x10e6/uL (3.6-5.1); WHITE BLOOD COUNT 2.19 x10e3/uL (4.8-10.8)
[2024-04-01 05:27] LABS: ANION GAP 10.4 mmol/L (8-16); CALCIUM 8.8 mg/dL (8.4-10.2); CREATININE, SERUM 0.49 mg/dL (0.57-1.11)
[2024-04-01 05:32] LABS: POTASSIUM 3.4 mmol/L (3.5-5.1)
[2024-04-01 08:36] LABS: BASOPHILS % (MANUAL) 1 % (0-1.5); EOSINOPHILS % (MANUAL) 6 % (0-7); LYMPHOCYTES % (MANUAL) 53 % (19-48); MONOCYTES % (MANUAL) 8 % (3.4-9.0); NEUTROPHILS % (MANUAL) 32 % (40-74)
[2024-04-01 08:37] LABS: PLATELET ESTIMATE ADEQUATE; PLATELET MORPHOLOGY COMMENT NORMAL; RBC MORPHOLOGY COMMENT NORMAL
[2024-04-02] VITALS (7 sets, daily range): BP systolic 142–166; BP diastolic 88–95; PULSE 68–78; RESP 17–20; TEMP 97.7–98.1; O2SAT 97–100
[2024-04-02 05:50] LABS: EOSINOPHILS # (AUTO) 0.2 (0.0-0.4); EOSINOPHILS % 7.9 % (0.0-6.0); HEMATOCRIT 27.3 % (34.2-44.1); HEMOGLOBIN 8.3 g/dL (12.0-16.0); LYMPHOCYTES % 40.9 % (18.0-39.1); MEAN CORPUSCULAR HGB CONC 30.4 g/dL (31-35); MEAN CORPUSCULAR VOLUME 101.9 fL (81-99); MONOCYTES # (AUTO) 0.4 (0.2-0.8); MONOCYTES % 15.3 % (4.4-11.3); NEUTROPHILS # (AUTO) 0.9 (2.1-6.9); NEUTROPHILS % 35.9 % (38.7-80.0); PLATELET COUNT 240 x10e3/uL (140-360); RED BLOOD COUNT 2.68 x10e6/uL (3.6-5.1); RED CELL DISTRIBUTION WIDTH 13.9 % (11.7-14.4); WHITE BLOOD COUNT 2.42 x10e3/uL (4.8-10.8)
[2024-04-02 06:37] LABS: ANION GAP 9.4 mmol/L (8-16); CALCIUM 8.8 mg/dL (8.4-10.2); CREATININE, SERUM 0.51 mg/dL (0.57-1.11)
[2024-04-02 06:39] LABS: POTASSIUM 3.4 mmol/L (3.5-5.1)
[2024-04-02 11:46] LABS: EOSINOPHILS % (MANUAL) 12 % (0-7); LYMPHOCYTES % (MANUAL) 33 % (19-48); MONOCYTES % (MANUAL) 11 % (3.4-9.0); NEUTROPHILS % (MANUAL) 44 % (40-74)
[2024-04-02 11:47] LABS: OVALOCYTES FEW; PLATELET ESTIMATE ADEQUATE; PLATELET MORPHOLOGY COMMENT NORMAL
== END 2024-04-02 17:10 | DRG 694 ==
LOC: OR 06:33 → PACU V 11:59 → MED/SURG2 12:32
PROVIDERS: ADMIT Internal Medicine; ATTEND Internal Medicine
PROC: 0TPBX0Z Removal of Drainage Device from Bladder, External Approach (ICD-10-PCS; 2024-03-29)
PROC: 0TP98DZ Removal of Intraluminal Device from Ureter, Via Natural or Artificial Opening Endoscopic (ICD-10-PCS; 2024-03-29)
PROC: BT141ZZ Fluoroscopy of Kidneys, Ureters and Bladder using Low Osmolar Contrast (ICD-10-PCS; 2024-03-29)
PROC: 02HV33Z Insertion of Infusion Device into Superior Vena Cava, Percutaneous Approach (ICD-10-PCS; principal; 2024-03-29 10:07)
PROC: 0TC68ZZ Extirpation of Matter from Right Ureter, Via Natural or Artificial Opening Endoscopic (ICD-10-PCS; 2024-03-29 10:07)
DX: N20.1 Calculus of ureter (principal); N39.0 Urinary tract infection, site not specified; G82.20 Paraplegia, unspecified; Z16.21 Resistance to vancomycin; B96.5 Pseudomonas (aeruginosa) (mallei) (pseudomallei) as the cause of diseases classified elsewhere; G35 Multiple sclerosis; B37.9 Candidiasis, unspecified; F03.90 Unspecified dementia, unspecified severity, without behavioral disturbance, psychotic disturbance, mood disturbance, and anxiety; N31.9 Neuromuscular dysfunction of bladder, unspecified; R33.8 Other retention of urine; I10 Essential (primary) hypertension; G47.00 Insomnia, unspecified; K21.9 Gastro-esophageal reflux disease without esophagitis; Z93.59 Other cystostomy status; N81.10 Cystocele, unspecified; N81.6 Rectocele; N95.2 Postmenopausal atrophic vaginitis; Z79.82 Long term (current) use of aspirin; Z74.01 Bed confinement status; Z96.0 Presence of urogenital implants; Z95.0 Presence of cardiac pacemaker; Z87.440 Personal history of urinary (tract) infections; Z85.828 Personal history of other malignant neoplasm of skin; Z86.16 Personal history of COVID-19; Z87.820 Personal history of traumatic brain injury
CPT/HCPCS: 36415; 74018; 74420; 80048; 83970; 84550; 85025; 87086; 87186; 88300; 94799; C1766; C1769; J1100; J1450; J1580; J2003; J2185; J2405; J7030; J7050

== ENCOUNTER 2024-05-09 13:23 | Inpatient (IN) | payer MEDICARE ==
[~2024-05-09] VITALS: Ht 170.2 cm; Wt 60.3 kg
[2024-05-09 14:05] VITALS: PULSE 105; RESP 16; TEMP 98.1
[2024-05-09] MEDS ORDERED: SODIUM CHLORIDE FLUSH 10 ML SYR IV PRN (14:45)
[2024-05-09 15:11] LABS: BASOPHILS % 0.2 % (0.0-1.0); EOSINOPHILS # (AUTO) 0.1 (0.0-0.4); EOSINOPHILS % 0.8 % (0.0-6.0); HEMATOCRIT 35.6 % (34.2-44.1); HEMOGLOBIN 11.2 g/dL (12.0-16.0); LYMPHOCYTES # (AUTO) 0.4 (1.0-3.2); LYMPHOCYTES % 4.1 % (18.0-39.1); MEAN CORPUSCULAR HEMOGLOBIN 32.2 pg (28-32); MEAN CORPUSCULAR HGB CONC 31.5 g/dL (31-35); MEAN CORPUSCULAR VOLUME 102.3 fL (81-99); MONOCYTES # (AUTO) 0.4 (0.2-0.8); MONOCYTES % 4.8 % (4.4-11.3); NEUTROPHILS # (AUTO) 7.8 (2.1-6.9); NEUTROPHILS % 89.9 % (38.7-80.0); PLATELET COUNT 196 x10e3/uL (140-360); RED BLOOD COUNT 3.48 x10e6/uL (3.6-5.1); RED CELL DISTRIBUTION WIDTH 14.7 % (11.7-14.4); WHITE BLOOD COUNT 8.69 x10e3/uL (4.8-10.8)
[2024-05-09 15:25] LABS: ALBUMIN 3.5 g/dL (3.5-5.0); ALBUMIN/GLOBULIN RATIO 0.9 (0.8-2.0); ANION GAP 16.7 mmol/L (8-16); BILIRUBIN,TOTAL 2.7 mg/dL (0.2-1.2); CALCIUM 9.4 mg/dL (8.4-10.2); CREATININE, SERUM 0.8 mg/dL (0.57-1.11); POTASSIUM 3.7 mmol/L (3.5-5.1); TOTAL PROTEIN 7.2 g/dL (6.5-8.1)
[2024-05-09 15:31] LABS: TROPONIN I 0.005 ng/mL (0-0.300)
[2024-05-09] MEDS: SODIUM CHLORIDE 0.9% 1000ML 1,000 ML IV ONE (16:19)
[2024-05-09] MEDS ORDERED: IOPAMIDOL 370 MG/ML 100 ML INFUS..BTL INJ ONE (18:36)
[2024-05-09] MEDS ORDERED: ONDANSETRON HCL INJ 2MG/ML 2ML 2 MG/ML VIAL IV PRN (18:45)
[2024-05-09] MEDS ORDERED: SODIUM CHLORIDE FLUSH 10 ML SYR INJ PRN (18:45)
[2024-05-09 20:00] VITALS: BP 117/82; PULSE 91; RESP 17; TEMP 97.8; O2SAT 95
[2024-05-09] MEDS: NITROFURANTOIN MACROCRYSTALS 100 MG CAP PO SCH (20:39)
[2024-05-09 22:21] VITALS: BP 117/82; PULSE 91; RESP 17; TEMP 97.8; O2SAT 95
[2024-05-09 22:23] VITALS: BP 117/82; PULSE 91; RESP 17; TEMP 97.8; O2SAT 99
[2024-05-10] VITALS (8 sets, daily range): BP systolic 133–158; BP diastolic 77–97; PULSE 82–108; RESP 16–18; TEMP 98.1–98.6; O2SAT 93–100
[2024-05-10 05:31] LABS: BASOPHILS % 0.4 % (0.0-1.0); EOSINOPHILS # (AUTO) 0.3 (0.0-0.4); EOSINOPHILS % 4.8 % (0.0-6.0); HEMATOCRIT 29.6 % (34.2-44.1); HEMOGLOBIN 9.4 g/dL (12.0-16.0); LYMPHOCYTES # (AUTO) 0.6 (1.0-3.2); LYMPHOCYTES % 11.7 % (18.0-39.1); MEAN CORPUSCULAR HEMOGLOBIN 31.6 pg (28-32); MEAN CORPUSCULAR HGB CONC 31.8 g/dL (31-35); MEAN CORPUSCULAR VOLUME 99.7 fL (81-99); MONOCYTES # (AUTO) 0.6 (0.2-0.8); MONOCYTES % 11.1 % (4.4-11.3); NEUTROPHILS # (AUTO) 3.8 (2.1-6.9); NEUTROPHILS % 71.8 % (38.7-80.0); PLATELET COUNT 147 x10e3/uL (140-360); RED BLOOD COUNT 2.97 x10e6/uL (3.6-5.1); WHITE BLOOD COUNT 5.23 x10e3/uL (4.8-10.8)
[2024-05-10 06:08] LABS: ALBUMIN 2.9 g/dL (3.5-5.0); ANION GAP 13.2 mmol/L (8-16); BILIRUBIN,TOTAL 1.1 mg/dL (0.2-1.2); CALCIUM 8.9 mg/dL (8.4-10.2); CREATININE, SERUM 0.64 mg/dL (0.57-1.11); TOTAL PROTEIN 5.9 g/dL (6.5-8.1)
[2024-05-10 06:13] LABS: POTASSIUM 3.2 mmol/L (3.5-5.1)
[2024-05-10] MEDS ORDERED: PHENAZOPYRIDIN100 MG PO (07:34)
[2024-05-10] MEDS ORDERED: PROTONIX20 MG PO (07:34)
[2024-05-10] MEDS ORDERED: BISACODYL 5 MG TAB EC PO PRN (10:30)
[2024-05-10] MEDS ORDERED: MAGNESIUM HYDROXIDE 30 ML UDC PO PRN (10:30)
[2024-05-10] MEDS ORDERED: PHENAZOPYRIDINE HCL 100 MG TAB PO PRN (10:30)
[2024-05-10 10:59] LABS: CLARITY,URINE CLOUDY (CLEAR); COLOR,URINE YELLOW (YELLOW); LEUKOCYTE ESTERASE ,URINE SMALL (NEGATIVE); NITRITE,URINE POSITIVE (NEGATIVE); PH,URINE 7.5 (5 - 7); PROTEIN,URINE DIPSTICK NEGATIVE (NEGATIVE)
[2024-05-10 11:00] LABS: BILIRUBIN,URINE NEGATIVE (NEGATIVE); GLUCOSE, URINE NEGATIVE (NEGATIVE); KETONES,URINE NEGATIVE (NEGATIVE); URINE UROBILINOGEN 1 mg/dL (0.2 - 1)
[2024-05-10 11:14] LABS: BACTERIA,URINE MANY /HPF; EPITHELIAL CELLS,URINE RARE /LPF; WBC,URINE (MAN) 21-50 /HPF (0-5)
[2024-05-10] MEDS: TRIMETHOPRIM/SULFAMETHOXAZOLE 160-800 MG TAB PO SCH (12:02)
[2024-05-10] MEDS: POTASSIUM CHLORIDE 10MEQ EA PO ONE (12:03)
[2024-05-10] MEDS: ACETAMINOPHEN/CODEINE 300MG - 30MG TAB PO PRN (12:07)
[2024-05-10] MEDS: BACLOFEN 10 MG TAB PO SCH (15:11)
[2024-05-10] MEDS: PRIMIDONE 50 MG TAB PO SCH (16:55)
[2024-05-10] MEDS: OXYBUTYNIN CHLORIDE 5 MG TAB PO SCH (16:55)
[2024-05-10] MEDS ORDERED: DOXEPIN HCL 6 MG PO SCH (21:00)
[2024-05-10] MEDS: ROPINIROLE HCL 1 MG TAB PO SCH (21:47)
[2024-05-10] MEDS: PREGABALIN 50 MG CAP PO SCH (21:48)
[2024-05-11] VITALS: BP 141/85; PULSE 76; RESP 18; TEMP 76; O2SAT 98
[2024-05-11] MEDS: DIPHENHYDRAMINE HCL 25 MG CAP PO PRN (01:56)
[2024-05-11 04:00] VITALS: BP 147/83; PULSE 69; RESP 18; TEMP 97.9; O2SAT 98
[2024-05-11 08:00] VITALS: BP 140/89; PULSE 76; RESP 18; TEMP 98.1; O2SAT 98
[2024-05-11 08:11] VITALS: BP 140/89; PULSE 76; RESP 18; TEMP 98.1; O2SAT 98
[2024-05-11] MEDS: PANTOPRAZOLE SOD 40 MG TABEC PO SCH (09:33)
[2024-05-11] MEDS: CYANOCOBALAMIN 1,000 MCG TAB PO SCH (09:33)
[2024-05-11] MEDS: FOLIC ACID 1 MG TAB PO SCH (09:34)
[2024-05-11] MEDS: BUPROPION HCL 150 MG TABCR PO SCH (09:34)
[2024-05-11] MEDS: ASPIRIN 81 MG CHEW TAB PO SCH (09:34)
[2024-05-11 12:16] VITALS: BP 145/87; PULSE 77; RESP 20; TEMP 97.8; O2SAT 99
[2024-05-11] MEDS ORDERED: BACTRIM DS TAB1 EACH PO (14:06)
[2024-05-11 14:16] LABS: ALBUMIN 2.8 g/dL (3.5-5.0); BILIRUBIN,DIRECT 0.3 mg/dL (0.0-0.5); BILIRUBIN,TOTAL 0.4 mg/dL (0.2-1.2); TOTAL PROTEIN 5.7 g/dL (6.5-8.1)
[2024-05-11 15:52] VITALS: BP 131/80; PULSE 73; RESP 14; TEMP 97.9; O2SAT 99
== END 2024-05-11 17:35 | DRG 887 ==
LOC: ER 14:25 → ERHOLD 18:41 → MED/SURG 20:40
PROVIDERS: ADMIT Internal Medicine; ATTEND Internal Medicine
DX: G47.9 Sleep disorder, unspecified (principal); N39.0 Urinary tract infection, site not specified; R17 Unspecified jaundice; F51.9 Sleep disorder not due to a substance or known physiological condition, unspecified; G35 Multiple sclerosis; R74.8 Abnormal levels of other serum enzymes; N20.0 Calculus of kidney; Z22.9 Carrier of infectious disease, unspecified; Z96.0 Presence of urogenital implants; K80.20 Calculus of gallbladder without cholecystitis without obstruction; R79.1 Abnormal coagulation profile; R00.0 Tachycardia, unspecified; I25.10 Atherosclerotic heart disease of native coronary artery without angina pectoris; G43.909 Migraine, unspecified, not intractable, without status migrainosus; Z95.0 Presence of cardiac pacemaker; Z86.73 Personal history of transient ischemic attack (TIA), and cerebral infarction without residual deficits; Z85.828 Personal history of other malignant neoplasm of skin; Z79.899 Other long term (current) drug therapy; Z79.82 Long term (current) use of aspirin
CPT/HCPCS: 36415; 71260; 74177; 76705; 80053; 80076; 80320; 81001; 84484; 85025; 85379; 93005; 94760; 99252; 99284; J7030; Q9967

== ENCOUNTER → 2024-09-23 | Outpatient (REF) | payer MEDICARE ==
[~2024-09-23] MED LIST changes: +NITROFURANTOIN100 MG PO; +ONDANSETRON ODT4 MG PO; +PROTONIX20 MG PO
== END ==
LOC: CT 15:43
PROVIDERS: ATTEND Urology
DX: N20.0 Calculus of kidney (principal)
CPT/HCPCS: 74176

== ENCOUNTER → 2024-10-09 | Day surgery (SDC) | payer MEDICARE ==
[~2024-10-09] MED LIST changes: +BOTULINUM TOXIN TYPE A 100 UNIT VIAL IM ONE; +DEXAMETHASONE SOD PHOS INJ 4 MG/ML SDV ONE; +EPHEDRINE SULFATE INJ 50 MG/ML VIAL ONE; +FENTANYL CITRATE/PF 100MCG/2 ML INJ ONE; +FLONASE ALLERG9.9 ML INH; +HYDROCODONE/APAP 5MG-325MG TAB ONE; +LIDOCAINE HCL 2% LOCAL INJ 5 ML SDV VIAL INJ ONE; +MONTELUKAST SOD10 MG PO; +ONDANSETRON HCL INJ 2MG/ML 2ML 2 MG/ML VIAL ONE; +PROPOFOL IV EMULSION 10 MG/ML 20 ML VIAL ONE; +SEVOFLURANE INHAL SOLN 250 ML PEN BTL ONE; +TIZANIDINE HCL4 MG PO; +TRAZODONE HCL100 MG PO
[2024-10-09 10:46] LABS: ANION GAP 13.1 mmol/L (8-16); CALCIUM 8.7 mg/dL (8.4-10.2); CREATININE, SERUM 0.61 mg/dL (0.57-1.11); POTASSIUM 4.1 mmol/L (3.5-5.1)
[2024-10-09] MEDS: LACTATED RINGER'S 1,000 ML ONE (11:42)
[2024-10-09] MEDS: MEROPENEM 1 GM VIAL ONE (11:43)
[2024-10-09 12:50] VITALS: TEMP 97.9
[2024-10-09] MEDS: FENTANYL CITRATE/PF 100MCG/2 ML INJ ONE (13:09)
[2024-10-09] MEDS: HYDROCODONE/APAP 5MG-325MG TAB PO ONE (13:46)
[2024-10-09 13:51] LABS: BASOPHILS % 1.2 % (0.0-1.0); EOSINOPHILS # (AUTO) 0.2 (0.0-0.4); EOSINOPHILS % 6.7 % (0.0-6.0); HEMATOCRIT 32.2 % (34.2-44.1); HEMOGLOBIN 10.7 g/dL (12.0-16.0); LYMPHOCYTES % 29.2 % (18.0-39.1); MEAN CORPUSCULAR HEMOGLOBIN 32.5 pg (28-32); MEAN CORPUSCULAR HGB CONC 33.2 g/dL (31-35); MEAN CORPUSCULAR VOLUME 97.9 fL (81-99); MONOCYTES # (AUTO) 0.4 (0.2-0.8); MONOCYTES % 10.5 % (4.4-11.3); NEUTROPHILS # (AUTO) 1.8 (2.1-6.9); NEUTROPHILS % 52.1 % (38.7-80.0); PLATELET COUNT 172 x10e3/uL (140-360); RED BLOOD COUNT 3.29 x10e6/uL (3.6-5.1); RED CELL DISTRIBUTION WIDTH 13.8 % (11.7-14.4); WHITE BLOOD COUNT 3.42 x10e3/uL (4.8-10.8)
[2024-10-09 14:20] VITALS: BP 123/85; PULSE 70; RESP 16; O2SAT 98
== END | disposition home or self-care (01) ==
LOC: OR 09:26
PROVIDERS: ATTEND Urology
DX: N39.41 Urge incontinence (principal); N39.0 Urinary tract infection, site not specified; R33.8 Other retention of urine; Z87.442 Personal history of urinary calculi; N81.10 Cystocele, unspecified; N81.6 Rectocele; N95.2 Postmenopausal atrophic vaginitis; Z43.5 Encounter for attention to cystostomy; N32.89 Other specified disorders of bladder; N31.9 Neuromuscular dysfunction of bladder, unspecified; N81.89 Other female genital prolapse; G35 Multiple sclerosis; Z88.1 Allergy status to other antibiotic agents; Z88.0 Allergy status to penicillin; Z79.82 Long term (current) use of aspirin; Z79.899 Other long term (current) drug therapy; Z95.0 Presence of cardiac pacemaker; Z85.828 Personal history of other malignant neoplasm of skin; Z86.16 Personal history of COVID-19
CPT/HCPCS: 36415; 51705; 52005; 52287; 74018; 74420; 80048; 85025; 87086; 87186; 93005; C1758; J0587; J1100; J2003; J2185; J2405; J2704; J3010; J7121

== ENCOUNTER → 2024-10-16 | Outpatient (REF) | payer MEDICARE ==
[~2024-10-16] MED LIST changes: -BOTULINUM TOXIN TYPE A 100 UNIT VIAL IM ONE; -DEXAMETHASONE SOD PHOS INJ 4 MG/ML SDV ONE; -EPHEDRINE SULFATE INJ 50 MG/ML VIAL ONE; -FENTANYL CITRATE/PF 100MCG/2 ML INJ ONE; -HYDROCODONE/APAP 5MG-325MG TAB ONE; +IOPAMIDOL 370 MG/ML 100 ML INFUS..BTL INJ ONE; -LIDOCAINE HCL 2% LOCAL INJ 5 ML SDV VIAL INJ ONE; -ONDANSETRON HCL INJ 2MG/ML 2ML 2 MG/ML VIAL ONE; -PROPOFOL IV EMULSION 10 MG/ML 20 ML VIAL ONE; -SEVOFLURANE INHAL SOLN 250 ML PEN BTL ONE
== END ==
LOC: CT 09:55
PROVIDERS: ATTEND Urology
DX: N28.1 Cyst of kidney, acquired (principal); N20.0 Calculus of kidney; Z87.442 Personal history of urinary calculi
CPT/HCPCS: 74178; Q9967

== ENCOUNTER 2024-12-09 15:55 | Emergency (ER) | payer MEDICARE, OTHER ==
[~2024-12-09] VITALS: Ht 170.2 cm; Wt 59.9 kg
[~2024-12-09 15:55] MED LIST changes: -IOPAMIDOL 370 MG/ML 100 ML INFUS..BTL INJ ONE
[2024-12-09 16:00] VITALS: RESP 16; TEMP 98.5
[2024-12-09 16:41] LABS: BASOPHILS % 0.7 % (0.0-1.0); EOSINOPHILS # (AUTO) 0.2 (0.0-0.4); EOSINOPHILS % 5.3 % (0.0-6.0); HEMATOCRIT 30.1 % (34.2-44.1); HEMOGLOBIN 10.3 g/dL (12.0-16.0); LYMPHOCYTES # (AUTO) 0.9 (1.0-3.2); LYMPHOCYTES % 30.2 % (18.0-39.1); MEAN CORPUSCULAR HEMOGLOBIN 33.1 pg (28-32); MEAN CORPUSCULAR HGB CONC 34.2 g/dL (31-35); MEAN CORPUSCULAR VOLUME 96.8 fL (81-99); MONOCYTES # (AUTO) 0.3 (0.2-0.8); MONOCYTES % 9.8 % (4.4-11.3); NEUTROPHILS # (AUTO) 1.5 (2.1-6.9); NEUTROPHILS % 53.6 % (38.7-80.0); PLATELET COUNT 166 x10e3/uL (140-360); RED BLOOD COUNT 3.11 x10e6/uL (3.6-5.1); RED CELL DISTRIBUTION WIDTH 13.2 % (11.7-14.4); WHITE BLOOD COUNT 2.85 x10e3/uL (4.8-10.8)
[2024-12-09 16:45] LABS: BILIRUBIN,URINE NEGATIVE (NEGATIVE); CLARITY,URINE CLOUDY (CLEAR); COLOR,URINE PINK (YELLOW); GLUCOSE, URINE NEGATIVE (NEGATIVE); KETONES,URINE NEGATIVE (NEGATIVE); LEUKOCYTE ESTERASE ,URINE SMALL (NEGATIVE); NITRITE,URINE POSITIVE (NEGATIVE); PH,URINE 7 (5 - 7); PROTEIN,URINE DIPSTICK 2+ (NEGATIVE); URINE UROBILINOGEN 0.2 mg/dL (0.2 - 1)
[2024-12-09 16:55] LABS: BACTERIA,URINE MODERATE /HPF; EPITHELIAL CELLS,URINE FEW /LPF; RENAL EPITHELIAL CELLS,URINE MODERATE; TRANSITIONAL EPI CELLS,URINE MODERATE; WBC,URINE (MAN) 0-5 /HPF (0-5)
[2024-12-09 16:56] LABS: ALBUMIN 3.4 g/dL (3.5-5.0); ALBUMIN/GLOBULIN RATIO 1.4 (0.8-2.0); ANION GAP 13.7 mmol/L (8-16); BILIRUBIN,TOTAL 0.2 mg/dL (0.2-1.2); CALCIUM 8.2 mg/dL (8.4-10.2); CREATININE, SERUM 0.6 mg/dL (0.57-1.11); POTASSIUM 3.7 mmol/L (3.5-5.1); TOTAL PROTEIN 5.8 g/dL (6.5-8.1)
[2024-12-09 17:01] LABS: INR 0.85; PROTHROMBIN TIME 12.4 seconds (11.9-14.5)
[2024-12-09] MEDS ORDERED: IOPAMIDOL 370 MG/ML 100 ML INFUS..BTL INJ ONE (17:17)
[2024-12-09] MEDS ORDERED: SODIUM CHLORIDE 0.9% 250ML 250 ML ONE (17:17)
[2024-12-09] MEDS: MEROPENEM 1 GM in SODIUM CHLORIDE 0.9% 100 ML IV ONE (22:14)
[2024-12-09] MEDS ORDERED: CEFUROXIME250 MG PO (22:26)
[2024-12-09 23:30] VITALS: PULSE 83
[2024-12-09 23:59] VITALS: BP 126/82; O2SAT 95
== END 2024-12-10 | disposition home or self-care (01) ==
LOC: ER 16:19
DX: Z46.6 Encounter for fitting and adjustment of urinary device (principal); R31.9 Hematuria, unspecified; N39.0 Urinary tract infection, site not specified; N20.0 Calculus of kidney; I10 Essential (primary) hypertension; G35 Multiple sclerosis; D64.9 Anemia, unspecified; K21.9 Gastro-esophageal reflux disease without esophagitis; Z86.73 Personal history of transient ischemic attack (TIA), and cerebral infarction without residual deficits; Z85.828 Personal history of other malignant neoplasm of skin; Z87.19 Personal history of other diseases of the digestive system; Z95.810 Presence of automatic (implantable) cardiac defibrillator
CPT/HCPCS: 36415; 74178; 80053; 81001; 85025; 85610; 87086; 87186; 99284; J2185; J7050 ×2; Q9967